=== PATIENT | male | born 1970 | race Caucasian/White ===

== ENCOUNTER 2019-06-12 10:59 | Outpatient (CLI) | payer MEDICARE, SELFPAY ==
[2019-06-12 11:49] LABS: Basophils # 0.1 10^3/uL (0.0-0.1); Basophils % 0.8 %; Eosinophils # 0.1 10^3/uL (0.0-0.8); Eosinophils % 1.5 %; Hematocrit 42.2 % (42.0-52.0); Hemoglobin 13.5 g/dL (11.7-16.6); Lymphocytes # 1.5 10^3/uL (0.8-4.8); Lymphocytes % 25.1 %; Mean Corpuscular Hemoglobin 29.2 pg (28.0-34.0); Mean Corpuscular Volume 91.1 fL (80-94); Mean Platelet Volume 10.8 fL (7.4-10.4); Monocytes # 0.4 10^3/uL (0.2-0.9); Monocytes % 6.9 %; Neutrophils % 65.5 %; Nucleated Red Blood Cells % 0 %; Platelet Count 225 10^3/cmm (130-400); Red Blood Count 4.63 10^6/uL (4.1-5.3); Red Cell Distribution Width 13.5 % (12.1-15.1); White Blood Count 6.1 10^3/uL (4.0-10.0)
[2019-06-12 12:22] LABS: Prostate Specific Antigen 31.81 ng/mL (0-4); Testosterone Total 101.7 ng/dL (249-836)
[2019-06-12 12:33] LABS: Alanine Aminotransferase 33 U/L (0-41); Albumin Level 4.5 g/dL (3.5-5.2); Alkaline Phosphatase 99 IU/L (40-130); Anion Gap 17.3 (5-19); Aspartate Amino Transferase 22 U/L (0-40); Blood Urea Nitrogen 16 mg/dL (6-20); Calcium 9.5 mg/dL (8.5-10.5); Carbon Dioxide 26 mmol/L (22-29); Chloride 103 mmol/L (98-107); Globulin 2.3 g/dL (1.3-4.6); Glomerular Filtration Rate 80.1 mL/min (90-130); Glucose 103 mg/dL (65-115); Potassium 4.3 mmol/L (3.5-5.1); Sodium 142 mmol/L (136-145); Total Bilirubin 0.2 mg/dL (0.15-1.2); Total Protein 6.8 g/dL (6.6-8.7)
--- NOTE | 2019-06-13 15:10 | ONC FU_ITS ---
Dr. Albright Patient Follow-Up Note Patient: Ad Schwartz Unit #: [id number]: 1970 Dicatated By: Mayank Albright M.D.Date of Visit:Jun 12, 2019 Onc Med Follow-up/Prog Note Chief Complaint: Prostate cancer. History of Present Illness: This is a 48 year-old man with stage IV prostate cancer, metastatic to lymph nodes and bone. He had presented with an enlarged left cervical lymph node. His PET/CT on 05/17/2015 showed several enlarged nodes in the left neck with relatively low levels of FDG activity, maximum SUV 1.9-2.4. Also noted was extensive conglomerate retroperitoneal adenopathy beginning below the level of the renal arteries and extending through the level of the bifurcation and along the iliac chains with a maximum SUV up to 6.5. There was additional adenopathy along the pelvic sidewalls somewhat more extensive on the left. The prostate gland measured approximate 5.3 cm in transverse dimension and demonstrated physiologic levels of activity. There was increased activity in the right superior pubic ramus at the level of the pubic symphysis with maximum SUV 5.5. A left cervical lymph node biopsy was apparently consistent with metastatic prostate cancer, but the actual report was not available to me. He indicated that his baseline PSA level was 1163. He was treated initially with androgen deprivation through [facility] in [place]. At some point he opted to undergo treatment with a private oncology group in [place], where he was started on chemotherapy, I assume with docetaxel/prednisone. It was administered weekly. He last received chemotherapy 2 or 3 months ago. He indicates that he stopped treatment because he ran out of money . During this time he continued the androgen deprivation. He has been getting Depo-Lupron injections from [facility] in [place]. His laboratory studies on 02/18/2016 showed his PSA level at 45.9 ng/mL. By his recollection, it was somewhere in the range of 44-46 when last checked in [place]. I had seen him initially on 04/13/2016. A subsequent PSA level on 04/19/2016 was stable at 40.3 ng/mL. In the absence of any evidence of disease progression, he was advised to continue androgen deprivation with Depo-Lupron. During subsequent follow-up, his PSA level had increased slightly, up to 63 ng/mL in June 2016. His testosterone levels at that time were in castrate range. As of 08/07/2016 it was stable at 57 ng/mL. However, a repeat PSA level on 11/09/2016 had increased significantly, to 102.0 ng/mL. A CT scan of the right hip on 11/09/2016 showed stable right superior ramus/pubic body sclerosis compatible with metastatic disease. There was also stable right superior acetabular small sclerotic focus felt to most likely represent a bone island. Small metastasis cannot be excluded. CT abdomen/pelvis on 11/09/2016 showed increased retroperitoneal lymphadenopathy. He had further evaluation with bone scan on 12/04/2016. It showed intense bony uptake involving the right superior pubic ramus, corresponding to the area of blastic metastatic disease on the CT scan. There was an additional suspected focus of metastatic involvement in the left 10th rib anteriorly, though technically it was indeterminate. There were no other foci of metastatic disease noted. On 12/22/2016 he began treatment with abiraterone 1000 mg daily and prednisone 5 mg twice a day in addition to his Depo-Lupron. His PSA level at that point had decreased to 40.80 ng/mL. As of his follow-up visit on 01/22/2017 the PSA had declined to 15.00 ng/mL. He was still having significant pain in his right hip area. We opted to treat him with palliative radiation to the area of involvement in the right pubic ramus. He completed radiation on 02/14/2017 to a total dose of 3900 cGy. During subsequent followup there was further decline in the PSA level to 10.7 ng/mL on 03/22/3017. As of 05/08/2017 it had stabilized at 11.0 ng/mL. However, as of 08/06/2017 it had further declined to 4.4 ng/mL. He continued treatment with abiraterone/prednisone in combination with Depo-Lupron. As of 12/16/2017 the PSA had further declined to 2.51 ng/mL and by 06/11/2018 it was down to 1.6 ng/mL. As of his follow-up visit on 12/26/2018 it had increased slightly, to 2.51 ng/mL. At that point he had opted to stop his treatment, as he had become profoundly discouraged about his loss of sexual function. Repeat bone scan on 01/06/2019 was negative for metastatic disease. There was clearing of metastatic lesion involving the right pubic symphysis and possible traumatic injury to the left 10th rib. Rest[address] abdomen/pelvis on 01/20/2019 showed significant decrease in previously noted retroperitoneal and internal iliac lymphadenopathy and resolved blastic metastatic lesion in the right superior pubic ramus compared to the prior study from November 2016. There were no other lytic or blastic bony destructive lesions identified. The liver showed fatty infiltration, but no evidence of metastatic involvement. He was seen for a follow-up visit on 03/18/2019. His PSA level had increased to 6.90 ng/mL, but at that point he was feeling significantly better. He continued observation/expectant management for the prostate cancer. His medical history is otherwise unremarkable. He has had some chronic anxiety, but no other ongoing medical illnesses. He has had no other surgeries. He is a nonsmoker. INTERIM HISTORY: Subsequent to his last visit I had requested genetic profiling to screen for possible BRCA mutation. 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 He is seen for a follow-up visit. He has been feeling good generally. He still has some fatigue, but his energy is a little better and he is thinking about going back to work, at least part-time. His ECOG score is 1. He has good appetite. He has not had fever or night sweats. He still has some hot flashes. Recently he has had a scratchy throat and slight cough. He has no shortness of breath or chest pain. He has very occasional acid reflux. He has no other GI or complaints. He has pain in his knees and ankles and also some pain in his hips. It is managed adequately with hydrocodone/APAP. His neuropathy symptoms have improved. Medications: Hydrocodone-Acetaminophen 1 Tablet (of 10-325 mg) Oral q 4 hours PRN, Xanax 1 Tablet (of 0.5 mg) Oral t.i.d. PRN Allergies: Band Aid Review of Systems: Constitutional - His energy has been better. He is exercising more and doing more light work. His appetite is good and his weight is down a few pounds. No fever or chills. He has some hot flashes and sweating. ECOG score is 1, ENMT - He has sinus congestion/drainage. No mouth sores. No sore throat or difficulty swallowing, Hematologic/Lymphatic - No abnormal bruising or bleeding, Respiratory - No shortness of breath. He has a slight cough. No pleuritic pain or hemoptysis, Cardiovascular - No angina pain. No palpitations, Gastrointestinal - No nausea or vomiting. He has occasional heartburn. No diarrhea or constipation. No blood in the stool or black stools, Genitourinary (M) - No dysuria or hematuria. No urinary frequency. No urgency or incontinence, Musculoskeletal - He has pain in his knees, hips and ankles, Integumentary - No skin complications, Neurologic - No headache or dizziness. No numbness/paresthesias or other focal neurologic symptoms, Psychiatric - No anxiety or depression. No insomnia. Vital Signs: Performed on Jun 12, 2019 12:41 Height - 71.00 in Weight - 209.4 lbs (LOW) BSA - 2.15 sq.m BMI - 29.21 Temperature - 98.3 F (LOW) Pulse - 63 /min Respiration - 17 /min BP - 152/82 mm(hg) (HIGH) O2 Sat - 99 % Pain - 5 Physical Examination: Constitutional - He looks good generally, Eyes - Sclerae nonicteric. Conjunctivae clear, ENMT - No lesions noted in the oral cavity, Hematologic/Lymphatic - No cervical, clavicular, or axillary adenopathy, Respiratory - Lungs are clear with good air movement bilaterally, Cardiovascular - Heart rhythm is regular. There is no murmur, gallop, or rub noted, Abdomen - Soft. Liver and spleen are not enlarged. There is no abdominal mass or ascites noted and there is no inguinal adenopathy, Extremities - No edema, Neurologic - No focal neurologic deficits noted. Lab/Imaging: Test performed on Jun 12, 2019 11:13 Sodium 142 mmol/L Testosterone, Total 101.7 ng/dL Potassium 4.3 mmol/L Chloride 103 mmol/L CO2 26 mmol/L Anion Gap 17.3 BUN 16 mg/dL Creatinine 1.0 mg/dL Cr Clearance (Est) 122.69 mL/min eGFR 80.1 mL/min Glucose 103 mg/dL Calcium 9.5 mg/dL Protein, Total 6.8 g/dL Albumin 4.5 g/dL Globulin 2.3 g/dL Bilirubin, Total 0.2 mg/dL ALT (SGPT) 33 U/L AST (SGOT) 22 U/L Alkaline Phosphatase 99 IU/L WBC 6.1 10 3/uL RBC 4.63 10 6/uL HGB 13.5 g/dL HCT 42.2 % MCV 91.1 fL MCH 29.2 pg MCHC 32.0 g/dL RDW 13.5 % Platelet Count 225 10 3/cmm MPV 10.8 fL Neutrophils 4.0 10 3/uL Lymphocytes 1.5 10 3/uL Monocytes 0.4 10 3/uL Eosinophils 0.1 10 3/uL Basophils 0.1 10 3/uL Neutrophil % 65.5 % Lymphocyte % 25.1 % Monocyte % 6.9 % Eosinophil % 1.5 % Basophils % 0.8 % PSA 31.81 ng/mL Impression: 1. Patient with stage IV prostate cancer, metastatic to lymph nodes and bone, initially diagnosed in April 2015. 2. He initially began treatment with androgen deprivation with subsequent addition of chemotherapy, which I assume was docetaxel/prednisone. He did show significant response, both clinically and by PSA level. 3. He had stopped chemotherapy some were around January or February 2016. He was subsequently continued androgen deprivation with Depo-Lupron. During subsequent follow-up, there had been just a slight increase in his PSA level, but his clinical status appeared stable, and I had just continued his same treatment. However, as of November 2016 his PSA level had increased significantly. CT abdomen/pelvis on 11/09/2016 showed increased retroperitoneal lymphadenopathy, and clinically it did appear that he was having disease progression. A subsequent bone scan showed intense uptake in the right superior pubic ramus corresponding to an area of blastic metastatic disease which had been noted on CT scan of the right hip. There was additional suspected metastatic involvement in the left 10th rib anteriorly, though technically that site was indeterminate. There were no other areas of metastatic involvement noted. On 12/22/2016 he began treatment with abiraterone 1000 mg daily and prednisone 5 mg twice a day in addition to the Depo-Lupron. At that point, his PSA had declined to 40.80 ng/mL, though without any apparent explanation for that drop. As of 01/22/2017 there was a further decline in the PSA level 15.00 ng/mL. At that point he was still having significant pain in his right hip area, and he was then given palliative radiation to the area of involvement in the right pubic ramus. He completed treatment on 02/14/2017 to 3900 cGy. He did have a good clinical response. During that time, he also developed significant pain in his feet, which he attributed to the abiraterone. He had decreased the dosage to 250 mg twice a day, and he had also stopped the prednisone. During subsequent followup there has been further decline in the PSA level. As of 06/11/2018 it was down to 1.6 ng/mL. As of his follow-up visit on 12/26/2018 the PSA level had increased slightly, 2.51 ng/mL. At that point he had opted to stop his treatment, as he had become profoundly discouraged about his loss of sexual function. His restaging evaluation with bone scan and CT abdomen/pelvis showed no evidence of disease progression. As of March 2019 there was a significant increase in his PSA level, to 6.90 ng/mL. At that point he was feeling better and in the absence of any evidence of symptomatic disease progression, he continued observation/expectant management. 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 He has continued to show gradual symptomatic improvement since stopping androgen deprivation therapy. His PSA level continues to show significant increase, but without obvious symptomatic disease progression. Plan: For now he will continue observation/expectant management. I will plan to see him again in 3 months. He will have restaging evaluation with CT chest/abdomen/pelvis and bone scan prior to that visit. May have noticed Signed By: Mayank Albright M.D. <<Signature on File>>
== END 2019-06-12 11:00 | disposition home or self-care (01) ==
PROVIDERS: Family Provider Nurse Practitioner Family; PCP Nurse Practitioner Family; Visit Provider Internal Medicine Medical Oncology
DX: C61 Malignant neoplasm of prostate (principal); C79.51 Secondary malignant neoplasm of bone; C77.5 Secondary and unspecified malignant neoplasm of intrapelvic lymph nodes; R97.21 Rising PSA following treatment for malignant neoplasm of prostate; K76.0 Fatty (change of) liver, not elsewhere classified; F41.9 Anxiety disorder, unspecified; Z79.891 Long term (current) use of opiate analgesic; Z92.21 Personal history of antineoplastic chemotherapy; Z92.23 Personal history of estrogen therapy; Z92.3 Personal history of irradiation
CPT/HCPCS: 80053; 84153; 84403; 85025; 99214

== ENCOUNTER 2019-06-23 06:18 | Outpatient (CLI) | payer MEDICARE, SELFPAY ==
--- NOTE | 2019-06-23 07:25 | NM_ITS ---
WS: [id number] DC bone scan whole body* [id number] REASON FOR EXAM: PROSTATE CANCER W/BONE METS TECHNICAL: The dose was 27.5 mCi technetium 9 9 exam DLP after the injection of the isotope there is localization noted along the pedicle on the right side of the L2 vertebra. This activity was not seen on previous exam of January 06, 2019. The remaining skeletal system was normal. The left and right hips were normal with no abnormal uptake seen. The extremities and pelvis were normal. FINDINGS: Abnormal activity on the right pedicle area L2. The remaining skeletal system was normal with no pathological activity. NM/NM bone scan whole body* [id number] IMPRESSION: Abnormal activity pedicle L2 on the right.
--- NOTE | 2019-06-23 07:25 | CT_ITS ---
WS: [id number] CT scan of the chest With IV contrast, CT scan of the abdomen and pelvis with IV contrast and oral contrast. Additional two-dimensional coronal and sagittal reconstruction was performed. 06/23/2019 Clinical Data: PROSTATE CANCER Comparison: CT abdomen and pelvis, 01/20/2019 DLP: 1750.[address] scans at [facility] use at least one of these dose optimization techniques: automat ed exposure control; mA and/or kV adjustment per patient size (includes targeted exams where dose is matched to clinical indication); or iterative reconstruction. Findings: Chest: No nodules, masses or effusions are seen. The heart size is normal with no pericardial effusion. Trachea bifurcates normally into the bronchi. The thyroid gland shows normal enhancement. The pulmonary arterial system and thoracic aorta demonstrate no abnormalities or dilatations. There is no axillary or significant mediastinal adenopathy. The bony thorax shows no metastatic disea se. Abdomen/pelvis: The liver, gallbladder, spleen, adrenal glands and pancreas are normal. The kidneys show equal bilateral contrast excretion with no cyst or masses. The abdominal aorta is normal in size. No appendicitis or diverticulitis is seen. The stomach, small bowel and colon are unremarkable. There is barium within the stomach, small bowel and proximal colon. No abscess, adenopathy, ascites, mass, obstruction or free air is seen. The bladder is unremarkable. No inguinal hernia is seen. The bones of the lower thorax, lumbar spine, pelvis, and hips are normal. No metastatic lesions are s een. CT/CT chest abd pel w con* Impression: 1. Negative CT scan of the chest. 2. Negative for acute intra-abdominal or pelvic abnormalities. 3. No evidence of any bony metastatic lesions.
[2019-06-23] MEDS: iohexol 300 mg/mL 50 mL Btl PO (07:39)
[2019-06-23] MEDS: iohexol 300 mg/mL 100 mL Btl IV (08:42)
== END 2019-06-23 06:19 | disposition home or self-care (01) ==
LOC: GILAB 06:24 → RAD 06:30
PROVIDERS: Family Provider Nurse Practitioner Family; PCP Nurse Practitioner Family; Visit Provider Internal Medicine Medical Oncology
DX: C61 Malignant neoplasm of prostate (principal)
CPT/HCPCS: 71260; 74177; 78306; A9561

== ENCOUNTER 2019-09-11 09:57 | Outpatient (CLI) | payer MEDICARE, SELFPAY ==
[2019-09-11 10:25] LABS: Basophils # 0.1 10^3/uL (0.0-0.1); Basophils % 1.3 %; Eosinophils # 0.1 10^3/uL (0.0-0.8); Eosinophils % 1.8 %; Hematocrit 42.2 % (42.0-52.0); Hemoglobin 13.5 g/dL (11.7-16.6); Lymphocytes # 1.5 10^3/uL (0.8-4.8); Lymphocytes % 34.1 %; Mean Corpuscular Hemoglobin 30.5 pg (28.0-34.0); Mean Corpuscular Volume 95.5 fL (80-94); Mean Platelet Volume 11.1 fL (7.4-10.4); Monocytes # 0.5 10^3/uL (0.2-0.9); Monocytes % 10.8 %; Neutrophils # 2.3 10^3/uL (1.8-7.7); Neutrophils % 51.8 %; Nucleated Red Blood Cells % 0 %; Platelet Count 185 10^3/cmm (130-400); Red Blood Count 4.42 10^6/uL (4.1-5.3); Red Cell Distribution Width 13.7 % (12.1-15.1); White Blood Count 4.5 10^3/uL (4.0-10.0)
[2019-09-11 11:02] LABS: Prostate Specific Antigen 67.53 ng/mL (0-4)
[2019-09-11 11:13] LABS: Alanine Aminotransferase 27 U/L (0-41); Albumin Level 4.5 g/dL (3.5-5.2); Alkaline Phosphatase 69 IU/L (40-130); Anion Gap 15.1 (5-19); Aspartate Amino Transferase 22 U/L (0-40); Blood Urea Nitrogen 16 mg/dL (6-20); Calcium 9.1 mg/dL (8.5-10.5); Carbon Dioxide 25 mmol/L (22-29); Chloride 106 mmol/L (98-107); Globulin 1.9 g/dL (1.3-4.6); Glomerular Filtration Rate 90.1 mL/min (90-130); Glucose 106 mg/dL (65-115); Osmolality Calculated 291 mOsm/kg (285-295); Potassium 4.1 mmol/L (3.5-5.1); Sodium 142 mmol/L (136-145); Total Bilirubin 0.2 mg/dL (0.15-1.2); Total Protein 6.4 g/dL (6.6-8.7)
--- NOTE | 2019-09-14 12:19 | ONC FU_ITS ---
Dr. Albright Patient Follow-Up Note Patient: Ad Schwartz Unit #: [id number]: 1970 Dicatated By: Mayank Albright M.D.Date of Visit:Sep 11, 2019 Onc Med Follow-up/Prog Note Chief Complaint: Prostate cancer. History of Present Illness: This is a 49 year-old man with stage IV prostate cancer, metastatic to lymph nodes and bone. He had presented with an enlarged left cervical lymph node. His PET/CT on 05/17/2015 showed several enlarged nodes in the left neck with relatively low levels of FDG activity, maximum SUV 1.9-2.4. Also noted was extensive conglomerate retroperitoneal adenopathy beginning below the level of the renal arteries and extending through the level of the bifurcation and along the iliac chains with a maximum SUV up to 6.5. There was additional adenopathy along the pelvic sidewalls somewhat more extensive on the left. The prostate gland measured approximate 5.3 cm in transverse dimension and demonstrated physiologic levels of activity. There was increased activity in the right superior pubic ramus at the level of the pubic symphysis with maximum SUV 5.5. A left cervical lymph node biopsy was apparently consistent with metastatic prostate cancer, but the actual report was not available to me. He indicated that his baseline PSA level was 1163. He was treated initially with androgen deprivation through [facility] in [place]. At some point he opted to undergo treatment with a private oncology group in [place], where he was started on chemotherapy, I assume with docetaxel/prednisone. It was administered weekly. He last received chemotherapy 2 or 3 months ago. He indicates that he stopped treatment because he ran out of money . During this time he continued the androgen deprivation. He has been getting Depo-Lupron injections from [facility] in [place]. His laboratory studies on 02/18/2016 showed his PSA level at 45.9 ng/mL. By his recollection, it was somewhere in the range of 44-46 when last checked in [place]. I had seen him initially on 04/13/2016. A subsequent PSA level on 04/19/2016 was stable at 40.3 ng/mL. In the absence of any evidence of disease progression, he was advised to continue androgen deprivation with Depo-Lupron. During subsequent follow-up, his PSA level had increased slightly, up to 63 ng/mL in June 2016. His testosterone levels at that time were in castrate range. As of 08/07/2016 it was stable at 57 ng/mL. However, a repeat PSA level on 11/09/2016 had increased significantly, to 102.0 ng/mL. A CT scan of the right hip on 11/09/2016 showed stable right superior ramus/pubic body sclerosis compatible with metastatic disease. There was also stable right superior acetabular small sclerotic focus felt to most likely represent a bone island. Small metastasis cannot be excluded. CT abdomen/pelvis on 11/09/2016 showed increased retroperitoneal lymphadenopathy. He had further evaluation with bone scan on 12/04/2016. It showed intense bony uptake involving the right superior pubic ramus, corresponding to the area of blastic metastatic disease on the CT scan. There was an additional suspected focus of metastatic involvement in the left 10th rib anteriorly, though technically it was indeterminate. There were no other foci of metastatic disease noted. On 12/22/2016 he began treatment with abiraterone 1000 mg daily and prednisone 5 mg twice a day in addition to his Depo-Lupron. His PSA level at that point had decreased to 40.80 ng/mL. As of his follow-up visit on 01/22/2017 the PSA had declined to 15.00 ng/mL. He was still having significant pain in his right hip area. We opted to treat him with palliative radiation to the area of involvement in the right pubic ramus. He completed radiation on 02/14/2017 to a total dose of 3900 cGy. During subsequent followup there was further decline in the PSA level to 10.7 ng/mL on 03/22/3017. As of 05/08/2017 it had stabilized at 11.0 ng/mL. However, as of 08/06/2017 it had further declined to 4.4 ng/mL. He continued treatment with abiraterone/prednisone in combination with Depo-Lupron. As of 12/16/2017 the PSA had further declined to 2.51 ng/mL and by 06/11/2018 it was down to 1.6 ng/mL. As of his follow-up visit on 12/26/2018 it had increased slightly, to 2.51 ng/mL. At that point he had opted to stop his treatment, as he had become profoundly discouraged about his loss of sexual function. Repeat bone scan on 01/06/2019 was negative for metastatic disease. There was clearing of metastatic lesion involving the right pubic symphysis and possible traumatic injury to the left 10th rib. Rest[address] abdomen/pelvis on 01/20/2019 showed significant decrease in previously noted retroperitoneal and internal iliac lymphadenopathy and resolved blastic metastatic lesion in the right superior pubic ramus compared to the prior study from November 2016. There were no other lytic or blastic bony destructive lesions identified. The liver showed fatty infiltration, but no evidence of metastatic involvement. He was seen for a follow-up visit on 03/18/2019. His PSA level had increased to 6.90 ng/mL, but at that point he was feeling significantly better. He continued observation/expectant management for the prostate cancer. His medical history is otherwise unremarkable. He has had some chronic anxiety, but no other ongoing medical illnesses. He has had no other surgeries. He is a nonsmoker. INTERIM HISTORY: Subsequent to his last visit I had requested genetic profiling to screen for possible BRCA mutation. 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 Restaging CT scans of the the chest, abdomen, and pelvis on 06/23/2019 showed no evidence of metastatic disease. Bone scan showed abnormal activity involving the L2 pedicle on the right. It was not present on the prior study from December 2018. There were no other areas of abnormal uptake noted. He is seen for a follow-up visit. He has been feeling okay, though he does not have that much activity. He is doing some light work. His appetite is good. He has not had fever. He still has some hot flashes and sweating. He says he has been having lots of nosebleeds. This past week they have mainly been from the right side, but previously they have involved both. He has no shortness of breath, cough, or chest pain. He has no GI or complaints. He has been a little sore and he has right hip and his left knee. He says he has been getting headaches at least twice a week. He occasionally has lightheadedness. He has no focal neurologic symptoms. Medications: Hydrocodone-Acetaminophen 1 Tablet (of 10-325 mg) Oral q 4 hours PRN, Xanax 1 Tablet (of 0.5 mg) Oral t.i.d. PRN Allergies: Band Aid Review of Systems: Constitutional - His energy has been pretty good. He is doing some light outside work. His appetite is good and weight is up five pounds from last visit. No fever. He has persistant night sweats, this is chronic. No hot flashes. ECOG score is 1, ENMT - No sinus congestion/drainage. No mouth sores. No sore throat or difficulty swallowing. He has been having frequent nosebleeds, this past week from the right nostril. Previously it has involved both, Hematologic/Lymphatic - He bruises easily, Respiratory - No shortness of breath. No cough. No pleuritic pain or hemoptysis, Cardiovascular - No angina pain. No palpitations, Gastrointestinal - No nausea or vomiting. No heartburn or acid reflux. No diarrhea or constipation. No blood in the stool or black stools, Genitourinary (M) - No dysuria or hematuria. No urinary frequency. No urgency or incontinence, Musculoskeletal - He is having bone pain in his left knee and right hip, Integumentary - No skin complications, Neurologic - He is having more frequent headaches. This is occuring 1-2 times weekly. He has occasional dizziness with positional changes. No numbness or tingling. No other focal neurologic symptoms, Psychiatric - He has some anxiety and depression. He does not sleep well. Vital Signs: Performed on Sep 11, 2019 11:38 Height - 71.00 in Weight - 214.2 lbs (HIGH) BSA - 2.17 sq.m BMI - 29.88 Temperature - 97.0 F (LOW) Pulse - 69 /min Respiration - 18 /min BP - 145/89 mm(hg) (HIGH) O2 Sat - 97 % Pain - 3 Physical Examination: Constitutional - He looks good generally, Eyes - Sclerae nonicteric. Conjunctivae clear, ENMT - No lesions noted in the oral cavity, Hematologic/Lymphatic - No cervical, clavicular, or axillary adenopathy, Respiratory - Lungs are clear with good air movement bilaterally, Cardiovascular - Heart rhythm is regular. There is no murmur, gallop, or rub noted, Abdomen - Soft. Liver and spleen are not enlarged. There is no abdominal mass or ascites noted and there is no inguinal adenopathy, Extremities - No edema, Neurologic - No focal neurologic deficits noted. Lab/Imaging: Test performed on Sep 11, 2019 10:05 Sodium 142 mmol/L Potassium 4.1 mmol/L Chloride 106 mmol/L CO2 25 mmol/L Anion Gap 15.1 BUN 16 mg/dL Creatinine 0.9 mg/dL Cr Clearance (Est) 137.94 mL/min eGFR 90.1 mL/min Glucose 106 mg/dL Calcium 9.1 mg/dL Protein, Total 6.4 g/dL Albumin 4.5 g/dL Globulin 1.9 g/dL Bilirubin, Total 0.2 mg/dL ALT (SGPT) 27 U/L AST (SGOT) 22 U/L Alkaline Phosphatase 69 IU/L WBC 4.5 10 3/uL RBC 4.42 10 6/uL HGB 13.5 g/dL HCT 42.2 % MCV 95.5 fL MCH 30.5 pg MCHC 32.0 g/dL RDW 13.7 % Platelet Count 185 10 3/cmm MPV 11.1 fL Neutrophils 2.3 10 3/uL Lymphocytes 1.5 10 3/uL Monocytes 0.5 10 3/uL Eosinophils 0.1 10 3/uL Basophils 0.1 10 3/uL Neutrophil % 51.8 % Lymphocyte % 34.1 % Monocyte % 10.8 % Eosinophil % 1.8 % Basophils % 1.3 % PSA 67.53 ng/mL Impression: 1. Patient with stage IV prostate cancer, metastatic to lymph nodes and bone, initially diagnosed in April 2015. 2. He initially began treatment with androgen deprivation with subsequent addition of chemotherapy, which I assume was docetaxel/prednisone. He did show significant response, both clinically and by PSA level. 3. He had stopped chemotherapy some were around January or February 2016. He was subsequently continued androgen deprivation with Depo-Lupron. During subsequent follow-up, there had been just a slight increase in his PSA level, but his clinical status appeared stable, and I had just continued his same treatment. However, as of November 2016 his PSA level had increased significantly. CT abdomen/pelvis on 11/09/2016 showed increased retroperitoneal lymphadenopathy, and clinically it did appear that he was having disease progression. A subsequent bone scan showed intense uptake in the right superior pubic ramus corresponding to an area of blastic metastatic disease which had been noted on CT scan of the right hip. There was additional suspected metastatic involvement in the left 10th rib anteriorly, though technically that site was indeterminate. There were no other areas of metastatic involvement noted. On 12/22/2016 he began treatment with abiraterone 1000 mg daily and prednisone 5 mg twice a day in addition to the Depo-Lupron. At that point, his PSA had declined to 40.80 ng/mL, though without any apparent explanation for that drop. As of 01/22/2017 there was a further decline in the PSA level 15.00 ng/mL. At that point he was still having significant pain in his right hip area, and he was then given palliative radiation to the area of involvement in the right pubic ramus. He completed treatment on 02/14/2017 to 3900 cGy. He did have a good clinical response. During that time, he also developed significant pain in his feet, which he attributed to the abiraterone. He had decreased the dosage to 250 mg twice a day, and he had also stopped the prednisone. During subsequent followup there has been further decline in the PSA level. As of 06/11/2018 it was down to 1.6 ng/mL. As of his follow-up visit on 12/26/2018 the PSA level had increased slightly, 2.51 ng/mL. At that point he had opted to stop his treatment, as he had become profoundly discouraged about his loss of sexual function. His restaging evaluation with bone scan and CT abdomen/pelvis showed no evidence of disease progression. As of March 2019 there was a significant increase in his PSA level, to 6.90 ng/mL. At that point he was feeling better and in the absence of any evidence of symptomatic disease progression, he continued observation/expectant management. 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 During followup he had gradual symptomatic improvement after stopping androgen deprivation therapy. His PSA level had increased, as expected, though without obvious symptomatic disease progression. His restaging CT scans in June 2019 showed no evidence of metastatic disease and a repeat bone scan at that time showed focal abnormal activity along the pedicle on the right side of the L2 vertebral body. There were no other areas of abnormal uptake noted. At that point he had continued observation/expectant management. Since then there has been further increase in the PSA level, though still without clinically evident/symptomatic metastatic disease. Plan: Given the increase in the PSA, he is going to restart androgen deprivation therapy with Depo-Lupron. He will be given 14 days of bicalutamide. At least for now he prefers not to have any additional antiandrogen therapy. Depending on his response, though, we may want to add enzalutamide at a later time. His PSA will be monitored monthly. I will see him again in 3 months. Signed By: Mayank Albright M.D. <<Signature on File>>
== END 2019-09-11 09:58 | disposition home or self-care (01) ==
LOC: ONCMED 09:59
PROVIDERS: PCP Nurse Practitioner Family; Visit Provider Internal Medicine Medical Oncology
DX: C61 Malignant neoplasm of prostate (principal); C79.51 Secondary malignant neoplasm of bone; C77.8 Secondary and unspecified malignant neoplasm of lymph nodes of multiple regions; F41.9 Anxiety disorder, unspecified; R97.20 Elevated prostate specific antigen [PSA]; Z79.818 Long term (current) use of other agents affecting estrogen receptors and estrogen levels; Z92.21 Personal history of antineoplastic chemotherapy
CPT/HCPCS: 36415; 80053; 84153; 85025; 99214

== ENCOUNTER 2019-11-21 09:12 | Outpatient (CLI) | payer MEDICARE, SELFPAY ==
--- NOTE | 2019-11-21 13:00 | ONC FU_ITS ---
Dr. Albright Patient Follow-Up Note Patient: Ad Schwartz Unit #: [id number]: 1970 Dicatated By: Mayank Albright M.D.Date of Visit:Nov 21, 2019 Onc Med Follow-up/Prog Note Chief Complaint: Prostate cancer. History of Present Illness: This is a 49 year-old man with stage IV prostate cancer, metastatic to lymph nodes and bone. He had presented with an enlarged left cervical lymph node. His PET/CT on 05/17/2015 showed several enlarged nodes in the left neck with relatively low levels of FDG activity, maximum SUV 1.9-2.4. Also noted was extensive conglomerate retroperitoneal adenopathy beginning below the level of the renal arteries and extending through the level of the bifurcation and along the iliac chains with a maximum SUV up to 6.5. There was additional adenopathy along the pelvic sidewalls somewhat more extensive on the left. The prostate gland measured approximate 5.3 cm in transverse dimension and demonstrated physiologic levels of activity. There was increased activity in the right superior pubic ramus at the level of the pubic symphysis with maximum SUV 5.5. A left cervical lymph node biopsy was apparently consistent with metastatic prostate cancer, but the actual report was not available to me. He indicated that his baseline PSA level was 1163. He was treated initially with androgen deprivation through [facility] in [place]. At some point he opted to undergo treatment with a private oncology group in [place], where he was started on chemotherapy, I assume with docetaxel/prednisone. It was administered weekly. He last received chemotherapy 2 or 3 months ago. He indicates that he stopped treatment because he ran out of money . During this time he continued the androgen deprivation. He has been getting Depo-Lupron injections from [facility] in [place]. His laboratory studies on 02/18/2016 showed his PSA level at 45.9 ng/mL. By his recollection, it was somewhere in the range of 44-46 when last checked in [place]. I had seen him initially on 04/13/2016. A subsequent PSA level on 04/19/2016 was stable at 40.3 ng/mL. In the absence of any evidence of disease progression, he was advised to continue androgen deprivation with Depo-Lupron. During subsequent follow-up, his PSA level had increased slightly, up to 63 ng/mL in June 2016. His testosterone levels at that time were in castrate range. As of 08/07/2016 it was stable at 57 ng/mL. However, a repeat PSA level on 11/09/2016 had increased significantly, to 102.0 ng/mL. A CT scan of the right hip on 11/09/2016 showed stable right superior ramus/pubic body sclerosis compatible with metastatic disease. There was also stable right superior acetabular small sclerotic focus felt to most likely represent a bone island. Small metastasis cannot be excluded. CT abdomen/pelvis on 11/09/2016 showed increased retroperitoneal lymphadenopathy. He had further evaluation with bone scan on 12/04/2016. It showed intense bony uptake involving the right superior pubic ramus, corresponding to the area of blastic metastatic disease on the CT scan. There was an additional suspected focus of metastatic involvement in the left 10th rib anteriorly, though technically it was indeterminate. There were no other foci of metastatic disease noted. On 12/22/2016 he began treatment with abiraterone 1000 mg daily and prednisone 5 mg twice a day in addition to his Depo-Lupron. His PSA level at that point had decreased to 40.80 ng/mL. As of his follow-up visit on 01/22/2017 the PSA had declined to 15.00 ng/mL. He was still having significant pain in his right hip area. We opted to treat him with palliative radiation to the area of involvement in the right pubic ramus. He completed radiation on 02/14/2017 to a total dose of 3900 cGy. During subsequent followup there was further decline in the PSA level to 10.7 ng/mL on 03/22/3017. As of 05/08/2017 it had stabilized at 11.0 ng/mL. However, as of 08/06/2017 it had further declined to 4.4 ng/mL. He continued treatment with abiraterone/prednisone in combination with Depo-Lupron. As of 12/16/2017 the PSA had further declined to 2.51 ng/mL and by 06/11/2018 it was down to 1.6 ng/mL. As of his follow-up visit on 12/26/2018 it had increased slightly, to 2.51 ng/mL. At that point he had opted to stop his treatment, as he had become profoundly discouraged about his loss of sexual function. Repeat bone scan on 01/06/2019 was negative for metastatic disease. There was clearing of metastatic lesion involving the right pubic symphysis and possible traumatic injury to the left 10th rib[address] abdomen/pelvis on 01/20/2019 showed significant decrease in previously noted retroperitoneal and internal iliac lymphadenopathy and resolved blastic metastatic lesion in the right superior pubic ramus compared to the prior study from November 2016. There were no other lytic or blastic bony destructive lesions identified. The liver showed fatty infiltration, but no evidence of metastatic involvement. He was seen for a follow-up visit on 03/18/2019. His PSA level had increased to 6.90 ng/mL, but at that point he was feeling significantly better. He continued observation/expectant management for the prostate cancer. His medical history is otherwise unremarkable. He has had some chronic anxiety, but no other ongoing medical illnesses. He has had no other surgeries. He is a nonsmoker. INTERIM HISTORY: Subsequent to his visit in March 2019 I had requested genetic profiling to screen for possible BRCA mutation. 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 Restaging CT scans of the the chest, abdomen, and pelvis on 06/23/2019 showed no evidence of metastatic disease. Bone scan showed abnormal activity involving the L2 pedicle on the right. It was not present on the prior study from December 2018. There were no other areas of abnormal uptake noted. As of his follow-up visit on 09/11/2019 his PSA level had increased to 67.53 ng/mL, and at that point he restarted androgen deprivation therapy with bicalutamide 50 mg daily for 14 days together with Depo-Lupron 22.5 mg. At that time I had also discussed the possibility of continuing antiandrogen therapy with enzalutamide, which he declined. He is seen now for an unplanned visit. He has been having some side effects since restarting androgen deprivation therapy, including hot flashes/sweating and some tingling in his feet, especially when he lies down at night. His breasts have been getting really sore. He also has had mild chest pain off and on. On Sunday of this week he had a more severe episode of chest pain. It had started after breakfast and lasted for several hours. It was an intense pain associated with a lot of pressure and intermittent sharp pain. He had no associated diaphoresis or shortness of breath. His energy generally is not too bad. He is able to do light work. ECOG score is 1. He has good appetite. He has not had fever. He does have some shortness of breath with activity. He does not complain of cough. At times he has had nausea in the morning, and he occasionally has vomiting. Bowel function has been okay. His urination is sometimes slow, bladder function remains adequate. He has had pain in his lower back and hip area. Overall is about the same and it is adequately managed with medication, but sometimes it does get pretty rough. He has been having headache quite a bit, mainly in the back of his head and especially after he drinks of beer. He has tingling in his feet, as previously noted. He has no other focal neurologic symptoms. He has had some skin problems with his feet, mainly cracking and feeling hot. Medications: Hydrocodone-Acetaminophen 1 Tablet (of 10-325 mg) Oral q 4 hours PRN, Xanax 1 Tablet (of 0.5 mg) Oral t.i.d. PRN Allergies: Band Aid Review of Systems: Constitutional - Energy is not too bad. He is able to do light work. Appetite is OK and weight is stable. No fever. He is having hot flashes and sweating, but not bad. ECOG score is 1, ENMT - No sinus congestion/drainage. He gets nosebleeds. No mouth sores. No sore throat or difficulty swallowing, Hematologic/Lymphatic - No abnormal bruising. No other bleeding, Breasts - His breasts have been sore and tender, Respiratory - He has some shortness of breath with activity. No cough. No pleuritic pain or hemoptysis, Cardiovascular - He had a more severe episode of chest pain on Sunday. No palpitations, Gastrointestinal - He sometimes has nausea in the morning, and he occasionally has vomiting. No heartburn or acid reflux. No diarrhea or constipation. No blood in the stool or black stools, Genitourinary (M) - No dysuria or hematuria. No urinary frequency. No urgency or incontinence, Musculoskeletal - He has some pain in his lower back and hip area, Integumentary - No skin rash, Neurologic - He has been getting headaches, particularly after drinking a beer. No dizziness. He has had some numbness in his feet following his DepoLupron injection. No other focal neurologic symptoms, Psychiatric - He has some anxiety, but not depression. He does not sleep well at night. Vital Signs: Performed on Nov 21, 2019 09:21 Height - 71.00 in Weight - 217.6 lbs (HIGH) BSA - 2.19 sq.m BMI - 30.35 (HIGH) Temperature - 97.3 F (LOW) Pulse - 80 /min Respiration - 20 /min BP - 151/79 mm(hg) (HIGH) O2 Sat - 99 % Pain - 4 Physical Examination: Constitutional - He looks pretty good generally, Eyes - Sclerae nonicteric. Conjunctivae clear, ENMT - No lesions noted in the oral cavity, Hematologic/Lymphatic - No cervical, clavicular, or axillary adenopathy, Respiratory - Lungs are clear with good air movement bilaterally, Cardiovascular - Heart rhythm is regular. There is no murmur, gallop, or rub noted, Breasts - There is mild gynecomastia bilaterally, Abdomen - Mildly distended but soft. Liver and spleen are not enlarged. There is no abdominal mass or ascites noted and there is no inguinal adenopathy, Extremities - No edema. Pedal pulses are palpable bilaterally, Integumentary - No rashes. No suspicious skin lesions noted, Neurologic - No focal neurologic deficits noted. Lab/Imaging: An EKG done in the office today shows normal sinus rhythm. There is a Q wave in lead III, but there are no ST/T wave changes. Impression: 1. Patient with stage IV prostate cancer, metastatic to lymph nodes and bone, initially diagnosed in April 2015. 2. He initially began treatment with androgen deprivation with subsequent addition of chemotherapy, which I assume was docetaxel/prednisone. He did show significant response, both clinically and by PSA level. 3. He had stopped chemotherapy some were around January or February 2016. He was subsequently continued androgen deprivation with Depo-Lupron. During subsequent follow-up, there had been just a slight increase in his PSA level, but his clinical status appeared stable, and I had just continued his same treatment. However, as of November 2016 his PSA level had increased significantly. CT abdomen/pelvis on 11/09/2016 showed increased retroperitoneal lymphadenopathy, and clinically it did appear that he was having disease progression. A subsequent bone scan showed intense uptake in the right superior pubic ramus corresponding to an area of blastic metastatic disease which had been noted on CT scan of the right hip. There was additional suspected metastatic involvement in the left 10th rib anteriorly, though technically that site was indeterminate. There were no other areas of metastatic involvement noted. On 12/22/2016 he began treatment with abiraterone 1000 mg daily and prednisone 5 mg twice a day in addition to the Depo-Lupron. At that point, his PSA had declined to 40.80 ng/mL, though without any apparent explanation for that drop. As of 01/22/2017 there was a further decline in the PSA level 15.00 ng/mL. At that point he was still having significant pain in his right hip area, and he was then given palliative radiation to the area of involvement in the right pubic ramus. He completed treatment on 02/14/2017 to 3900 cGy. He did have a good clinical response. During that time, he also developed significant pain in his feet, which he attributed to the abiraterone. He had decreased the dosage to 250 mg twice a day, and he had also stopped the prednisone. During subsequent followup there has been further decline in the PSA level. As of 06/11/2018 it was down to 1.6 ng/mL. As of his follow-up visit on 12/26/2018 the PSA level had increased slightly, 2.51 ng/mL. At that point he had opted to stop his treatment, as he had become profoundly discouraged about his loss of sexual function. His restaging evaluation with bone scan and CT abdomen/pelvis showed no evidence of disease progression. As of March 2019 there was a significant increase in his PSA level, to 6.90 ng/mL. At that point he was feeling better and in the absence of any evidence of symptomatic disease progression, he continued observation/expectant management. 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 During followup he had gradual symptomatic improvement after stopping androgen deprivation therapy. His PSA level had increased, as expected, though without obvious symptomatic disease progression. His restaging CT scans in June 2019 showed no evidence of metastatic disease and a repeat bone scan at that time showed focal abnormal activity along the pedicle on the right side of the L2 vertebral body. There were no other areas of abnormal uptake noted. At that point he had continued observation/expectant management. However, as of 09/11/2019 there was a significant further increase in the PSA level, to 67.53 ng/mL, and at that point he restarted androgen deprivation therapy with bicalutamide 50 mg daily for 14 days together with Depo-Lupron 22.5 mg by intramuscular injection. He is seen today with several complaints. He has been having some of the expected side effects associated with the androgen deprivation therapy, including hot flashes and gynecomastia. However, he also has been having chest pain intermittently, and on Sunday of this week he had a more severe episode of chest pain which is concerning for underlying coronary disease. Plan: He is advised to start aspirin prophylaxis, either 162 mg or 325 mg daily, and he is given a prescription for sublingual nitroglycerin to take as needed. He will be scheduled for a Lexiscan stress test. He will have further evaluation as indicated. In the absence of any evidence of symptomatic coronary disease, he will return for follow-up as previously scheduled. Signed By: Mayank Albright M.D. <<Signature on File>>
== END 2019-11-21 09:13 | disposition home or self-care (01) ==
LOC: ONCMED 09:13
PROVIDERS: PCP Nurse Practitioner Family; Visit Provider Internal Medicine Medical Oncology
DX: C61 Malignant neoplasm of prostate (principal); I25.10 Atherosclerotic heart disease of native coronary artery without angina pectoris; Z92.21 Personal history of antineoplastic chemotherapy; Z79.01 Long term (current) use of anticoagulants; Z79.818 Long term (current) use of other agents affecting estrogen receptors and estrogen levels
CPT/HCPCS: 93005; 99214

== ENCOUNTER 2019-11-28 09:04 | Outpatient (CLI) | payer MEDICARE, SELFPAY ==
--- NOTE | 2019-11-28 09:22 | ECG_ITS ---
[facility] Test Date: 2019-11-28 Pat Name: Ad Schwartz Department: Room: Gender: Male [employer]ic: : 1970 Requested By: Mayank Baxter Order Number: [id number] Kaiser MD: Dedrick Cortés M.D. Interpretive Statements NAME OF STUDY: LEXISCAN SESTAMIBI STRESS TEST INDICATION: [Chest Pain, ] Procedure: At the baseline the blood pressure was 135/93 mmHg, oxygen with a heart rate of 54 BPM. The electrocardiogram showed normal sinus rhythm, normal axis with normal ST and T waves. Lexiscan was infused over the. Of 20 seconds. A total of 0.4 mg of Lexiscan was infused. The stress phase was confirmed for total of 5 minutes. Heart rate at the end of stress phase was 72 Bpm, with a blood pressure of 141/80 mmHg. Sestamibi was injected 20 seconds after the Lexiscan injection. Blood pressure at the end of the recovery phase was 138/80 mmHg, and a heart rate of 72bpm. Conclusions: 1) Normal EKG response to Lexiscan infusion. 2) No Lexiscan induced chest pain or cardiac arrhythmias. 3) Normal blood pressure and heart rate response. 4) sestamibi/sestamibi perfusion scan pending see separate report. Electronically Signed On 12-01-2019 12:31:36 CDT by Dedrick Cortés M.D. [email or web address]
--- NOTE | 2019-11-28 09:23 | NMCV_ITS ---
NM yuri perf SPECT r/s* [id number] Ad Schwartz Age: 49 Gender: M : 1970 Exam Date: 11/28/2019 09:23 Ordering Phys: Mayank Albright MD Technologist: ALISSON Botello Exam Location: [facility] Indications: PROSTATE CANCER, CHEST PAIN STRESS TEST Please see separate stress test report in [facility] for full findings IMAGE PROTOCOL Rest/Stress 1 Lexiscan Day Radiopharmaceutical Dose (mCi) Administration Site Administered by Rest: Tc-99m 10.7 IV ALISSON Sims Sestamibi Stress:Tc-99m 32.4 IV ALISSON Sims Sestamibi Rest: 28-Nov-2019 60 Discovery 630 Stress: 28-Nov-2019 30 Discovery 630 0.4mg Lexiscan. Images obtained in supine and prone position. SPECT RESULTS Technical Quality: Excellent Raw Data Analysis: Normal Image Corrections: No attenuation or motion correction applied Summed Stress Score: 1 Summed Rest Score: 0 Summed Difference Score: 1 PERFUSION FINDINGS A small area of decreased tracer uptake was noted in the apical lateral region and LV apex. No significant reversibility was noted in this region. FUNCTIONAL RESULTS (calculated via Gated SPECT) Stress Image LV EF (%): 61 Stress EDV (mL):102 TID: 1.11 Stress ESV (mL):40 FUNCTIONAL FINDINGS: Segmental wall motion analysis revealing no gross wall motion normalities IMPRESSIONS #1. Myocardial perfusion imaging revealing a small area of persistent decreased tracer uptake in the apical lateral and LV apex with no significant reversibility, suggestive of myocardial scarring versus attenuation artifact. #2. Normal LV ejection fraction of 61%. #3. LV wall motion analysis revealing no gross wall motion normalities. #4. Normal LV volume. No significant coronary ischemia, based on the above findings Dr Chuckie Muñiz MD FACC (Electronically Signed) Final Date: 28 November 2019 14:51 S
[2019-11-28 10:15] VITALS: BMI 30.2
[2019-11-28] MEDS: regadenoson 0.4 Mg/5 ml Syringe IVP (10:59)
[2019-11-28 11:19] VITALS: BP 139/82; PULSE 74
== END 2019-11-28 09:05 | disposition home or self-care (01) ==
LOC: RAD 09:08 → CDL 09:09
PROVIDERS: PCP Nurse Practitioner Family; Visit Provider Internal Medicine Medical Oncology
DX: C61 Malignant neoplasm of prostate (principal); R07.9 Chest pain, unspecified
CPT/HCPCS: 78452; 93017; A9500; J2785

== ENCOUNTER 2019-12-29 07:55 | Outpatient (CLI) | payer MEDICARE, SELFPAY ==
[2019-12-29 08:20] LABS: Eosinophils # 0.1 10^3/uL (0.0-0.8); Hematocrit 39.4 % (42.0-52.0); Hemoglobin 12.7 g/dL (11.7-16.6); Lymphocytes # 1.5 10^3/uL (0.8-4.8); Lymphocytes % 37.2 %; Mean Corpuscular HGB Conc 32.2 g/dL (30.0-36.0); Mean Corpuscular Hemoglobin 29.9 pg (28.0-34.0); Mean Corpuscular Volume 92.7 fL (80-94); Mean Platelet Volume 10.5 fL (7.4-10.4); Monocytes # 0.4 10^3/uL (0.2-0.9); Monocytes % 10.1 %; Neutrophils # 1.98 10^3/uL (1.8-7.7); Neutrophils % 49.7 %; Nucleated Red Blood Cells % 0 %; Platelet Count 196 10^3/cmm (130-400); Red Blood Count 4.25 10^6/uL (4.1-5.3); Red Cell Distribution Width 12.6 % (12.1-15.1)
[2019-12-29 08:54] LABS: Testosterone Total 9.3 ng/dL (249-836)
[2019-12-29 09:09] LABS: Alanine Aminotransferase 27 U/L (0-41); Albumin Level 4.2 g/dL (3.5-5.2); Alkaline Phosphatase 66 IU/L (40-130); Aspartate Amino Transferase 19 U/L (0-40); Blood Urea Nitrogen 17 mg/dL (6-20); Calcium 8.7 mg/dL (8.5-10.5); Carbon Dioxide 26 mmol/L (22-29); Chloride 104 mmol/L (98-107); Globulin 2.3 g/dL (1.3-4.6); Glomerular Filtration Rate 79.8 mL/min (90-130); Glucose 105 mg/dL (65-115); Osmolality Calculated 290 mOsm/kg (285-295); Sodium 139 mmol/L (136-145); Total Bilirubin 0.4 mg/dL (0.15-1.2); Total Protein 6.5 g/dL (6.6-8.7)
--- NOTE | 2019-12-30 07:33 | ONC FU_ITS ---
Dr. Albright Patient Follow-Up Note Patient: Ad Schwartz Unit #: [id number]: 1970 Dicatated By: Mayank Albright M.D.Date of Visit:Dec 29, 2019 Onc Med Follow-up/Prog Note Chief Complaint: Prostate cancer. History of Present Illness: This is a 49 year-old man with stage IV prostate cancer, metastatic to lymph nodes and bone. He had presented with an enlarged left cervical lymph node. His PET/CT on 05/17/2015 showed several enlarged nodes in the left neck with relatively low levels of FDG activity, maximum SUV 1.9-2.4. Also noted was extensive conglomerate retroperitoneal adenopathy beginning below the level of the renal arteries and extending through the level of the bifurcation and along the iliac chains with a maximum SUV up to 6.5. There was additional adenopathy along the pelvic sidewalls somewhat more extensive on the left. The prostate gland measured approximate 5.3 cm in transverse dimension and demonstrated physiologic levels of activity. There was increased activity in the right superior pubic ramus at the level of the pubic symphysis with maximum SUV 5.5. A left cervical lymph node biopsy was apparently consistent with metastatic prostate cancer, but the actual report was not available to me. He indicated that his baseline PSA level was 1163. He was treated initially with androgen deprivation through [facility] in [place]. At some point he opted to undergo treatment with a private oncology group in [place], where he was started on chemotherapy, I assume with docetaxel/prednisone. It was administered weekly. He last received chemotherapy 2 or 3 months ago. He indicates that he stopped treatment because he ran out of money . During this time he continued the androgen deprivation. He has been getting Depo-Lupron injections from [facility] in [place]. His laboratory studies on 02/18/2016 showed his PSA level at 45.9 ng/mL. By his recollection, it was somewhere in the range of 44-46 when last checked in [place]. I had seen him initially on 04/13/2016. A subsequent PSA level on 04/19/2016 was stable at 40.3 ng/mL. In the absence of any evidence of disease progression, he was advised to continue androgen deprivation with Depo-Lupron. During subsequent follow-up, his PSA level had increased slightly, up to 63 ng/mL in June 2016. His testosterone levels at that time were in castrate range. As of 08/07/2016 it was stable at 57 ng/mL. However, a repeat PSA level on 11/09/2016 had increased significantly, to 102.0 ng/mL. A CT scan of the right hip on 11/09/2016 showed stable right superior ramus/pubic body sclerosis compatible with metastatic disease. There was also stable right superior acetabular small sclerotic focus felt to most likely represent a bone island. Small metastasis cannot be excluded. CT abdomen/pelvis on 11/09/2016 showed increased retroperitoneal lymphadenopathy. He had further evaluation with bone scan on 12/04/2016. It showed intense bony uptake involving the right superior pubic ramus, corresponding to the area of blastic metastatic disease on the CT scan. There was an additional suspected focus of metastatic involvement in the left 10th rib anteriorly, though technically it was indeterminate. There were no other foci of metastatic disease noted. On 12/22/2016 he began treatment with abiraterone 1000 mg daily and prednisone 5 mg twice a day in addition to his Depo-Lupron. His PSA level at that point had decreased to 40.80 ng/mL. As of his follow-up visit on 01/22/2017 the PSA had declined to 15.00 ng/mL. He was still having significant pain in his right hip area. We opted to treat him with palliative radiation to the area of involvement in the right pubic ramus. He completed radiation on 02/14/2017 to a total dose of 3900 cGy. During subsequent followup there was further decline in the PSA level to 10.7 ng/mL on 03/22/3017. As of 05/08/2017 it had stabilized at 11.0 ng/mL. However, as of 08/06/2017 it had further declined to 4.4 ng/mL. He continued treatment with abiraterone/prednisone in combination with Depo-Lupron. As of 12/16/2017 the PSA had further declined to 2.51 ng/mL and by 06/11/2018 it was down to 1.6 ng/mL. As of his follow-up visit on 12/26/2018 it had increased slightly, to 2.51 ng/mL. At that point he had opted to stop his treatment, as he had become profoundly discouraged about his loss of sexual function. Repeat bone scan on 01/06/2019 was negative for metastatic disease. There was clearing of metastatic lesion involving the right pubic symphysis and possible traumatic injury to the left 10th rib. Rest[address] abdomen/pelvis on 01/20/2019 showed significant decrease in previously noted retroperitoneal and internal iliac lymphadenopathy and resolved blastic metastatic lesion in the right superior pubic ramus compared to the prior study from November 2016. There were no other lytic or blastic bony destructive lesions identified. The liver showed fatty infiltration, but no evidence of metastatic involvement. He was seen for a follow-up visit on 03/18/2019. His PSA level had increased to 6.90 ng/mL, but at that point he was feeling significantly better. He continued observation/expectant management for the prostate cancer. His medical history is otherwise unremarkable. He has had some chronic anxiety, but no other ongoing medical illnesses. He has had no other surgeries. He is a nonsmoker. INTERIM HISTORY: Subsequent to his visit in March 2019 I had requested genetic profiling to screen for possible BRCA mutation. 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 Restaging CT scans of the the chest, abdomen, and pelvis on 06/23/2019 showed no evidence of metastatic disease. Bone scan showed abnormal activity involving the L2 pedicle on the right. It was not present on the prior study from December 2018. There were no other areas of abnormal uptake noted. As of his follow-up visit on 09/11/2019 his PSA level had increased to 67.53 ng/mL, and at that point he restarted androgen deprivation therapy with bicalutamide 50 mg daily for 14 days together with Depo-Lupron 22.5 mg. At that time I had also discussed the possibility of continuing antiandrogen therapy with enzalutamide, which he declined. He was then seen for an unplanned visit on 11/21/2019. He was complaining of chest pain, description which was somewhat suspicious for angina. He had normal EKG at that time. A Lexiscan sestamibi stress test on 11/28/2019 was normal and the associated myocardial perfusion scan showed a small area of persistent decreased uptake in the apical lateral and LV apex with no significant reversibility, suggestive of myocardial scarring versus attenuation artifact. There was normal LV ejection fraction at 61% and there were no gross wall motion abnormalities noted. Overall there was no evidence for significant coronary ischemia. He is seen now for his scheduled follow-up visit. He says he has been feeling pretty good for the last few weeks. However, in general, he experience a lot more side effects following his Depo-Lupron injection in September. He described as having wreaked havoc on his body. In addition to hot flashes and fatigue, he had a lot of pain in his chest, he had breast swelling and tenderness, and he also had pretty severe tingling in his feet. Most all of that has resolved now. His energy is getting better. His ECOG score is 1. He has good appetite. He has not had fever. He still has some hot flashes and sweating, but not as often. He has no shortness of breath or cough, and he is not recently had chest pain. He has no GI or complaints. He does have pain in his lower back and right hip. He has headache at least once a week. The tingling in his feet is also getting better. He has no other focal neurologic symptoms. He has had depression, but that also is getting better now. Medications: Hydrocodone-Acetaminophen 1 Tablet (of 10-325 mg) Oral q 4 hours PRN, Xanax 1 Tablet (of 0.5 mg) Oral t.i.d. PRN Allergies: Band Aid Review of Systems: Constitutional - His energy has improved over the last few weeks and he is feeling better. His appetite is good and his weight is stable. No fevers. His hot flashes have improved. He has occasional mild sweating episodes. ECOG score is 1, ENMT - No sinus congestion/drainage. No mouth sores. No sore throat or difficulty swallowing, Hematologic/Lymphatic - No abnormal bruising or bleeding, Respiratory - No shortness of breath. No cough. No pleuritic pain or hemoptysis, Cardiovascular - He was having chest pain, but that also is better now. No palpitations, Gastrointestinal - No nausea or vomiting. No heartburn or acid reflux. No diarrhea or constipation. No blood in the stool or black stools, Genitourinary (M) - No dysuria or hematuria. No urinary frequency. No urgency or incontinence, Musculoskeletal - He has pain in his right hip and lower back, Integumentary - No skin complications, Neurologic - He has been having headaches, at least once a week. No dizziness. The tingling in his feet has almost completely resolved. No other focal neurologic symptoms, Psychiatric - His anxiety and depression symptoms have improved. Over the past 2 weeks he has started having difficulty sleeping. Vital Signs: Performed on Dec 29, 2019 09:48 Height - 71.00 in Weight - 217.8 lbs (HIGH) BSA - 2.19 sq.m BMI - 30.38 (HIGH) Temperature - 97.6 F (LOW) Pulse - 56 /min (LOW) Respiration - 20 /min BP - 132/83 mm(hg) O2 Sat - 98 % Pain - 3 Physical Examination: Constitutional - He looks pretty good generally, Eyes - Sclerae nonicteric. Conjunctivae clear, ENMT - No lesions noted in the oral cavity, Hematologic/Lymphatic - No cervical, clavicular, or axillary adenopathy, Respiratory - Lungs are clear with good air movement bilaterally, Cardiovascular - Heart rhythm is regular. There is no murmur, gallop, or rub noted, Abdomen - Soft. Liver and spleen are not enlarged. There is no abdominal mass or ascites noted and there is no inguinal adenopathy, Extremities - No edema, Neurologic - No focal neurologic deficits noted. Lab/Imaging: Test performed on Dec 29, 2019 08:10 Sodium 139 mmol/L Testosterone, Total 9.3 ng/dL Potassium 4.0 mmol/L Chloride 104 mmol/L CO2 26 mmol/L Anion Gap 13.0 BUN 17 mg/dL Creatinine 1.0 mg/dL Cr Clearance (Est) 126.24 mL/min eGFR 79.8 mL/min Glucose 105 mg/dL Osmolality - Calculated 290 mOsm/kg Calcium 8.7 mg/dL Protein, Total 6.5 g/dL Albumin 4.2 g/dL Globulin 2.3 g/dL Bilirubin, Total 0.4 mg/dL ALT (SGPT) 27 U/L AST (SGOT) 19 U/L Alkaline Phosphatase 66 IU/L WBC 4.0 10 3/uL RBC 4.25 10 6/uL HGB 12.7 g/dL HCT 39.4 % MCV 92.7 fL MCH 29.9 pg MCHC 32.2 g/dL RDW 12.6 % Platelet Count 196 10 3/cmm MPV 10.5 fL Neutrophils 1.98 10 3/uL Lymphocytes 1.5 10 3/uL Monocytes 0.4 10 3/uL Eosinophils 0.1 10 3/uL Basophils 0.0 10 3/uL Neutrophil % 49.7 % Lymphocyte % 37.2 % Monocyte % 10.1 % Eosinophil % 2.0 % Basophils % 1.0 % NRBC % 0 % PSA 116.400 ng/mL Impression: 1. Patient with stage IV prostate cancer, metastatic to lymph nodes and bone, initially diagnosed in April 2015. 2. He initially began treatment with androgen deprivation with subsequent addition of chemotherapy, which I assume was docetaxel/prednisone. He did show significant response, both clinically and by PSA level. 3. He had stopped chemotherapy some were around January or February 2016. He was subsequently continued androgen deprivation with Depo-Lupron. During subsequent follow-up, there had been just a slight increase in his PSA level, but his clinical status appeared stable, and I had just continued his same treatment. However, as of November 2016 his PSA level had increased significantly. CT abdomen/pelvis on 11/09/2016 showed increased retroperitoneal lymphadenopathy, and clinically it did appear that he was having disease progression. A subsequent bone scan showed intense uptake in the right superior pubic ramus corresponding to an area of blastic metastatic disease which had been noted on CT scan of the right hip. There was additional suspected metastatic involvement in the left 10th rib anteriorly, though technically that site was indeterminate. There were no other areas of metastatic involvement noted. On 12/22/2016 he began treatment with abiraterone 1000 mg daily and prednisone 5 mg twice a day in addition to the Depo-Lupron. At that point, his PSA had declined to 40.80 ng/mL, though without any apparent explanation for that drop. As of 01/22/2017 there was a further decline in the PSA level 15.00 ng/mL. At that point he was still having significant pain in his right hip area, and he was then given palliative radiation to the area of involvement in the right pubic ramus. He completed treatment on 02/14/2017 to 3900 cGy. He did have a good clinical response. During that time, he also developed significant pain in his feet, which he attributed to the abiraterone. He had decreased the dosage to 250 mg twice a day, and he had also stopped the prednisone. During subsequent followup there has been further decline in the PSA level. As of 06/11/2018 it was down to 1.6 ng/mL. As of his follow-up visit on 12/26/2018 the PSA level had increased slightly, 2.51 ng/mL. At that point he had opted to stop his treatment, as he had become profoundly discouraged about his loss of sexual function. His restaging evaluation with bone scan and CT abdomen/pelvis showed no evidence of disease progression. As of March 2019 there was a significant increase in his PSA level, to 6.90 ng/mL. At that point he was feeling better and in the absence of any evidence of symptomatic disease progression, he continued observation/expectant management. 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 During followup he had gradual symptomatic improvement after stopping androgen deprivation therapy. His PSA level had increased, as expected, though without obvious symptomatic disease progression. His restaging CT scans in June 2019 showed no evidence of metastatic disease and a repeat bone scan at that time showed focal abnormal activity along the pedicle on the right side of the L2 vertebral body. There were no other areas of abnormal uptake noted. At that point he had continued observation/expectant management. However, as of 09/11/2019 there was a significant further increase in the PSA level, to 67.53 ng/mL, and at that point he restarted androgen deprivation therapy with bicalutamide 50 mg daily for 14 days together with Depo-Lupron 22.5 mg by intramuscular injection. He had significant side effects following the Depo-Lupron injection in September, including chest pain, for which he had an unplanned visit last month. He was evaluated with a Lexiscan sestamibi stress test, which showed no evidence of cardiac ischemia. He has been feeling better over the past few weeks. Unfortunately, there has been significant further increase in the PSA level. Plan: We discussed options for further management, one of which would be to transition back to chemotherapy, specifically a trial of therapy with cabazitaxel. With the MELODIE mutation, he would also potentially be eligible for trial of therapy with olaparib, but that he would have to have failed on enzalutamide or ablate. It also would be given in conjunction with androgen deprivation therapy, which would be problematic. One other option is to try antiandrogen therapy alone with bicalutamide at 50 mg 3 times daily. I think the likelihood of significant benefit would be relatively low, but would potentially have less side effect compared to the other options, and he does prefer to try that first. He will be scheduled for a follow-up visit in 1 month. Signed By: Mayank Albright M.D. <<Signature on File>>
== END 2019-12-29 07:56 | disposition home or self-care (01) ==
LOC: ONCMED 07:57
PROVIDERS: PCP Nurse Practitioner Family; Visit Provider Internal Medicine Medical Oncology
DX: C61 Malignant neoplasm of prostate (principal); C79.51 Secondary malignant neoplasm of bone; Z92.21 Personal history of antineoplastic chemotherapy; Z79.818 Long term (current) use of other agents affecting estrogen receptors and estrogen levels
CPT/HCPCS: 36415; 80053; 84153; 84403; 85025; 99214

== ENCOUNTER 2020-02-04 05:57 | Outpatient (CLI) | payer MEDICARE, SELFPAY ==
[2020-02-04 08:35] LABS: Basophils % 0.2 %; Eosinophils # 0.1 10^3/uL (0.0-0.8); Eosinophils % 0.6 %; Hematocrit 40.5 % (42.0-52.0); Lymphocytes # 2.1 10^3/uL (0.8-4.8); Lymphocytes % 22.1 %; Mean Corpuscular HGB Conc 32.1 g/dL (30.0-36.0); Mean Corpuscular Hemoglobin 29.1 pg (28.0-34.0); Mean Corpuscular Volume 90.6 fL (80-94); Mean Platelet Volume 10.3 fL (7.4-10.4); Monocytes # 0.6 10^3/uL (0.2-0.9); Monocytes % 5.7 %; Neutrophils # 6.47 10^3/uL (1.8-7.7); Neutrophils % 67.1 %; Nucleated Red Blood Cells % 0 %; Platelet Count 304 10^3/cmm (130-400); Red Blood Count 4.47 10^6/uL (4.1-5.3); Red Cell Distribution Width 12.3 % (12.1-15.1); White Blood Count 9.6 10^3/uL (4.0-10.0)
[2020-02-04 09:06] LABS: Testosterone Total 2.5 ng/dL (249-836)
[2020-02-04 09:20] LABS: Alanine Aminotransferase 42 U/L (0-41); Albumin Level 3.9 g/dL (3.5-5.2); Alkaline Phosphatase 78 IU/L (40-130); Anion Gap 12.9 (5-19); Aspartate Amino Transferase 16 U/L (0-40); Blood Urea Nitrogen 20 mg/dL (6-20); Calcium 8.3 mg/dL (8.5-10.5); Carbon Dioxide 27 mmol/L (22-29); Chloride 103 mmol/L (98-107); Globulin 2.3 g/dL (1.3-4.6); Glomerular Filtration Rate 71.4 mL/min (90-130); Glucose 114 mg/dL (65-115); Osmolality Calculated 291 mOsm/kg (285-295); Potassium 3.9 mmol/L (3.5-5.1); Sodium 139 mmol/L (136-145); Total Bilirubin 0.3 mg/dL (0.15-1.2); Total Protein 6.2 g/dL (6.6-8.7)
--- NOTE | 2020-02-07 14:43 | ONC FU_ITS ---
Dr. Albright Patient Follow-Up Note Patient: Ad Schwartz Unit #: [id number]: 1970 Dicatated By: Mayank Albright M.D.Date of Visit:Feb 04, 2020 Onc Med Follow-up/Prog Note Chief Complaint: Prostate cancer. History of Present Illness: This is a 49 year-old man with stage IV prostate cancer, metastatic to lymph nodes and bone. He had presented with an enlarged left cervical lymph node. His PET/CT on 05/17/2015 showed several enlarged nodes in the left neck with relatively low levels of FDG activity, maximum SUV 1.9-2.4. Also noted was extensive conglomerate retroperitoneal adenopathy beginning below the level of the renal arteries and extending through the level of the bifurcation and along the iliac chains with a maximum SUV up to 6.5. There was additional adenopathy along the pelvic sidewalls somewhat more extensive on the left. The prostate gland measured approximate 5.3 cm in transverse dimension and demonstrated physiologic levels of activity. There was increased activity in the right superior pubic ramus at the level of the pubic symphysis with maximum SUV 5.5. A left cervical lymph node biopsy was apparently consistent with metastatic prostate cancer, but the actual report was not available to me. He indicated that his baseline PSA level was 1163. He was treated initially with androgen deprivation through [facility] in [place]. At some point he opted to undergo treatment with a private oncology group in [place], where he was started on chemotherapy, I assume with docetaxel/prednisone. It was administered weekly. He last received chemotherapy 2 or 3 months ago. He indicates that he stopped treatment because he ran out of money . During this time he continued the androgen deprivation. He has been getting Depo-Lupron injections from [facility] in [place]. His laboratory studies on 02/18/2016 showed his PSA level at 45.9 ng/mL. By his recollection, it was somewhere in the range of 44-46 when last checked in [place]. I had seen him initially on 04/13/2016. A subsequent PSA level on 04/19/2016 was stable at 40.3 ng/mL. In the absence of any evidence of disease progression, he was advised to continue androgen deprivation with Depo-Lupron. During subsequent follow-up, his PSA level had increased slightly, up to 63 ng/mL in June 2016. His testosterone levels at that time were in castrate range. As of 08/07/2016 it was stable at 57 ng/mL. However, a repeat PSA level on 11/09/2016 had increased significantly, to 102.0 ng/mL. A CT scan of the right hip on 11/09/2016 showed stable right superior ramus/pubic body sclerosis compatible with metastatic disease. There was also stable right superior acetabular small sclerotic focus felt to most likely represent a bone island. Small metastasis cannot be excluded. CT abdomen/pelvis on 11/09/2016 showed increased retroperitoneal lymphadenopathy. He had further evaluation with bone scan on 12/04/2016. It showed intense bony uptake involving the right superior pubic ramus, corresponding to the area of blastic metastatic disease on the CT scan. There was an additional suspected focus of metastatic involvement in the left 10th rib anteriorly, though technically it was indeterminate. There were no other foci of metastatic disease noted. On 12/22/2016 he began treatment with abiraterone 1000 mg daily and prednisone 5 mg twice a day in addition to his Depo-Lupron. His PSA level at that point had decreased to 40.80 ng/mL. As of his follow-up visit on 01/22/2017 the PSA had declined to 15.00 ng/mL. He was still having significant pain in his right hip area. We opted to treat him with palliative radiation to the area of involvement in the right pubic ramus. He completed radiation on 02/14/2017 to a total dose of 3900 cGy. During subsequent followup there was further decline in the PSA level to 10.7 ng/mL on 03/22/3017. As of 05/08/2017 it had stabilized at 11.0 ng/mL. However, as of 08/06/2017 it had further declined to 4.4 ng/mL. He continued treatment with abiraterone/prednisone in combination with Depo-Lupron. As of 12/16/2017 the PSA had further declined to 2.51 ng/mL and by 06/11/2018 it was down to 1.6 ng/mL. As of his follow-up visit on 12/26/2018 it had increased slightly, to 2.51 ng/mL. At that point he had opted to stop his treatment, as he had become profoundly discouraged about his loss of sexual function. Repeat bone scan on 01/06/2019 was negative for metastatic disease. There was clearing of metastatic lesion involving the right pubic symphysis and possible traumatic injury to the left 10th rib. Rest[address] abdomen/pelvis on 01/20/2019 showed significant decrease in previously noted retroperitoneal and internal iliac lymphadenopathy and resolved blastic metastatic lesion in the right superior pubic ramus compared to the prior study from November 2016. There were no other lytic or blastic bony destructive lesions identified. The liver showed fatty infiltration, but no evidence of metastatic involvement. He was seen for a follow-up visit on 03/18/2019. His PSA level had increased to 6.90 ng/mL, but at that point he was feeling significantly better. He continued observation/expectant management for the prostate cancer. His medical history is otherwise unremarkable. He has had some chronic anxiety, but no other ongoing medical illnesses. He has had no other surgeries. He is a nonsmoker. INTERIM HISTORY: Subsequent to his visit in March 2019 I had requested genetic profiling to screen for possible BRCA mutation. 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 Restaging CT scans of the the chest, abdomen, and pelvis on 06/23/2019 showed no evidence of metastatic disease. Bone scan showed abnormal activity involving the L2 pedicle on the right. It was not present on the prior study from December 2018. There were no other areas of abnormal uptake noted. As of his follow-up visit on 09/11/2019 his PSA level had increased to 67.53 ng/mL, and at that point he restarted androgen deprivation therapy with bicalutamide 50 mg daily for 14 days together with Depo-Lupron 22.5 mg. At that time I had also discussed the possibility of continuing antiandrogen therapy with enzalutamide, which he declined. He was then seen for an unplanned visit on 11/21/2019. He was complaining of chest pain, description which was somewhat suspicious for angina. He had normal EKG at that time. A Lexiscan sestamibi stress test on 11/28/2019 was normal and the associated myocardial perfusion scan showed a small area of persistent decreased uptake in the apical lateral and LV apex with no significant reversibility, suggestive of myocardial scarring versus attenuation artifact. There was normal LV ejection fraction at 61% and there were no gross wall motion abnormalities noted. Overall there was no evidence for significant coronary ischemia. At his follow-up visit on 12/29/2019 there was a further increase in the PSA level to 116.400 ng/mL. He appeared stable clinically. I reviewed options for further treatment, and he elected for a trial of anti-androgen therapy with bicalutamide 50 mg 3 times daily. He is seen for a follow-up visit. He has been diagnosed with COVID-19 virus infection approximately 2 weeks ago. He had been symptomatic for a week before he was tested. He did opt to stop the bicalutamide at that time. He is feeling better now, and he has been off quarantine since the . His activity is still limited, though his energy is getting better. His ECOG score is 2. His appetite is coming back. He did have a slight fever, but that has resolved. He does not complain of hot flashes or night sweating. He had shortness of breath and cough, but that has improved. He has a little bit of chest pain at times. He has no GI or complaints. He was having pain all over, but that has been getting better over the last couple of days. He has had headaches and has a little bit of dizziness. He has no focal neurologic symptoms. Medications: Hydrocodone-Acetaminophen 1 Tablet (of 10-325 mg) Oral q 4 hours PRN, Xanax 1 Tablet (of 0.5 mg) Oral t.i.d. PRN Allergies: Band Aid Review of Systems: Constitutional - He was recently diagnosed with COVID-19 virus infection. He has been off quarantine since the . His energy now is getting better, but he still has limited activity. Appetite is starting to come back. He had a slight fever with the infection. He does not have night sweats or hot flashes. ECOG score is 2, ENMT - He always has sinus congestion/drainage. No mouth sores. No sore throat or difficulty swallowing, Hematologic/Lymphatic - No abnormal bruising or bleeding, Respiratory - His breathing is getting better and his cough is getting better. No pleuritic pain or hemoptysis, Cardiovascular - He has had a little bit of chest pain. No palpitations, Gastrointestinal - No nausea or vomiting. No heartburn or acid reflux. No diarrhea or constipation. No blood in the stool or black stools, Genitourinary (M) - No dysuria or hematuria. No urinary frequency. No urgency or incontinence, Musculoskeletal - He had pain all over with the COVID-19 infection, but it has been getting better over the last couple of days, Integumentary - No skin rash, Neurologic - He has been having headaches and has a little bit of dizziness.. No numbness or tingling. No other focal neurologic symptoms, Psychiatric - He has anxiety/depression. He does not sleep well at night. Vital Signs: Performed on Feb 04, 2020 09:06 Height - 71.00 in Weight - 219.0 lbs (HIGH) BSA - 2.19 sq.m BMI - 30.54 (HIGH) Temperature - 97.0 F (LOW) Pulse - 64 /min Respiration - 18 /min BP - 122/79 mm(hg) O2 Sat - 99 % Pain - 3 Physical Examination: Constitutional - He looks pretty good generally, Eyes - Sclerae nonicteric. Conjunctivae clear, ENMT - No lesions noted in the oral cavity, Hematologic/Lymphatic - No cervical, clavicular, or axillary adenopathy, Respiratory - Lungs are clear with good air movement bilaterally, Cardiovascular - Heart rhythm is regular. There is no murmur, gallop, or rub noted, Abdomen - Soft. Liver and spleen are not enlarged. There is no abdominal mass or ascites noted and there is no inguinal adenopathy, Extremities - No edema, Neurologic - No focal neurologic deficits noted. Lab/Imaging: Test performed on Feb 04, 2020 08:09 Sodium 139 mmol/L Testosterone, Total 2.5 ng/dL Potassium 3.9 mmol/L Chloride 103 mmol/L CO2 27 mmol/L Anion Gap 12.9 BUN 20 mg/dL Creatinine 1.1 mg/dL Cr Clearance (Est) 115.3900 mL/min eGFR 71.4 mL/min Glucose 114 mg/dL Osmolality - Calculated 291 mOsm/kg Calcium 8.3 mg/dL Protein, Total 6.2 g/dL Albumin 3.9 g/dL Globulin 2.3 g/dL Bilirubin, Total 0.3 mg/dL ALT (SGPT) 42 U/L AST (SGOT) 16 U/L Alkaline Phosphatase 78 IU/L WBC 9.6 10 3/uL RBC 4.47 10 6/uL HGB 13.0 g/dL HCT 40.5 % MCV 90.6 fL MCH 29.1 pg MCHC 32.1 g/dL RDW 12.3 % Platelet Count 304 10 3/cmm MPV 10.3 fL Neutrophils 6.47 10 3/uL Lymphocytes 2.1 10 3/uL Monocytes 0.6 10 3/uL Eosinophils 0.1 10 3/uL Basophils 0.0 10 3/uL Neutrophil % 67.1 % Lymphocyte % 22.1 % Monocyte % 5.7 % Eosinophil % 0.6 % Basophils % 0.2 % NRBC % 0 % PSA 172.600 ng/mL Impression: 1. Patient with stage IV prostate cancer, metastatic to lymph nodes and bone, initially diagnosed in April 2015. 2. He initially began treatment with androgen deprivation with subsequent addition of chemotherapy, which I assume was docetaxel/prednisone. He did show significant response, both clinically and by PSA level. 3. He had stopped chemotherapy some were around January or February 2016. He was subsequently continued androgen deprivation with Depo-Lupron. During subsequent follow-up, there had been just a slight increase in his PSA level, but his clinical status appeared stable, and I had just continued his same treatment. However, as of November 2016 his PSA level had increased significantly. CT abdomen/pelvis on 11/09/2016 showed increased retroperitoneal lymphadenopathy, and clinically it did appear that he was having disease progression. A subsequent bone scan showed intense uptake in the right superior pubic ramus corresponding to an area of blastic metastatic disease which had been noted on CT scan of the right hip. There was additional suspected metastatic involvement in the left 10th rib anteriorly, though technically that site was indeterminate. There were no other areas of metastatic involvement noted. On 12/22/2016 he began treatment with abiraterone 1000 mg daily and prednisone 5 mg twice a day in addition to the Depo-Lupron. At that point, his PSA had declined to 40.80 ng/mL, though without any apparent explanation for that drop. As of 01/22/2017 there was a further decline in the PSA level 15.00 ng/mL. At that point he was still having significant pain in his right hip area, and he was then given palliative radiation to the area of involvement in the right pubic ramus. He completed treatment on 02/14/2017 to 3900 cGy. He did have a good clinical response. During that time, he also developed significant pain in his feet, which he attributed to the abiraterone. He had decreased the dosage to 250 mg twice a day, and he had also stopped the prednisone. During subsequent followup there has been further decline in the PSA level. As of 06/11/2018 it was down to 1.6 ng/mL. As of his follow-up visit on 12/26/2018 the PSA level had increased slightly, 2.51 ng/mL. At that point he had opted to stop his treatment, as he had become profoundly discouraged about his loss of sexual function. His restaging evaluation with bone scan and CT abdomen/pelvis showed no evidence of disease progression. As of March 2019 there was a significant increase in his PSA level, to 6.90 ng/mL. At that point he was feeling better and in the absence of any evidence of symptomatic disease progression, he continued observation/expectant management. 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 During followup he had gradual symptomatic improvement after stopping androgen deprivation therapy. His PSA level had increased, as expected, though without obvious symptomatic disease progression. His restaging CT scans in June 2019 showed no evidence of metastatic disease and a repeat bone scan at that time showed focal abnormal activity along the pedicle on the right side of the L2 vertebral body. There were no other areas of abnormal uptake noted. At that point he had continued observation/expectant management. However, as of 09/11/2019 there was a significant further increase in the PSA level, to 67.53 ng/mL, and at that point he restarted androgen deprivation therapy with bicalutamide 50 mg daily for 14 days together with Depo-Lupron 22.5 mg by intramuscular injection. He had significant side effects following the Depo-Lupron injection in September, including chest pain, for which he had an unplanned visit last month. He was evaluated with a Lexiscan sestamibi stress test, which showed no evidence of cardiac ischemia. As of his follow-up visit in December 2019 there was further increase in the PSA level to 116 ng/mL. At that point he agreed to a trial of anti-androgen therapy with bicalutamide 50 mg 3 times daily. He stopped it as of 2 weeks ago when he was diagnosed with COVID-19 virus infection. He has now pretty well recovered from that illness. He appears to have had no response to the bicalutamide, as there has been a significant further increase in the PSA level. Plan: I reviewed options for further management, one of which would be a trial of further anti-androgen therapy with enzalutamide. The likelihood of benefit with that would be low, in my opinion. With his MELODIE mutation, he also would be eligible for treatment with a PARP inhibitor. As previously noted, that treatment would ordinarily be administered in combination with androgen deprivation therapy. The other option is to proceed with second line chemotherapy with cabazitaxel. As he is not overtly symptomatic, there appears to be no urgency with this. He wants to talk it over with his children before he makes a decision. I will just plan to see him again early in March. Signed By: Mayank Albright M.D. <<Signature on File>>
== END 2020-02-04 05:58 | disposition home or self-care (01) ==
LOC: ONCMED 05:58
PROVIDERS: PCP Nurse Practitioner Family; Visit Provider Internal Medicine Medical Oncology
DX: C61 Malignant neoplasm of prostate (principal); C79.51 Secondary malignant neoplasm of bone; C77.0 Secondary and unspecified malignant neoplasm of lymph nodes of head, face and neck; R97.21 Rising PSA following treatment for malignant neoplasm of prostate; F41.9 Anxiety disorder, unspecified; Z86.19 Personal history of other infectious and parasitic diseases; Z79.818 Long term (current) use of other agents affecting estrogen receptors and estrogen levels
CPT/HCPCS: 36415; 80053; 84153; 84403; 85025; 99214

== ENCOUNTER 2020-03-10 10:55 | Outpatient (CLI) | payer MEDICARE, SELFPAY ==
[2020-03-10 11:57] LABS: Testosterone Total 11.3 ng/dL (249-836)
[2020-03-10 12:08] LABS: Basophils # 0.1 10^3/uL (0.0-0.1); Basophils % 1.4 %; Eosinophils # 0.1 10^3/uL (0.0-0.8); Eosinophils % 1.4 %; Hematocrit 40.2 % (42.0-52.0); Hemoglobin 13.2 g/dL (11.7-16.6); Lymphocytes # 1.5 10^3/uL (0.8-4.8); Lymphocytes % 30.1 %; Mean Corpuscular HGB Conc 32.8 g/dL (30.0-36.0); Mean Corpuscular Hemoglobin 29.4 pg (28.0-34.0); Mean Corpuscular Volume 89.5 fL (80-94); Mean Platelet Volume 10.9 fL (7.4-10.4); Monocytes # 0.4 10^3/uL (0.2-0.9); Monocytes % 8.4 %; Neutrophils # 2.92 10^3/uL (1.8-7.7); Neutrophils % 58.5 %; Nucleated Red Blood Cells % 0 %; Platelet Count 255 10^3/cmm (130-400); Red Blood Count 4.49 10^6/uL (4.1-5.3); Red Cell Distribution Width 12.7 % (12.1-15.1)
[2020-03-10 12:11] LABS: Alanine Aminotransferase 29 U/L (0-41); Albumin Level 4.3 g/dL (3.5-5.2); Alkaline Phosphatase 96 IU/L (40-130); Anion Gap 12.4 (5-19); Aspartate Amino Transferase 18 U/L (0-40); Blood Urea Nitrogen 18 mg/dL (6-20); Carbon Dioxide 28 mmol/L (22-29); Chloride 107 mmol/L (98-107); Glomerular Filtration Rate 71.4 mL/min (90-130); Glucose 105 mg/dL (65-115); Osmolality Calculated 298 mOsm/kg (285-295); Potassium 4.4 mmol/L (3.5-5.1); Sodium 143 mmol/L (136-145); Total Bilirubin 0.2 mg/dL (0.15-1.2); Total Protein 6.3 g/dL (6.6-8.7)
--- NOTE | 2020-03-14 14:12 | ONC FU_ITS ---
Dr. Albright Patient Follow-Up Note Patient: Ad Schwartz Unit #: [id number]: 1970 Dicatated By: Mayank Albright M.D.Date of Visit:Mar 10, 2020 Onc Med Follow-up/Prog Note Chief Complaint: Prostate cancer. History of Present Illness: This is a 49 year-old man with stage IV prostate cancer, metastatic to lymph nodes and bone. He had presented with an enlarged left cervical lymph node. His PET/CT on 05/17/2015 showed several enlarged nodes in the left neck with relatively low levels of FDG activity, maximum SUV 1.9-2.4. Also noted was extensive conglomerate retroperitoneal adenopathy beginning below the level of the renal arteries and extending through the level of the bifurcation and along the iliac chains with a maximum SUV up to 6.5. There was additional adenopathy along the pelvic sidewalls somewhat more extensive on the left. The prostate gland measured approximate 5.3 cm in transverse dimension and demonstrated physiologic levels of activity. There was increased activity in the right superior pubic ramus at the level of the pubic symphysis with maximum SUV 5.5. A left cervical lymph node biopsy was apparently consistent with metastatic prostate cancer, but the actual report was not available to me. He indicated that his baseline PSA level was 1163. He was treated initially with androgen deprivation through [facility] in [place]. At some point he opted to undergo treatment with a private oncology group in [place], where he was started on chemotherapy, I assume with docetaxel/prednisone. It was administered weekly. He last received chemotherapy 2 or 3 months ago. He indicates that he stopped treatment because he ran out of money . During this time he continued the androgen deprivation. He has been getting Depo-Lupron injections from [facility] in [place]. His laboratory studies on 02/18/2016 showed his PSA level at 45.9 ng/mL. By his recollection, it was somewhere in the range of 44-46 when last checked in [place]. I had seen him initially on 04/13/2016. A subsequent PSA level on 04/19/2016 was stable at 40.3 ng/mL. In the absence of any evidence of disease progression, he was advised to continue androgen deprivation with Depo-Lupron. During subsequent follow-up, his PSA level had increased slightly, up to 63 ng/mL in June 2016. His testosterone levels at that time were in castrate range. As of 08/07/2016 it was stable at 57 ng/mL. However, a repeat PSA level on 11/09/2016 had increased significantly, to 102.0 ng/mL. A CT scan of the right hip on 11/09/2016 showed stable right superior ramus/pubic body sclerosis compatible with metastatic disease. There was also stable right superior acetabular small sclerotic focus felt to most likely represent a bone island. Small metastasis cannot be excluded. CT abdomen/pelvis on 11/09/2016 showed increased retroperitoneal lymphadenopathy. He had further evaluation with bone scan on 12/04/2016. It showed intense bony uptake involving the right superior pubic ramus, corresponding to the area of blastic metastatic disease on the CT scan. There was an additional suspected focus of metastatic involvement in the left 10th rib anteriorly, though technically it was indeterminate. There were no other foci of metastatic disease noted. On 12/22/2016 he began treatment with abiraterone 1000 mg daily and prednisone 5 mg twice a day in addition to his Depo-Lupron. His PSA level at that point had decreased to 40.80 ng/mL. As of his follow-up visit on 01/22/2017 the PSA had declined to 15.00 ng/mL. He was still having significant pain in his right hip area. We opted to treat him with palliative radiation to the area of involvement in the right pubic ramus. He completed radiation on 02/14/2017 to a total dose of 3900 cGy. During subsequent followup there was further decline in the PSA level to 10.7 ng/mL on 03/22/3017. As of 05/08/2017 it had stabilized at 11.0 ng/mL. However, as of 08/06/2017 it had further declined to 4.4 ng/mL. He continued treatment with abiraterone/prednisone in combination with Depo-Lupron. As of 12/16/2017 the PSA had further declined to 2.51 ng/mL and by 06/11/2018 it was down to 1.6 ng/mL. As of his follow-up visit on 12/26/2018 it had increased slightly, to 2.51 ng/mL. At that point he had opted to stop his treatment, as he had become profoundly discouraged about his loss of sexual function. Repeat bone scan on 01/06/2019 was negative for metastatic disease. There was clearing of metastatic lesion involving the right pubic symphysis and possible traumatic injury to the left 10th rib. Rest[address] abdomen/pelvis on 01/20/2019 showed significant decrease in previously noted retroperitoneal and internal iliac lymphadenopathy and resolved blastic metastatic lesion in the right superior pubic ramus compared to the prior study from November 2016. There were no other lytic or blastic bony destructive lesions identified. The liver showed fatty infiltration, but no evidence of metastatic involvement. He was seen for a follow-up visit on 03/18/2019. His PSA level had increased to 6.90 ng/mL, but at that point he was feeling significantly better. He continued observation/expectant management for the prostate cancer. His medical history is otherwise unremarkable. He has had some chronic anxiety, but no other ongoing medical illnesses. He has had no other surgeries. He is a nonsmoker. INTERIM HISTORY: Subsequent to his visit in March 2019 I had requested genetic profiling to screen for possible BRCA mutation. 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 Restaging CT scans of the the chest, abdomen, and pelvis on 06/23/2019 showed no evidence of metastatic disease. Bone scan showed abnormal activity involving the L2 pedicle on the right. It was not present on the prior study from December 2018. There were no other areas of abnormal uptake noted. As of his follow-up visit on 09/11/2019 his PSA level had increased to 67.53 ng/mL, and at that point he restarted androgen deprivation therapy with bicalutamide 50 mg daily for 14 days together with Depo-Lupron 22.5 mg. At that time I had also discussed the possibility of continuing antiandrogen therapy with enzalutamide, which he declined. He was then seen for an unplanned visit on 11/21/2019. He was complaining of chest pain, description which was somewhat suspicious for angina. He had normal EKG at that time. A Lexiscan sestamibi stress test on 11/28/2019 was normal and the associated myocardial perfusion scan showed a small area of persistent decreased uptake in the apical lateral and LV apex with no significant reversibility, suggestive of myocardial scarring versus attenuation artifact. There was normal LV ejection fraction at 61% and there were no gross wall motion abnormalities noted. Overall there was no evidence for significant coronary ischemia. At his follow-up visit on 12/29/2019 there was a further increase in the PSA level to 116.400 ng/mL. He appeared stable clinically. I reviewed options for further treatment, and he elected for a trial of anti-androgen therapy with bicalutamide 50 mg 3 times daily. At his follow-up visit on 02/04/2020 there was further increase in the PSA to 172.600 ng/mL. I reviewed options for further treatment and at that time he wanted to discuss it further with his family. He is seen for a follow-up visit. He has been feeling pretty good generally. His last Depo-Lupron injection was 4 months ago, so he is not having hot flashes and his energy is pretty good. He is able to do light work. Appetite also is good. He has not had fever. He does complain that both breasts are calcine furnace tender. Recently he has been having pain in the groin area on both sides. It tends to be worse after activity and at times the pain is pretty severe. He also has had swelling in the right leg, and he says it feels like there is fever in it. He has headache about every other day. He has no numbness/paresthesia or other focal neurologic symptoms. Medications: Hydrocodone-Acetaminophen 1 Tablet (of 10-325 mg) Oral q 2 hours PRN, Xanax 1 Tablet (of 0.5 mg) Oral t.i.d. PRN Allergies: Band Aid Review of Systems: Constitutional - His energy lately has been pretty good. He is doing some light work. Appetite is good and weight is stable. No fever, night sweats, or hot flashes. ECOG score is 1, ENMT - He has some sinus congestion/drainage. No mouth sores. No sore throat or difficulty swallowing, Hematologic/Lymphatic - No abnormal bruising or bleeding, Respiratory - No shortness of breath. No cough. No pleuritic pain or hemoptysis, Cardiovascular - No angina pain. No palpitations, Gastrointestinal - No nausea or vomiting. No heartburn or acid reflux. No diarrhea or constipation. No blood in the stool or black stools, Genitourinary (M) - No dysuria or hematuria. No urinary frequency. No urgency or incontinence, Musculoskeletal - Recently has been having pain in the groin area on both sides. It is worse after activity at times it has been pretty severe pain. He also complains that his right leg tends to swell and it feels like there is fever in it, Integumentary - No skin rash, Neurologic - He has headache about every other day. No dizziness. No numbness or tingling. No other focal neurologic symptoms, Psychiatric - He has some anxiety. He has difficulty staying asleep. Vital Signs: Performed on Mar 10, 2020 12:36 Height - 71.00 in Weight - 223.0 lbs (HIGH) BSA - 2.21 sq.m BMI - 31.10 (HIGH) Temperature - 98.5 F Pulse - 90 /min Respiration - 20 /min BP - 140/80 mm(hg) O2 Sat - 97 % Pain - 7 Physical Examination: Constitutional - He looks pretty good generally, Eyes - Sclerae nonicteric. Conjunctivae clear, ENMT - No lesions noted in the oral cavity, Hematologic/Lymphatic - No cervical, clavicular, or axillary adenopathy, Respiratory - Lungs are clear with good air movement bilaterally, Cardiovascular - Heart rhythm is regular. There is no murmur, gallop, or rub noted, Breasts - There is mild gynecomastia bilaterally, Abdomen - Soft. Liver and spleen are not enlarged. There is no abdominal mass or ascites noted. I do not feel any inguinal adenopathy, Extremities - There is currently no edema, Neurologic - No focal neurologic deficits noted. Lab/Imaging: Test performed on Mar 10, 2020 11:12 Sodium 143 mmol/L Testosterone, Total 11.3 ng/dL Potassium 4.4 mmol/L Chloride 107 mmol/L CO2 28 mmol/L Anion Gap 12.4 BUN 18 mg/dL Creatinine 1.1 mg/dL Cr Clearance (Est) 117.50 mL/min eGFR 71.4 mL/min Glucose 105 mg/dL Osmolality - Calculated 298 mOsm/kg Calcium 9.0 mg/dL Protein, Total 6.3 g/dL Albumin 4.3 g/dL Globulin 2.0 g/dL Bilirubin, Total 0.2 mg/dL ALT (SGPT) 29 U/L AST (SGOT) 18 U/L Alkaline Phosphatase 96 IU/L WBC 5.0 10 3/uL RBC 4.49 10 6/uL HGB 13.2 g/dL HCT 40.2 % MCV 89.5 fL MCH 29.4 pg MCHC 32.8 g/dL RDW 12.7 % Platelet Count 255 10 3/cmm MPV 10.9 fL Neutrophils 2.92 10 3/uL Lymphocytes 1.5 10 3/uL Monocytes 0.4 10 3/uL Eosinophils 0.1 10 3/uL Basophils 0.1 10 3/uL Neutrophil % 58.5 % Lymphocyte % 30.1 % Monocyte % 8.4 % Eosinophil % 1.4 % Basophils % 1.4 % NRBC % 0 % PSA 180.500 ng/mL Impression: 1. Patient with stage IV prostate cancer, metastatic to lymph nodes and bone, initially diagnosed in April 2015. 2. He initially began treatment with androgen deprivation with subsequent addition of chemotherapy, which I assume was docetaxel/prednisone. He did show significant response, both clinically and by PSA level. 3. He had stopped chemotherapy some were around January or February 2016. He was subsequently continued androgen deprivation with Depo-Lupron. During subsequent follow-up, there had been just a slight increase in his PSA level, but his clinical status appeared stable, and I had just continued his same treatment. However, as of November 2016 his PSA level had increased significantly. CT abdomen/pelvis on 11/09/2016 showed increased retroperitoneal lymphadenopathy, and clinically it did appear that he was having disease progression. A subsequent bone scan showed intense uptake in the right superior pubic ramus corresponding to an area of blastic metastatic disease which had been noted on CT scan of the right hip. There was additional suspected metastatic involvement in the left 10th rib anteriorly, though technically that site was indeterminate. There were no other areas of metastatic involvement noted. On 12/22/2016 he began treatment with abiraterone 1000 mg daily and prednisone 5 mg twice a day in addition to the Depo-Lupron. At that point, his PSA had declined to 40.80 ng/mL, though without any apparent explanation for that drop. As of 01/22/2017 there was a further decline in the PSA level 15.00 ng/mL. At that point he was still having significant pain in his right hip area, and he was then given palliative radiation to the area of involvement in the right pubic ramus. He completed treatment on 02/14/2017 to 3900 cGy. He did have a good clinical response. During that time, he also developed significant pain in his feet, which he attributed to the abiraterone. He had decreased the dosage to 250 mg twice a day, and he had also stopped the prednisone. During subsequent followup there has been further decline in the PSA level. As of 06/11/2018 it was down to 1.6 ng/mL. As of his follow-up visit on 12/26/2018 the PSA level had increased slightly, 2.51 ng/mL. At that point he had opted to stop his treatment, as he had become profoundly discouraged about his loss of sexual function. His restaging evaluation with bone scan and CT abdomen/pelvis showed no evidence of disease progression. As of March 2019 there was a significant increase in his PSA level, to 6.90 ng/mL. At that point he was feeling better and in the absence of any evidence of symptomatic disease progression, he continued observation/expectant management. 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 During followup he had gradual symptomatic improvement after stopping androgen deprivation therapy. His PSA level had increased, as expected, though without obvious symptomatic disease progression. His restaging CT scans in June 2019 showed no evidence of metastatic disease and a repeat bone scan at that time showed focal abnormal activity along the pedicle on the right side of the L2 vertebral body. There were no other areas of abnormal uptake noted. At that point he had continued observation/expectant management. However, as of 09/11/2019 there was a significant further increase in the PSA level, to 67.53 ng/mL, and at that point he restarted androgen deprivation therapy with bicalutamide 50 mg daily for 14 days together with Depo-Lupron 22.5 mg by intramuscular injection. He had significant side effects following the Depo-Lupron injection in September, including chest pain, for which he had an unplanned visit last month. He was evaluated with a Lexiscan sestamibi stress test, which showed no evidence of cardiac ischemia. As of his follow-up visit in December 2019 there was further increase in the PSA level to 116 ng/mL. At that point he agreed to a trial of anti-androgen therapy with bicalutamide 50 mg 3 times daily. He stopped it in mid January when he was diagnosed with COVID-19 virus infection. He had uneventful recovery from that illness. At his follow-up visit on 02/04/2020 there was a significant further increase in the PSA level, but the level today is just slightly higher at 180.500 compared to 172.600. Plan: He indicates now that he would prefer to go on to second line chemotherapy for his next treatment. As such, I will have continue to monitor his PSA monthly and we will assess on a [id number] basis where there are 2 continue with observation/symptomatic management or begin second line chemotherapy with cabazitaxel. In the meantime, I will change his pain medication to immediate release oxycodone, as he is not getting adequate relief now with hydrocodone/APAP. Signed By: Mayank Albright M.D. <<Signature on File>>
== END 2020-03-10 10:56 | disposition home or self-care (01) ==
LOC: ONCMED 10:57
PROVIDERS: PCP Nurse Practitioner Family; Visit Provider Internal Medicine Medical Oncology
DX: C61 Malignant neoplasm of prostate (principal); C77.0 Secondary and unspecified malignant neoplasm of lymph nodes of head, face and neck; C79.51 Secondary malignant neoplasm of bone; R51.9 Headache, unspecified; R10.2 Pelvic and perineal pain; M79.89 Other specified soft tissue disorders; Z86.19 Personal history of other infectious and parasitic diseases; Z79.891 Long term (current) use of opiate analgesic
CPT/HCPCS: 36415; 80053; 84153; 84403; 85025; 99214

== ENCOUNTER 2020-04-27 08:02 | Outpatient (CLI) | payer MEDICARE, SELFPAY ==
--- NOTE | 2020-04-27 08:08 | CT_ITS ---
WS: [id number] CT CHEST, ABDOMEN AND PELVIS WITH CONTRAST HISTORY: PROSTATE CANCER TECHNIQUE: Contiguous 5 mm axial imaging performed through the chest, abdomen and pelvis with IV cont rast, oral contrast has been provided. Coronal and sagittal reformats chest. Coronal and sagittal ref ormats through the abdomen and pelvis. All CT scans at [facility] use at least one of the se dose optimization techniques: automated exposure control; mA and/or kV adjustment per patient size (includes targeted exams where dose is matched to clinical indication); or iterative reconstruction. CONTRAST: Omnipaque 300; 95 mL IV. DLP: 2021.11 mGy.cm COMPARISON: 06/23/[address]: There is new mild interstitial thickening and very mild tree-in-bud airspace disease noted bilaterally. Mild groundglass attenuation in the posterior upper lobes bilaterally. These findings ar e new since the prior study. There is no pulmonary mass or nodule. No discrete pneumonia. Small benig n mediastinal and hilar lymph nodes. Lymph nodes measure up to 7 mm. Heart size is normal. No pericar dial or pleural effusion. No thyroid nodules. Moderate gynecomastia. Gynecomastia is increased since 06/23/2019. Small hiatal hernia. Abdomen CT: Liver is normal size but there is diffuse marked low attenuation from hepatic steatosis. No bile duct dilatation. No mass identified. Portal vein is normal. Normal gallbladder and spleen. Pa ncreas and adrenal glands are negative. No renal obstruction. There is been a significant increase in the lymphadenopathy within the abdomen and pelvis since the p rior study. New lymph nodes measuring up to 1.2 cm at the celiac axis and superior mesenteric artery. Additional increased in size and number of the periaortic lymph nodes beginning at the level of the renal arteries. Anterior to the aorta is a 1.7 cm shaggy lymph node. Lymph nodes extend to involve th e RIGHT psoas muscle. There are additional smaller lymph nodes. Some these lymph nodes are hyper vasc ular. Cluster of hyperemic lymph nodes adjacent to the distal aorta on the RIGHT measures 2.5 x 2.1 c m. Lymph nodes extend posterior to the aorta and along the iliac chains. Additional cluster of hyper vascular lymph nodes along the LEFT iliac chain measures 2.1 x 2.6 cm. There are numerous retroperito alexis lymph nodes that are small and shaggy. There is also a mesenteric deposit in the LEFT abdomen me asuring 1.0 cm. No enlarging inguinal nodes. There is also infiltration of the mesentery which may be tumor infiltration or edema. Sigmoid diverticulosis. Pelvic CT: Presacral soft tissue thickening. No pelvic lymph nodes. Presacral thickening is new. May be posttreatment related. Suspicious for metastatic lesion within the RIGHT lateral L2 vertebral body with destruction of the c ortex. Additional lytic lesion RIGHT S1 segment. CT/CT chest abd pel w con* IMPRESSION: 1. Mild diffuse interstitial thickening throughout the lungs. May be related t o pneumonitis or an acute infectious process. No pulmonary mass or nodule. 2. Significant progression since the prior examination of mesenteric and retro peritoneal lymphadenopathy. Shaggy hypervascular retroperitoneal lymph nodes ar e now identified extending also into the pelvis. 3. New presacral soft tissue thickening. 4. Highly suspicious for metastatic lesions within the RIGHT lateral L2 verteb ral body with destruction of the cortex. RIGHT S1 segment lesion suspicious for metastasis also. Please note metastatic lesions were noted also on the bone sc an obtained on the same day at these locations. 5. Gynecomastia. 6. Hepatic steatosis.
--- NOTE | 2020-04-27 08:09 | NM_ITS ---
WS: [id number] NUCLEAR MEDICINE WHOLE BODY BONE SCAN HISTORY: RESTAGING PROSTATE CANCER COMPARISON: 06/23/2019 TECHNIQUE: The patient was injected with 24.9 mCi of Technetium 99m HDP and serial whole-body scintig wilfrido have been performed with anterior and posterior images. Intense focal uptake in the RIGHT L2 vertebral body and also the RIGHT S1 segment. Very minimal incre ased uptake noted in the LEFT L4 vertebral body. Bilateral AC joint arthritis. Bilateral arthritic ch anges at the knees and ankles. No rib lesions. NM/NM bone scan whole body* [id number] IMPRESSION: 1. Findings suspicious for progressing metastatic disease involving the RIGHT lateral L2 vertebral body and RIGHT lateral S1 vertebral body. 2. No additional metastatic sites.
[2020-04-27] MEDS: iohexol 300 mg/mL 50 mL Btl PO (09:00)
[2020-04-27] MEDS: iohexol 300 mg/mL 100 mL Btl IV (09:32)
== END 2020-04-27 08:03 | disposition home or self-care (01) ==
PROVIDERS: PCP Nurse Practitioner Family; Visit Provider Internal Medicine Medical Oncology
DX: C61 Malignant neoplasm of prostate (principal); K76.0 Fatty (change of) liver, not elsewhere classified; N62 Hypertrophy of breast
CPT/HCPCS: 71260; 74177; 78306; A9561

== ENCOUNTER 2020-05-04 09:54 | Outpatient (CLI) | payer MEDICARE, SELFPAY ==
[2020-05-04 10:31] LABS: Basophils # 0.1 10^3/uL (0.0-0.1); Basophils % 1.1 %; Eosinophils # 0.1 10^3/uL (0.0-0.8); Eosinophils % 1.8 %; Hematocrit 44.2 % (42.0-52.0); Hemoglobin 14.1 g/dL (11.7-16.6); Lymphocytes # 1.4 10^3/uL (0.8-4.8); Mean Corpuscular HGB Conc 31.9 g/dL (30.0-36.0); Mean Corpuscular Hemoglobin 28.3 pg (28.0-34.0); Mean Corpuscular Volume 88.6 fL (80-94); Mean Platelet Volume 10.2 fL (7.4-10.4); Monocytes # 0.4 10^3/uL (0.2-0.9); Monocytes % 8.6 %; Neutrophils # 2.61 10^3/uL (1.8-7.7); Neutrophils % 57.3 %; Nucleated Red Blood Cells % 0 %; Platelet Count 240 10^3/cmm (130-400); Red Blood Count 4.99 10^6/uL (4.1-5.3); Red Cell Distribution Width 12.7 % (12.1-15.1); White Blood Count 4.6 10^3/uL (4.0-10.0)
[2020-05-04 11:03] LABS: Alanine Aminotransferase 20 U/L (0-41); Albumin Level 4.2 g/dL (3.5-5.2); Alkaline Phosphatase 90 IU/L (40-130); Anion Gap 11.2 (5-19); Aspartate Amino Transferase 16 U/L (0-40); Blood Urea Nitrogen 15 mg/dL (6-20); Calcium 9.3 mg/dL (8.5-10.5); Carbon Dioxide 26 mmol/L (22-29); Chloride 107 mmol/L (98-107); Globulin 2.7 g/dL (1.3-4.6); Glomerular Filtration Rate 90.1 mL/min (90-130); Glucose 88 mg/dL (65-115); Osmolality Calculated 290 mOsm/kg (285-295); Potassium 4.2 mmol/L (3.5-5.1); Sodium 140 mmol/L (136-145); Total Bilirubin 0.2 mg/dL (0.15-1.2); Total Protein 6.9 g/dL (6.6-8.7)
[2020-05-04] MEDS: sodium chloride 0.9% 250 ML 999 ML IV (12:15)
[2020-05-04] MEDS: famotidine 20 mg/2 mL INJ IVP (12:17)
[2020-05-04] MEDS: diphenhydrAMINE 50 mg/mL SDV 1mL 25 MG IVP (12:18)
[2020-05-04] MEDS: palonosetron 0.25 mg/5 mL SDV IVP (12:19)
[2020-05-04] MEDS: denosumab 120 mg SDV SUBCUT (13:45)
--- NOTE | 2020-05-04 22:21 | ONC FU_ITS ---
[facility] Patient Note Patient: Ad Schwartz Unit #: [id number]: 1970 Dictated By: Ruthie ChristopherDate of Visit: May 04, 2020 Onc MED Follow-Up/Prog Note Chief Complaint: Prostate cancer. History of Present Illness: Mr Schwartz is a 49 year-old man with stage IV prostate cancer, metastatic to lymph nodes and bone. He had presented with an enlarged left cervical lymph node. His PET/CT on 05/17/2015 showed several enlarged nodes in the left neck with relatively low levels of FDG activity, maximum SUV 1.9-2.4. Also noted was extensive conglomerate retroperitoneal adenopathy beginning below the level of the renal arteries and extending through the level of the bifurcation and along the iliac chains with a maximum SUV up to 6.5. There was additional adenopathy along the pelvic sidewalls somewhat more extensive on the left. The prostate gland measured approximate 5.3 cm in transverse dimension and demonstrated physiologic levels of activity. There was increased activity in the right superior pubic ramus at the level of the pubic symphysis with maximum SUV 5.5. A left cervical lymph node biopsy was apparently consistent with metastatic prostate cancer, but the actual report was not available to me. He indicated that his baseline PSA level was 1163. He was treated initially with androgen deprivation through [facility] in [place]. At some point he opted to undergo treatment with a private oncology group in [place], where he was started on chemotherapy, assumed with docetaxel/prednisone. It was administered weekly. He last received chemotherapy 2 or 3 months prior to his initial visit with Dr Albright. He indicates that he stopped treatment because he ran out of money . During this time he continued the androgen deprivation. He has been getting Depo-Lupron injections from [facility] in [place]. His laboratory studies on 02/18/2016 showed his PSA level at 45.9 ng/mL. By his recollection, it was somewhere in the range of 44-46 when last checked in [place]. Dr Albright had seen him initially on 04/13/2016. A subsequent PSA level on 04/19/2016 was stable at 40.3 ng/mL. In the absence of any evidence of disease progression, he was advised to continue androgen deprivation with Depo-Lupron. During subsequent follow-up, his PSA level had increased slightly, up to 63 ng/mL in June 2016. His testosterone levels at that time were in castrate range. As of 08/07/2016 it was stable at 57 ng/mL. However, a repeat PSA level on 11/09/2016 had increased significantly, to 102.0 ng/mL. A CT scan of the right hip on 11/09/2016 showed stable right superior ramus/pubic body sclerosis compatible with metastatic disease. There was also stable right superior acetabular small sclerotic focus felt to most likely represent a bone island. Small metastasis cannot be excluded. CT abdomen/pelvis on 11/09/2016 showed increased retroperitoneal lymphadenopathy. He had further evaluation with bone scan on 12/04/2016. It showed intense bony uptake involving the right superior pubic ramus, corresponding to the area of blastic metastatic disease on the CT scan. There was an additional suspected focus of metastatic involvement in the left 10th rib anteriorly, though technically it was indeterminate. There were no other foci of metastatic disease noted. On 12/22/2016 he began treatment with abiraterone 1000 mg daily and prednisone 5 mg twice a day in addition to his Depo-Lupron. His PSA level at that point had decreased to 40.80 ng/mL. As of his follow-up visit on 01/22/2017 the PSA had declined to 15.00 ng/mL. He was still having significant pain in his right hip area. We opted to treat him with palliative radiation to the area of involvement in the right pubic ramus. He completed radiation on 02/14/2017 to a total dose of 3900 cGy. During subsequent followup there was further decline in the PSA level to 10.7 ng/mL on 03/22/3017. As of 05/08/2017 it had stabilized at 11.0 ng/mL. However, as of 08/06/2017 it had further declined to 4.4 ng/mL. He continued treatment with abiraterone/prednisone in combination with Depo-Lupron. As of 12/16/2017 the PSA had further declined to 2.51 ng/mL and by 06/11/2018 it was down to 1.6 ng/mL. As of his follow-up visit on 12/26/2018 it had increased slightly, to 2.51 ng/mL. At that point he had opted to stop his treatment, as he had become profoundly discouraged about his loss of sexual function. Repeat bone scan on 01/06/2019 was negative for metastatic disease. There was clearing of metastatic lesion involving the right pubic symphysis and possible traumatic injury to the left 10th rib. Restaging CT abdomen/pelvis on 01/20/2019 showed significant decrease in previously noted retroperitoneal and internal iliac lymphadenopathy and resolved blastic metastatic lesion in the right superior pubic ramus compared to the prior study from November 2016. There were no other lytic or blastic bony destructive lesions identified. The liver showed fatty infiltration, but no evidence of metastatic involvement. He was seen for a follow-up visit on 03/18/2019. His PSA level had increased to 6.90 ng/mL, but at that point he was feeling significantly better. He continued observation/expectant management for the prostate cancer. His medical history is otherwise unremarkable. He has had some chronic anxiety, but no other ongoing medical illnesses. He has had no other surgeries. He is a nonsmoker. INTERIM HISTORY: Subsequent to his visit in March 2019, Dr Albright had requested genetic profiling to screen for possible BRCA mutation. 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 Restaging CT scans of the the chest, abdomen, and pelvis on 06/23/2019 showed no evidence of metastatic disease. Bone scan showed abnormal activity involving the L2 pedicle on the right. It was not present on the prior study from December 2018. There were no other areas of abnormal uptake noted. As of his follow-up visit on 09/11/2019 his PSA level had increased to 67.53 ng/mL, and at that point he restarted androgen deprivation therapy with bicalutamide 50 mg daily for 14 days together with Depo-Lupron 22.[address] that time [address] Albright had also discussed the possibility of continuing antiandrogen therapy with enzalutamide, which he declined. He was then seen for an unplanned visit on 11/21/2019. He was complaining of chest pain, description which was somewhat suspicious for angina. He had normal EKG at that time. A Lexiscan sestamibi stress test on 11/28/2019 was normal and the associated myocardial perfusion scan showed a small area of persistent decreased uptake in the apical lateral and LV apex with no significant reversibility, suggestive of myocardial scarring versus attenuation artifact. There was normal LV ejection fraction at 61% and there were no gross wall motion abnormalities noted. Overall there was no evidence for significant coronary ischemia. At his follow-up visit on 12/29/2019 there was a further increase in the PSA level to 116.400 ng/mL. He appeared stable clinically. Dr Albright reviewed options for further treatment, and he elected for a trial of anti-androgen therapy with bicalutamide 50 mg 3 times daily. At his follow-up visit on 02/04/2020 there was further increase in the PSA to 172.600 ng/mL. Dr Albright reviewed options for further treatment and at that time he wanted to discuss it further with his family. He was seen for a follow-up visit in March 2020. He had been feeling pretty good generally. His last Depo-Lupron injection was 4 months prior to the March 2020 visit. After his 03/10/2020 visit, he developed severed abdominal pain and was encouraged to undergo restaging imaging. He had restaging CT of the chest abdomen pelvis with contrast on April 27, 2020. It did report a significant increase in lymphadenopathy within the abdomen and pelvis since the prior study on 06/23/2019. There were new lymph nodes measuring up to 1.2 cm at the celiac axis and superior mesenteric artery. Additional increased size and number of periaortic lymph nodes beginning at the level of the renal arteries. Anterior to the aorta is a 1.7 shaggy lymph node. Lymph nodes extend involve the right psoas muscle. There are additional smaller lymph nodes. Some of these nodes were hypervascular. Cluster of hyperemic lymph nodes adjacent to the distal aorta on the right measures 2.5 x 2.1 cm. Lymph nodes extend posterior to the aorta and along the iliac chains. Additional cluster of hypovascular lymph nodes along the left iliac chain measuring 2.1 x 2.6 cm. There are numerous retroperitoneal lymph nodes that are small and shaggy. There is also mesenteric deposit in the left abdominal wall measuring 1.0 cm. There are no enlarging inguinal nodes. There is infiltration of the mesentery which may be tumor infiltrate or edema. Also noted that he had sigmoid diverticulosis. There was a right lateral L2 vertebral body abnormality suspicious for metastatic lesion. There was noted to be destruction of the cortex. The right S1 segment also had a lesion suspicious for metastasis. These lesions were also noted on bone scan which obtained on April 27, 2020 as well. Mr. Schwartz has been advised to pursue treatment with Jevtana (cabazitaxel)/ prednisone and Xgeva will be added for the bone metastasis. He is here today to begin his first cycle. He states about a week ago he had severe lower abdominal/groin/bilateral testicular pain. He states it lasted for several hours until he finally took an oxycodone. He states he did not take the oxycodone initially because he was worried it may have been causing problems as he has just started it a few days prior to the pain episode. He states he did not feel like he was constipated at that time. He did get pain relief with the oxycodone and has not had the pain recur. He denies any fever or chills. She denies any known Covid exposure or pending test. She denies any shortness of breath orthopnea. He states he is having right hip pain but thinks is more from his back. He states he has a chronic back injury but it seems to be flaring recently. We did discuss the L2 finding on his scans. He states the pain is different than when he had the bone mets in his hip. He states that his mood has been off. He states he is not motivated to do anything and really wants to get out of bed. He states if someone ask him to go and do something he is got ago but does not take initiative to do much on my own . He states has been having anxiety attacks. He states he had to leave [facility] early because he felt like he was having anxiety attack. He is able to step out into the hallway at [facility] and was able to listen to the cerumen from there and tolerated this well. He states that the Sunday prior to going to [facility] he did take Xanax and that seemed to help. He states he had one episode where he felt like he was going to have a anxiety/panic attack but was able to talk himself into relaxing and was able to stay in [facility] at that time. Other than the back pain. He states he is really not having any other pain. But he states when it does bother him its pretty intense at times. He states that he feels his right leg is tingling at times and that kind of comes and goes.. He denies any nausea or vomiting. He continues to have intermittent headaches but states this is not new for him. He denies any vision changes. His ECOG is 1. Past Medical History: Anxiety Prostate cancer Past Surgical History: Left cervical lymph node biopsy in 2016 Allergies: Band Aid Medications: oxyCODONE HCl 1 Tablet (of 15 mg) Oral four times a day PRN Xanax 1 Tablet (of 0.5 mg) Oral t.i.d. PRN Family History: Mr. Schwartz's mother at age 86: leukemia. Mr. Schwartz's father at age 85: blood disorder. Mr. Schwartz has 1 sister who is : lung cancer. Father at age 85 of a blood disorder . His mother 5 months ago at age 86. She was recently diagnosed with leukemia. He doesn't know what type. One sister of lung cancer. Nine other siblings are in good health. 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 Mr. Schwartz has never smoked. He drinks occasionally. He consumes 2 drinks/day. He has indicated exposure to the following products: chewing tobacco. Mr. Schwartz reports the following support systems: lives with spouse, significant other, family, or friends, lives in own house, supportive family/friends willing to assist with needs, and adequate transportation available for expected visits. His diet consists of regular meals. He indicates his activity level as: daily activities. Use to chew tobacco for about 10 to 12 years. Review Of Symptoms: Constitutional Denies fevers, chills, night sweats, excessive fatigue or weight loss. Sleeping alot. Eyes Denies significant visual changes. No diplopia. No amaurosis. ENMT Denies changes in hearing, sore throat, mouth sores, difficulty or changes in swallowing ability, and/or sinus drainage. Hematologic/Lymphatic Denies easy bruising or bleeding. The patient denies any tender or palpable lymph nodes. Respiratory Denies dyspnea on exertion, chest pain, cough or hemoptysis. Denies orthopnea. Cardiovascular Denies anginal chest pain, palpitations or orthopnea. Gastrointestinal Denies nausea, vomiting, diarrhea, GI bleeding, or constipation. Denies change in bowel habits and/or stool color, no heartburn or early satiety. Genitourinary (M) Denies hematuria, dysuria, increased frequency, urgency, hesitancy or incontinence. Musculoskeletal Denies joint pain, swelling or redness. No decreased range of motion. Integumentary Denies chronic rashes, inflammation, ulcerations or skin changes. Neurologic Denies blurred vision, and no areas of focal weakness or numbness. Normal gait. No sensory problems. Has had intermittent headaches-not new and chronic. Unchanged. Psychiatric No motivation, don't want to get out of bed and do anything . Denies intent to harm self or others. Vital Signs: Performed on May 04, 2020 10:59 Height - 71.00 in Weight - 220.6 lbs (LOW) BSA - 2.20 sq.m BMI - 30.77 (HIGH) Temperature - 98.3 F (LOW) Pulse - 63 /min Respiration - 18 /min BP - 116/71 mm(hg) O2 Sat - 93 % (LOW) Pain - 0,1 - No physically strenuous activity, but ambulatory and able to carry out light or sedentary work (e.g. office work, light house work). (ECOG) Physical Examination: Constitutional Alert, oriented, no acute distress. Skin pink, warm and dry. Head Normocephalic; atraumatic. Eyes Conjunctivae and sclerae are clear and without icterus. Pupils are reactive and equal. Neck Supple without masses or thyromegaly. No jugular venous distension. Hematologic/Lymphatic No petechiae or purpura. No tender or palpable lymph nodes in the cervical, supraclavicular, or axillary area. Respiratory Lungs are clear to auscultation without rhonchi or wheezing. Cardiovascular Regular rate and rhythm of heart without murmurs,clicks, gallops or rubs. Musculoskeletal No tenderness or swelling, normal range of motion without obvious weakness. Integumentary No rashes or lesions. Neurologic No sensory or motor deficits, normal cerebellar function, normal gait. Psychiatric Alert and oriented times three. Coherent speech. Verbalizes understanding of our discussions today. Laboratory:Test performed on May 04, 2020 10:15 Sodium 140 mmol/L Potassium 4.2 mmol/L Chloride 107 mmol/L CO2 26 mmol/L Anion Gap 11.2 BUN 15 mg/dL Creatinine 0.9 mg/dL Cr Clearance (Est) 143.6100 mL/min eGFR 90.1 mL/min Glucose 88 mg/dL Osmolality - Calculated 290 mOsm/kg Calcium 9.3 mg/dL Protein, Total 6.9 g/dL Albumin 4.2 g/dL Globulin 2.7 g/dL Bilirubin, Total 0.2 mg/dL ALT (SGPT) 20 U/L AST (SGOT) 16 U/L Alkaline Phosphatase 90 IU/L WBC 4.6 10 3/uL RBC 4.99 10 6/uL HGB 14.1 g/dL HCT 44.2 % MCV 88.6 fL MCH 28.3 pg MCHC 31.9 g/dL RDW 12.7 % Platelet Count 240 10 3/cmm MPV 10.2 fL Neutrophils 2.61 10 3/uL Lymphocytes 1.4 10 3/uL Monocytes 0.4 10 3/uL Eosinophils 0.1 10 3/uL Basophils 0.1 10 3/uL Neutrophil % 57.3 % Lymphocyte % 31.0 % Monocyte % 8.6 % Eosinophil % 1.8 % Basophils % 1.1 % NRBC % 0 % PSA 268.100 ng/mL Test performed on Mar 10, 2020 11:12 Testosterone, Total 11.3 ng/dL Impression: 1. Patient with stage IV prostate cancer, metastatic to lymph nodes and bone, initially diagnosed in April 2015. 2. He initially began treatment with androgen deprivation with subsequent addition of chemotherapy, which I assume was docetaxel/prednisone. He did show significant response, both clinically and by PSA level. 3. He had stopped chemotherapy some were around January or February 2016. He was subsequently continued androgen deprivation with Depo-Lupron. During subsequent follow-up, there had been just a slight increase in his PSA level, but his clinical status appeared stable, and Dr Albright continued his same treatment. However, as of November 2016 his PSA level had increased significantly. CT abdomen/pelvis on 11/09/2016 showed increased retroperitoneal lymphadenopathy, and clinically it did appear that he was having disease progression. A subsequent bone scan showed intense uptake in the right superior pubic ramus corresponding to an area of blastic metastatic disease which had been noted on CT scan of the right hip. There was additional suspected metastatic involvement in the left 10th rib anteriorly, though technically that site was indeterminate. There were no other areas of metastatic involvement noted. On 12/22/2016 he began treatment with abiraterone 1000 mg daily and prednisone 5 mg twice a day in addition to the Depo-Lupron. At that point, his PSA had declined to 40.80 ng/mL, though without any apparent explanation for that drop. As of 01/22/2017 there was a further decline in the PSA level 15.00 ng/mL. At that point he was still having significant pain in his right hip area, and he was then given palliative radiation to the area of involvement in the right pubic ramus. He completed treatment on 02/14/2017 to 3900 cGy. He did have a good clinical response. During that time, he also developed significant pain in his feet, which he attributed to the abiraterone. He had decreased the dosage to 250 mg twice a day, and he had also stopped the prednisone. During subsequent followup there has been further decline in the PSA level. As of 06/11/2018 it was down to 1.6 ng/mL. As of his follow-up visit on 12/26/2018 the PSA level had increased slightly, 2.51 ng/mL. At that point he had opted to stop his treatment, as he had become profoundly discouraged about his loss of sexual function. His restaging evaluation with bone scan and CT abdomen/pelvis showed no evidence of disease progression. As of March 2019 there was a significant increase in his PSA level, to 6.90 ng/mL. At that point he was feeling better and in the absence of any evidence of symptomatic disease progression, he continued observation/expectant management. 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 During followup he had gradual symptomatic improvement after stopping androgen deprivation therapy. His PSA level had increased, as expected, though without obvious symptomatic disease progression. His restaging CT scans in June 2019 showed no evidence of metastatic disease and a repeat bone scan at that time showed focal abnormal activity along the pedicle on the right side of the L2 vertebral body. There were no other areas of abnormal uptake noted. At that point he had continued observation/expectant management. However, as of 09/11/2019 there was a significant further increase in the PSA level, to 67.53 ng/mL, and at that point he restarted androgen deprivation therapy with bicalutamide 50 mg daily for 14 days together with Depo-Lupron 22.5 mg by intramuscular injection. He had significant side effects following the Depo-Lupron injection in September, including chest pain, for which he had an unplanned visit last month. He was evaluated with a Lexiscan sestamibi stress test, which showed no evidence of cardiac ischemia. As of his follow-up visit in December 2019 there was further increase in the PSA level to 116 ng/mL. At that point he agreed to a trial of anti-androgen therapy with bicalutamide 50 mg 3 times daily. He stopped it in mid January when he was diagnosed with COVID-19 virus infection. He had uneventful recovery from that illness. At his follow-up visit on 02/04/2020 there was a significant further increase in the PSA level, but the level today is just slightly higher at 180.500 compared to 172.600. At his March [address] Albright discussed with Mr Schwartz the plan for second line chemotherapy. Initially, Dr Albright recommended monitoring his PSA monthly and assessing on a [id number] basis and continue with observation/symptomatic management or begin second line chemotherapy with cabazitaxel if the PSA continued to elevate or symptoms presented. Mr Schwartz presented post the March 10, 2020 visit with concerns of increased pelvic pain. He did have restaging CT of the chest/abdomen/pelvis and bone scan on 04/27/2020. the CT confirmed disease progression-see above for details. Mr Schwartz was advised to pursue second line chemotherapy with cabazitaxel/Prednisone and Xgeva. Plan: PROBLEMS ADDRESSED TODAY 1. Metastatic prostate cancer???metastatic to lymph nodes and bone-L2 on 04/27/2020 bone scan and hx of right hip metastatic disease treated with RT in 2017. A. Proceed with cycle 1 cabazitaxel (Jetvana 25 mg/m2) and Prednisone 10 mg daily. This is a 21 day cycle. B. Premedicate with Benadryl, Pepcid, Aloxi and dexamethasone. C. He will start prednisone 10 mg orally tomorrow. D. Labs from today were reviewed in detail discussed with Mr. Schwartz and a copy was given to him. WBC 4.6, hemoglobin 14.1, platelets 240,000 ANC is 2610. Potassium 4.2 creatinine 0.9 calcium 9.3 LFTs are normal. PSA 268.10 up from April 14, 2020 at which time was reported @ 219.3. E. Proceed with Xgeva 120 mg monthly for known bone metastasis. We will plan to start that today. Since his chemo is every 3 weeks, it is anticipated that he will received Xgeva every 6 weeks instead of every 3 weeks. F. We will monitor weekly interim counts to monitor for chemotherapy-induced neutropenia. His starting ANC is 2610. He does have extensive disease as well. He may need growth factor support. G. He may have his interim counts drawn closer to home to avoid a long drive to our clinic. He does not have a port a cath at present but would be a candidate for one if he has problems with the peripheral access. 2. Anxiety/depression???situational A. He denies any intent to harm himself or others. He does not have any kind of plan. He states that he is just not motivated to get out of bed or do anything which is new for him. B. We will have him try Zyprexa 5 mg 1 or 2 tableets at bedtime. This may help with any chemo induced nausea should that develop. Also will help him sleep at night. We did discuss that this could possibly take 1 to 2 weeks before he did see effect/improvement of his mood. C. He does have Xanax 0.5 mg to use in the interim as needed. He will let us know if this is not effective. D. He is encouraged to let us know if he does not feel this is helping. We can offer refer him to [facility] [place] as well if needed. At this time he was not interested. We did discuss that his uncontrolled pain may be contributing to these feelings of depression if he is not adequately controlled. He states he just did not take the pain medicine before because he was concerned it may be constipating him or making the pain worse however he states I learned my lesson and when I took it the pain went away . 3. Pain in right hip and lower back A. Mr. Schwartz states that his pain is controlled with the oxycodone when he does take it. He does have 15 mg. We did discuss that if he gets in a pain crisis as reported above that he could take 2-15 mg oxycodone tablets. He would need to let us know if he required frequent use of the increased dose so that we could write his prescriptions or make other pain medication adjustments. We discussed side effects of the pain medication to include but not limited to: constipation, nausea, mood swings, rash, sedation/fatigue, taste changes B. I will ask Dr Fenton in radiation oncology to look at his CT scan and bone scan as well as his radiation history to see if possible to radiate the L2 lesion. 4. Followup plan A. Weekly CBC, CMP-he may do these closer to home-see physician orders. B. We will plan to see him back here in 3 weeks for follow-up and consideration of cycle 2 Jevtana and prednisone. C. Mr. Schwartz was instructed to contact us in interim should questions or problems arise. D.Total time spent in review of patient records prior to follow-up visit, review of CT scan/bone scan both from April 27, 2020 as well as labs from today as well as treatment plan, side effect identification management and post visit documentation was greater than 60 minutes. 5. Patient Education A. The patient was informed of chemotherapy plan and specific drugs were discussed. We also discussed how chemotherapy works and identified common side effects including alopecia; myelosuppression-including neutropenia, anemia, thrombocytopenia; peripheral neuropathy; fatigue; nausea; diarrhea; constipation; bleeding or bruising; skin changes; mouth sores; drug hypersensitivity/allergic reactions or anaphylaxis and extravasation. They have also been informed how to contact the clinic with side effects or symptoms, including but not limited to fever greater than 100.4???, chills, sore throat, bleeding or bruising that is not explained or mouth sores, cough, nasal discharge, diarrhea, constipation, nausea and/or vomiting not relieved with medications on hand at home, as well as any other concern or question they may have. Our hours are 8:00 a.m. to 4:30 p.m. on Sunday through and 8-12:00 on Sunday. However, someone is weight control engineer 24 hours per day and they have been advised to contact the [facility] at if it is after hours. We have also discussed potential long-term side effects of chemotherapy including secondary cancers, infertility, pulmonary complications, cardiac complications, and again peripheral neuropathy. We have discussed that they certainly need to let us know before taking any antioxidants or herbal or further dietary supplements, as we are unsure of how these agents react with chemotherapy and we request that they avoid these products for now. They were informed that it is okay to take multivitamins at normal doses. They verbally state that they understand to take all medications as directed by their healthcare provider unless otherwise indicated. They also verbalized understanding to leave the pressure dressing on the intravenous administration site for at least two hours after treatment. Instructions for oral care with baking soda and salt water rinses as well as a guide for use of [id number] medication were provided with the treatment plan. They have been given a written patient treatment plan, of which a copy is in the chart, as well as specific drug information. They have no questions and verbalized understanding and are willing to proceed with chemotherapy at this time. The majority of this visit was spent in face to face communication with this patient in regards to the plan of care, side effect identification and management. B. The patient was informed of potential side effects of Xgeva ( a RANK ligand inhibitor) include but not limited to nausea/vomiting, rash, fatigue, dizziness, hypophosphatemia, hypokalemia, hypomagnesemia, constipation, diarrhea, anemia, bone pain, myalgia, dyspnea, fever, cough, osteonecrosis of the jaw, hypocalcemia, cystitis and site reactions, such as infection, redness, swelling. He was instructed to call if questions or concerns arise. Signed By: Ruthie Christopher-, [facility] Mayank Albright MD <<Signature on File>>
== END 2020-05-04 09:55 | disposition home or self-care (01) ==
LOC: ONCMED 09:55
PROVIDERS: PCP Nurse Practitioner Family; Visit Provider Nurse Practitioner
DX: Z51.12 Encounter for antineoplastic immunotherapy (principal); C61 Malignant neoplasm of prostate; C79.51 Secondary malignant neoplasm of bone; C77.8 Secondary and unspecified malignant neoplasm of lymph nodes of multiple regions; F41.8 Other specified anxiety disorders; M25.551 Pain in right hip; M54.5 Low back pain; Z79.899 Other long term (current) drug therapy
CPT/HCPCS: 80053; 84153; 85025; 96367; 96372; 96375; 96413; 99215; J0897; J1100; J1200; J2469; J3490; J7050; J9043

== ENCOUNTER 2020-05-31 08:12 | Outpatient (CLI) | payer MEDICARE, SELFPAY ==
[2020-05-31 09:02] LABS: Basophils # 0.1 10^3/uL (0.0-0.1); Basophils % 1.6 %; Eosinophils # 0.1 10^3/uL (0.0-0.8); Eosinophils % 0.8 %; Hematocrit 41.7 % (42.0-52.0); Hemoglobin 13.4 g/dL (11.7-16.6); Lymphocytes # 1.9 10^3/uL (0.8-4.8); Lymphocytes % 30.5 %; Mean Corpuscular HGB Conc 32.1 g/dL (30.0-36.0); Mean Corpuscular Hemoglobin 28.5 pg (28.0-34.0); Mean Corpuscular Volume 88.5 fL (80-94); Mean Platelet Volume 10.1 fL (7.4-10.4); Monocytes # 0.6 10^3/uL (0.2-0.9); Monocytes % 10.2 %; Neutrophils # 3.56 10^3/uL (1.8-7.7); Neutrophils % 56.7 %; Nucleated Red Blood Cells % 0 %; Platelet Count 292 10^3/cmm (130-400); Red Blood Count 4.71 10^6/uL (4.1-5.3); Red Cell Distribution Width 13.7 % (12.1-15.1); White Blood Count 6.3 10^3/uL (4.0-10.0)
[2020-05-31 09:40] LABS: Alanine Aminotransferase 20 U/L (0-41); Albumin Level 4.2 g/dL (3.5-5.2); Alkaline Phosphatase 75 IU/L (40-130); Anion Gap 11.1 (5-19); Aspartate Amino Transferase 12 U/L (0-40); Blood Urea Nitrogen 15 mg/dL (6-20); Calcium 9.1 mg/dL (8.5-10.5); Carbon Dioxide 29 mmol/L (22-29); Chloride 105 mmol/L (98-107); Globulin 2.2 g/dL (1.3-4.6); Glomerular Filtration Rate 90.1 mL/min (90-130); Glucose 78 mg/dL (65-115); Osmolality Calculated 292 mOsm/kg (285-295); Potassium 4.1 mmol/L (3.5-5.1); Sodium 141 mmol/L (136-145); Total Bilirubin 0.2 mg/dL (0.15-1.2); Total Protein 6.4 g/dL (6.6-8.7)
[2020-05-31] MEDS: famotidine 20 mg/2 mL INJ IVP (11:00)
[2020-05-31] MEDS: palonosetron 0.25 mg/5 mL SDV IVP (11:00)
[2020-05-31] MEDS: sodium chloride 0.9% 250 ML 999 ML IV (11:00)
[2020-05-31] MEDS: diphenhydrAMINE 50 mg/mL SDV 1mL 25 MG IVP (11:18)
[2020-05-31] MEDS: denosumab 120 mg SDV SUBCUT (12:30)
--- NOTE | 2020-06-04 18:13 | ONC FU_ITS ---
Dr. Albright Patient Follow-Up Note Patient: Ad Schwartz Unit #: [id number]: [id number] Dicatated By: Mayank Albright M.D.Date of Visit:May 31, 2020 Onc Med Follow-up/Prog Note Chief Complaint: Prostate cancer. History of Present Illness: This is a 49 year-old man with stage IV prostate cancer, metastatic to lymph nodes and bone. He had presented with an enlarged left cervical lymph node. His PET/CT on 05/17/2015 showed several enlarged nodes in the left neck with relatively low levels of FDG activity, maximum SUV 1.9-2.4. Also noted was extensive conglomerate retroperitoneal adenopathy beginning below the level of the renal arteries and extending through the level of the bifurcation and along the iliac chains with a maximum SUV up to 6.5. There was additional adenopathy along the pelvic sidewalls somewhat more extensive on the left. The prostate gland measured approximate 5.3 cm in transverse dimension and demonstrated physiologic levels of activity. There was increased activity in the right superior pubic ramus at the level of the pubic symphysis with maximum SUV 5.5. A left cervical lymph node biopsy was apparently consistent with metastatic prostate cancer, but the actual report was not available to me. He indicated that his baseline PSA level was 1163. He was treated initially with androgen deprivation through [facility] in [place]. At some point he opted to undergo treatment with a private oncology group in [place], where he was started on chemotherapy, I assume with docetaxel/prednisone. It was administered weekly. He last received chemotherapy 2 or 3 months ago. He indicates that he stopped treatment because he ran out of money . During this time he continued the androgen deprivation. He has been getting Depo-Lupron injections from [facility] in [place]. His laboratory studies on 02/18/2016 showed his PSA level at 45.9 ng/mL. By his recollection, it was somewhere in the range of 44-46 when last checked in [place]. I had seen him initially on 04/13/2016. A subsequent PSA level on 04/19/2016 was stable at 40.3 ng/mL. In the absence of any evidence of disease progression, he was advised to continue androgen deprivation with Depo-Lupron. During subsequent follow-up, his PSA level had increased slightly, up to 63 ng/mL in June 2016. His testosterone levels at that time were in castrate range. As of 08/07/2016 it was stable at 57 ng/mL. However, a repeat PSA level on 11/09/2016 had increased significantly, to 102.0 ng/mL. A CT scan of the right hip on 11/09/2016 showed stable right superior ramus/pubic body sclerosis compatible with metastatic disease. There was also stable right superior acetabular small sclerotic focus felt to most likely represent a bone island. Small metastasis cannot be excluded. CT abdomen/pelvis on 11/09/2016 showed increased retroperitoneal lymphadenopathy. He had further evaluation with bone scan on 12/04/2016. It showed intense bony uptake involving the right superior pubic ramus, corresponding to the area of blastic metastatic disease on the CT scan. There was an additional suspected focus of metastatic involvement in the left 10th rib anteriorly, though technically it was indeterminate. There were no other foci of metastatic disease noted. On 12/22/2016 he began treatment with abiraterone 1000 mg daily and prednisone 5 mg twice a day in addition to his Depo-Lupron. His PSA level at that point had decreased to 40.80 ng/mL. As of his follow-up visit on 01/22/2017 the PSA had declined to 15.00 ng/mL. He was still having significant pain in his right hip area. We opted to treat him with palliative radiation to the area of involvement in the right pubic ramus. He completed radiation on 02/14/2017 to a total dose of 3900 cGy. During subsequent followup there was further decline in the PSA level to 10.7 ng/mL on 03/22/3017. As of 05/08/2017 it had stabilized at 11.0 ng/mL. However, as of 08/06/2017 it had further declined to 4.4 ng/mL. He continued treatment with abiraterone/prednisone in combination with Depo-Lupron. As of 12/16/2017 the PSA had further declined to 2.51 ng/mL and by 06/11/2018 it was down to 1.6 ng/mL. As of his follow-up visit on 12/26/2018 it had increased slightly, to 2.51 ng/mL. At that point he had opted to stop his treatment, as he had become profoundly discouraged about his loss of sexual function. Repeat bone scan on 01/06/2019 was negative for metastatic disease. There was clearing of metastatic lesion involving the right pubic symphysis and possible traumatic injury to the left 10th rib. Restaging [address] abdomen/pelvis on 01/20/2019 showed significant decrease in previously noted retroperitoneal and internal iliac lymphadenopathy and resolved blastic metastatic lesion in the right superior pubic ramus compared to the prior study from November 2016. There were no other lytic or blastic bony destructive lesions identified. The liver showed fatty infiltration, but no evidence of metastatic involvement. He was seen for a follow-up visit on 03/18/2019. His PSA level had increased to 6.90 ng/mL, but at that point he was feeling significantly better. He continued observation/expectant management for the prostate cancer. Subsequent to his visit in March 2019 I had requested genetic profiling to screen for possible BRCA mutation. 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 Restaging CT scans of the the chest, abdomen, and pelvis on 06/23/2019 showed no evidence of metastatic disease. Bone scan showed abnormal activity involving the L2 pedicle on the right. It was not present on the prior study from December 2018. There were no other areas of abnormal uptake noted. As of his follow-up visit on 09/11/2019 his PSA level had increased to 67.53 ng/mL, and at that point he restarted androgen deprivation therapy with bicalutamide 50 mg daily for 14 days together with Depo-Lupron 22.5 mg. At that time I had also discussed the possibility of continuing antiandrogen therapy with enzalutamide, which he declined. He was then seen for an unplanned visit on 11/21/2019. He was complaining of chest pain, description which was somewhat suspicious for angina. He had normal EKG at that time. A Lexiscan sestamibi stress test on 11/28/2019 was normal and the associated myocardial perfusion scan showed a small area of persistent decreased uptake in the apical lateral and LV apex with no significant reversibility, suggestive of myocardial scarring versus attenuation artifact. There was normal LV ejection fraction at 61% and there were no gross wall motion abnormalities noted. Overall there was no evidence for significant coronary ischemia. At his follow-up visit on 12/29/2019 there was a further increase in the PSA level to 116.400 ng/mL. He appeared stable clinically. I reviewed options for further treatment, and he elected for a trial of anti-androgen therapy with bicalutamide 50 mg 3 times daily. At his follow-up visit on 02/04/2020 there was further increase in the PSA to 172.600 ng/mL. I reviewed options for further treatment and at that time he wanted to discuss it further with his family. Ultimately he opted to restart chemotherapy with cabazitaxel. His medical history is otherwise unremarkable. He has had some chronic anxiety, but no other ongoing medical illnesses. He has had no other surgeries. He is a nonsmoker. INTERIM HISTORY: He began cycle 1 of cabazitaxel on 05/04/2020. He felt pretty weak for the first couple of days after the treatment, and he continued to have fatigue over the first couple of weeks. He also had some rectal bleeding for a few days. He did not have nausea/vomiting or other acute toxicity. He is seen for a follow-up visit. He says his energy has been getting better slowly. Has been pretty good this past week. His ECOG score is 1. He has good appetite. He does not have fever, night sweats, or hot flashes. He has had no mouth sores. He does have some sinus/nasal congestion. His breathing is otherwise okay. He has just a little bit of cough. He has continued to have some episodes of substernal pain. He did have a negative stress test. He had mild constipation with some rectal bleeding for a few days after treatment, but his bowels have otherwise been okay. He has no other GI or complaints. His hip still bothers him some, but it just comes and goes, and overall it is not as bad. He has no other joint or bone pain. He has had a cough and on. He has no focal neurologic symptoms. He does complain that his anxiety is a little worse. Medications: oxyCODONE HCl 1 Tablet (of 15 mg) Oral four times a day PRN, Xanax 1 Tablet (of 0.5 mg) Oral t.i.d. PRN Allergies: Band Aid Vital Signs: Performed on May 31, 2020 10:06 Height - 71.00 in Weight - 219.6 lbs (LOW) BSA - 2.19 sq.m BMI - 30.63 (HIGH) Temperature - 97.5 F (LOW) Pulse - 75 /min Respiration - 18 /min BP - 130/80 mm(hg) O2 Sat - 99 % Pain - 3 Fatigue - 2 Physical Examination: Constitutional - He looks pretty good generally, Eyes - Sclerae nonicteric. Conjunctivae clear, ENMT - No lesions noted in the oral cavity, Hematologic/Lymphatic - No cervical, clavicular, or axillary adenopathy, Respiratory - Lungs are clear with good air movement bilaterally, Cardiovascular - Heart rhythm is regular. There is no murmur, gallop, or rub noted, Abdomen - Soft. Liver and spleen are not enlarged. There is no abdominal mass or ascites noted. I do not feel any inguinal adenopathy, Extremities - There is currently no edema, Neurologic - No focal neurologic deficits noted. Lab/Imaging: Test performed on May 31, 2020 08:40 Sodium 141 mmol/L Potassium 4.1 mmol/L Chloride 105 mmol/L CO2 29 mmol/L Anion Gap 11.1 BUN 15 mg/dL Creatinine 0.9 mg/dL Cr Clearance (Est) 143.6100 mL/min eGFR 90.1 mL/min Glucose 78 mg/dL Osmolality - Calculated 292 mOsm/kg Calcium 9.1 mg/dL Protein, Total 6.4 g/dL Albumin 4.2 g/dL Globulin 2.2 g/dL Bilirubin, Total 0.2 mg/dL ALT (SGPT) 20 U/L AST (SGOT) 12 U/L Alkaline Phosphatase 75 IU/L WBC 6.3 10 3/uL RBC 4.71 10 6/uL HGB 13.4 g/dL HCT 41.7 % MCV 88.5 fL MCH 28.5 pg MCHC 32.1 g/dL RDW 13.7 % Platelet Count 292 10 3/cmm MPV 10.1 fL Neutrophils 3.56 10 3/uL Lymphocytes 1.9 10 3/uL Monocytes 0.6 10 3/uL Eosinophils 0.1 10 3/uL Basophils 0.1 10 3/uL Neutrophil % 56.7 % Lymphocyte % 30.5 % Monocyte % 10.2 % Eosinophil % 0.8 % Basophils % 1.6 % NRBC % 0 % PSA 213.70 ng/mL Problem List: 1. Patient with stage IV prostate cancer, metastatic to lymph nodes and bone, initially diagnosed in April 2015. 2. 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 3. He has chronic anxiety. Problems Addressed with this Encounter and Plan: 1. Patient with stage IV prostate cancer, metastatic to lymph nodes and bone, initially diagnosed in April 2015. He initially began treatment with androgen deprivation with subsequent addition of chemotherapy, which I assume was docetaxel/prednisone. He did show significant response, both clinically and by PSA level. He had stopped chemotherapy sometime around January or February 2016. He had subsequently continued androgen deprivation with Depo-Lupron. As of November 2016 his PSA level had increased significantly. CT abdomen/pelvis on 11/09/2016 showed increased retroperitoneal lymphadenopathy, and clinically it did appear that he was having disease progression. A subsequent bone scan showed intense uptake in the right superior pubic ramus corresponding to an area of blastic metastatic disease which had been noted on CT scan of the right hip. There was additional suspected metastatic involvement in the left 10th rib anteriorly, though technically that site was indeterminate. On 12/22/2016 he began treatment with abiraterone 1000 mg daily and prednisone 5 mg twice a day in addition to the Depo-Lupron. He did show a good response by PSA level, but he was still having significant pain in his right hip area, and he was then given palliative radiation to the area of involvement in the right pubic ramus. He completed treatment on 02/14/2017 to 3900 cGy. He had a good clinical response. However, he tolerated the the androgen deprivation therapy poorly, and in December 2018 he opted to stop treatment. During subsequent follow-up, there was a gradual increase in his PSA level, but his clinical status remained stable, and he continued on observation/expectant management. As of 09/11/2019 there was a significant further increase in his PSA level, to 67.53 ng/mL, and at that point he restarted androgen deprivation therapy with bicalutamide 50 mg daily for 14 days together with Depo-Lupron 22.5 mg by intramuscular injection. He had significant side effects following the Depo-Lupron injection, including chest pain. A Lexiscan sestamibi stress test showed no evidence of cardiac ischemia. As of his follow-up visit in December 2019 there was further increase in the PSA level to 116 ng/mL. At that point he agreed to a trial of anti-androgen therapy with bicalutamide 50 mg 3 times daily. He stopped it in mid January when he was diagnosed with COVID-19 virus infection. He had uneventful recovery from that illness. At his follow-up visit on 03/10/2020 there was further increase in the PSA level to 180.500 ng/mL. I had discussed options for further treatment, and he ultimately chose to proceed with a trial of 2nd line chemotherapy with cabazitaxel. He began cycle 1 of cabazitaxel on 05/04/2020. He had pretty severe fatigue following initial infusion. He also developed some mild constipation with rectal bleeding, but that lasted just a few days. He has had no other significant toxicity. As such, he will proceed now with cycle 2 of cabazitaxel. The dosage remains the same. He will be scheduled for a follow-up visit in 3 weeks. 2. He has started denosumab injections for the metastatic bone involvement. He will be given denosumab 120 mg by subcutaneous injection today. Signed By: Mayank Albright M.D. <<Signature on File>>
== END 2020-05-31 08:13 | disposition home or self-care (01) ==
PROVIDERS: PCP Nurse Practitioner Family; Visit Provider Internal Medicine Medical Oncology
DX: Z51.11 Encounter for antineoplastic chemotherapy (principal); C61 Malignant neoplasm of prostate; C79.51 Secondary malignant neoplasm of bone; C77.0 Secondary and unspecified malignant neoplasm of lymph nodes of head, face and neck; Z79.899 Other long term (current) drug therapy; Z92.3 Personal history of irradiation
CPT/HCPCS: 80053; 85025; 96367; 96372; 96375; 96413; 99214; G0103; J0897; J1100; J1200; J2469; J3490; J7050; J9043

== ENCOUNTER 2020-06-24 10:14 | Outpatient (CLI) | payer MEDICARE, SELFPAY ==
[2020-06-24] MEDS: palonosetron 0.25 mg/5 mL SDV IVP (11:28)
[2020-06-24] MEDS: sodium chloride 0.9% 250 ML 999 ML IV (11:28)
[2020-06-24] MEDS: famotidine 20 mg/2 mL INJ IVP (11:30)
[2020-06-24] MEDS: diphenhydrAMINE 50 mg/mL SDV 1mL 25 MG IVP (11:32)
--- NOTE | 2020-06-24 16:21 | ONC FU_ITS ---
Dr. Albright Patient Follow-Up Note Patient: Ad Schwartz Unit #: [id number]: 1970 Dicatated By: Mayank Albright M.D.Date of Visit:Jun 24, 2020 Onc Med Follow-up/Prog Note Chief Complaint: Prostate cancer. History of Present Illness: This is a 49 year-old man with stage IV prostate cancer, metastatic to lymph nodes and bone. He had presented with an enlarged left cervical lymph node. His PET/CT on 05/17/2015 showed several enlarged nodes in the left neck with relatively low levels of FDG activity, maximum SUV 1.9-2.4. Also noted was extensive conglomerate retroperitoneal adenopathy beginning below the level of the renal arteries and extending through the level of the bifurcation and along the iliac chains with a maximum SUV up to 6.5. There was additional adenopathy along the pelvic sidewalls somewhat more extensive on the left. The prostate gland measured approximate 5.3 cm in transverse dimension and demonstrated physiologic levels of activity. There was increased activity in the right superior pubic ramus at the level of the pubic symphysis with maximum SUV 5.5. A left cervical lymph node biopsy was apparently consistent with metastatic prostate cancer, but the actual report was not available to me. He indicated that his baseline PSA level was 1163. He was treated initially with androgen deprivation through [facility] in [place]. At some point he opted to undergo treatment with a private oncology group in [place], where he was started on chemotherapy, I assume with docetaxel/prednisone. It was administered weekly. He last received chemotherapy 2 or 3 months ago. He indicates that he stopped treatment because he ran out of money . During this time he continued the androgen deprivation. He has been getting Depo-Lupron injections from [facility] in [place]. His laboratory studies on 02/18/2016 showed his PSA level at 45.9 ng/mL. By his recollection, it was somewhere in the range of 44-46 when last checked in [place]. I had seen him initially on 04/13/2016. A subsequent PSA level on 04/19/2016 was stable at 40.3 ng/mL. In the absence of any evidence of disease progression, he was advised to continue androgen deprivation with Depo-Lupron. During subsequent follow-up, his PSA level had increased slightly, up to 63 ng/mL in June 2016. His testosterone levels at that time were in castrate range. As of 08/07/2016 it was stable at 57 ng/mL. However, a repeat PSA level on 11/09/2016 had increased significantly, to 102.0 ng/mL. A CT scan of the right hip on 11/09/2016 showed stable right superior ramus/pubic body sclerosis compatible with metastatic disease. There was also stable right superior acetabular small sclerotic focus felt to most likely represent a bone island. Small metastasis cannot be excluded. CT abdomen/pelvis on 11/09/2016 showed increased retroperitoneal lymphadenopathy. He had further evaluation with bone scan on 12/04/2016. It showed intense bony uptake involving the right superior pubic ramus, corresponding to the area of blastic metastatic disease on the CT scan. There was an additional suspected focus of metastatic involvement in the left 10th rib anteriorly, though technically it was indeterminate. There were no other foci of metastatic disease noted. On 12/22/2016 he began treatment with abiraterone 1000 mg daily and prednisone 5 mg twice a day in addition to his Depo-Lupron. His PSA level at that point had decreased to 40.80 ng/mL. As of his follow-up visit on 01/22/2017 the PSA had declined to 15.00 ng/mL. He was still having significant pain in his right hip area. We opted to treat him with palliative radiation to the area of involvement in the right pubic ramus. He completed radiation on 02/14/2017 to a total dose of 3900 cGy. During subsequent followup there was further decline in the PSA level to 10.7 ng/mL on 03/22/3017. As of 05/08/2017 it had stabilized at 11.0 ng/mL. However, as of 08/06/2017 it had further declined to 4.4 ng/mL. He continued treatment with abiraterone/prednisone in combination with Depo-Lupron. As of 12/16/2017 the PSA had further declined to 2.51 ng/mL and by 06/11/2018 it was down to 1.6 ng/mL. As of his follow-up visit on 12/26/2018 it had increased slightly, to 2.51 ng/mL. At that point he had opted to stop his treatment, as he had become profoundly discouraged about his loss of sexual function. Repeat bone scan on 01/06/2019 was negative for metastatic disease. There was clearing of metastatic lesion involving the right pubic symphysis and possible traumatic injury to the left 10th rib. Restaging [address] abdomen/pelvis on 01/20/2019 showed significant decrease in previously noted retroperitoneal and internal iliac lymphadenopathy and resolved blastic metastatic lesion in the right superior pubic ramus compared to the prior study from November 2016. There were no other lytic or blastic bony destructive lesions identified. The liver showed fatty infiltration, but no evidence of metastatic involvement. He was seen for a follow-up visit on 03/18/2019. His PSA level had increased to 6.90 ng/mL, but at that point he was feeling significantly better. He continued observation/expectant management for the prostate cancer. Subsequent to his visit in March 2019 I had requested genetic profiling to screen for possible BRCA mutation. 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 Restaging CT scans of the the chest, abdomen, and pelvis on 06/23/2019 showed no evidence of metastatic disease. Bone scan showed abnormal activity involving the L2 pedicle on the right. It was not present on the prior study from December 2018. There were no other areas of abnormal uptake noted. As of his follow-up visit on 09/11/2019 his PSA level had increased to 67.53 ng/mL, and at that point he restarted androgen deprivation therapy with bicalutamide 50 mg daily for 14 days together with Depo-Lupron 22.5 mg. At that time I had also discussed the possibility of continuing antiandrogen therapy with enzalutamide, which he declined. He was then seen for an unplanned visit on 11/21/2019. He was complaining of chest pain, description which was somewhat suspicious for angina. He had normal EKG at that time. A Lexiscan sestamibi stress test on 11/28/2019 was normal and the associated myocardial perfusion scan showed a small area of persistent decreased uptake in the apical lateral and LV apex with no significant reversibility, suggestive of myocardial scarring versus attenuation artifact. There was normal LV ejection fraction at 61% and there were no gross wall motion abnormalities noted. Overall there was no evidence for significant coronary ischemia. At his follow-up visit on 12/29/2019 there was a further increase in the PSA level to 116.400 ng/mL. He appeared stable clinically. I reviewed options for further treatment, and he elected for a trial of anti-androgen therapy with bicalutamide 50 mg 3 times daily. At his follow-up visit on 02/04/2020 there was further increase in the PSA to 172.600 ng/mL. I reviewed options for further treatment and at that time he wanted to discuss it further with his family. Ultimately he opted to restart chemotherapy with cabazitaxel. His medical history is otherwise unremarkable. He has had some chronic anxiety, but no other ongoing medical illnesses. He has had no other surgeries. He is a nonsmoker. INTERIM HISTORY: He began cycle 1 of cabazitaxel on 05/04/2020. He felt pretty weak for the first couple of days after the treatment, and he continued to have fatigue over the first couple of weeks. He also had some rectal bleeding for a few days. He did not have nausea/vomiting or other acute toxicity. He continued with his second cycle of treatment on 05/31/2020. He is seen for a follow-up visit. He has been feeling pretty good generally, though he is tired all the time. However, he is not as fatigued now as he was after the first cycle. He is doing some walking and he is doing light work. ECOG score is 1. His appetite is been okay. He does not have fever, night sweats, or hot flashes. His sinus symptoms are always bad he does have some cough off and on. He does not complain of shortness of breath. He has a little spot of pain in the left parasternal area, worse when he takes a deep breath. He has been having some acid reflux. He has no other GI or complaints. He has lower back pain off and on. His hip has not been bothering him, but he does complain that his right leg feels warm and it is a little swollen. He has headache all the time, sometimes due to sinus pressure but mostly in the back of his head. He does not complain of dizziness. He has no numbness/paresthesia or other focal neurologic symptoms. Medications: oxyCODONE HCl 1 Tablet (of 15 mg) Oral four times a day PRN, Xanax 1 Tablet (of 0.5 mg) Oral t.i.d. PRN Allergies: Band Aid Vital Signs: Performed on Jun 24, 2020 11:25 Height - 71.00 in Weight - 221 lbs (HIGH) BSA - 2.20 sq.m BMI - 30.82 (HIGH) Temperature - 97.9 F (LOW) Pulse - 80 /min Respiration - 18 /min BP - 135/91 mm(hg) O2 Sat - 96 % Pain - 3 Fatigue - 6 Physical Examination: Constitutional - He looks pretty good generally, Eyes - Sclerae nonicteric. Conjunctivae clear, ENMT - No lesions noted in the oral cavity, Hematologic/Lymphatic - No cervical, clavicular, or axillary adenopathy, Respiratory - Lungs are clear with good air movement bilaterally, Cardiovascular - Heart rhythm is regular. There is no murmur, gallop, or rub noted, Abdomen - Soft. Liver and spleen are not enlarged. There is no abdominal mass or ascites noted. I do not feel any inguinal adenopathy, Extremities - There is no pedal edema. The right foot definitely feels warm compared to the left. The right calf circumference measures 41.5 cm compared to 39 cm on the left. He has good dorsalis pedis pulses bilaterally, Neurologic - No focal neurologic deficits noted. Lab/Imaging: Test performed on Jun 22, 2020 08:22 Test performed on Jun 22, 2020 08:14 Glucose 95 mg/dL BUN 12 mg/dL Creatinine 1.00 mg/dL Cr Clearance (Est) 129.25 mL/min Sodium 142.4 mmol/L Potassium 4.13 mmol/L Chloride 110 mmol/L CO2 25 mmol/L Calcium 8.0 mg/dL Protein, Total 6.4 g/dL Albumin 4.1 g/dL Bilirubin, Total 0.45 mg/dL Alkaline Phosphatase 60 IU/L AST (SGOT) 20 IU/L ALT (SGPT) 28 IU/L WBC 4.7 10^9/L RBC 4.48 10^12/L HGB 13.1 g/dL HCT 39.1 % MCV 87.3 fl MCH 29.2 pg MCHC 33.5 g/dL RDW 14.4 % Platelet Count 270 10^9/L MPV 9.3 fL Neutrophils (Gran) 2.3 10^9/L Lymphocytes 1.7 10^9/L Monocytes 0.7 10^9/L Manual Lymphocytes 36.9 % Manual Monocytes 14.6 % PSA level is now down to 152.2 ng/mL. Problem List: 1. Patient with stage IV prostate cancer, metastatic to lymph nodes and bone, initially diagnosed in April 2015. 2. 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 3. He has chronic anxiety. Problems Addressed with this Encounter and Plan: 1. Patient with stage IV prostate cancer, metastatic to lymph nodes and bone, initially diagnosed in April 2015. He initially began treatment with androgen deprivation with subsequent addition of chemotherapy, which I assume was docetaxel/prednisone. He did show significant response, both clinically and by PSA level. He had stopped chemotherapy sometime around January or February 2016. He had subsequently continued androgen deprivation with Depo-Lupron. As of November 2016 his PSA level had increased significantly. CT abdomen/pelvis on 11/09/2016 showed increased retroperitoneal lymphadenopathy, and clinically it did appear that he was having disease progression. A subsequent bone scan showed intense uptake in the right superior pubic ramus corresponding to an area of blastic metastatic disease which had been noted on CT scan of the right hip. There was additional suspected metastatic involvement in the left 10th rib anteriorly, though technically that site was indeterminate. On 12/22/2016 he began treatment with abiraterone 1000 mg daily and prednisone 5 mg twice a day in addition to the Depo-Lupron. He did show a good response by PSA level, but he was still having significant pain in his right hip area, and he was then given palliative radiation to the area of involvement in the right pubic ramus. He completed treatment on 02/14/2017 to 3900 cGy. He had a good clinical response. However, he tolerated the the androgen deprivation therapy poorly, and in December 2018 he opted to stop treatment. During subsequent follow-up, there was a gradual increase in his PSA level, but his clinical status remained stable, and he continued on observation/expectant management. As of 09/11/2019 there was a significant further increase in his PSA level, to 67.53 ng/mL, and at that point he restarted androgen deprivation therapy with bicalutamide 50 mg daily for 14 days together with Depo-Lupron 22.5 mg by intramuscular injection. He had significant side effects following the Depo-Lupron injection, including chest pain. A Lexiscan sestamibi stress test showed no evidence of cardiac ischemia. As of his follow-up visit in December 2019 there was further increase in the PSA level to 116 ng/mL. At that point he agreed to a trial of anti-androgen therapy with bicalutamide 50 mg 3 times daily. He stopped it in mid January when he was diagnosed with COVID-19 virus infection. He had uneventful recovery from that illness. At his follow-up visit on 03/10/2020 there was further increase in the PSA level to 180.500 ng/mL. I had discussed options for further treatment, and he ultimately chose to proceed with a trial of 2nd line chemotherapy with cabazitaxel. He began cycle 1 of cabazitaxel on 05/04/2020. He had pretty severe fatigue following initial infusion. He also developed some mild constipation with rectal bleeding, but that lasted just a few days. He has had no other significant toxicity. He continued with cycle 2 on 05/31/2020. He has continued to have fatigue, but he otherwise appears to be tolerating it well. He has had a significant decline in his PSA level. He will continue now with his 3rd cycle. The dosage remains the same. He will be scheduled for a follow-up visit in 3 weeks. 2. He has started denosumab injections for the metastatic bone involvement. It will be due again with his next visit. 3. He has developed acid reflux symptoms. He will be given a prescription for pantoprazole 40 mg daily. 4. He presents today with significant swelling in the right leg, and it is warm to touch. He will be scheduled for a venous Doppler study. UF further evaluation as indicated. Signed By: Mayank Albright M.D. <<Signature on File>>
== END 2020-06-24 10:15 | disposition home or self-care (01) ==
LOC: ONCMED 10:16
PROVIDERS: PCP Nurse Practitioner Family; Visit Provider Internal Medicine Medical Oncology
DX: Z51.11 Encounter for antineoplastic chemotherapy (principal); C61 Malignant neoplasm of prostate; C79.51 Secondary malignant neoplasm of bone; C77.8 Secondary and unspecified malignant neoplasm of lymph nodes of multiple regions; F41.9 Anxiety disorder, unspecified; Z79.899 Other long term (current) drug therapy
CPT/HCPCS: 84153; 96367; 96375; 96413; 99214; J1100; J1200; J2469; J3490; J7050; J9043

== ENCOUNTER 2020-06-24 13:17 | Outpatient (CLI) | payer MEDICARE, SELFPAY ==
--- NOTE | 2020-06-24 13:37 | USCV_ITS ---
Ad Schwartz Age: 49 Gender: M : 1970 Exam Date: 06/24/2020 13:57 Ordering Phys: Mayank Albright MD Technologist: Adan Henley [place]am [place] [facility] [place]ication: LEG PAIN AND SWELLING PROCEDURES: Venous duplex imaging was performed in only the right lower extremity. The following venous structures were evaluated: common femoral vein, profunda vein, proximal portion of the greater saphenous vein, superficial femoral vein, and the popliteal vein. In addition, the posterior tibial and peroneal trunk were evaluated. Serial compression, augmentation maneuvers, and spectral Doppler flow evaluation were performed. FINDINGS: Normal 2-D Doppler and augmentation and compressibility throughout the lower extremity venous structures. Additional imaging through the proximal calf veins also reveals no thrombus. Limited evaluation of the greater saphenous vein is patent with no thrombus.. CONCLUSIONS No evidence of right lower extremity DVT. Jose D Ulrich MD (Electronically Signed) Final Date: 25 June 2020 08:44 S
== END 2020-06-24 13:18 | disposition home or self-care (01) ==
LOC: RAD 13:20
PROVIDERS: PCP Nurse Practitioner Family; Visit Provider Internal Medicine Medical Oncology
DX: M79.89 Other specified soft tissue disorders (principal); M79.604 Pain in right leg
CPT/HCPCS: 93971

== ENCOUNTER 2020-07-15 05:58 | Outpatient (CLI) | payer MEDICARE, SELFPAY ==
[2020-07-15] MEDS: sodium chloride 0.9% 250 ML 75 ML IV (11:30)
[2020-07-15] MEDS: palonosetron 0.25 mg/5 mL SDV IV (11:33)
[2020-07-15] MEDS: famotidine 20 mg/2 mL INJ IVP (11:34)
[2020-07-15] MEDS: diphenhydrAMINE 50 mg/mL SDV 1mL 25 MG IV (11:35)
[2020-07-15] MEDS: denosumab 120 mg SDV SUBCUT (13:20)
--- NOTE | 2020-07-25 23:35 | ONC FU_ITS ---
[facility] Patient Note Patient: Ad Schwartz Unit #: [id number]: 1970 Dictated By: Ruthie ChristopherDate of Visit: Jul 15, 2020 Onc MED Follow-Up/Prog Note Chief Complaint: Prostate cancer. History of Present Illness: Mr Schwartz is a 49 year-old man with stage IV prostate cancer, metastatic to lymph nodes and bone. He had presented with an enlarged left cervical lymph node. His PET/CT on 05/17/2015 showed several enlarged nodes in the left neck with relatively low levels of FDG activity, maximum SUV 1.9-2.4. Also noted was extensive conglomerate retroperitoneal adenopathy beginning below the level of the renal arteries and extending through the level of the bifurcation and along the iliac chains with a maximum SUV up to 6.5. There was additional adenopathy along the pelvic sidewalls somewhat more extensive on the left. The prostate gland measured approximate 5.3 cm in transverse dimension and demonstrated physiologic levels of activity. There was increased activity in the right superior pubic ramus at the level of the pubic symphysis with maximum SUV 5.5. A left cervical lymph node biopsy was apparently consistent with metastatic prostate cancer, but the actual report was not available to me. He indicated that his baseline PSA level was 1163. He was treated initially with androgen deprivation through [facility] in [place]. At some point he opted to undergo treatment with a private oncology group in [place], where he was started on chemotherapy, I assume with docetaxel/prednisone. It was administered weekly. He last received chemotherapy 2 or 3 months ago. He indicates that he stopped treatment because he ran out of money . During this time he continued the androgen deprivation. He has been getting Depo-Lupron injections from [facility] in [place]. His laboratory studies on 02/18/2016 showed his PSA level at 45.9 ng/mL. By his recollection, it was somewhere in the range of 44-46 when last checked in [place]. Dr Albright had seen him initially on 04/13/2016. A subsequent PSA level on 04/19/2016 was stable at 40.3 ng/mL. In the absence of any evidence of disease progression, he was advised to continue androgen deprivation with Depo-Lupron. During subsequent follow-up, his PSA level had increased slightly, up to 63 ng/mL in June 2016. His testosterone levels at that time were in castrate range. As of 08/07/2016 it was stable at 57 ng/mL. However, a repeat PSA level on 11/09/2016 had increased significantly, to 102.0 ng/mL. A CT scan of the right hip on 11/09/2016 showed stable right superior ramus/pubic body sclerosis compatible with metastatic disease. There was also stable right superior acetabular small sclerotic focus felt to most likely represent a bone island. Small metastasis cannot be excluded. CT abdomen/pelvis on 11/09/2016 showed increased retroperitoneal lymphadenopathy. He had further evaluation with bone scan on 12/04/2016. It showed intense bony uptake involving the right superior pubic ramus, corresponding to the area of blastic metastatic disease on the CT scan. There was an additional suspected focus of metastatic involvement in the left 10th rib anteriorly, though technically it was indeterminate. There were no other foci of metastatic disease noted. On 12/22/2016 he began treatment with abiraterone 1000 mg daily and prednisone 5 mg twice a day in addition to his Depo-Lupron. His PSA level at that point had decreased to 40.80 ng/mL. As of his follow-up visit on 01/22/2017 the PSA had declined to 15.00 ng/mL. He was still having significant pain in his right hip area. We opted to treat him with palliative radiation to the area of involvement in the right pubic ramus. He completed radiation on 02/14/2017 to a total dose of 3900 cGy. During subsequent followup there was further decline in the PSA level to 10.7 ng/mL on 03/22/3017. As of 05/08/2017 it had stabilized at 11.0 ng/mL. However, as of 08/06/2017 it had further declined to 4.4 ng/mL. He continued treatment with abiraterone/prednisone in combination with Depo-Lupron. As of 12/16/2017 the PSA had further declined to 2.51 ng/mL and by 06/11/2018 it was down to 1.6 ng/mL. As of his follow-up visit on 12/26/2018 it had increased slightly, to 2.51 ng/mL. At that point he had opted to stop his treatment, as he had become profoundly discouraged about his loss of sexual function. Repeat bone scan on 01/06/2019 was negative for metastatic disease. There was clearing of metastatic lesion involving the right pubic symphysis and possible traumatic injury to the left 10th rib. Restaging [address] abdomen/pelvis on 01/20/2019 showed significant decrease in previously noted retroperitoneal and internal iliac lymphadenopathy and resolved blastic metastatic lesion in the right superior pubic ramus compared to the prior study from November 2016. There were no other lytic or blastic bony destructive lesions identified. The liver showed fatty infiltration, but no evidence of metastatic involvement. He was seen for a follow-up visit on 03/18/2019. His PSA level had increased to 6.90 ng/mL, but at that point he was feeling significantly better. He continued observation/expectant management for the prostate cancer. Subsequent to his visit in March 2019 I had requested genetic profiling to screen for possible BRCA mutation. 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 Restaging CT scans of the the chest, abdomen, and pelvis on 06/23/2019 showed no evidence of metastatic disease. Bone scan showed abnormal activity involving the L2 pedicle on the right. It was not present on the prior study from December 2018. There were no other areas of abnormal uptake noted. As of his follow-up visit on 09/11/2019 his PSA level had increased to 67.53 ng/mL, and at that point he restarted androgen deprivation therapy with bicalutamide 50 mg daily for 14 days together with Depo-Lupron 22.5 mg. At that time I had also discussed the possibility of continuing antiandrogen therapy with enzalutamide, which he declined. He was then seen for an unplanned visit on 11/21/2019. He was complaining of chest pain, description which was somewhat suspicious for angina. He had normal EKG at that time. A Lexiscan sestamibi stress test on 11/28/2019 was normal and the associated myocardial perfusion scan showed a small area of persistent decreased uptake in the apical lateral and LV apex with no significant reversibility, suggestive of myocardial scarring versus attenuation artifact. There was normal LV ejection fraction at 61% and there were no gross wall motion abnormalities noted. Overall there was no evidence for significant coronary ischemia. At his follow-up visit on 12/29/2019 there was a further increase in the PSA level to 116.400 ng/mL. He appeared stable clinically. Dr Albright reviewed options for further treatment, and he elected for a trial of anti-androgen therapy with bicalutamide 50 mg 3 times daily. At his follow-up visit on 02/04/2020 there was further increase in the PSA to 172.600 ng/mL. Dr Albright reviewed options for further treatment and at that time he wanted to discuss it further with his family. Ultimately he opted to restart chemotherapy with cabazitaxel. His medical history is otherwise unremarkable. He has had some chronic anxiety, but no other ongoing medical illnesses. He has had no other surgeries. He is a nonsmoker. INTERIM HISTORY: He began cycle 1 of cabazitaxel on 05/04/2020. He felt pretty weak for the first couple of days after the treatment, and he continued to have fatigue over the first couple of weeks. He also had some rectal bleeding for a few days. He did not have nausea/vomiting or other acute toxicity. He continued with his second cycle of treatment on 05/31/2020. Mr. Matthews is here today for follow-up. He is due for cycle 4 cabazitaxel. He continues to tolerate it relatively well. He states that he has had some nasal bleeding off and on he thinks this could be related to his sinus. He states it has improved with taking Sudafed to tablets daily. He states overall he is tired but recovers well with rest. He states his heartburn is doing much better on the Protonix. He states that he is uncertain but thinks he may have had some bleeding in his stools. He has not had recent colonoscopy. He denies any fever or chills. He denies mouth sores, sore throat or difficulty swallowing. He has had some discolored sinus drainage with some blood streaks and nasal bleeding off and on. He denies any pressure or sinus pain. He has had no cough or hemoptysis. He denies any diarrhea or constipation. He has had no obvious hematochezia. He denies any lower extremity edema or neuropathy. He denies any vision or hearing changes. He continues to have chronic lower back pain but states it is stable on his current pain regimen. He denies any hot flashes or night sweats at this time. He remains active with a walking routine and is doing light work around his house. His ECOG is 1. Past Medical History: Anxiety Prostate cancer Past Surgical History: Left cervical lymph node biopsy in 2016 Allergies: Band Aid Medications: oxyCODONE HCl 1 Tablet (of 15 mg) Oral four times a day PRN Xanax 1 Tablet (of 0.5 mg) Oral t.i.d. PRN Family History: Mr. Schwartz's mother at age 86: leukemia. Mr. Schwartz's father at age 85: blood disorder. Mr. Schwartz has 1 sister who is : lung cancer. Father at age 85 of a blood disorder . His mother 5 months ago at age 86. She was recently diagnosed with leukemia. He doesn't know what type. One sister of lung cancer. Nine other siblings are in good health. 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 Mr. Schwartz has never smoked. He drinks occasionally. He consumes 2 drinks/day. He has indicated exposure to the following products: chewing tobacco. Mr. Schwartz reports the following support systems: lives with spouse, significant other, family, or friends, lives in own house, supportive family/friends willing to assist with needs, and adequate transportation available for expected visits. His diet consists of regular meals. He indicates his activity level as: daily activities. Use to chew tobacco for about 10 to 12 years. Review Of Symptoms: Vital Signs: Performed on Jul 15, 2020 10:40 Height - 71.00 in Weight - 220.8 lbs (LOW) BSA - 2.20 sq.m BMI - 30.80 (HIGH) Temperature - 98.8 F Pulse - 60 /min Respiration - 17 /min BP - 135/80 mm(hg) O2 Sat - 97 % Pain - 3,1 - No physically strenuous activity, but ambulatory and able to carry out light or sedentary work (e.g. office work, light house work). (ECOG) Physical Examination: Constitutional Alert, oriented, no acute distress. Skin pink, warm and dry. Head Normocephalic; atraumatic. Eyes Conjunctivae and sclerae are clear and without icterus. Pupils are reactive and equal. Neck Supple without masses or thyromegaly. No jugular venous distension. Hematologic/Lymphatic No petechiae or purpura. No tender or palpable lymph nodes in the cervical, supraclavicular areas. Respiratory Lungs are clear to auscultation without rhonchi or wheezing. Cardiovascular Regular rate and rhythm of heart without murmurs,clicks, gallops or rubs. Abdomen Non-tender, non-distended, no masses, ascites. No guarding or rebound tenderness. No pulsatile masses. Back/Spine Non-tender to palpation. Musculoskeletal No tenderness or swelling, normal range of motion without obvious weakness. Integumentary No rashes or lesions. Neurologic No sensory or motor deficits, normal cerebellar function, normal gait. Psychiatric Alert and oriented times three. Coherent speech. Verbalizes understanding of our discussions today. Laboratory:Test performed on Jul 12, 2020 09:07 Glucose 97 mg/dL BUN 19 mg/dL Creatinine 1.09 mg/dL Cr Clearance (Est) 118.58 mL/min Sodium 138.7 mmol/L Potassium 4.08 mmol/L Chloride 106 mmol/L CO2 28 mmol/L Calcium 8.9 mg/dL Protein, Total 6.1 g/dL Albumin 3.8 g/dL Globulin 2.3 g/dL A/G Ratio 1.7 Absolute Value Bilirubin, Total 0.45 mg/dL Alkaline Phosphatase 70 IU/L AST (SGOT) 21 IU/L ALT (SGPT) 26 IU/L WBC 7.2 10^9/L RBC 3.99 10^12/L HGB 11.2 g/dL HCT 35.0 % MCV 87.7 fl MCH 28.1 pg MCHC 32.0 g/dL RDW 14.7 % Platelet Count 365 10^9/L MPV 8.8 fL Neutrophils (Gran) 52.8 10^9/L Lymphocytes 32.2 10^9/L Monocytes 15.0 10^9/L Manual Bands 3.8 % Manual Lymphocytes 2.3 % Manual Monocytes 1.1 % PSA 117.4 ng/mL Test performed on May 31, 2020 08:40 Anion Gap 11.1 eGFR 90.1 mL/min Osmolality - Calculated 292 mOsm/kg Eosinophils 0.1 10 3/uL Basophils 0.1 10 3/uL Neutrophil % 56.7 % Lymphocyte % 30.5 % Monocyte % 10.2 % Eosinophil % 0.8 % Basophils % 1.6 % NRBC % 0 % Test performed on Mar 10, 2020 11:12 Testosterone, Total 11.3 ng/dL Impression: 1. Patient with stage IV prostate cancer, metastatic to lymph nodes and bone, initially diagnosed in April 2015. 2. 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 3. He has chronic anxiety. Plan: 1. Patient with stage IV prostate cancer, metastatic to lymph nodes and bone, initially diagnosed in April 2015. He initially began treatment with androgen deprivation with subsequent addition of chemotherapy, which I assume was docetaxel/prednisone. He did show significant response, both clinically and by PSA level. He had stopped chemotherapy sometime around January or February 2016. He had subsequently continued androgen deprivation with Depo-Lupron. As of November 2016 his PSA level had increased significantly. CT abdomen/pelvis on 11/09/2016 showed increased retroperitoneal lymphadenopathy, and clinically it did appear that he was having disease progression. A subsequent bone scan showed intense uptake in the right superior pubic ramus corresponding to an area of blastic metastatic disease which had been noted on CT scan of the right hip. There was additional suspected metastatic involvement in the left 10th rib anteriorly, though technically that site was indeterminate. On 12/22/2016 he began treatment with abiraterone 1000 mg daily and prednisone 5 mg twice a day in addition to the Depo-Lupron. He did show a good response by PSA level, but he was still having significant pain in his right hip area, and he was then given palliative radiation to the area of involvement in the right pubic ramus. He completed treatment on 02/14/2017 to 3900 cGy. He had a good clinical response. However, he tolerated the the androgen deprivation therapy poorly, and in December 2018 he opted to stop treatment. During subsequent follow-up, there was a gradual increase in his PSA level, but his clinical status remained stable, and he continued on observation/expectant management. As of 09/11/2019 there was a significant further increase in his PSA level, to 67.53 ng/mL, and at that point he restarted androgen deprivation therapy with bicalutamide 50 mg daily for 14 days together with Depo-Lupron 22.5 mg by intramuscular injection. He had significant side effects following the Depo-Lupron injection, including chest pain. A Lexiscan sestamibi stress test showed no evidence of cardiac ischemia. As of his follow-up visit in December 2019 there was further increase in the PSA level to 116 ng/mL. At that point he agreed to a trial of anti-androgen therapy with bicalutamide 50 mg 3 times daily. He stopped it in mid January when he was diagnosed with COVID-19 virus infection. He had uneventful recovery from that illness. At his follow-up visit on 03/10/2020 there was further increase in the PSA level to 180.500 ng/mL. Dr Albright had discussed options for further treatment, and he ultimately chose to proceed with a trial of 2nd line chemotherapy with cabazitaxel. He began cycle 1 of cabazitaxel on 05/04/2020. He had pretty severe fatigue following initial infusion. He also developed some mild constipation with rectal bleeding, but that lasted just a few days. He has had no other significant toxicity. He continued with cycle 2 on 05/31/2020. He has continued to have fatigue, but he otherwise appears to be tolerating it well. He has had a significant decline in his PSA level. A. Proceed with cycle 4 Jevtana at same dosing. B. He will continue the same premeds as he is doing well with the current plan. C. Today's labs reviewed in detail discussed with Mr. Schwartz and a copy was given to him. WBC 7.2, hemoglobin 11.2, platelets 265,000 ANC is 3800. Potassium 4.1 creatinine 1.1 LFTs are normal. CEA is 117.4. It was 268.1 on May 04, 2020. 2. He has started denosumab injections for the metastatic bone involvement on May 04, 2020. A. He is due for Xgeva today and will continue with the 120 mg. C. His schedule puts his Xgeva at every 6 weeks instead of every 4 given that he is on a 3-week cycle. 3. He has developed acid reflux symptoms. A. He was given a prescription for Protonix 40 mg daily. B. His current reflux symptoms have resolved on the Protonix. He will plan to continue it daily. 4. He presented on 06/24/2020 with significant swelling in the right leg, and it was warm to touch. He did have a venous Doppler study on 06/24/2020. It was negative for DVT. The swelling has resolved at present. 5. Decreased hemoglobin. It is noted that his hemoglobin is down to 11.2 his hemoglobin on 22 June 2020 was 13.1. We discussed at length that this could be due to the Jevtana however he reports that he has had chronic nasal bleeding off and on. He states is no worse no frequent but he does have it off and on. He states he is also had some bleeding in the rectum. He states this is also been ongoing for years . He states it is no more frequent or increased volume. He states that he has not had a colonoscopy recently but does not sound that he is is interested in pursuing that right now. We discussed that if his hemoglobin continues to drop that we may need to consider the colonoscopy. 6. Chronic pain from bone mets. A. Currently controlled with oxycodone 15 mg. He will receive written prescription from Dr. Albright today. 7. Follow-up plan A. We will plan to see him back in 3 weeks at which time he will be due for cycle 5 Jevtana. B. Labs prior to visit requested included CBC CMP PSA and TSH for evaluation of fatigue. C. Mr. Schwartz was instructed to contact us in interim should questions or problems arise. Signed By: Ruthie Christopher-, AOP Mayank Albright MD <<Signature on File>>
== END 2020-07-15 05:59 | disposition home or self-care (01) ==
LOC: ONCMED 06:03
PROVIDERS: PCP Nurse Practitioner Family; Visit Provider Nurse Practitioner
DX: Z51.12 Encounter for antineoplastic immunotherapy (principal); Z51.11 Encounter for antineoplastic chemotherapy; C61 Malignant neoplasm of prostate; C79.51 Secondary malignant neoplasm of bone; F41.9 Anxiety disorder, unspecified; Z79.899 Other long term (current) drug therapy
CPT/HCPCS: 96367; 96372; 96375; 96413; 99214; J0897; J1100; J1200; J2469; J3490; J7050; J9043

== ENCOUNTER 2020-08-05 11:02 | Outpatient (CLI) | payer MEDICARE, SELFPAY ==
--- NOTE | 2020-08-05 12:35 | CT_ITS ---
WS: [id number] CT ABDOMEN AND PELVIS NONCONTRAST HISTORY: KIDNEY PAIN/BLOOD IN URINE/PROSTATE CA TECHNIQUE: Imaging performed through the abdomen and pelvis. Coronal and sagittal reformats are submi tted. All CT scans at [facility] use at least one of these dose optimization techniques: automated exposure control; mA and/or kV adjustment per patient size (includes targeted exams where d ose is matched to clinical indication); or iterative reconstruction. DLP: 1573.49 mGy.cm COMPARISON: 04/27/2020 Lower thorax: Lung bases are clear. Mild cardiomegaly. Small hiatal hernia. Liver: Mild hepatomegaly and hepatic steatosis. No bile duct dilatation. Gallbladder: Contracted gallbladder with no stones identified. Pancreas: Normal size and attenuation. Normal pancreatic duct. No pancreatitis or mass. Spleen: Normal. Adrenal glands: Normal. No mass. Right kidney: Kidney is normal size. No significant hydronephrosis. There is mild periureteral strand ing from the mid to distal ureter. The ureter extends to an area of soft tissue stranding and enlarge d lymph nodes beginning at the level of the distal aorta. There are no calcifications identified with in the ureter. Left kidney: No hydronephrosis. There is mild periureteral stranding as it extends through an area of soft tissue thickening in the retroperitoneum at the level of the distal aorta. Aorta: Normal size aorta. There are numerous shaggy and irregular shaped retroperitoneal lymph nodes in the periaortic and aort ocaval distribution. These lymph nodes were identified on a study of 04/27/2020. There is circumferent ial soft tissue thickening around the distal aorta and IVC and ureters extending along the psoas musc les. GI tract: Diverticular disease. No obstruction. Abdominal wall: Small umbilical hernia contains fat only. Pelvis: Well-distended urinary bladder. No free fluid. Osseous structures: L2 and S1 sclerotic bone disease from known metastatic disease secondary to prost ate cancer. CT/CT kidney stone [id number] IMPRESSION: 1. No hydronephrosis. 2. Mild bilateral periureteral stranding beginning at the level of the distal aorta. Periureteral stranding extends through an area of soft tissue thickening and adenopathy in the retroperitoneum as seen on the prior study consistent wi th metastatic disease to the lymph nodes from prostate cancer. Developing retro peritoneal fibrosis is also a possibility. Findings are very similar to 04/27/19 21. 3. Unremarkable urinary bladder. 4. Known metastatic disease at L2 and S1.
[2020-08-05 13:08] LABS: Urine Appearance Hazy (CLEAR); Urine Color Yellow (Yellow); pH Urine 6 (5-7)
[2020-08-05 13:09] LABS: Add Urine Microscopic? YES; Bilirubin Urine Neg (Negative); Blood Urine 3+ (Negative); Glucose Urine UA Norm (Normal); Ketones Urine Negative (Negative); Leukocyte Esterase Urine Negative (Negative); Nitrate Urine Negative (Negative); Protein Urine Neg (Negative); Specific Gravity, Urine 1.015 (1.005-1.030); Urobilinogen Urine Norm (Negative)
[2020-08-05] MEDS: sodium chloride 0.9% 250 ML 999 ML IV (13:15)
[2020-08-05] MEDS: diphenhydrAMINE 50 mg/mL SDV 1mL 25 MG IVP (13:18)
[2020-08-05] MEDS: palonosetron 0.25 mg/5 mL SDV IVP (13:20)
[2020-08-05 13:28] LABS: Add Urine Culture? Yes; Bacteria Urine TRACE /hpf; RBC Urine 15-25 /hpf (0-2); Squamous Epithelial Cell Urine 0-4 /hpf (0-5)
--- NOTE | 2020-08-17 13:45 | ONC FU_ITS ---
[facility] Patient Note Patient: Ad Schwartz Unit #: [id number]: 1970 Dictated By: Ruthie ChristopherDate of Visit: Aug 05, 2020 Onc MED Follow-Up/Prog Note Chief Complaint: Prostate cancer. History of Present Illness: Mr Schwartz is a 49 year-old man with stage IV prostate cancer, metastatic to lymph nodes and bone. He had presented with an enlarged left cervical lymph node. His PET/CT on 05/17/2015 showed several enlarged nodes in the left neck with relatively low levels of FDG activity, maximum SUV 1.9-2.4. Also noted was extensive conglomerate retroperitoneal adenopathy beginning below the level of the renal arteries and extending through the level of the bifurcation and along the iliac chains with a maximum SUV up to 6.5. There was additional adenopathy along the pelvic sidewalls somewhat more extensive on the left. The prostate gland measured approximate 5.3 cm in transverse dimension and demonstrated physiologic levels of activity. There was increased activity in the right superior pubic ramus at the level of the pubic symphysis with maximum SUV 5.5. A left cervical lymph node biopsy was apparently consistent with metastatic prostate cancer, but the actual report was not available to me. He indicated that his baseline PSA level was 1163. He was treated initially with androgen deprivation through [facility] in [place]. At some point he opted to undergo treatment with a private oncology group in [place], where he was started on chemotherapy, I assume with docetaxel/prednisone. It was administered weekly. He last received chemotherapy 2 or 3 months ago. He indicates that he stopped treatment because he ran out of money . During this time he continued the androgen deprivation. He has been getting Depo-Lupron injections from [facility] in [place]. His laboratory studies on 02/18/2016 showed his PSA level at 45.9 ng/mL. By his recollection, it was somewhere in the range of 44-46 when last checked in [place]. Dr Albright had seen him initially on 04/13/2016. A subsequent PSA level on 04/19/2016 was stable at 40.3 ng/mL. In the absence of any evidence of disease progression, he was advised to continue androgen deprivation with Depo-Lupron. During subsequent follow-up, his PSA level had increased slightly, up to 63 ng/mL in June 2016. His testosterone levels at that time were in castrate range. As of 08/07/2016 it was stable at 57 ng/mL. However, a repeat PSA level on 11/09/2016 had increased significantly, to 102.0 ng/mL. A CT scan of the right hip on 11/09/2016 showed stable right superior ramus/pubic body sclerosis compatible with metastatic disease. There was also stable right superior acetabular small sclerotic focus felt to most likely represent a bone island. Small metastasis cannot be excluded. CT abdomen/pelvis on 11/09/2016 showed increased retroperitoneal lymphadenopathy. He had further evaluation with bone scan on 12/04/2016. It showed intense bony uptake involving the right superior pubic ramus, corresponding to the area of blastic metastatic disease on the CT scan. There was an additional suspected focus of metastatic involvement in the left 10th rib anteriorly, though technically it was indeterminate. There were no other foci of metastatic disease noted. On 12/22/2016 he began treatment with abiraterone 1000 mg daily and prednisone 5 mg twice a day in addition to his Depo-Lupron. His PSA level at that point had decreased to 40.80 ng/mL. As of his follow-up visit on 01/22/2017 the PSA had declined to 15.00 ng/mL. He was still having significant pain in his right hip area. We opted to treat him with palliative radiation to the area of involvement in the right pubic ramus. He completed radiation on 02/14/2017 to a total dose of 3900 cGy. During subsequent followup there was further decline in the PSA level to 10.7 ng/mL on 03/22/3017. As of 05/08/2017 it had stabilized at 11.0 ng/mL. However, as of 08/06/2017 it had further declined to 4.4 ng/mL. He continued treatment with abiraterone/prednisone in combination with Depo-Lupron. As of 12/16/2017 the PSA had further declined to 2.51 ng/mL and by 06/11/2018 it was down to 1.6 ng/mL. As of his follow-up visit on 12/26/2018 it had increased slightly, to 2.51 ng/mL. At that point he had opted to stop his treatment, as he had become profoundly discouraged about his loss of sexual function. Repeat bone scan on 01/06/2019 was negative for metastatic disease. There was clearing of metastatic lesion involving the right pubic symphysis and possible traumatic injury to the left 10th rib. Restaging CT abdomen/pelvis on 01/20/2019 showed significant decrease in previously noted retroperitoneal and internal iliac lymphadenopathy and resolved blastic metastatic lesion in the right superior pubic ramus compared to the prior study from November 2016. There were no other lytic or blastic bony destructive lesions identified. The liver showed fatty infiltration, but no evidence of metastatic involvement. He was seen for a follow-up visit on 03/18/2019. His PSA level had increased to 6.90 ng/mL, but at that point he was feeling significantly better. He continued observation/expectant management for the prostate cancer. Subsequent to his visit in March 2019 I had requested genetic profiling to screen for possible BRCA mutation. 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 Restaging CT scans of the the chest, abdomen, and pelvis on 06/23/2019 showed no evidence of metastatic disease. Bone scan showed abnormal activity involving the L2 pedicle on the right. It was not present on the prior study from December 2018. There were no other areas of abnormal uptake noted. As of his follow-up visit on 09/11/2019 his PSA level had increased to 67.53 ng/mL, and at that point he restarted androgen deprivation therapy with bicalutamide 50 mg daily for 14 days together with Depo-Lupron 22.[address] Albright had also discussed the possibility of continuing antiandrogen therapy with enzalutamide, which he declined. He was then seen for an unplanned visit on 11/21/2019. He was complaining of chest pain, description which was somewhat suspicious for angina. He had normal EKG at that time. A Lexiscan sestamibi stress test on 11/28/2019 was normal and the associated myocardial perfusion scan showed a small area of persistent decreased uptake in the apical lateral and LV apex with no significant reversibility, suggestive of myocardial scarring versus attenuation artifact. There was normal LV ejection fraction at 61% and there were no gross wall motion abnormalities noted. Overall there was no evidence for significant coronary ischemia. At his follow-up visit on 12/29/2019 there was a further increase in the PSA level to 116.400 ng/mL. He appeared stable clinically. Dr Albright reviewed options for further treatment, and he elected for a trial of anti-androgen therapy with bicalutamide 50 mg 3 times daily. At his follow-up visit on 02/04/2020 there was further increase in the PSA to 172.600 ng/mL. Dr Albright reviewed options for further treatment and at that time he wanted to discuss it further with his family. Ultimately he opted to restart chemotherapy with cabazitaxel. His medical history is otherwise unremarkable. He has had some chronic anxiety, but no other ongoing medical illnesses. He has had no other surgeries. He is a nonsmoker. INTERIM HISTORY: He began cycle 1 of cabazitaxel on 05/04/2020. He felt pretty weak for the first couple of days after the treatment, and he continued to have fatigue over the first couple of weeks. He also had some rectal bleeding for a few days. He did not have nausea/vomiting or other acute toxicity. He continued with his second cycle of treatment on 05/31/2020. Mr. Matthews is here today for follow-up. He is due for cycle 5 cabazitaxel. He presents today with concerns of right-sided kidney pain . He is also had red urine. He denies any fever or chills. He states that Sunday he had a a couple of drinks and Sunday he felt pretty tired and washed out. He denied any fever or chills. He states that he had no swelling but did have some right-sided kidney pain. He states he has had kidney stones before and is is hot feels. He states the pain is not constant and it does go away but comes right back. He has had no nausea or vomiting. He denies any diarrhea or constipation. He denies any peripheral neuropathy symptoms. His ECOG is 2 today. Given his symptoms Mr. Schwartz was sent for a CT of the abdomen pelvis without contrast. Dr. Albright did review up and reported there are still some enlarged lymph nodes in the abdomen but they are no worse. There was no obvious kidney stone. He did have a UA today which was negative for protein but 3+ positive for blood trace bacteria 0-4 squamous epithelials but negative for leuk Estrace. Past Medical History: Anxiety Prostate cancer Past Surgical History: Left cervical lymph node biopsy in 2016 Allergies: Band Aid Medications: oxyCODONE HCl 1 Tablet (of 15 mg) Oral four times a day PRN Xanax 1 Tablet (of 0.5 mg) Oral t.i.d. PRN Family History: Mr. Schwartz's mother at age 86: leukemia. Mr. Schwartz's father at age 85: blood disorder. Mr. Schwartz has 1 sister who is : lung cancer. Father at age 85 of a blood disorder . His mother 5 months ago at age 86. She was recently diagnosed with leukemia. He doesn't know what type. One sister of lung cancer. Nine other siblings are in good health. 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 Mr. Schwartz has never smoked. He drinks occasionally. He consumes 2 drinks/day. He has indicated exposure to the following products: chewing tobacco. Mr. Schwartz reports the following support systems: lives with spouse, significant other, family, or friends, lives in own house, supportive family/friends willing to assist with needs, and adequate transportation available for expected visits. His diet consists of regular meals. He indicates his activity level as: daily activities. Use to chew tobacco for about 10 to 12 years. Review Of Symptoms: <See Above> Vital Signs: Performed on Aug 05, 2020 14:45 Height - 71.00 in Temperature - 97.5 F (LOW) Pulse - 69 /min Respiration - 18 /min BP - 135/80 mm(hg) O2 Sat - 99 % Performed on Aug 05, 2020 11:34 Height - 71.00 in Weight - 217.8 lbs (LOW) BSA - 2.19 sq.m BMI - 30.38 (HIGH) Temperature - 98.3 F (LOW) Pulse - 81 /min Respiration - 19 /min BP - 128/77 mm(hg) O2 Sat - 97 % Pain - 3,1 - No physically strenuous activity, but ambulatory and able to carry out light or sedentary work (e.g. office work, light house work). (ECOG) Physical Examination: Constitutional Alert, oriented, no acute distress. Skin pink, warm and dry. Head Normocephalic; atraumatic. Eyes Conjunctivae and sclerae are clear and without icterus. Pupils are reactive and equal. Neck Supple without masses or thyromegaly. No jugular venous distension. Hematologic/Lymphatic No petechiae or purpura. No tender or palpable lymph nodes in the cervical, supraclavicular areas. Respiratory Lungs are clear to auscultation without rhonchi or wheezing. Cardiovascular Regular rate and rhythm of heart without murmurs,clicks, gallops or rubs. Abdomen Non-tender, non-distended, no masses, ascites. No guarding or rebound tenderness. No pulsatile masses. Back/Spine Non-tender to palpation. Extremities No visible deformities, no cyanosis, clubbing or edema. Musculoskeletal No tenderness or swelling, normal range of motion without obvious weakness. Integumentary No rashes or lesions. Neurologic No sensory or motor deficits, normal cerebellar function, normal gait. Psychiatric Alert and oriented times three. Coherent speech. Verbalizes understanding of our discussions today. Laboratory:Test performed on Aug 05, 2020 12:03 Ua Color Yellow Ua Appearance Hazy Ua Glucose Norm Ua Bilirubin Neg Ua Ketones Negative Ua Specific [place] 1.015 Ua Blood 3+ Ua pH 6 Ua Protein Neg Ua Nitrites Negative Ua Leukocyte Esterase Negative Ua Micro: WBC NONE /hpf Ua Micro: RBC 15-25 /hpf Ua Micro: Squam Epith Cells 0-4 /hpf Ua Micro: Bacteria TRACE /hpf Test performed on Aug 02, 2020 11:29 PSA 93.700 ng/mL Test performed on Aug 02, 2020 10:35 TSH 1.080 uU/mL Glucose 101 mg/dL BUN 15 mg/dL Creatinine 1.16 mg/dL Cr Clearance (Est) 110.21 mL/min Sodium 141.3 mmol/L Potassium 4.05 mmol/L Chloride 107 mmol/L CO2 25 mmol/L Calcium 8.4 mg/dL Protein, Total 5.8 g/dL Albumin 4.0 g/dL Globulin 1.9 g/dL Bilirubin, Total 0.45 mg/dL Alkaline Phosphatase 44 IU/L AST (SGOT) 26 IU/L ALT (SGPT) 25 IU/L WBC 3.6 10^9/L RBC 4.06 10^12/L HGB 11.2 g/dL HCT 36.1 % MCV 88.9 fl MCH 27.6 pg MCHC 31.0 g/dL RDW 16.6 % Platelet Count 230 10^9/L MPV 9.7 fL Neutrophils (Gran) 2.0 10^9/L Lymphocytes 0.9 10^9/L Monocytes 0.7 10^9/L Manual Lymphocytes 24.9 % Manual Monocytes 19.4 % Impression: 1. Patient with stage IV prostate cancer, metastatic to lymph nodes and bone, initially diagnosed in April 2015. 2. 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 3. He has chronic anxiety. Plan/Problems Addressed at this Visit: 1. Patient with stage IV prostate cancer, metastatic to lymph nodes and bone, initially diagnosed in April 2015. He initially began treatment with androgen deprivation with subsequent addition of chemotherapy, which I assume was docetaxel/prednisone. He did show significant response, both clinically and by PSA level. He had stopped chemotherapy sometime around January or February 2016. He had subsequently continued androgen deprivation with Depo-Lupron. As of November 2016 his PSA level had increased significantly. CT abdomen/pelvis on 11/09/2016 showed increased retroperitoneal lymphadenopathy, and clinically it did appear that he was having disease progression. A subsequent bone scan showed intense uptake in the right superior pubic ramus corresponding to an area of blastic metastatic disease which had been noted on CT scan of the right hip. There was additional suspected metastatic involvement in the left 10th rib anteriorly, though technically that site was indeterminate. On 12/22/2016 he began treatment with abiraterone 1000 mg daily and prednisone 5 mg twice a day in addition to the Depo-Lupron. He did show a good response by PSA level, but he was still having significant pain in his right hip area, and he was then given palliative radiation to the area of involvement in the right pubic ramus. He completed treatment on 02/14/2017 to 3900 cGy. He had a good clinical response. However, he tolerated the the androgen deprivation therapy poorly, and in December 2018 he opted to stop treatment. During subsequent follow-up, there was a gradual increase in his PSA level, but his clinical status remained stable, and he continued on observation/expectant management. As of 09/11/2019 there was a significant further increase in his PSA level, to 67.53 ng/mL, and at that point he restarted androgen deprivation therapy with bicalutamide 50 mg daily for 14 days together with Depo-Lupron 22.5 mg by intramuscular injection. He had significant side effects following the Depo-Lupron injection, including chest pain. A Lexiscan sestamibi stress test showed no evidence of cardiac ischemia. As of his follow-up visit in December 2019 there was further increase in the PSA level to 116 ng/mL. At that point he agreed to a trial of anti-androgen therapy with bicalutamide 50 mg 3 times daily. He stopped it in mid January when he was diagnosed with COVID-19 virus infection. He had uneventful recovery from that illness. At his follow-up visit on 03/10/2020 there was further increase in the PSA level to 180.500 ng/mL. Dr Albright had discussed options for further treatment, and he ultimately chose to proceed with a trial of 2nd line chemotherapy with cabazitaxel. He began cycle 1 of cabazitaxel on 05/04/2020. He had pretty severe fatigue following initial infusion. He also developed some mild constipation with rectal bleeding, but that lasted just a few days. He has had no other significant toxicity. He continued with cycle 2 on 05/31/2020. He has continued to have fatigue, but he otherwise appears to be tolerating it well. He has had a significant decline in his PSA level. A. Proceed with cycle 5 Jevtana at same dosing. B. He will continue the same premeds as he is doing well with the current plan. C. Today's labs reviewed in detail discussed with Efren and a copy was given to him. WBC 3.6, hemoglobin 11.2, platelets 230,000 ANC is 2004.0 creatinine 1.2 calcium 8.4 LFTs are normal. TSH 1.08. PSA is 93.7 compared to July 12, 2020 at which time it was 117.4. 2. He has started denosumab injections for the metastatic bone involvement on May 04, 2020. His last dose was on 05/31/2020. A. He is due for Xgeva today and will continue with the 120 mg. C. His schedule puts his Xgeva at every 6 weeks instead of every 4 given that he is on a 3-week cycle. 3. He has developed acid reflux symptoms. A. He was given a prescription for Protonix 40 mg daily. B. His current reflux symptoms have resolved on the Protonix. He will plan to continue it daily. 4. He presented on 06/24/2020 with significant swelling in the right leg, and it was warm to touch. He did have a venous Doppler study on 06/24/2020. It was negative for DVT. The swelling has resolved at present. 5. Decreased hemoglobin. It is noted that his hemoglobin is down to 11.2 his hemoglobin on 22 June 2020 was 13.1. We discussed at length that this could be due to the Jevtana however he reports that he has had chronic nasal bleeding off and on. He states is no worse no frequent but he does have it off and on. He states he is also had some bleeding in the rectum. He states this is also been ongoing for years . He states it is no more frequent or increased volume. He states that he has not had a colonoscopy recently but does not sound that he is is interested in pursuing that right now. We discussed that if his hemoglobin continues to drop that we may need to consider the colonoscopy. 6. Chronic pain from bone mets. A. Currently controlled with oxycodone 15 mg. 7. Hematuria-Acute problem today A. CT of the abdomen pelvis did not show evidence of any kidney stones. It was done with noncontrast. B. We will have him try antibiotic coverage with Bactrim DS twice daily for 5 days. C. If the hematuria does not resolve or if he has any further problems he will need to be referred to urology for cystoscopy. 8. Follow-up plan A. We will plan to see him back in 3 weeks at which time he will be due for cycle 6 Jevtana. B. Labs prior to visit requested included CBC CMP PSA and TSH for evaluation of fatigue. C. Mr. Schwartz was instructed to contact us in interim should questions or problems arise. Signed By: Wan Christopher.N.P.-SANDRA, AOJACKP Mayank Albright MD <<Signature on File>>
== END 2020-08-05 11:03 | disposition home or self-care (01) ==
PROVIDERS: PCP Nurse Practitioner Family; Visit Provider Nurse Practitioner
DX: Z51.12 Encounter for antineoplastic immunotherapy (principal); C61 Malignant neoplasm of prostate; C79.51 Secondary malignant neoplasm of bone; F41.9 Anxiety disorder, unspecified; Z79.899 Other long term (current) drug therapy
CPT/HCPCS: 74176; 81001; 96367; 96375; 96413; 99215; J1100; J1200; J2469; J7050; J9043

== ENCOUNTER 2020-08-26 11:15 | Outpatient (CLI) | payer MEDICARE, SELFPAY ==
[2020-08-26 12:06] LABS: Basophils # 0.1 10^3/uL (0.0-0.1); Basophils % 1.2 %; Eosinophils % 0.3 %; Hematocrit 38.3 % (42.0-52.0); Hemoglobin 11.7 g/dL (11.7-16.6); Lymphocytes # 1.2 10^3/uL (0.8-4.8); Lymphocytes % 17.9 %; Mean Corpuscular HGB Conc 30.5 g/dL (30.0-36.0); Mean Corpuscular Hemoglobin 27.3 pg (28.0-34.0); Mean Corpuscular Volume 89.5 fL (80-94); Mean Platelet Volume 10.4 fL (7.4-10.4); Monocytes # 0.5 10^3/uL (0.2-0.9); Monocytes % 7.4 %; Neutrophils # 5.01 10^3/uL (1.8-7.7); Neutrophils % 72.8 %; Nucleated Red Blood Cells % 0 %; Platelet Count 267 10^3/cmm (130-400); Red Blood Count 4.28 10^6/uL (4.1-5.3); Red Cell Distribution Width 16.1 % (12.1-15.1); White Blood Count 6.9 10^3/uL (4.0-10.0)
[2020-08-26 12:41] LABS: Thyroid Stimulating Hormone 0.55 uIU/mL (0.27-4.20)
[2020-08-26 12:51] LABS: Alanine Aminotransferase 19 U/L (0-41); Albumin Level 4.3 g/dL (3.5-5.2); Alkaline Phosphatase 50 IU/L (40-130); Anion Gap 13.1 (5-19); Aspartate Amino Transferase 16 U/L (0-40); Blood Urea Nitrogen 13 mg/dL (6-20); Calcium 8.2 mg/dL (8.5-10.5); Carbon Dioxide 26 mmol/L (22-29); Chloride 107 mmol/L (98-107); Glomerular Filtration Rate 89.7 mL/min (90-130); Glucose 88 mg/dL (65-115); Osmolality Calculated 294 mOsm/kg (285-295); Potassium 4.1 mmol/L (3.5-5.1); Sodium 142 mmol/L (136-145); Total Bilirubin 0.3 mg/dL (0.15-1.2); Total Protein 6.3 g/dL (6.6-8.7)
[2020-08-26] MEDS: palonosetron 0.25 mg/5 mL SDV IVP (14:52)
[2020-08-26] MEDS: sodium chloride 0.9% 250 ML 999 ML IV (14:52)
[2020-08-26] MEDS: famotidine 20 mg/2 mL INJ IVP (14:53)
[2020-08-26] MEDS: diphenhydrAMINE 50 mg/mL SDV 1mL 25 MG IVP (14:54)
--- NOTE | 2020-09-02 13:57 | ONC FU_ITS ---
[facility] Patient Note Patient: Ad Schwartz Unit #: [id number]: 1970 Dictated By: Ruthie ChristopherDate of Visit: August 26, 2020 Onc MED Follow-Up/Prog Note Chief Complaint: Prostate cancer. History of Present Illness: Mr Schwartz is a 49 year-old man with stage IV prostate cancer, metastatic to lymph nodes and bone. He had presented with an enlarged left cervical lymph node. His PET/CT on 05/17/2015 showed several enlarged nodes in the left neck with relatively low levels of FDG activity, maximum SUV 1.9-2.4. Also noted was extensive conglomerate retroperitoneal adenopathy beginning below the level of the renal arteries and extending through the level of the bifurcation and along the iliac chains with a maximum SUV up to 6.5. There was additional adenopathy along the pelvic sidewalls somewhat more extensive on the left. The prostate gland measured approximate 5.3 cm in transverse dimension and demonstrated physiologic levels of activity. There was increased activity in the right superior pubic ramus at the level of the pubic symphysis with maximum SUV 5.5. A left cervical lymph node biopsy was apparently consistent with metastatic prostate cancer, but the actual report was not available to me. He indicated that his baseline PSA level was 1163. He was treated initially with androgen deprivation through [facility] in [place]. At some point he opted to undergo treatment with a private oncology group in [place], where he was started on chemotherapy, I assume with docetaxel/prednisone. It was administered weekly. He last received chemotherapy 2 or 3 months ago. He indicates that he stopped treatment because he ran out of money . During this time he continued the androgen deprivation. He has been getting Depo-Lupron injections from [facility] in [place]. His laboratory studies on 02/18/2016 showed his PSA level at 45.9 ng/mL. By his recollection, it was somewhere in the range of 44-46 when last checked in [place]. Dr Albright had seen him initially on 04/13/2016. A subsequent PSA level on 04/19/2016 was stable at 40.3 ng/mL. In the absence of any evidence of disease progression, he was advised to continue androgen deprivation with Depo-Lupron. During subsequent follow-up, his PSA level had increased slightly, up to 63 ng/mL in June 2016. His testosterone levels at that time were in castrate range. As of 08/07/2016 it was stable at 57 ng/mL. However, a repeat PSA level on 11/09/2016 had increased significantly, to 102.0 ng/mL. A CT scan of the right hip on 11/09/2016 showed stable right superior ramus/pubic body sclerosis compatible with metastatic disease. There was also stable right superior acetabular small sclerotic focus felt to most likely represent a bone island. Small metastasis cannot be excluded. CT abdomen/pelvis on 11/09/2016 showed increased retroperitoneal lymphadenopathy. He had further evaluation with bone scan on 12/04/2016. It showed intense bony uptake involving the right superior pubic ramus, corresponding to the area of blastic metastatic disease on the CT scan. There was an additional suspected focus of metastatic involvement in the left 10th rib anteriorly, though technically it was indeterminate. There were no other foci of metastatic disease noted. On 12/22/2016 he began treatment with abiraterone 1000 mg daily and prednisone 5 mg twice a day in addition to his Depo-Lupron. His PSA level at that point had decreased to 40.80 ng/mL. As of his follow-up visit on 01/22/2017 the PSA had declined to 15.00 ng/mL. He was still having significant pain in his right hip area. We opted to treat him with palliative radiation to the area of involvement in the right pubic ramus. He completed radiation on 02/14/2017 to a total dose of 3900 cGy. During subsequent followup there was further decline in the PSA level to 10.7 ng/mL on 03/22/3017. As of 05/08/2017 it had stabilized at 11.0 ng/mL. However, as of 08/06/2017 it had further declined to 4.4 ng/mL. He continued treatment with abiraterone/prednisone in combination with Depo-Lupron. As of 12/16/2017 the PSA had further declined to 2.51 ng/mL and by 06/11/2018 it was down to 1.6 ng/mL. As of his follow-up visit on 12/26/2018 it had increased slightly, to 2.51 ng/mL. At that point he had opted to stop his treatment, as he had become profoundly discouraged about his loss of sexual function. Repeat bone scan on 01/06/2019 was negative for metastatic disease. There was clearing of metastatic lesion involving the right pubic symphysis and possible traumatic injury to the left 10th rib. Restaging [address] abdomen/pelvis on 01/20/2019 showed significant decrease in previously noted retroperitoneal and internal iliac lymphadenopathy and resolved blastic metastatic lesion in the right superior pubic ramus compared to the prior study from November 2016. There were no other lytic or blastic bony destructive lesions identified. The liver showed fatty infiltration, but no evidence of metastatic involvement. He was seen for a follow-up visit on 03/18/2019. His PSA level had increased to 6.90 ng/mL, but at that point he was feeling significantly better. He continued observation/expectant management for the prostate cancer. Subsequent to his visit in March 2019 I had requested genetic profiling to screen for possible BRCA mutation. 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 Restaging CT scans of the the chest, abdomen, and pelvis on 06/23/2019 showed no evidence of metastatic disease. Bone scan showed abnormal activity involving the L2 pedicle on the right. It was not present on the prior study from December 2018. There were no other areas of abnormal uptake noted. As of his follow-up visit on 09/11/2019 his PSA level had increased to 67.53 ng/mL, and at that point he restarted androgen deprivation therapy with bicalutamide 50 mg daily for 14 days together with Depo-Lupron 22.[address] Albright had also discussed the possibility of continuing antiandrogen therapy with enzalutamide, which he declined. He was then seen for an unplanned visit on 11/21/2019. He was complaining of chest pain, description which was somewhat suspicious for angina. He had normal EKG at that time. A Lexiscan sestamibi stress test on 11/28/2019 was normal and the associated myocardial perfusion scan showed a small area of persistent decreased uptake in the apical lateral and LV apex with no significant reversibility, suggestive of myocardial scarring versus attenuation artifact. There was normal LV ejection fraction at 61% and there were no gross wall motion abnormalities noted. Overall there was no evidence for significant coronary ischemia. At his follow-up visit on 12/29/2019 there was a further increase in the PSA level to 116.400 ng/mL. He appeared stable clinically. Dr Albright reviewed options for further treatment, and he elected for a trial of anti-androgen therapy with bicalutamide 50 mg 3 times daily. At his follow-up visit on 02/04/2020 there was further increase in the PSA to 172.600 ng/mL. Dr Albright reviewed options for further treatment and at that time he wanted to discuss it further with his family. Ultimately he opted to restart chemotherapy with cabazitaxel. His medical history is otherwise unremarkable. He has had some chronic anxiety, but no other ongoing medical illnesses. He has had no other surgeries. He is a nonsmoker. INTERIM HISTORY: He began cycle 1 of cabazitaxel on 05/04/2020. He felt pretty weak for the first couple of days after the treatment, and he continued to have fatigue over the first couple of weeks. He also had some rectal bleeding for a few days. He did not have nausea/vomiting or other acute toxicity. He continued with his second cycle of treatment on 05/31/2020. Mr. Schwartz presented for cycle 5 concerns of right-sided kidney pain . He also had red urine. He denied any fever or chills. He stated that Sunday before his visit he had a a couple of drinks and Sunday he felt pretty tired and washed out. He stated that he had no swelling but did have some right-sided kidney pain. He statd he had had kidney stones before and this pain felt the same. He states the pain is not constant and it does go away but comes right back. Given his symptoms Mr. Schwartz was sent for a CT of the abdomen pelvis without contrast. Dr. Albright did review up and reported there are still some enlarged lymph nodes in the abdomen but they are no worse. There was no obvious kidney stone. He did a UA today which was negative for protein but 3+ positive for blood trace bacteria 0-4 squamous epithelials but negative for leuk Estrace.This was treated with antibiotics with no improvement in symptoms per his report today. Mr. Schwartz is here today for consideration of cycle 6 Jevtana. He states that he continues to have blood in his urine. He states the right side pain is still there. It makes his breath go away at times. He states that he feels like his right kidney hurts worse if he is riding on a rough road or trying to ride a bike. He does not want to see Dr. Doran on September 15. He states that the pain is always right-sided and points to the right kidney when asked to show where the pain is at. He denies any pustular exudate with his urine he states is just bright red. It does burn some with the urination but it is not terribly bad . He denies any testicular pain he denies any groin pain. He denies any fever or chills. He states he got no relief with the antibiotics before. He denies bruising or bleeding anywhere else. He has no other symptoms. States that with the blood in his urine freaked me out I would feel pretty good. His ECOG is 1. Past Medical History: Anxiety Prostate cancer Past Surgical History: Left cervical lymph node biopsy in 2016 Allergies: Band Aid Medications: Omeprazole 1 Tablet (of 20 mg) Capsule Delayed Release Oral daily oxyCODONE HCl 1 Tablet (of 15 mg) Oral four times a day PRN PredniSONE 1 (10 mg) Tablet, enteric coated Oral daily Xanax 1 Tablet (of 0.5 mg) Oral t.i.d. PRN Family History: Mr. Schwartz's mother at age 86: leukemia. Mr. Schwartz's father at age 85: blood disorder. Mr. Schwartz has 1 sister who is : lung cancer. Father at age 85 of a blood disorder . His mother 5 months ago at age 86. She was recently diagnosed with leukemia. He doesn't know what type. One sister of lung cancer. Nine other siblings are in good health. Social History: Mr. 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 Mr. Schwartz has never smoked. He drinks occasionally. He consumes 2 drinks/day. He has indicated exposure to the following products: chewing tobacco. Mr. Schwartz reports the following support systems: lives with spouse, significant other, family, or friends, lives in own house, supportive family/friends willing to assist with needs, and adequate transportation available for expected visits. His diet consists of regular meals. He indicates his activity level as: daily activities. Use to chew tobacco for about 10 to 12 years. drank a few beers occasionally. Review Of Symptoms: <See Above> Vital Signs: Performed on August 26, 2020 13:42 BSA - 0.00 sq.m BMI - 0.00 Temperature - 219.4 F (HIGH) Pulse - 78 /min Respiration - 18 /min BP - 147/83 mm(hg) (HIGH) O2 Sat - 97 % Pain - 6 Fatigue - 0,1 - No physically strenuous activity, but ambulatory and able to carry out light or sedentary work (e.g. office work, light house work). (ECOG) Physical Examination: Constitutional Alert, oriented, no acute distress. Skin pink, warm and dry. Head Normocephalic; atraumatic. Eyes Conjunctivae and sclerae are clear and without icterus. Pupils are reactive and equal. Neck Supple without masses or thyromegaly. No jugular venous distension. Hematologic/Lymphatic No petechiae or purpura. No tender or palpable lymph nodes in the cervical, supraclavicular areas. Respiratory Lungs are clear to auscultation without rhonchi or wheezing. Cardiovascular Regular rate and rhythm of heart without murmurs,clicks, gallops or rubs. Abdomen Non-tender, non-distended, no masses, ascites. No guarding or rebound tenderness. No pulsatile masses. Back/Spine Non-tender to palpation. Extremities No visible deformities, no cyanosis, clubbing or edema. Musculoskeletal No tenderness or swelling, normal range of motion without obvious weakness. Integumentary No rashes or lesions. Neurologic No sensory or motor deficits, normal cerebellar function, normal gait. Psychiatric Alert and oriented times three. Coherent speech. Verbalizes understanding of our discussions today. Laboratory:Test performed on August 26, 2020 11:49 Sodium 142 mmol/L TSH 0.55 uIU/mL Potassium 4.1 mmol/L Chloride 107 mmol/L CO2 26 mmol/L Anion Gap 13.1 BUN 13 mg/dL Creatinine 0.9 mg/dL Cr Clearance (Est) 142.0500 mL/min eGFR 89.7 mL/min Glucose 88 mg/dL Osmolality - Calculated 294 mOsm/kg Calcium 8.2 mg/dL Protein, Total 6.3 g/dL Albumin 4.3 g/dL Globulin 2.0 g/dL Bilirubin, Total 0.3 mg/dL ALT (SGPT) 19 U/L AST (SGOT) 16 U/L Alkaline Phosphatase 50 IU/L WBC 6.9 10 3/uL RBC 4.28 10 6/uL HGB 11.7 g/dL HCT 38.3 % MCV 89.5 fL MCH 27.3 pg MCHC 30.5 g/dL RDW 16.1 % Platelet Count 267 10 3/cmm MPV 10.4 fL Neutrophils 5.01 10 3/uL Lymphocytes 1.2 10 3/uL Monocytes 0.5 10 3/uL Eosinophils 0.0 10 3/uL Basophils 0.1 10 3/uL Neutrophil % 72.8 % Lymphocyte % 17.9 % Monocyte % 7.4 % Eosinophil % 0.3 % Basophils % 1.2 % NRBC % 0 % PSA 73.400 ng/mL Impression: 1. Patient with stage IV prostate cancer, metastatic to lymph nodes and bone, initially diagnosed in April 2015. 2. 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 3. He has chronic anxiety. Plan/Problems Addressed at this Visit: 1. Stage IV prostate cancer, metastatic to lymph nodes and bone, initially diagnosed in April 2015. He initially began treatment with androgen deprivation with subsequent addition of chemotherapy, which I assume was docetaxel/prednisone. He did show significant response, both clinically and by PSA level. He had stopped chemotherapy sometime around January or February 2016. He had subsequently continued androgen deprivation with Depo-Lupron. As of November 2016 his PSA level had increased significantly. CT abdomen/pelvis on 11/09/2016 showed increased retroperitoneal lymphadenopathy, and clinically it did appear that he was having disease progression. A subsequent bone scan showed intense uptake in the right superior pubic ramus corresponding to an area of blastic metastatic disease which had been noted on CT scan of the right hip. There was additional suspected metastatic involvement in the left 10th rib anteriorly, though technically that site was indeterminate. On 12/22/2016 he began treatment with abiraterone 1000 mg daily and prednisone 5 mg twice a day in addition to the Depo-Lupron. He did show a good response by PSA level, but he was still having significant pain in his right hip area, and he was then given palliative radiation to the area of involvement in the right pubic ramus. He completed treatment on 02/14/2017 to 3900 cGy. He had a good clinical response. However, he tolerated the the androgen deprivation therapy poorly, and in December 2018 he opted to stop treatment. During subsequent follow-up, there was a gradual increase in his PSA level, but his clinical status remained stable, and he continued on observation/expectant management. As of 09/11/2019 there was a significant further increase in his PSA level, to 67.53 ng/mL, and at that point he restarted androgen deprivation therapy with bicalutamide 50 mg daily for 14 days together with Depo-Lupron 22.5 mg by intramuscular injection. He had significant side effects following the Depo-Lupron injection, including chest pain. A Lexiscan sestamibi stress test showed no evidence of cardiac ischemia. As of his follow-up visit in December 2019 there was further increase in the PSA level to 116 ng/mL. At that point he agreed to a trial of anti-androgen therapy with bicalutamide 50 mg 3 times daily. He stopped it in mid January when he was diagnosed with COVID-19 virus infection. He had uneventful recovery from that illness. At his follow-up visit on 03/10/2020 there was further increase in the PSA level to 180.500 ng/mL. Dr Albright had discussed options for further treatment, and he ultimately chose to proceed with a trial of 2nd line chemotherapy with cabazitaxel. He began cycle 1 of cabazitaxel on 05/04/2020. He had pretty severe fatigue following initial infusion. He also developed some mild constipation with rectal bleeding, but that lasted just a few days. He has had no other significant toxicity. He continued with cycle 2 on 05/31/2020. He has continued to have fatigue, but he otherwise appears to be tolerating it well. He has had a significant decline in his PSA level. A. Proceed with cycle 6 Jevtana at same dosing. B. He will continue the same premeds as he is doing well with the current plan. C. Today's labs reviewed in detail discussed with Mr. Schwartz and a copy was given to him. WBC 6.9, hemoglobin 11.7 which is actually improved from last visit at which time was 11.2. Platelets 267,000. Potassium was 4.1, random glucose 88, creatinine 0.9 LFTs are normal. His TSH is 0.55 and his PSA today is 73.4. He was 93.7 on 08/02/2020 and noted to be 268.1 on May 04, 2020. 2. He has started denosumab injections for the metastatic bone involvement on May 04, 2020. His last dose was on 05/31/2020. A. He is due for Xgeva today and will continue with the 120 mg. C. His schedule puts his Xgeva at every 6 weeks instead of every 4 given that he is on a 3-week cycle. 3. He has developed acid reflux symptoms. A. He was given a prescription for Protonix 40 mg daily. B. His current reflux symptoms have resolved on the Protonix. He will plan to continue it daily. 4. He presented on 06/24/2020 with significant swelling in the right leg, and it was warm to touch. He did have a venous Doppler study on 06/24/2020. It was negative for DVT. The swelling has resolved at present. 5. Decreased hemoglobin. It is noted that his hemoglobin is down to 11.8 and his hemoglobin on 22 June 2020 was 13.1. We discussed at length that this could be due to the Jevtana however he reports that he has had chronic nasal bleeding off and on. He now has hematuria also. He states he is also had some bleeding in the rectum. He states this is also been ongoing for years . He states it is no more frequent or increased volume. He states that he has not had a colonoscopy recently but does not sound that he is is interested in pursuing that right now. We discussed that if his hemoglobin continues to drop that we may need to consider the colonoscopy. 6. Chronic pain from bone mets. A. Currently controlled with oxycodone 15 mg every 4 hours. 7. Hematuria-Acute problem-worsening today A. CT of the abdomen pelvis did not show evidence of any kidney stones. It was done with noncontrast. B. Antibiotic coverage with Bactrim DS twice daily for 5 days did not improve any of his symptoms. C. He does have referral to see Dr. Doran on September 15, 2020. Dr. Albright asked me to call to see if there is any way possible they could do a cystoscopy on Mr. Schwartz early next week upon Dr. Doran's return as he is having persistent and worsening hematuria. 8. Follow-up plan A. We will plan to see him back in 3 weeks at which time he will be due for cycle 7 Jevtana. B. Labs prior to visit requested included CBC CMP PSA. C. Mr. Schwartz was instructed to contact us in interim should questions or problems arise. Signed By: Ruthie Christopher-, AOCP Mayank Albright MD <<Signature on File>>
== END 2020-08-26 11:16 | disposition home or self-care (01) ==
PROVIDERS: PCP Nurse Practitioner Family; Visit Provider Nurse Practitioner
DX: Z51.11 Encounter for antineoplastic chemotherapy (principal); C61 Malignant neoplasm of prostate; C77.8 Secondary and unspecified malignant neoplasm of lymph nodes of multiple regions; C79.51 Secondary malignant neoplasm of bone; F41.9 Anxiety disorder, unspecified; Z79.899 Other long term (current) drug therapy
CPT/HCPCS: 80053; 84153; 84443; 85025; 96367; 96375; 96413; 99214; J1100; J1200; J2469; J3490; J7050; J9043

== ENCOUNTER 2020-09-13 06:13 | Outpatient (CLI) | payer MEDICARE, SELFPAY ==
[2020-09-13] MEDS: sodium chloride 0.9% 250 ML 75 ML IV (09:32)
[2020-09-13] MEDS: famotidine 20 mg/2 mL INJ IVP (09:32)
[2020-09-13] MEDS: diphenhydrAMINE 50 mg/mL SDV 1mL 25 MG IV (09:34)
[2020-09-13] MEDS: palonosetron 0.25 mg/5 mL SDV IV (09:36)
[2020-09-13] MEDS: denosumab 120 mg SDV SUBCUT (10:28)
--- NOTE | 2020-09-13 18:27 | ONC FU_ITS ---
Dr. Albright Patient Follow-Up Note Patient: Ad Schwartz Unit #: [id number]: 1970 Dicatated By: Mayank Albright M.D.Date of Visit:Sep 13, 2020 Onc Med Follow-up/Prog Note Chief Complaint: Prostate cancer. History of Present Illness: This is a 49 year-old man with stage IV prostate cancer, metastatic to lymph nodes and bone. He had presented with an enlarged left cervical lymph node. His PET/CT on 05/17/2015 showed several enlarged nodes in the left neck with relatively low levels of FDG activity, maximum SUV 1.9-2.4. Also noted was extensive conglomerate retroperitoneal adenopathy beginning below the level of the renal arteries and extending through the level of the bifurcation and along the iliac chains with a maximum SUV up to 6.5. There was additional adenopathy along the pelvic sidewalls somewhat more extensive on the left. The prostate gland measured approximate 5.3 cm in transverse dimension and demonstrated physiologic levels of activity. There was increased activity in the right superior pubic ramus at the level of the pubic symphysis with maximum SUV 5.5. A left cervical lymph node biopsy was apparently consistent with metastatic prostate cancer, but the actual report was not available to me. He indicated that his baseline PSA level was 1163. He was treated initially with androgen deprivation through [facility] in [place]. At some point he opted to undergo treatment with a private oncology group in [place], where he was started on chemotherapy, I assume with docetaxel/prednisone. It was administered weekly. He last received chemotherapy 2 or 3 months ago. He indicates that he stopped treatment because he ran out of money . During this time he continued the androgen deprivation. He has been getting Depo-Lupron injections from [facility] in [place]. His laboratory studies on 02/18/2016 showed his PSA level at 45.9 ng/mL. By his recollection, it was somewhere in the range of 44-46 when last checked in [place]. I had seen him initially on 04/13/2016. A subsequent PSA level on 04/19/2016 was stable at 40.3 ng/mL. In the absence of any evidence of disease progression, he was advised to continue androgen deprivation with Depo-Lupron. During subsequent follow-up, his PSA level had increased slightly, up to 63 ng/mL in June 2016. His testosterone levels at that time were in castrate range. As of 08/07/2016 it was stable at 57 ng/mL. However, a repeat PSA level on 11/09/2016 had increased significantly, to 102.0 ng/mL. A CT scan of the right hip on 11/09/2016 showed stable right superior ramus/pubic body sclerosis compatible with metastatic disease. There was also stable right superior acetabular small sclerotic focus felt to most likely represent a bone island. Small metastasis cannot be excluded. CT abdomen/pelvis on 11/09/2016 showed increased retroperitoneal lymphadenopathy. He had further evaluation with bone scan on 12/04/2016. It showed intense bony uptake involving the right superior pubic ramus, corresponding to the area of blastic metastatic disease on the CT scan. There was an additional suspected focus of metastatic involvement in the left 10th rib anteriorly, though technically it was indeterminate. There were no other foci of metastatic disease noted. On 12/22/2016 he began treatment with abiraterone 1000 mg daily and prednisone 5 mg twice a day in addition to his Depo-Lupron. His PSA level at that point had decreased to 40.80 ng/mL. As of his follow-up visit on 01/22/2017 the PSA had declined to 15.00 ng/mL. He was still having significant pain in his right hip area. We opted to treat him with palliative radiation to the area of involvement in the right pubic ramus. He completed radiation on 02/14/2017 to a total dose of 3900 cGy. During subsequent followup there was further decline in the PSA level to 10.7 ng/mL on 03/22/3017. As of 05/08/2017 it had stabilized at 11.0 ng/mL. However, as of 08/06/2017 it had further declined to 4.4 ng/mL. He continued treatment with abiraterone/prednisone in combination with Depo-Lupron. As of 12/16/2017 the PSA had further declined to 2.51 ng/mL and by 06/11/2018 it was down to 1.6 ng/mL. As of his follow-up visit on 12/26/2018 it had increased slightly, to 2.51 ng/mL. At that point he had opted to stop his treatment, as he had become profoundly discouraged about his loss of sexual function. Repeat bone scan on 01/06/2019 was negative for metastatic disease. There was clearing of metastatic lesion involving the right pubic symphysis and possible traumatic injury to the left 10th rib. Rest[address] abdomen/pelvis on 01/20/2019 showed significant decrease in previously noted retroperitoneal and internal iliac lymphadenopathy and resolved blastic metastatic lesion in the right superior pubic ramus compared to the prior study from November 2016. There were no other lytic or blastic bony destructive lesions identified. The liver showed fatty infiltration, but no evidence of metastatic involvement. He was seen for a follow-up visit on 03/18/2019. His PSA level had increased to 6.90 ng/mL, but at that point he was feeling significantly better. He continued observation/expectant management for the prostate cancer. Subsequent to his visit in March 2019 I had requested genetic profiling to screen for possible BRCA mutation. 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 Restaging CT scans of the the chest, abdomen, and pelvis on 06/23/2019 showed no evidence of metastatic disease. Bone scan showed abnormal activity involving the L2 pedicle on the right. It was not present on the prior study from December 2018. There were no other areas of abnormal uptake noted. As of his follow-up visit on 09/11/2019 his PSA level had increased to 67.53 ng/mL, and at that point he restarted androgen deprivation therapy with bicalutamide 50 mg daily for 14 days together with Depo-Lupron 22.5 mg. At that time I had also discussed the possibility of continuing antiandrogen therapy with enzalutamide, which he declined. He was then seen for an unplanned visit on 11/21/2019. He was complaining of chest pain, description which was somewhat suspicious for angina. He had normal EKG at that time. A Lexiscan sestamibi stress test on 11/28/2019 was normal and the associated myocardial perfusion scan showed a small area of persistent decreased uptake in the apical lateral and LV apex with no significant reversibility, suggestive of myocardial scarring versus attenuation artifact. There was normal LV ejection fraction at 61% and there were no gross wall motion abnormalities noted. Overall there was no evidence for significant coronary ischemia. At his follow-up visit on 12/29/2019 there was a further increase in the PSA level to 116.400 ng/mL. He appeared stable clinically. I reviewed options for further treatment, and he elected for a trial of anti-androgen therapy with bicalutamide 50 mg 3 times daily. At his follow-up visit on 02/04/2020 there was further increase in the PSA to 172.600 ng/mL. I reviewed options for further treatment and at that time he wanted to discuss it further with his family. Ultimately he opted to restart chemotherapy with cabazitaxel. His medical history is otherwise unremarkable. He has had some chronic anxiety, but no other ongoing medical illnesses. He has had no other surgeries. He is a nonsmoker. INTERIM HISTORY: He began cycle 1 of cabazitaxel on 05/04/2020. He felt pretty weak for the first couple of days after the treatment, and he continued to have fatigue over the first couple of weeks. He also had some rectal bleeding for a few days. He did not have nausea/vomiting or other acute toxicity. He continued with his 2nd cycle of treatment on 05/31/2020. He again reported fatigue following the chemotherapy, but he had no other significant toxicity. He then continued treatment at 3-week intervals, and during follow-up there was a gradual decline in his PSA level. As of 08/26/2020 he began his 6th cycle with the PSA at that point down to 73.4 ng/mL compared to pretreatment level of 268.1 ng/mL. He is seen for a follow-up visit. He continues to complain that he is tired. He is still doing light work, but he says that he says that he has to make himself do something. ECOG score is 1. His appetite is down a little. His weight is stable. He is not having fever, night sweats, or hot flashes. He has had no mouth sores. He has no shortness of breath, cough, or chest pain. He has not been having nausea. His acid reflux is adequately managed with medication. Bowel function remains adequate, though he has having some intermittent rectal bleeding. His main complaint is that he has been having knifelike pain in the costovertebral angle on the right side. He is having to take his pain medication on a pretty regular basis. He is also having hematuria with virtually every void. He also complains that his urination is slow and that he does not have much pressure when he voids. He is not having any other pain right now. He does not complain of headache. He has occasional dizziness with his pain medication. He has no numbness/paresthesia or other focal neurologic symptoms. Medications: Omeprazole 1 Tablet (of 20 mg) Capsule Delayed Release Oral daily, oxyCODONE HCl 1 Tablet (of 15 mg) Oral four times a day PRN, PredniSONE 1 (10 mg) Tablet, enteric coated Oral daily, Xanax 1 Tablet (of 0.5 mg) Oral t.i.d. PRN Allergies: Band Aid Vital Signs: Performed on Sep 13, 2020 09:48 Height - 71.00 in Weight - 218 lbs (HIGH) BSA - 2.19 sq.m BMI - 30.41 (HIGH) Temperature - 98.4 F Pulse - 68 /min Respiration - 18 /min BP - 128/84 mm(hg) O2 Sat - 98 % Pain - 4 Fatigue - 6 Physical Examination: Constitutional - He looks pretty good generally, Eyes - Sclerae nonicteric. Conjunctivae clear, ENMT - No lesions noted in the oral cavity, Hematologic/Lymphatic - No cervical, clavicular, or axillary adenopathy, Respiratory - Lungs are clear with good air movement bilaterally, Cardiovascular - Heart rhythm is regular. There is no murmur, gallop, or rub noted, Abdomen - Soft. Liver and spleen are not enlarged. There is no abdominal mass or ascites noted. I do not feel any inguinal adenopathy, Back/Spine - No spine or CVA tenderness noted, Extremities - No edema. Pedal pulses are palpable bilaterally, Neurologic - No focal neurologic deficits noted. Lab/Imaging: CBC shows hemoglobin 11.9 g, white blood cell count 4300, and platelet count 299,000. Comprehensive metabolic profile shows stable renal function with BUN 18 and creatinine 1.23 mg/dL. The bilirubin and liver enzymes are normal. There has been just a slight further decrease in the PSA level, now to 71.500 ng/mL. Problem List: 1. Stage IV prostate cancer, metastatic to lymph nodes and bone, initially diagnosed in April 2015. 2. 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 3. He has chronic anxiety. Problems Addressed with this Encounter and Plan: 1. Patient with stage IV prostate cancer, metastatic to lymph nodes and bone, diagnosed by cervical lymph node biopsy in April 2015. He initially began treatment with androgen deprivation with subsequent addition of chemotherapy, which I assume was docetaxel/prednisone. He did show significant response, both clinically and by PSA level. He had stopped chemotherapy sometime around January or February 2016. He had subsequently continued androgen deprivation with Depo-Lupron. As of November 2016 his PSA level had increased significantly. CT abdomen/pelvis on 11/09/2016 showed increased retroperitoneal lymphadenopathy, and clinically it did appear that he was having disease progression. A subsequent bone scan showed intense uptake in the right superior pubic ramus corresponding to an area of blastic metastatic disease which had been noted on CT scan of the right hip. There was additional suspected metastatic involvement in the left 10th rib anteriorly, though technically that site was indeterminate. On 12/22/2016 he began treatment with abiraterone 1000 mg daily and prednisone 5 mg twice a day in addition to the Depo-Lupron. He did show a good response by PSA level, but he was still having significant pain in his right hip area, and he was then given palliative radiation to the area of involvement in the right pubic ramus. He completed treatment on 02/14/2017 to 3900 cGy. He had a good clinical response. However, he tolerated the the androgen deprivation therapy poorly, and in December 2018 he opted to stop treatment. During subsequent follow-up, there was a gradual increase in his PSA level, but his clinical status remained stable, and he continued on observation/expectant management. As of 09/11/2019 there was a significant further increase in his PSA level, to 67.53 ng/mL, and at that point he restarted androgen deprivation therapy with bicalutamide 50 mg daily for 14 days together with Depo-Lupron 22.5 mg by intramuscular injection. He had significant side effects following the Depo-Lupron injection, including chest pain. A Lexiscan sestamibi stress test showed no evidence of cardiac ischemia. As of his follow-up visit in December 2019 there was further increase in the PSA level to 116 ng/mL. At that point he agreed to a trial of anti-androgen therapy with bicalutamide 50 mg 3 times daily. He stopped it in mid January when he was diagnosed with COVID-19 virus infection. He had uneventful recovery from that illness. At his follow-up visit on 03/10/2020 there was further increase in the PSA level to 180.500 ng/mL. I had discussed options for further treatment, and he ultimately chose to proceed with a trial of 2nd line chemotherapy with cabazitaxel. He began cycle 1 of cabazitaxel on 05/04/2020. He had pretty severe fatigue following initial infusion. He also developed some mild constipation with rectal bleeding, but that lasted just a few days. He has had no other significant toxicity. He continued with cycle 2 on 05/31/2020. He continued to have fatigue, but he otherwise appears to be tolerating it well. He had a significant decline in his PSA level. He then continued treatment at 3-week [facility]. As of 08/27/2019 when he began his 6th cycle of treatment. At that point his PSA level had declined to 73.4 ng/mL compared to a pretreatment level of 268.1 ng/mL. At this point he continues to have significant fatigue. He otherwise appears to be tolerating the treatment well. He has had evidence of response by PSA level, though it now appears to be stabilizing. He is having significant pain in the area of the costovertebral angle on the right side. He also has been having hematuria and rectal bleeding. A specific cause has not been determined. In the absence of any evidence of disease progression, he will continue with cycle 7 of cabazitaxel. The dosage remain the same. He will be scheduled for a follow-up visit in 3 weeks. In the meantime, I am going to look into the possibility of transitioning him to a PARP inhibitor, as he may potentially be eligible due to the variant in the MELODIE gene. 2. He has been receiving denosumab injections for the metastatic bone involvement, and he will be given denosumab 120 mg by subcutaneous injection today. 3. He has been having hematuria and rectal bleeding. He is scheduled to see Dr. Doran on Sunday of this week. I also will arrange for him to see one of the surgeons for evaluation of the rectal bleeding. Signed By: Mayank Albright M.D. <<Signature on File>>
== END 2020-09-13 06:14 | disposition home or self-care (01) ==
LOC: ONCMED 06:15
PROVIDERS: PCP Nurse Practitioner Family; Visit Provider Internal Medicine Medical Oncology
DX: Z51.12 Encounter for antineoplastic immunotherapy (principal); Z51.11 Encounter for antineoplastic chemotherapy; C61 Malignant neoplasm of prostate; C77.8 Secondary and unspecified malignant neoplasm of lymph nodes of multiple regions; C79.51 Secondary malignant neoplasm of bone; F41.9 Anxiety disorder, unspecified; Z79.899 Other long term (current) drug therapy
CPT/HCPCS: 96367; 96372; 96375; 96413; 99215; J0897; J1100; J1200; J2469; J3490; J7050; J9043

== ENCOUNTER → 2020-09-15 17:26 | Outpatient (BNVA) | payer MEDICARE, SELFPAY | PROVIDERS: PCP Nurse Practitioner Family; Referring Provider Nurse Practitioner; Visit Provider Urology | DX: R31.0 Gross hematuria (principal); C61 Malignant neoplasm of prostate; R10.9 Unspecified abdominal pain; Z20.822 Contact with and (suspected) exposure to COVID-19 | CPT/HCPCS: 87635 ==

== ENCOUNTER 2020-09-17 11:11 | Day surgery (SDC) | payer MEDICARE, SELFPAY ==
[2020-09-16 17:13] VITALS: BMI 31.2
--- NOTE | 2020-09-17 | SCC_ITS ---
Procedure Done: Cystoscopy, right retrograde ureteropyelogram, right ureteroscopy with stricture dilation, right ureteral stent 48.6 seconds of fluoroscopic guidance, for a cumulative dose of 12.75 mGy, was provided to Dr. Doran by the radiology department. C-arm images of the abdomen pelvis were saved for the patient's permanent record. [facility]
[2020-09-17 11:25] VITALS: BP 129/86; PULSE 59; RESP 17; TEMP 36.2; O2SAT 98
--- NOTE | 2020-09-17 11:31 | SC_ITS ---
WS: [id number] C-arm fluoroscopy for ureteral stent, 09/17/2020 Clinical Data: Right ureteroscopy Comparison: CT abdomen and pelvis, 08/05/2020. Findings: The right ureteral stent is inserted into the right renal pelvis. SC/C-arm [place] for Urology Impression: Satisfactory insertion of right ureteral stent.
[2020-09-17] MEDS: sodium chloride 0.9% 1,000 ML 30 ML IV (11:51)
--- NOTE | 2020-09-17 12:00 | ANES.PREANE2 ---
Pre-Anesthetic Assessment Pre-Anesthetic Assessment: Height/Weight: Height 1.78 m Weight 98.883 kg Temp Pulse Resp BP Pulse Ox 97.2 F L 59 L 17 129/86 98 09/17/20 11:25 09/17/20 11:25 09/17/20 11:25 09/17/20 11:25 09/17/20 11:25 Preop Diagnosis: Right flank pain, lateralizing hematuria Proposed Procedure: Operation Date: 09/17/20 13:00 Proposed Procedures p Cystoscopy 09946 [id number] r31.0(Not Applicable) - Steve Doran MD s Retrograde Pyelogram(Right) - Steve Doran MD s Ureteroscopy(Not Applicable) - Steve Doran MD s Ureteral Stent Placement(Not Applicable) - Steve Doran MD Familial anesthetic complications: none Was Beta Osorio taken within 24 hours: N/A Was Clonidine taken within 24 hours: N/A Last intake: Intake Last Liquid Date 09/17/20 Last Liquid Time 07:15 Last Solid Date 09/16/20 Last Solid Time 20:00 Social: Social History: No alcohol and No tobacco Exam: Pre-Anes Outpt Exam: alert, oriented x 3, clear to auscultation bilaterally and regular rate & rhythm Airway: Cervical ROM: WNL MP: 3 Dentition: Other (4 missing) GI: GI: GERD Metabolic: Metabolic: Morbid obesity Anesthetic Plan: ASA status: 3 Anesthesia: General Meds/Allergies Current Medications: Current Medications Generic Name Dose Route Start Last Admin Trade Name Freq PRN Reason Stop Dose Admin Sodium Chloride 1,000 mls @ 30 ml s/hr 09/17/20 11:30 09/17/20 11:51 Sodium Chloride 0.9% IV 09/18/20 11:29 30 mls/hr .Q24H MARQUITA Administration PFSH Anesthesia PFSH: Medical History Gross hematuria Prostate cancer Family History Father , at age 78 Blood disorder Mother , at age 89 Leukemia Social History Smoking and tobacco status: never smoked Alcohol intake: current Alcohol intake frequency: 0-2 Drinks per Day Marital status: Current occupational status: employed 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
[2020-09-17] MEDS: levofloxacin-dextrose 5 % 500 MG/100 ML PREMIX 100 MG IV (13:09)
--- NOTE | 2020-09-17 13:12 | W.PM.OPSUD ---
Surgery/Procedure H&P Update DATE OF PROCEDURE: September 17, 2020 DATE H&P PERFORMED: 09/15/20 H&P UPDATE INFORMATION: I have reviewed H&P completed within last 30 days, I have examined patient prior to procedure, No changes to prior documentation and H&P is in [facility] [place] EMR on date indicated PREOP DIAGNOSIS: Right flank pain, lateralizing hematuria PLANNED PROCEDURE: Operation Date: 09/17/20 13:00 Proposed Procedures p Cystoscopy [id number] r31.0(Not Applicable) - Steve Doran MD s Retrograde Pyelogram(Right) - Steve Doran MD s Ureteroscopy(Not Applicable) - Steve Doran MD s Ureteral Stent Placement(Not Applicable) - Steve Doran MD
[2020-09-17 14:00] VITALS: BP 150/95; PULSE 78; RESP 16; TEMP 36.6; O2SAT 100
[2020-09-17 14:05] VITALS: BP 130/87; PULSE 71; RESP 19; O2SAT 100
[2020-09-17 14:10] VITALS: BP 125/85; PULSE 79; RESP 19; TEMP 36.2; O2SAT 96
--- NOTE | 2020-09-17 14:12 | P.OP_ITS ---
Operative Report Date of procedure: September 17, 2020 Pre-op Diagnosis: Right flank pain, lateralizing hematuria Post-op Diagnosis: Right ureteral stricture likely extrinsic from malignant process Procedure Done: Cystoscopy, right retrograde ureteropyelogram, right ureteroscopy with stricture dilation, right ureteral stent Pathology: none sent Surgeon: Andreea Anesthesia: General Estimated blood loss: Less than 10 cc Urine output: Not measured Complications: None Findings: Distinct area of narrowing/stricturing in the distal ureter for a distance of about 3.5 cm roughly 3.5 cm above the ureteral orifice. The ureter proximal to that was mildly dilated. No other filling defects or abnormalities were seen. The pyelocalyceal system was slightly dilated Area was balloon dilated requiring about 6 kehinde of pressure for opening. Ureteroscopy showed mucosal friability but no clear mass. No intraluminal obstruction. Indwelling ureteral stent at completion of procedure Condition: stable Disposition: PACU Brief History: Ad is a very pleasant 50-year-old white male with a history of metastatic prostate cancer who is presented with gross hematuria and right flank pain of unclear etiology. CT scan showed no clear evidence of stone or obvious ureteral obstructing lesion. Cystoscopy revealed right ureteral bloody efflux. Admitted now for cystoscopy retrograde ureteroscopy. Procedure: After routine preoperative evaluation examination and obtaining of informed consent he was taken to the operating suite on 09/17/2020 where general anesthesia was administered without difficulty after appropriate timeout was performed, SCDs confirmed to be functioning, preoperative antibiotics administered, beta-erwin protocol confirmed. Prepped and draped in usual sterile fashion in dorsolithotomy position paying careful attention to avoiding pressure points. 21 [place] Helenian cystoscope with 30 degree lens was introduced into the urethral meatus and advanced into the bladder without difficulty. The bladder was systematically examined and found to be within normal limits. There was some bloody efflux from the right ureteral orifice. 8 [place] Helenian cone-tip catheter was utilized for an right retrograde ureteropyelogram. Contrast was injected showing a normal distal ureter in about 3-3.5 centimeters proximal to the ureteral orifice a strictured area was enc ountered with the contrast and it measured approximately 3.5 cm. The ureter proximal to that point was mildly dilated. No other filling defects were identified. The Pyelo cath system was somewhat dilated. A flexible tip guidewire was then passed without difficulty up the right ureter into the collecting system. A 15 [address] Helenian 10 cm balloon was then passed over the guidewire into the distal ureter traversing the area of stricturing. It was inflated with persistence of narrowing of the stricture slightly and it took about 6 kehinde to 8 kehinde of pressure to completely dilate that area. The distal ureter dilated without difficulty and there was no restriction above the stricture. The balloon was deflated and removed. The wire was then utilized as the working wire and a 6 [place] Helenian ureteroscope was advanced over the wire. The area of dilation of the stricture was inflamed and there appeared to be some mucosal abnormality possibly abnormal tissue but it is hard to say for sure there was some mild oozing around that area. The scope was passed all the way to the UPJ into the renal pelvis. No other abnormalities were seen in the ureter. On removal of the scope the ureter was carefully inspected. Confirmation of entry findings was made. Area of stricture was reevaluated and it did appear to be abnormal mucosa but no intraluminal stone etc. At this point it was decided to leave a stent indwelling for healing and for relief of obstruction. The cystoscope was then backloaded over the guidewire and a 7 [place] Helenian by 30 cm double-pigtail stent was advanced over the guidewire through the cystoscope into appropriate position as confirmed via fluoroscopy and cystoscopy. Stent was confirmed to be draining. The bladder was drained and the procedure was completed. He tolerated procedure well without complications and was awakened in the operating room and returned to the cart room in stable condition
[2020-09-17 14:24] VITALS: BP 135/85; PULSE 65; RESP 18; TEMP 36.2; O2SAT 94
== END 2020-09-17 14:50 | disposition home or self-care (01) ==
PROVIDERS: PCP Nurse Practitioner Family; Visit Provider Urology
PROC: 0TJB8ZZ Inspection of Bladder, Via Natural or Artificial Opening Endoscopic (ICD-10-PCS; CPT 52000; principal; 2020-09-17 13:00)
PROC: (CPT 74420; 2020-09-17 13:00)
PROC: 0TJ98ZZ Inspection of Ureter, Via Natural or Artificial Opening Endoscopic (ICD-10-PCS; CPT 52351; 2020-09-17 13:00)
PROC: (CPT 50605; 2020-09-17 13:00)
DX: R31.9 Hematuria, unspecified (principal); K21.9 Gastro-esophageal reflux disease without esophagitis; E66.01 Morbid (severe) obesity due to excess calories; Z68.31 Body mass index [BMI] 31.0-31.9, adult; Z85.46 Personal history of malignant neoplasm of prostate
CPT/HCPCS: 52332; 76000; C2625; J1100; J1956; J2405; J2704; J2710; J3010; J3490; J7030

== ENCOUNTER 2020-10-06 13:16 | Outpatient (CLI) | payer MEDICARE, SELFPAY ==
[2020-10-06 14:42] VITALS: RESP 16
[2020-10-06] MEDS: morphine 4 mg/mL SDV 1 mL IV (14:42)
[2020-10-06] MEDS: sodium chloride 0.9% 250 ML IV (14:42)
[2020-10-06] MEDS: famotidine 20 mg/2 mL INJ IVP (14:45)
[2020-10-06] MEDS: diphenhydrAMINE 50 mg/mL SDV 1mL 25 MG IV (14:46)
[2020-10-06] MEDS: palonosetron 0.25 mg/5 mL SDV IV (14:51)
--- NOTE | 2020-10-13 09:27 | ONC FU_ITS ---
[facility] Patient Note Patient: Ad Schwartz Unit #: [id number]: 1970 Dictated By: Ruthie ChristopherDate of Visit: Oct 06, 2020 Onc MED Follow-Up/Prog Note Chief Complaint: Prostate cancer. History of Present Illness: Mr Schwartz is a 49 year-old man with stage IV prostate cancer, metastatic to lymph nodes and bone. He had presented with an enlarged left cervical lymph node. His PET/CT on 05/17/2015 showed several enlarged nodes in the left neck with relatively low levels of FDG activity, maximum SUV 1.9-2.4. Also noted was extensive conglomerate retroperitoneal adenopathy beginning below the level of the renal arteries and extending through the level of the bifurcation and along the iliac chains with a maximum SUV up to 6.5. There was additional adenopathy along the pelvic sidewalls somewhat more extensive on the left. The prostate gland measured approximate 5.3 cm in transverse dimension and demonstrated physiologic levels of activity. There was increased activity in the right superior pubic ramus at the level of the pubic symphysis with maximum SUV 5.5. A left cervical lymph node biopsy was apparently consistent with metastatic prostate cancer, but the actual report was not available to me. He indicated that his baseline PSA level was 1163. He was treated initially with androgen deprivation through [facility] in [place]. At some point he opted to undergo treatment with a private oncology group in [place], where he was started on chemotherapy, it is assumed to be with docetaxel/prednisone. It was administered weekly. He last received chemotherapy 2 or 3 months ago. He indicates that he stopped treatment because he ran out of money . During this time he continued the androgen deprivation. He has been getting Depo-Lupron injections from [facility] in [place]. His laboratory studies on 02/18/2016 showed his PSA level at 45.9 ng/mL. By his recollection, it was somewhere in the range of 44-46 when last checked in [place]. Dr Nunes had seen him initially on 04/13/2016. A subsequent PSA level on 04/19/2016 was stable at 40.3 ng/mL. In the absence of any evidence of disease progression, he was advised to continue androgen deprivation with Depo-Lupron. During subsequent follow-up, his PSA level had increased slightly, up to 63 ng/mL in June 2016. His testosterone levels at that time were in castrate range. As of 08/07/2016 it was stable at 57 ng/mL. However, a repeat PSA level on 11/09/2016 had increased significantly, to 102.0 ng/mL. A CT scan of the right hip on 11/09/2016 showed stable right superior ramus/pubic body sclerosis compatible with metastatic disease. There was also stable right superior acetabular small sclerotic focus felt to most likely represent a bone island. Small metastasis cannot be excluded. CT abdomen/pelvis on 11/09/2016 showed increased retroperitoneal lymphadenopathy. He had further evaluation with bone scan on 12/04/2016. It showed intense bony uptake involving the right superior pubic ramus, corresponding to the area of blastic metastatic disease on the CT scan. There was an additional suspected focus of metastatic involvement in the left 10th rib anteriorly, though technically it was indeterminate. There were no other foci of metastatic disease noted. On 12/22/2016 he began treatment with abiraterone 1000 mg daily and prednisone 5 mg twice a day in addition to his Depo-Lupron. His PSA level at that point had decreased to 40.80 ng/mL. As of his follow-up visit on 01/22/2017 the PSA had declined to 15.00 ng/mL. He was still having significant pain in his right hip area. We opted to treat him with palliative radiation to the area of involvement in the right pubic ramus. He completed radiation on 02/14/2017 to a total dose of 3900 cGy. During subsequent followup there was further decline in the PSA level to 10.7 ng/mL on 03/22/3017. As of 05/08/2017 it had stabilized at 11.0 ng/mL. However, as of 08/06/2017 it had further declined to 4.4 ng/mL. He continued treatment with abiraterone/prednisone in combination with Depo-Lupron. As of 12/16/2017 the PSA had further declined to 2.51 ng/mL and by 06/11/2018 it was down to 1.6 ng/mL. As of his follow-up visit on 12/26/2018 it had increased slightly, to 2.51 ng/mL. At that point he had opted to stop his treatment, as he had become profoundly discouraged about his loss of sexual function. Repeat bone scan on 01/06/2019 was negative for metastatic disease. There was clearing of metastatic lesion involving the right pubic symphysis and possible traumatic injury to the left 10th rib. Restaging [address] abdomen/pelvis on 01/20/2019 showed significant decrease in previously noted retroperitoneal and internal iliac lymphadenopathy and resolved blastic metastatic lesion in the right superior pubic ramus compared to the prior study from November 2016. There were no other lytic or blastic bony destructive lesions identified. The liver showed fatty infiltration, but no evidence of metastatic involvement. He was seen for a follow-up visit on 03/18/2019. His PSA level had increased to 6.90 ng/mL, but at that point he was feeling significantly better. He continued observation/expectant management for the prostate cancer. Subsequent to his visit in March 2019 Dr Nunes had requested genetic profiling to screen for possible BRCA mutation. 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 Restaging CT scans of the the chest, abdomen, and pelvis on 06/23/2019 showed no evidence of metastatic disease. Bone scan showed abnormal activity involving the L2 pedicle on the right. It was not present on the prior study from December 2018. There were no other areas of abnormal uptake noted. As of his follow-up visit on 09/11/2019 his PSA level had increased to 67.53 ng/mL, and at that point he restarted androgen deprivation therapy with bicalutamide 50 mg daily for 14 days together with Depo-Lupron 22.5 mg. At that time I had also discussed the possibility of continuing antiandrogen therapy with enzalutamide, which he declined. He was then seen for an unplanned visit on 11/21/2019. He was complaining of chest pain, description which was somewhat suspicious for angina. He had normal EKG at that time. A Lexiscan sestamibi stress test on 11/28/2019 was normal and the associated myocardial perfusion scan showed a small area of persistent decreased uptake in the apical lateral and LV apex with no significant reversibility, suggestive of myocardial scarring versus attenuation artifact. There was normal LV ejection fraction at 61% and there were no gross wall motion abnormalities noted. Overall there was no evidence for significant coronary ischemia. At his follow-up visit on 12/29/2019 there was a further increase in the PSA level to 116.400 ng/mL. He appeared stable clinically. Dr Nunes reviewed options for further treatment, and he elected for a trial of anti-androgen therapy with bicalutamide 50 mg 3 times daily. At his follow-up visit on 02/04/2020 there was further increase in the PSA to 172.600 ng/mL. Dr Nunes reviewed options for further treatment and at that time he wanted to discuss it further with his family. Ultimately he opted to restart chemotherapy with cabazitaxel. His medical history is otherwise unremarkable. He has had some chronic anxiety, but no other ongoing medical illnesses. He has had no other surgeries. He is a nonsmoker. INTERIM HISTORY: He began cycle 1 of cabazitaxel on 05/04/2020. He felt pretty weak for the first couple of days after the treatment, and he continued to have fatigue over the first couple of weeks. He also had some rectal bleeding for a few days. He did not have nausea/vomiting or other acute toxicity. He continued with his 2nd cycle of treatment on 05/31/2020. He again reported fatigue following the chemotherapy, but he had no other significant toxicity. He then continued treatment at 3-week intervals, and during follow-up there was a gradual decline in his PSA level. As of 08/26/2020 he began his 6th cycle with the PSA at that point down to 73.4 ng/mL compared to pretreatment level of 268.1 ng/mL. Mr. Schwartz has now completed 7 cycles of the cabazitaxel/Jevtana. He received denosumab 120 mg on October 13, 2020. Mr. Liu is here today for follow-up. He is due for cycle 8 cabazitaxel. He is having urinary problems since he had stent placement and seeing Dr. Doran this Sunday. He states he has had continued urinary pain and hematuria since the stent. He states that the pain is intense at times that he just does not want to pee . In regard to the chemotherapy he states he is doing well. He is still able to do light work although he does have fatigue. He states it is somewhat better but not dramatic. He states his appetite, comes and goes. He denies any fever or chills. He has had no night sweats or hot flashes. He denies any mouth sores, sore throat or difficulty swallowing. He has no shortness of breath or orthopnea. He denies any dyspnea. He denies cough or hemoptysis. He denies any chest pain or palpitations. He has some intermittent nausea but states for the most part that is controlled well. He denies any emesis. his ECOG is 1. Past Medical History: Anxiety Prostate cancer Past Surgical History: Left cervical lymph node biopsy in 2016 Allergies: Band Aid Medications: Omeprazole 1 Tablet (of 20 mg) Capsule Delayed Release Oral daily oxyCODONE HCl 1 Tablet (of 15 mg) Oral four times a day PRN PredniSONE 1 (10 mg) Tablet, enteric coated Oral daily Xanax 1 Tablet (of 0.5 mg) Oral t.i.d. PRN Family History: Mr. Schwartz's mother at age 86: leukemia. Mr. Schwartz's father at age 85: blood disorder. Mr. Schwartz has 1 sister who is : lung cancer. Father at age 85 of a blood disorder . His mother 5 months ago at age 86. She was recently diagnosed with leukemia. He doesn't know what type. One sister of lung cancer. Nine other siblings are in good health. 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 Mr. Schwartz has never smoked. He drinks occasionally. He consumes 2 drinks/day. He has indicated exposure to the following products: chewing tobacco. Mr. Schwartz reports the following support systems: lives with spouse, significant other, family, or friends, lives in own house, supportive family/friends willing to assist with needs, and adequate transportation available for expected visits. His diet consists of regular meals. He indicates his activity level as: daily activities. Use to chew tobacco for about 10 to 12 years. drank a few beers occasionally. Review Of Symptoms: <See Above> Vital Signs: Performed on Oct 06, 2020 13:29 Height - 71.00 in Weight - 213.6 lbs (LOW) BSA - 2.17 sq.m BMI - 29.79 Temperature - 97.7 F (LOW) Pulse - 88 /min Respiration - 17 /min BP - 132/90 mm(hg) O2 Sat - 97 % Pain - 3,1 - No physically strenuous activity, but ambulatory and able to carry out light or sedentary work (e.g. office work, light house work). (ECOG) Physical Examination: Constitutional Alert, oriented, no acute distress. Skin pink, warm and dry. Head Normocephalic; atraumatic. Eyes Conjunctivae and sclerae are clear and without icterus. Pupils are reactive and equal. Neck Supple without masses or thyromegaly. No jugular venous distension. Hematologic/Lymphatic No petechiae or purpura. No tender or palpable lymph nodes in the cervical, supraclavicular areas. Respiratory Lungs are clear to auscultation without rhonchi or wheezing. Cardiovascular Regular rate and rhythm of heart without murmurs,clicks, gallops or rubs. Abdomen Non-tender, non-distended, no masses, ascites. No guarding or rebound tenderness. No pulsatile masses. Back/Spine Non-tender to palpation. Extremities No visible deformities, no cyanosis, clubbing or edema. Musculoskeletal No tenderness or swelling, normal range of motion without obvious weakness. Integumentary No rashes or lesions. Neurologic No sensory or motor deficits, normal cerebellar function, normal gait. Psychiatric Alert and oriented times three. Coherent speech. Verbalizes understanding of our discussions today. Laboratory:Test performed on Oct 04, 2020 09:07 WBC 7.4 10^9/L RBC 4.24 10^12/L HGB 11.5 g/dL HCT 36.5 % MCV 86.1 fl MCH 27.1 pg MCHC 31.5 g/dL RDW 16.1 % Platelet Count 328 10^9/L MPV 9.7 fL Neutrophils (Gran) 5.3 10^9/L Lymphocytes 1.5 10^9/L Monocytes 0.6 10^9/L Manual Lymphocytes 20.2 % Manual Monocytes 8.2 % Test performed on Sep 09, 2020 13:15 Glucose 90 mg/dL BUN 18 mg/dL Creatinine 1.23 mg/dL Cr Clearance (Est) 103.94 mL/min Sodium 139.9 mmol/L Potassium 4.18 mmol/L Chloride 106 mmol/L CO2 28 mmol/L Calcium 9.2 mg/dL Protein, Total 6.0 g/dL Albumin 3.9 g/dL Globulin 2.1 g/dL Bilirubin, Total 0.45 mg/dL Alkaline Phosphatase 50 IU/L AST (SGOT) 19 IU/L ALT (SGPT) 20 IU/L PSA 71.500 ng/mL Test performed on August 26, 2020 11:49 TSH 0.55 uIU/mL Anion Gap 13.1 eGFR 89.7 mL/min Osmolality - Calculated 294 mOsm/kg Eosinophils 0.0 10 3/uL Basophils 0.1 10 3/uL Neutrophil % 72.8 % Lymphocyte % 17.9 % Monocyte % 7.4 % Eosinophil % 0.3 % Basophils % 1.2 % NRBC % 0 % Test performed on Aug 05, 2020 12:03 Ua Color Yellow Ua Appearance Hazy Ua Glucose Norm Ua Bilirubin Neg Ua Ketones Negative Ua Specific Stuart 1.015 Ua Blood 3+ Ua pH 6 Ua Protein Neg Ua Nitrites Negative Ua Leukocyte Esterase Negative Ua Micro: WBC NONE /hpf Ua Micro: RBC 15-25 /hpf Ua Micro: Squam Epith Cells 0-4 /hpf Ua Micro: Bacteria TRACE /hpf Test performed on Jul 12, 2020 09:07 A/G Ratio 1.7 Absolute Value Manual Bands 3.8 % Impression: 1. Stage IV prostate cancer, metastatic to lymph nodes and bone, initially diagnosed in April 2015. 2. 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 3. He has chronic anxiety. Plan/Problems Addressed at this Visit: 1. Stage IV prostate cancer, metastatic to lymph nodes and bone, diagnosed by cervical lymph node biopsy in April 2015. He initially began treatment with androgen deprivation with subsequent addition of chemotherapy, which was assumed wa docetaxel/prednisone. He did show significant response, both clinically and by PSA level. He had stopped chemotherapy sometime around January or February 2016. He had subsequently continued androgen deprivation with Depo-Lupron. As of November 2016 his PSA level had increased significantly. CT abdomen/pelvis on 11/09/2016 showed increased retroperitoneal lymphadenopathy, and clinically it did appear that he was having disease progression. A subsequent bone scan showed intense uptake in the right superior pubic ramus corresponding to an area of blastic metastatic disease which had been noted on CT scan of the right hip. There was additional suspected metastatic involvement in the left 10th rib anteriorly, though technically that site was indeterminate. On 12/22/2016 he began treatment with abiraterone 1000 mg daily and prednisone 5 mg twice a day in addition to the Depo-Lupron. He did show a good response by PSA level, but he was still having significant pain in his right hip area, and he was then given palliative radiation to the area of involvement in the right pubic ramus. He completed treatment on 02/14/2017 to 3900 cGy. He had a good clinical response. However, he tolerated the the androgen deprivation therapy poorly, and in December 2018 he opted to stop treatment. During subsequent follow-up, there was a gradual increase in his PSA level, but his clinical status remained stable, and he continued on observation/expectant management. As of 09/11/2019 there was a significant further increase in his PSA level, to 67.53 ng/mL, and at that point he restarted androgen deprivation therapy with bicalutamide 50 mg daily for 14 days together with Depo-Lupron 22.5 mg by intramuscular injection. He had significant side effects following the Depo-Lupron injection, including chest pain. A Lexiscan sestamibi stress test showed no evidence of cardiac ischemia. As of his follow-up visit in December 2019 there was further increase in the PSA level to 116 ng/mL. At that point he agreed to a trial of anti-androgen therapy with bicalutamide 50 mg 3 times daily. He stopped it in mid January when he was diagnosed with COVID-19 virus infection. He had uneventful recovery from that illness. At his follow-up visit on 03/10/2020 there was further increase in the PSA level to 180.500 ng/mL. Dr Nunes had discussed options for further treatment, and he ultimately chose to proceed with a trial of 2nd line chemotherapy with cabazitaxel. He began cycle 1 of cabazitaxel on 05/04/2020. He had pretty severe fatigue following initial infusion. He also developed some mild constipation with rectal bleeding, but that lasted just a few days. He has had no other significant toxicity. He continued with cycle 2 on 05/31/2020. He continued to have fatigue, but he otherwise appears to be tolerating it well. He had a significant decline in his PSA level. He then continued treatment at 3-week iintervals. As of 08/27/2019 when he began his 6th cycle of treatment. At that point his PSA level had declined to 73.4 ng/mL compared to a pretreatment level of 268.1 ng/mL. At this point he continues to have significant fatigue. He otherwise appears to be tolerating the treatment well. He has had evidence of response by PSA level, though it now appears to be stabilizing. He is having significant pain in the area of the costovertebral angle on the right side. He also has been having hematuria and rectal bleeding. A specific cause has not been determined. In the absence of any evidence of disease progression, he will continue with cycle 7 of cabazitaxel. The dosage remain the same. He will be scheduled for a follow-up visit in 3 weeks. In the meantime, Dr Nunes had discussed the possibility of transitioning him to a PARP inhibitor, as he may potentially be eligible due to the variant in the MELODIE gene. A. Proceed with cycle 8 Jevtana. B. Continue current premeds. These are working well for nausea. C. His labs from October 04, 2020 were reviewed in detail and discussed with Mr. Schwartz and a copy was given to him. WBC 7.4, hemoglobin 11.5, platelets are 28,000, ANC is 5300. His PSA on September 09, 2020 was 71.5 compared to 152.2 on June 24, 2020. 2. He has been receiving denosumab injections for the metastatic bone involvement. A. He las dose was given on September 13, 2020. He is receving it every 6 weeks due to his current treatment regimen. 3. He has been having hematuria and rectal bleeding. He is scheduled to see Dr. Doran on of this week. A. Dr. Nunes's note from September 13, 2020 indicated he has referred him to surgery for evaluation of the rectal bleeding. 4. Follow-up plan A. Mr. Schwartz will be due for follow-up in 3 weeks. B. He will need CBC CMP and PSA at that time. He will also be due for his next cycle of Jevtana and Xgeva. C. Mr. Schwartz was instructed to contact us in interim should questions or problems arise. D. He is encouraged to keep his appointment with Dr. Doran on Sunday of this week for his urinary problems. Signed By: Ruthie Christopher-, AOCNP Mayank Nunes MD <<Signature on File>>
== END 2020-10-06 13:17 | disposition home or self-care (01) ==
PROVIDERS: PCP Nurse Practitioner Family; Visit Provider Nurse Practitioner
DX: Z51.12 Encounter for antineoplastic immunotherapy (principal); C61 Malignant neoplasm of prostate; C77.8 Secondary and unspecified malignant neoplasm of lymph nodes of multiple regions; C79.51 Secondary malignant neoplasm of bone; F41.9 Anxiety disorder, unspecified; Z79.899 Other long term (current) drug therapy
CPT/HCPCS: 96367; 96375; 96413; 99214; J1100; J1200; J2270; J2469; J3490; J7050; J9043

== ENCOUNTER 2020-10-08 07:59 | Outpatient (CLI) | payer MEDICARE, SELFPAY ==
--- NOTE | 2020-10-08 08:15 | XR_ITS ---
WS: [id number] KUB, AP view, 10/08/2020 Clinical Data: FLANK PAIN Comparison: CT abdomen and pelvis, 08/05/2020. Findings: No abnormal intraabdominal masses or calcifications are seen. There is no dilatated small bowel or ev idence of obstruction. There is a right ureteral stent in good position. There is sclerosis of the right side of the L2 vert ebral body from probable metastatic disease. There is a large amount of fecal material in the ascendi ng colon. XR/XR KUB [id number] Impression: Right ureteral stent.
== END 2020-10-08 08:00 | disposition home or self-care (01) ==
LOC: RAD 08:01
PROVIDERS: PCP Nurse Practitioner Family; Visit Provider Urology
DX: R10.9 Unspecified abdominal pain (principal); Z20.822 Contact with and (suspected) exposure to COVID-19; Z96.0 Presence of urogenital implants
CPT/HCPCS: 74018; 81003; 87635

== ENCOUNTER 2020-10-14 10:17 | Day surgery (SDC) | payer MEDICARE, SELFPAY ==
[2020-10-13 10:21] VITALS: BMI 30.5
[2020-10-14] VITALS (8 sets, daily range): BP systolic 113–132; BP diastolic 79–88; PULSE 61–99; RESP 12–18; TEMP 36.1–36.6; O2SAT 93–98
--- NOTE | 2020-10-14 | SCC_ITS ---
Procedure Done: 1. Cystoscopy, removal of right ureteral stent, right retrograde ureteropyelogram, right ureteroscopy. No stent replacement 21.1 seconds of fluoroscopic guidance, for a cumulative dose of 5.44 mGy, was provided to Dr. Doran by the radiology department. C-arm images of the abdomen were saved for the patient's permanent record. [facility]
--- NOTE | 2020-10-14 10:29 | SC_ITS ---
WS: [id number] C-arm fluoroscopy for right ureteroscope, 10/14/2020 Clinical Data: Right ureteroscopy Comparison: KUB, 10/08/2020. Findings: Dr. Doran performed the right ureteroscope with insertion of a guidewire into the right ureter. SC/C-arm FL for Urology Impression: Right ureteroscope.
--- NOTE | 2020-10-14 10:44 | P.ANESASSM_ITS ---
Pre-Anesthetic Assessment Pre-Anesthetic Assessment: Height/Weight: Height 1.78 m Weight 96.615 kg Preop Diagnosis: RIGHT ureteral stricture Proposed Procedure: Operation Date: 10/14/20 12:00 Proposed Procedures p Cystoscopy 39873 n13.5 z96.0(Not Applicable) - MD chelsea Del Real Ureteroscopy(Right) - MD chelsea Del Real possible Ureteral Stent Exchange(Not Applicable) - Steve Doran MD Was Beta Osorio taken within 24 hours: N/A Was Clonidine taken within 24 hours: N/A Social: Social History: Alcohol and No tobacco Exam: Pre-Anes Outpt Exam: alert, oriented x 3, clear to auscultation bilaterally and regular rate & rhythm Airway: Submandibular: WNL Cervical ROM: WNL MP: 2 Pulmonary: Pulmonary: None reported CV/HEM: CV/HEM: None reported : Comments: Prostate CA; Recurrent Kidney Stones Hepatic: Hepatic: None reported GI: GI: GERD Metabolic: Metabolic: None reported Musc/skel: Musc/skel: None reported Neuropsych: Neuropsych: None reported Anesthetic Plan: ASA status: 2 Anesthesia: General PFSH Anesthesia PFSH: Medical History Gross hematuria Prostate cancer Ureteral stricture, right Family History Father , at age 78 Blood disorder Mother , at age 89 Leukemia Social History Smoking and tobacco status: former smoker Alcohol intake: current Alcohol intake frequency: 0-2 Drinks per Day Marital status: Current occupational status: employed 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
[2020-10-14] MEDS: sodium chloride 0.9% 1,000 ML 30 ML IV (10:52)
--- NOTE | 2020-10-14 12:09 | W.PM.OPSUD ---
Surgery/Procedure H&P Update DATE OF PROCEDURE: October 14, 2020 DATE H&P PERFORMED: 10/08/20 H&P UPDATE INFORMATION: I have reviewed H&P completed within last 30 days, I have examined patient prior to procedure, No changes to prior documentation and H&P is in [facility] EMR on date indicated PREOP DIAGNOSIS: RIGHT ureteral stricture PLANNED PROCEDURE: Operation Date: 10/14/20 12:00 Proposed Procedures p Cystoscopy 33384 n13.5 z96.0(Not Applicable) - Steve Doran MD s Ureteroscopy(Right) - Steve Doran MD s possible Ureteral Stent Exchange(Not Applicable) - Steve Doran MD
[2020-10-14] MEDS: levofloxacin-dextrose 5 % 500 MG/100 ML PREMIX 100 MG IV (12:42)
[2020-10-14] MEDS: iohexol 300 mg/mL 50 mL Btl (OR ONLY) XX (13:08)
--- NOTE | 2020-10-14 13:09 | PM.OP ---
Operative Report Date of procedure: October 14, 2020 Pre-op Diagnosis: RIGHT ureteral stricture Pre-op Diagnosis: Right ureteral stricture Post-op Diagnosis: Right ureteral stricture Post-op Findings: No clear evidence of distal ureteral stricture on retrograde or ureteroscopy. The area of previously defined on retrograde is being narrowed filled out nicely after the stent was removed. Procedure Done: 1. Cystoscopy, removal of right ureteral stent, right retrograde ureteropyelogram, right ureteroscopy. No stent replacement Pathology: none sent Surgeon: Andreea Anesthesia: General Estimated blood loss: None Urine output: Not measured Complications: None Findings: The ureter looked good. There was no persistence of narrowing seen on retrograde or ureteroscopy. The stent was removed without difficulty. Because of the findings of the status of the ureter no stent was placed at the completion. Condition: stable Disposition: PACU Brief History: Ad is a very pleasant 50-year-old white male with metastatic prostate cancer who was discovered to have a right ureteral narrowing distally measuring about 3.5 cm on retrograde pyelogram at work-up done for gross hematuria and renal colicky symptoms. CT scan that had been performed prior to the procedure showed no clear evidence of an extrinsic compressive process. There was no evidence of renal abnormality seen on the same CT scan. He underwent ureteral dilation at that time and a stent placement. Since then he has done well clinically with reduction in gross hematuria and resolution of right flank pain but has been in misery regarding the typical stent symptoms. Lots of dysuria frequency urgency and pain with voiding. We reviewed the dilemma potentially of removing the stent and having reobstruction versus potentially an improved overall status and configuration of the ureter. The plan was to remove the stent if the ureter was well healed following the previous procedure. Procedure: After routine preoperative evaluation examination and obtaining of informed consent he was taken to the operating suite on 10/14/2020 where general anesthesia was administered without difficulty after appropriate timeout was performed, SCDs confirmed to be functioning, preoperative antibiotics administered, beta-erwin protocol confirmed. Prepped and draped in usual sterile fashion in dorsolithotomy position paying careful attention to avoiding pressure points. 21 Vincentian cystoscope with 30 degree lens was introduced into the urethral meatus and advanced into the bladder to videoscopy. The bladder was systematically examined. There is no encrustation on the stent. There is no significant inflammatory change of the bladder wall. The distal aspect of the stent was grasped and easily removed through the urethral meatus where a guidewire was passed through the stent easily up into the renal pelvis and the stent removed completely. The wire was secured to the drapes as a safety wire. An 8 Vincentian cone-tip catheter was intubated into the right ureteral orifice with partial occlusion and contrast was injected showing a significant amount more filling of the distal ureter than what was noted previously on retrograde. Contrast was injected up to the level of the pelvic vessels which was above the level of the previously defined stricture. A 7 Vincentian offset semirigid ureteroscope was then advanced up the right ureter next to the guidewire. The area of previous narrowing appeared to be completely healed. There was no mucosal abnormality identified. Scope was easily passed. The scope was passed as proximal as the pelvic vessels which was well above the area of stricture. Scope was removed bladder drained procedure completed after removal of the wire. Tolerated procedure well without complications and was awakened in the operating room and returned to the recovery in stable condition. PLANS: 1. Anticipate discharge from outpatient surgery. Pain medicine as needed 2. Follow-up with a renal ultrasound in [address] imaging for refractory pain hematuria etc.
--- NOTE | 2020-10-14 13:22 | PM.PACU ---
PACU note PACU note: VSS, Good respiratory effort, report to BLOOD BANK BOOKING CLERK Post-Anesthesia Exam: awake
--- NOTE | 2020-10-14 13:22 | P.PCN_ITS ---
PACU note PACU note: VSS, Good respiratory effort, report to BACON SKINNER Post-Anesthesia Exam: awake
[2020-10-14] MEDS: morphine 4 mg/mL SDV 1 mL 2 MG IVP (14:15)
--- NOTE | 2020-10-14 15:17 | ANE.PACU2 ---
Inpatient post-anesthesia follow up: Airway intact: Yes Vital signs: Temperature 98 F Pulse Rate 61 Respiratory Rate 16 Blood Pressure 132/79 Pulse Oximetry 97 Oxygen Delivery Me thod Room Air Oxygen Flow Rate Fraction of Inspir ed Oxygen Hydration adequate: Yes Nausea and vomiting: No Pain level: 4 Mental status: Baseline
== END 2020-10-14 15:05 | disposition home or self-care (01) ==
PROVIDERS: PCP Nurse Practitioner Family; Visit Provider Urology
PROC: 0TJB8ZZ Inspection of Bladder, Via Natural or Artificial Opening Endoscopic (ICD-10-PCS; CPT 52000; principal; 2020-10-14 12:00)
PROC: 0TJ98ZZ Inspection of Ureter, Via Natural or Artificial Opening Endoscopic (ICD-10-PCS; CPT 52351; 2020-10-14 12:00)
PROC: (CPT 74420; 2020-10-14 12:00)
PROC: (CPT 52310; 2020-10-14 12:00)
DX: N20.1 Calculus of ureter (principal); Z85.46 Personal history of malignant neoplasm of prostate; Z87.891 Personal history of nicotine dependence
CPT/HCPCS: 52352; 76000; 96374; J1956; J2270; J2405; J2704; J2710; J2930; J3010; J3490; J7030

== ENCOUNTER 2020-10-27 11:24 | Outpatient (CLI) | payer MEDICARE, SELFPAY ==
[2020-10-27] MEDS: sodium chloride 0.9% 250 ML 999 ML IV (12:47)
[2020-10-27] MEDS: famotidine 20 mg/2 mL INJ IVP (12:47)
[2020-10-27] MEDS: diphenhydrAMINE 50 mg/mL SDV 1mL 25 MG IVP (12:48)
[2020-10-27] MEDS: palonosetron 0.25 mg/5 mL SDV IVP (12:50)
--- NOTE | 2020-10-31 14:27 | ONC FU_ITS ---
Dr. Albright Patient Follow-Up Note Patient: Ad Shcwartz Unit #: [id number]: 1970 Dicatated By: Mayank Albright M.D.Date of Visit:Oct 27, 2020 Onc Med Follow-up/Prog Note Chief Complaint: Prostate cancer. History of Present Illness: This is a 49 year-old man with stage IV prostate cancer, metastatic to lymph nodes and bone. He had presented with an enlarged left cervical lymph node. His PET/CT on 05/17/2015 showed several enlarged nodes in the left neck with relatively low levels of FDG activity, maximum SUV 1.9-2.4. Also noted was extensive conglomerate retroperitoneal adenopathy beginning below the level of the renal arteries and extending through the level of the bifurcation and along the iliac chains with a maximum SUV up to 6.5. There was additional adenopathy along the pelvic sidewalls somewhat more extensive on the left. The prostate gland measured approximate 5.3 cm in transverse dimension and demonstrated physiologic levels of activity. There was increased activity in the right superior pubic ramus at the level of the pubic symphysis with maximum SUV 5.5. A left cervical lymph node biopsy was apparently consistent with metastatic prostate cancer, but the actual report was not available to me. He indicated that his baseline PSA level was 1163. He was treated initially with androgen deprivation through [facility] in [place]. At some point he opted to undergo treatment with a private oncology group in [place], where he was started on chemotherapy, I assume with docetaxel/prednisone. It was administered weekly. He last received chemotherapy 2 or 3 months ago. He indicates that he stopped treatment because he ran out of money . During this time he continued the androgen deprivation. He has been getting Depo-Lupron injections from [facility] in [place]. His laboratory studies on 02/18/2016 showed his PSA level at 45.9 ng/mL. By his recollection, it was somewhere in the range of 44-46 when last checked in [place]. I had seen him initially on 04/13/2016. A subsequent PSA level on 04/19/2016 was stable at 40.3 ng/mL. In the absence of any evidence of disease progression, he was advised to continue androgen deprivation with Depo-Lupron. During subsequent follow-up, his PSA level had increased slightly, up to 63 ng/mL in June 2016. His testosterone levels at that time were in castrate range. As of 08/07/2016 it was stable at 57 ng/mL. However, a repeat PSA level on 11/09/2016 had increased significantly, to 102.0 ng/mL. A CT scan of the right hip on 11/09/2016 showed stable right superior ramus/pubic body sclerosis compatible with metastatic disease. There was also stable right superior acetabular small sclerotic focus felt to most likely represent a bone island. Small metastasis cannot be excluded. CT abdomen/pelvis on 11/09/2016 showed increased retroperitoneal lymphadenopathy. He had further evaluation with bone scan on 12/04/2016. It showed intense bony uptake involving the right superior pubic ramus, corresponding to the area of blastic metastatic disease on the CT scan. There was an additional suspected focus of metastatic involvement in the left 10th rib anteriorly, though technically it was indeterminate. There were no other foci of metastatic disease noted. On 12/22/2016 he began treatment with abiraterone 1000 mg daily and prednisone 5 mg twice a day in addition to his Depo-Lupron. His PSA level at that point had decreased to 40.80 ng/mL. As of his follow-up visit on 01/22/2017 the PSA had declined to 15.00 ng/mL. He was still having significant pain in his right hip area. We opted to treat him with palliative radiation to the area of involvement in the right pubic ramus. He completed radiation on 02/14/2017 to a total dose of 3900 cGy. During subsequent followup there was further decline in the PSA level to 10.7 ng/mL on 03/22/3017. As of 05/08/2017 it had stabilized at 11.0 ng/mL. However, as of 08/06/2017 it had further declined to 4.4 ng/mL. He continued treatment with abiraterone/prednisone in combination with Depo-Lupron. As of 12/16/2017 the PSA had further declined to 2.51 ng/mL and by 06/11/2018 it was down to 1.6 ng/mL. As of his follow-up visit on 12/26/2018 it had increased slightly, to 2.51 ng/mL. At that point he had opted to stop his treatment, as he had become profoundly discouraged about his loss of sexual function. Repeat bone scan on 01/06/2019 was negative for metastatic disease. There was clearing of metastatic lesion involving the right pubic symphysis and possible traumatic injury to the left 10th rib. Restaging [address] abdomen/pelvis on 01/20/2019 showed significant decrease in previously noted retroperitoneal and internal iliac lymphadenopathy and resolved blastic metastatic lesion in the right superior pubic ramus compared to the prior study from November 2016. There were no other lytic or blastic bony destructive lesions identified. The liver showed fatty infiltration, but no evidence of metastatic involvement. He was seen for a follow-up visit on 03/18/2019. His PSA level had increased to 6.90 ng/mL, but at that point he was feeling significantly better. He continued observation/expectant management for the prostate cancer. Subsequent to his visit in March 2019 I had requested genetic profiling to screen for possible BRCA mutation. 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 Restaging CT scans of the the chest, abdomen, and pelvis on 06/23/2019 showed no evidence of metastatic disease. Bone scan showed abnormal activity involving the L2 pedicle on the right. It was not present on the prior study from December 2018. There were no other areas of abnormal uptake noted. As of his follow-up visit on 09/11/2019 his PSA level had increased to 67.53 ng/mL, and at that point he restarted androgen deprivation therapy with bicalutamide 50 mg daily for 14 days together with Depo-Lupron 22.5 mg. At that time I had also discussed the possibility of continuing antiandrogen therapy with enzalutamide, which he declined. He was then seen for an unplanned visit on 11/21/2019. He was complaining of chest pain, description which was somewhat suspicious for angina. He had normal EKG at that time. A Lexiscan sestamibi stress test on 11/28/2019 was normal and the associated myocardial perfusion scan showed a small area of persistent decreased uptake in the apical lateral and LV apex with no significant reversibility, suggestive of myocardial scarring versus attenuation artifact. There was normal LV ejection fraction at 61% and there were no gross wall motion abnormalities noted. Overall there was no evidence for significant coronary ischemia. At his follow-up visit on 12/29/2019 there was a further increase in the PSA level to 116.400 ng/mL. He appeared stable clinically. I reviewed options for further treatment, and he elected for a trial of anti-androgen therapy with bicalutamide 50 mg 3 times daily. At his follow-up visit on 02/04/2020 there was further increase in the PSA to 172.600 ng/mL. I reviewed options for further treatment and at that time he wanted to discuss it further with his family. Ultimately he opted to restart chemotherapy with cabazitaxel. His medical history is otherwise unremarkable. He has had some chronic anxiety, but no other ongoing medical illnesses. He has had no other surgeries. He is a nonsmoker. INTERIM HISTORY: He began cycle 1 of cabazitaxel on 05/04/2020. He felt pretty weak for the first couple of days after the treatment, and he continued to have fatigue over the first couple of weeks. He also had some rectal bleeding for a few days. He did not have nausea/vomiting or other acute toxicity. He continued with his 2nd cycle of treatment on 05/31/2020. He again reported fatigue following the chemotherapy, but he had no other significant toxicity. He then continued treatment at 3-week intervals, and during follow-up there was a gradual decline in his PSA level. As of 08/26/2020 he began his 6th cycle with the PSA at that point down to 73.4 ng/mL compared to pretreatment level of 268.1 ng/mL. He continued with cycle 7 on 09/13/2020. At that point he had started having hematuria and he was seen by Dr. Doran. On 09/17/2020 he underwent cystoscopy with right retrograde ureteropyelogram, right ureteroscopy with stricture dilatation, and placement of right ureteral stent. Operative findings included an area of narrowing/stricturing in the distal ureter for distance about 3.5 cm which appeared to be extrinsic from a malignant process. He continued with cycle 8 of cabazitaxel on 10/06/2020. He continued to have flank pain, and any underwent removal of the ureteral stent on 10/14/2020. He is seen for a follow-up visit. He has been feeling somewhat better since he ureteral stent was removed. He says his pain is gone now. He still complains that he is tired. He is able to do some light work. His ECOG score is 1. He has good appetite. He has no fever, night sweats, or hot flashes. He has not had mouth sores. He has no shortness of breath, cough, or chest pain. He currently has no GI complaints. Bladder function has been okay, and has had no further hematuria. He does have some lower back pain. He does not complain of headache or dizziness. He has a little bit of numbness/tringling in his right foot. Medications: Omeprazole 1 Tablet (of 20 mg) Capsule Delayed Release Oral daily, oxyCODONE HCl 1 Tablet (of 15 mg) Oral four times a day PRN, PredniSONE 1 (10 mg) Tablet, enteric coated Oral daily, Xanax 1 Tablet (of 0.5 mg) Oral t.i.d. PRN Allergies: Band Aid Vital Signs: Performed on Oct 27, 2020 12:29 Height - 71.00 in Weight - 217 lbs (HIGH) BSA - 2.18 sq.m BMI - 30.27 (HIGH) Temperature - 97.2 F (LOW) Pulse - 75 /min Respiration - 18 /min BP - 133/85 mm(hg) O2 Sat - 96 % Pain - 2 Fatigue - 5 Physical Examination: Constitutional - He looks pretty good generally, Eyes - Sclerae nonicteric. Conjunctivae clear, ENMT - No lesions noted in the oral cavity, Hematologic/Lymphatic - No cervical, clavicular, or axillary adenopathy, Respiratory - Lungs are clear with good air movement bilaterally, Cardiovascular - Heart rhythm is regular. There is no murmur, gallop, or rub noted, Abdomen - Soft. Liver and spleen are not enlarged. There is no abdominal mass or ascites noted. I do not feel any inguinal adenopathy, Extremities - No edema, Neurologic - No focal neurologic deficits noted. Lab/Imaging: CBC shows hemoglobin 11.4 g, white blood cell count 6800, and platelet count 263,000. Comprehensive metabolic profile shows stable renal function with BUN 15 and creatinine 1.21 mg/dL. Bilirubin and liver enzymes are normal. PSA is 69.00 ng/mL. Problem List: 1. Stage IV prostate cancer, metastatic to lymph nodes and bone, initially diagnosed in April 2015. 2. 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 3. He has chronic anxiety. Problems Addressed with this Encounter and Plan: 1. Patient with stage IV prostate cancer, metastatic to lymph nodes and bone, diagnosed by cervical lymph node biopsy in April 2015. He initially began treatment with androgen deprivation with subsequent addition of chemotherapy, which I assume was docetaxel/prednisone. He did show significant response, both clinically and by PSA level. He had stopped chemotherapy sometime around January or February 2016. He had subsequently continued androgen deprivation with Depo-Lupron. As of November 2016 his PSA level had increased significantly. CT abdomen/pelvis on 11/09/2016 showed increased retroperitoneal lymphadenopathy, and clinically it did appear that he was having disease progression. A subsequent bone scan showed intense uptake in the right superior pubic ramus corresponding to an area of blastic metastatic disease which had been noted on CT scan of the right hip. There was additional suspected metastatic involvement in the left 10th rib anteriorly, though technically that site was indeterminate. On 12/22/2016 he began treatment with abiraterone 1000 mg daily and prednisone 5 mg twice a day in addition to the Depo-Lupron. He did show a good response by PSA level, but he was still having significant pain in his right hip area, and he was then given palliative radiation to the area of involvement in the right pubic ramus. He completed treatment on 02/14/2017 to 3900 cGy. He had a good clinical response. However, he tolerated the the androgen deprivation therapy poorly, and in December 2018 he opted to stop treatment. During subsequent follow-up, there was a gradual increase in his PSA level, but his clinical status remained stable, and he continued on observation/expectant management. As of 09/11/2019 there was a significant further increase in his PSA level, to 67.53 ng/mL, and at that point he restarted androgen deprivation therapy with bicalutamide 50 mg daily for 14 days together with Depo-Lupron 22.5 mg by intramuscular injection. He had significant side effects following the Depo-Lupron injection, including chest pain. A Lexiscan sestamibi stress test showed no evidence of cardiac ischemia. As of his follow-up visit in December 2019 there was further increase in the PSA level to 116 ng/mL. At that point he agreed to a trial of anti-androgen therapy with bicalutamide 50 mg 3 times daily. He stopped it in mid January when he was diagnosed with COVID-19 virus infection. He had uneventful recovery from that illness. At his follow-up visit on 03/10/2020 there was further increase in the PSA level to 180.500 ng/mL. I had discussed options for further treatment, and he ultimately chose to proceed with a trial of 2nd line chemotherapy with cabazitaxel. He began cycle 1 of cabazitaxel on 05/04/2020. He had pretty severe fatigue following initial infusion. He also developed some mild constipation with rectal bleeding, but that lasted just a few days. He has had no other significant toxicity. He continued with cycle 2 on 05/31/2020. He continued to have fatigue, but he otherwise appears to be tolerating it well. He had a significant decline in his PSA level. He then continued treatment at 3-week iintervals. As of 08/27/2019 when he began his 6th cycle of treatment. At that point his PSA level had declined to 73.4 ng/mL compared to a pretreatment level of 268.1 ng/mL. He has now completed 8 cycles of treatment. His current PSA level is stable at 69.000 ng/mL. In the absence of any evidence of disease progression, he will proceed with cycle 9 of cabazitaxel. The dosage remains the same. He returns in 3 weeks. In the meantime, If his PSA remains stable, I may consider transitioning him to maintenance therapy with a PARP inhibitor, as he may potentially be eligible due to the variant in the MELODIE gene. 2. He had developed hematuria and he was found to have right ureteral obstruction from extrinsic process, presumed malignant. He required balloon dilatation and placement of ureteral stent. The stent was removed as of 10/14/2020. Thus far has had no recurrence of symptoms. Signed By: Mayank Albright M.D. <<Signature on File>>
== END 2020-10-27 11:25 | disposition home or self-care (01) ==
LOC: ONCMED 11:27
PROVIDERS: PCP Nurse Practitioner Family; Visit Provider Internal Medicine Medical Oncology
DX: Z51.11 Encounter for antineoplastic chemotherapy (principal); C61 Malignant neoplasm of prostate; C77.8 Secondary and unspecified malignant neoplasm of lymph nodes of multiple regions; C79.51 Secondary malignant neoplasm of bone; F41.9 Anxiety disorder, unspecified
CPT/HCPCS: 96367; 96375; 96413; 99214; J1100; J1200; J2469; J3490; J7050; J9043

== ENCOUNTER 2020-11-23 10:18 | Outpatient (CLI) | payer MEDICARE, SELFPAY ==
[2020-11-23] MEDS: denosumab 120 mg SDV SUBCUT (11:30)
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
== END 2020-11-23 10:19 | disposition home or self-care (01) ==
LOC: ONCMED 10:20
PROVIDERS: PCP Nurse Practitioner Family; Visit Provider Internal Medicine Medical Oncology
DX: Z51.11 Encounter for antineoplastic chemotherapy (principal); C61 Malignant neoplasm of prostate; C77.8 Secondary and unspecified malignant neoplasm of lymph nodes of multiple regions; C79.51 Secondary malignant neoplasm of bone; F41.9 Anxiety disorder, unspecified; Z79.899 Other long term (current) drug therapy
CPT/HCPCS: 96372; 99214; J0897

== ENCOUNTER 2020-12-22 10:48 | Outpatient (CLI) | payer MEDICARE, SELFPAY ==
[2020-12-22] MEDS: denosumab 120 mg SDV SUBCUT (11:55)
--- NOTE | 2020-12-22 19:11 | ONC FU_ITS ---
Dr. Albright Patient Follow-Up Note Patient: Ad Schwartz Unit #: [id number]: 1970 Dicatated By: Mayank Albright M.D.Date of Visit:Dec 22, 2020 Onc Med Follow-up/Prog Note Chief Complaint: Prostate cancer. History of Present Illness: This is a 50 year-old man with stage IV prostate cancer, metastatic to lymph nodes and bone. He had presented with an enlarged left cervical lymph node. His PET/CT on 05/17/2015 showed several enlarged nodes in the left neck with relatively low levels of FDG activity, maximum SUV 1.9-2.4. Also noted was extensive conglomerate retroperitoneal adenopathy beginning below the level of the renal arteries and extending through the level of the bifurcation and along the iliac chains with a maximum SUV up to 6.5. There was additional adenopathy along the pelvic sidewalls somewhat more extensive on the left. The prostate gland measured approximate 5.3 cm in transverse dimension and demonstrated physiologic levels of activity. There was increased activity in the right superior pubic ramus at the level of the pubic symphysis with maximum SUV 5.5. A left cervical lymph node biopsy was apparently consistent with metastatic prostate cancer, but the actual report was not available to me. He indicated that his baseline PSA level was 1163. He was treated initially with androgen deprivation through [facility] in [place]. At some point he opted to undergo treatment with a private oncology group in [place], where he was started on chemotherapy, I assume with docetaxel/prednisone. It was administered weekly. I had seen him initially on 04/13/2016. He last received chemotherapy 2 or 3 months earlier. He had indicated that he stopped treatment because he ran out of money . During this time he had continued the androgen deprivation with Depo-Lupron. His laboratory studies on 02/18/2016 showed his PSA level at 45.9 ng/mL. By his recollection, it was somewhere in the range of 44-46 when last checked in [place]. His repeat PSA level on 04/19/2016 was stable at 40.3 ng/mL. In the absence of any evidence of disease progression, he was advised to continue androgen deprivation with Depo-Lupron. During subsequent follow-up, his PSA level had increased slightly, up to 63 ng/mL in June 2016. His testosterone levels at that time were in castrate range. As of 08/07/2016 it was stable at 57 ng/mL. However, a repeat PSA level on 11/09/2016 had increased significantly, to 102.0 ng/mL. A CT scan of the right hip on 11/09/2016 showed stable right superior ramus/pubic body sclerosis compatible with metastatic disease. There was also stable right superior acetabular small sclerotic focus felt to most likely represent a bone island. Small metastasis cannot be excluded. CT abdomen/pelvis on 11/09/2016 showed increased retroperitoneal lymphadenopathy. He had further evaluation with bone scan on 12/04/2016. It showed intense bony uptake involving the right superior pubic ramus, corresponding to the area of blastic metastatic disease on the CT scan. There was an additional suspected focus of metastatic involvement in the left 10th rib anteriorly, though technically it was indeterminate. There were no other foci of metastatic disease noted. On 12/22/2016 he began treatment with abiraterone 1000 mg daily and prednisone 5 mg twice a day in addition to his Depo-Lupron. His PSA level at that point had decreased to 40.80 ng/mL. As of his follow-up visit on 01/22/2017 the PSA had declined to 15.00 ng/mL. He was still having significant pain in his right hip area. We opted to treat him with palliative radiation to the area of involvement in the right pubic ramus. He completed radiation on 02/14/2017 to a total dose of 3900 cGy. During subsequent followup there was further decline in the PSA level to 10.7 ng/mL on 03/22/3017. As of 05/08/2017 it had stabilized at 11.0 ng/mL. However, as of 08/06/2017 it had further declined to 4.4 ng/mL. He continued treatment with abiraterone/prednisone in combination with Depo-Lupron. As of 12/16/2017 the PSA had further declined to 2.51 ng/mL and by 06/11/2018 it was down to 1.6 ng/mL. As of his follow-up visit on 12/26/2018 it had increased slightly, to 2.51 ng/mL. At that point he had opted to stop his treatment, as he had become profoundly discouraged about his loss of sexual function. Repeat bone scan on 01/06/2019 was negative for metastatic disease. There was clearing of metastatic lesion involving the right pubic symphysis and possible traumatic injury to the left 10th rib. Restaging [address] abdomen/pelvis on 01/20/2019 showed significant decrease in previously noted retroperitoneal and internal iliac lymphadenopathy and resolved blastic metastatic lesion in the right superior pubic ramus compared to the prior study from November 2016. There were no other lytic or blastic bony destructive lesions identified. The liver showed fatty infiltration, but no evidence of metastatic involvement. He was seen for a follow-up visit on 03/18/2019. His PSA level had increased to 6.90 ng/mL, but at that point he was feeling significantly better. He continued observation/expectant management for the prostate cancer. Subsequent to his visit in March 2019 I had requested genetic profiling to screen for possible BRCA mutation. 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 Restaging CT scans of the the chest, abdomen, and pelvis on 06/23/2019 showed no evidence of metastatic disease. Bone scan showed abnormal activity involving the L2 pedicle on the right. It was not present on the prior study from December 2018. There were no other areas of abnormal uptake noted. As of his follow-up visit on 09/11/2019 his PSA level had increased to 67.53 ng/mL, and at that point he restarted androgen deprivation therapy with bicalutamide 50 mg daily for 14 days together with Depo-Lupron 22.5 mg. At that time I had also discussed the possibility of continuing antiandrogen therapy with enzalutamide, which he declined. He was then seen for an unplanned visit on 11/21/2019. He was complaining of chest pain, description which was somewhat suspicious for angina. He had normal EKG at that time. A Lexiscan sestamibi stress test on 11/28/2019 was normal and the associated myocardial perfusion scan showed a small area of persistent decreased uptake in the apical lateral and LV apex with no significant reversibility, suggestive of myocardial scarring versus attenuation artifact. There was normal LV ejection fraction at 61% and there were no gross wall motion abnormalities noted. Overall there was no evidence for significant coronary ischemia. At his follow-up visit on 12/29/2019 there was a further increase in the PSA level to 116.400 ng/mL. He appeared stable clinically. I reviewed options for further treatment, and he elected for a trial of anti-androgen therapy with bicalutamide 50 mg 3 times daily. At his follow-up visit on 02/04/2020 there was further increase in the PSA to 172.600 ng/mL. I reviewed options for further treatment and at that time he wanted to discuss it further with his family. Ultimately he opted to restart chemotherapy with cabazitaxel. His medical history is otherwise unremarkable. He has had some chronic anxiety, but no other ongoing medical illnesses. He has had no other surgeries. He is a nonsmoker. INTERIM HISTORY: He began cycle 1 of cabazitaxel on 05/04/2020. He felt pretty weak for the first couple of days after the treatment, and he continued to have fatigue over the first couple of weeks. He also had some rectal bleeding for a few days. He did not have nausea/vomiting or other acute toxicity. He continued with his 2nd cycle of treatment on 05/31/2020. He again reported fatigue following the chemotherapy, but he had no other significant toxicity. He then continued treatment at 3-week intervals, and during follow-up there was a gradual decline in his PSA level. As of 08/26/2020 he began his 6th cycle with the PSA at that point down to 73.4 ng/mL compared to pretreatment level of 268.1 ng/mL. He continued with cycle 7 on 09/13/2020. At that point he had started having hematuria and he was seen by Dr. Doran. On 09/17/2020 he underwent cystoscopy with right retrograde ureteropyelogram, right ureteroscopy with stricture dilatation, and placement of right ureteral stent. Operative findings included an area of narrowing/stricturing in the distal ureter for distance about 3.5 cm which appeared to be extrinsic from a malignant process. He continued with cycle 8 of cabazitaxel on 10/06/2020. He continued to have flank pain, and any underwent removal of the ureteral stent on 10/14/2020. At his follow-up visit on 10/27/2020 he was feeling much better. His PSA level was stable at 69.00 ng/mL. He continued with cycle 9 of cabazitaxel. As of his follow-up visit on 11/23/2020 there was a further decline in his PSA to 36.000 ng/mL. He appeared stable clinically, and with the known MELODIE mutation, his treatment was then transitioned to olaparib 300 mg twice daily. He also continued denosumab injections for the metastatic bone involvement. He has seen for a follow-up visit. He has been significantly fatigued since starting the olaparib. Initially he had continued to work, but he had to nap every day. For the past 2 weeks he has not been able to work. He says that after 1 to 2 hours of activity he sleeps for 6 hours. He also has had a significant increase in lower back pain. His ECOG score is 2. He still has good appetite. He has no fever, night sweats, or hot flashes. He has not had sore mouth or throat. He has no shortness of breath, cough, or chest pain. He has no GI or complaints. In particular, he has had no nausea or diarrhea. He currently is not having any other joint or bone pain. He was having headache at first, but that seems to have resolved. He has been a little lightheaded at times. He has no numbness/paresthesia or other focal neurologic symptoms. Medications: Omeprazole 1 Tablet (of 20 mg) Capsule Delayed Release Oral daily, oxyCODONE HCl 1 Tablet (of 15 mg) Oral four times a day PRN, PredniSONE 1 (10 mg) Tablet, enteric coated Oral daily, Xanax 1 Tablet (of 0.5 mg) Oral t.i.d. PRN Allergies: Band Aid Vital Signs: Performed on Dec 22, 2020 11:16 Height - 71.00 in Weight - 218.6 lbs (HIGH) BSA - 2.19 sq.m BMI - 30.49 (HIGH) Temperature - 97.8 F (LOW) Pulse - 76 /min Respiration - 18 /min BP - 126/75 mm(hg) O2 Sat - 97 % Pain - 4 Fatigue - 7 Physical Examination: Constitutional - He appears somewhat weak generally, Eyes - Sclerae nonicteric. Conjunctivae clear, ENMT - No lesions noted in the oral cavity, Hematologic/Lymphatic - No cervical, clavicular, or axillary adenopathy, Respiratory - Lungs are clear with good air movement bilaterally, Cardiovascular - Heart rhythm is regular. There is no murmur, gallop, or rub noted, Abdomen - Soft. Liver and spleen are not enlarged. There is no abdominal mass or ascites noted and there is no inguinal adenopathy, Extremities - No edema, Neurologic - No focal neurologic deficits noted. Lab/Imaging: Test performed on Dec 21, 2020 09:01 Sodium 140.7 mmol/L Potassium 4.48 mmol/L Chloride 110 mmol/L CO2 24 mmol/L BUN 12 mg/dL Creatinine 1.04 mg/dL Cr Clearance (Est) 122.93 mL/min eGFR 81 mL/min Glucose 98 mg/dL Calcium 8.8 mg/dL Protein, Total 5.7 g/dL Albumin 3.8 g/dL Globulin 1.9 g/dL Bilirubin, Total 0.45 mg/dL ALT (SGPT) 17 Units/L AST (SGOT) 19 Units/L Alkaline Phosphatase 46 International Units/L WBC 4.3 10^3/uL RBC 4.35 10^6/uL HGB 12.3 g/dL HCT 37.3 % MCV 85.7 fl MCH 28.3 pg MCHC 33.0 g/dL Platelet Count 274 10^3/uL MPV 10.4 fl Manual Neutrophils Abs 2.6 10^3/uL Manual Lymphocytes Abs 1.4 10^3/uL Manual Monocytes Abs 0.3 10^3/uL Manual Neutrophils % 59.9 % Manual Lymphs % 33.6 % Manual Monos % 6.5 % PSA 34.7 ng/mL Problem List: 1. Stage IV prostate cancer, metastatic to lymph nodes and bone, initially diagnosed in April 2015. 2. 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 3. He has chronic anxiety. Problems Addressed with this Encounter and Plan: 1. Patient with stage IV prostate cancer, metastatic to lymph nodes and bone, diagnosed by cervical lymph node biopsy in April 2015. He initially began treatment with androgen deprivation with subsequent addition of chemotherapy, which I assume was docetaxel/prednisone. He did show significant response, both clinically and by PSA level. He had stopped chemotherapy sometime around January or February 2016. He had subsequently continued androgen deprivation with Depo-Lupron. As of November 2016 his PSA level had increased significantly. CT abdomen/pelvis on 11/09/2016 showed increased retroperitoneal lymphadenopathy, and clinically it did appear that he was having disease progression. A subsequent bone scan showed intense uptake in the right superior pubic ramus corresponding to an area of blastic metastatic disease which had been noted on CT scan of the right hip. There was additional suspected metastatic involvement in the left 10th rib anteriorly, though technically that site was indeterminate. On 12/22/2016 he began treatment with abiraterone 1000 mg daily and prednisone 5 mg twice a day in addition to the Depo-Lupron. He did show a good response by PSA level, but he was still having significant pain in his right hip area, and he was then given palliative radiation to the area of involvement in the right pubic ramus. He completed treatment on 02/14/2017 to 3900 cGy. He had a good clinical response. However, he tolerated the the androgen deprivation therapy poorly, and in December 2018 he opted to stop treatment. During subsequent follow-up, there was a gradual increase in his PSA level, but his clinical status remained stable, and he continued on observation/expectant management. As of 09/11/2019 there was a significant further increase in his PSA level, to 67.53 ng/mL, and at that point he restarted androgen deprivation therapy with bicalutamide 50 mg daily for 14 days together with Depo-Lupron 22.5 mg by intramuscular injection. He had significant side effects following the Depo-Lupron injection, including chest pain. A Lexiscan sestamibi stress test showed no evidence of cardiac ischemia. As of his follow-up visit in December 2019 there was further increase in the PSA level to 116 ng/mL. At that point he agreed to a trial of anti-androgen therapy with bicalutamide 50 mg 3 times daily. He stopped it in mid January when he was diagnosed with COVID-19 virus infection. He had uneventful recovery from that illness. At his follow-up visit on 03/10/2020 there was further increase in the PSA level to 180.500 ng/mL. I had discussed options for further treatment, and he ultimately chose to proceed with a trial of 2nd line chemotherapy with cabazitaxel. He began cycle 1 of cabazitaxel on 05/04/2020. He had pretty severe fatigue following initial infusion. He also developed some mild constipation with rectal bleeding, but that lasted just a few days. He has had no other significant toxicity. He continued with cycle 2 on 05/31/2020. He continued to have fatigue, but he otherwise appears to be tolerating it well. He had a significant decline in his PSA level. He then continued treatment at 3-week iintervals. As of 08/27/2019 when he began his 6th cycle of treatment. At that point his PSA level had declined to 73.4 ng/mL compared to a pretreatment level of 268.1 ng/mL. As of his follow-up visit on 11/23/2020 he had completed 9 cycles of treatment with cabazitaxel. His PSA level had further declined to 36.000 ng/mL. In the setting of a stable response to chemotherapy with a known MELODIE gene variant, his treatment was ransitioned to maintenance therapy with olaparib 300 mg bid. He has now completed 1 month of maintenance therapy. He is having very significant fatigue with that, severe enough that he has had a decline in his performance status. He also is reporting increased low back pain. He has otherwise been tolerating it well, and his PSA level appears stable. Given the severity of his fatigue, I am going to have him stop the olaparib for 3 days, and then restart at 150 mg twice daily. I will see him again in 1 month. 2. He has known metastatic bone involvement. He will continue supportive therapy for bone health with denosumab 120 mg by subcutaneous injection. Signed By: Mayank Albright M.D. <<Signature on File>>
== END 2020-12-22 10:49 | disposition home or self-care (01) ==
LOC: ONCMED 10:50
PROVIDERS: PCP Nurse Practitioner Family; Visit Provider Internal Medicine Medical Oncology
DX: C61 Malignant neoplasm of prostate (principal); C79.51 Secondary malignant neoplasm of bone; C77.0 Secondary and unspecified malignant neoplasm of lymph nodes of head, face and neck; K59.03 Drug induced constipation; K62.5 Hemorrhage of anus and rectum; Z79.899 Other long term (current) drug therapy
CPT/HCPCS: 96372; 99215; J0897

== ENCOUNTER 2021-01-24 10:30 | Outpatient (CLI) | payer MEDICARE, SELFPAY ==
[2021-01-24] MEDS: denosumab 120 mg SDV SUBCUT (12:30)
--- NOTE | 2021-02-01 23:51 | ONC FU_ITS ---
[facility] Patient Note Patient: Ad Schwartz Unit #: [id number]: 1970 Dictated By: Ruthie ChristopherDate of Visit: Jan 24, 2021 Onc MED Follow-Up/Prog Note Chief Complaint: Prostate cancer. History of Present Illness: Mr Schwartz is a 50 year-old man with stage IV prostate cancer, metastatic to lymph nodes and bone. He had presented with an enlarged left cervical lymph node. His PET/CT on 05/17/2015 showed several enlarged nodes in the left neck with relatively low levels of FDG activity, maximum SUV 1.9-2.4. Also noted was extensive conglomerate retroperitoneal adenopathy beginning below the level of the renal arteries and extending through the level of the bifurcation and along the iliac chains with a maximum SUV up to 6.5. There was additional adenopathy along the pelvic sidewalls somewhat more extensive on the left. The prostate gland measured approximate 5.3 cm in transverse dimension and demonstrated physiologic levels of activity. There was increased activity in the right superior pubic ramus at the level of the pubic symphysis with maximum SUV 5.5. A left cervical lymph node biopsy was apparently consistent with metastatic prostate cancer, but the actual report was not available to me. He indicated that his baseline PSA level was 1163. He was treated initially with androgen deprivation through [facility] in [place]. At some point he opted to undergo treatment with a private oncology group in [place], where he was started on chemotherapy, I assume with docetaxel/prednisone. It was administered weekly. I had seen him initially on 04/13/2016. He last received chemotherapy 2 or 3 months earlier. He had indicated that he stopped treatment because he ran out of money . During this time he had continued the androgen deprivation with Depo-Lupron. His laboratory studies on 02/18/2016 showed his PSA level at 45.9 ng/mL. By his recollection, it was somewhere in the range of 44-46 when last checked in [place]. His repeat PSA level on 04/19/2016 was stable at 40.3 ng/mL. In the absence of any evidence of disease progression, he was advised to continue androgen deprivation with Depo-Lupron. During subsequent follow-up, his PSA level had increased slightly, up to 63 ng/mL in June 2016. His testosterone levels at that time were in castrate range. As of 08/07/2016 it was stable at 57 ng/mL. However, a repeat PSA level on 11/09/2016 had increased significantly, to 102.0 ng/mL. A CT scan of the right hip on 11/09/2016 showed stable right superior ramus/pubic body sclerosis compatible with metastatic disease. There was also stable right superior acetabular small sclerotic focus felt to most likely represent a bone island. Small metastasis cannot be excluded. CT abdomen/pelvis on 11/09/2016 showed increased retroperitoneal lymphadenopathy. He had further evaluation with bone scan on 12/04/2016. It showed intense bony uptake involving the right superior pubic ramus, corresponding to the area of blastic metastatic disease on the CT scan. There was an additional suspected focus of metastatic involvement in the left 10th rib anteriorly, though technically it was indeterminate. There were no other foci of metastatic disease noted. On 12/22/2016 he began treatment with abiraterone 1000 mg daily and prednisone 5 mg twice a day in addition to his Depo-Lupron. His PSA level at that point had decreased to 40.80 ng/mL. As of his follow-up visit on 01/22/2017 the PSA had declined to 15.00 ng/mL. He was still having significant pain in his right hip area. We opted to treat him with palliative radiation to the area of involvement in the right pubic ramus. He completed radiation on 02/14/2017 to a total dose of 3900 cGy. During subsequent followup there was further decline in the PSA level to 10.7 ng/mL on 03/22/3017. As of 05/08/2017 it had stabilized at 11.0 ng/mL. However, as of 08/06/2017 it had further declined to 4.4 ng/mL. He continued treatment with abiraterone/prednisone in combination with Depo-Lupron. As of 12/16/2017 the PSA had further declined to 2.51 ng/mL and by 06/11/2018 it was down to 1.6 ng/mL. As of his follow-up visit on 12/26/2018 it had increased slightly, to 2.51 ng/mL. At that point he had opted to stop his treatment, as he had become profoundly discouraged about his loss of sexual function. Repeat bone scan on 01/06/2019 was negative for metastatic disease. There was clearing of metastatic lesion involving the right pubic symphysis and possible traumatic injury to the left 10th rib. Restaging [address] abdomen/pelvis on 01/20/2019 showed significant decrease in previously noted retroperitoneal and internal iliac lymphadenopathy and resolved blastic metastatic lesion in the right superior pubic ramus compared to the prior study from November 2016. There were no other lytic or blastic bony destructive lesions identified. The liver showed fatty infiltration, but no evidence of metastatic involvement. He was seen for a follow-up visit on 03/18/2019. His PSA level had increased to 6.90 ng/mL, but at that point he was feeling significantly better. He continued observation/expectant management for the prostate cancer. Subsequent to his visit in March 2019 a genetic profiling to screen for possible BRCA mutation was requested. 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 Restaging CT scans of the the chest, abdomen, and pelvis on 06/23/2019 showed no evidence of metastatic disease. Bone scan showed abnormal activity involving the L2 pedicle on the right. It was not present on the prior study from December 2018. There were no other areas of abnormal uptake noted. As of his follow-up visit on 09/11/2019 his PSA level had increased to 67.53 ng/mL, and at that point he restarted androgen deprivation therapy with bicalutamide 50 mg daily for 14 days together with Depo-Lupron 22.5 mg. At that time I had also discussed the possibility of continuing antiandrogen therapy with enzalutamide, which he declined. He was then seen for an unplanned visit on 11/21/2019. He was complaining of chest pain, description which was somewhat suspicious for angina. He had normal EKG at that time. A Lexiscan sestamibi stress test on 11/28/2019 was normal and the associated myocardial perfusion scan showed a small area of persistent decreased uptake in the apical lateral and LV apex with no significant reversibility, suggestive of myocardial scarring versus attenuation artifact. There was normal LV ejection fraction at 61% and there were no gross wall motion abnormalities noted. Overall there was no evidence for significant coronary ischemia. At his follow-up visit on 12/29/2019 there was a further increase in the PSA level to 116.400 ng/mL. He appeared stable clinically. Dr Albright reviewed options for further treatment, and he elected for a trial of anti-androgen therapy with bicalutamide 50 mg 3 times daily. At his follow-up visit on 02/04/2020 there was further increase in the PSA to 172.600 ng/mL. Dr Albright reviewed options for further treatment and at that time he wanted to discuss it further with his family. Ultimately he opted to restart chemotherapy with cabazitaxel. His medical history is otherwise unremarkable. He has had some chronic anxiety, but no other ongoing medical illnesses. He has had no other surgeries. He is a nonsmoker. INTERIM HISTORY: He began cycle 1 of cabazitaxel on 05/04/2020. He felt pretty weak for the first couple of days after the treatment, and he continued to have fatigue over the first couple of weeks. He also had some rectal bleeding for a few days. He did not have nausea/vomiting or other acute toxicity. He continued with his 2nd cycle of treatment on 05/31/2020. He again reported fatigue following the chemotherapy, but he had no other significant toxicity. He then continued treatment at 3-week intervals, and during follow-up there was a gradual decline in his PSA level. As of 08/26/2020 he began his 6th cycle with the PSA at that point down to 73.4 ng/mL compared to pretreatment level of 268.1 ng/mL. He continued with cycle 7 on 09/13/2020. At that point he had started having hematuria and he was seen by Dr. Doran. On 09/17/2020 he underwent cystoscopy with right retrograde ureteropyelogram, right ureteroscopy with stricture dilatation, and placement of right ureteral stent. Operative findings included an area of narrowing/stricturing in the distal ureter for distance about 3.5 cm which appeared to be extrinsic from a malignant process. He continued with cycle 8 of cabazitaxel on 10/06/2020. He continued to have flank pain, and any underwent removal of the ureteral stent on 10/14/2020. At his follow-up visit on 10/27/2020 he was feeling much better. His PSA level was stable at 69.00 ng/mL. He continued with cycle 9 of cabazitaxel. As of his follow-up visit on 11/23/2020 there was a further decline in his PSA to 36.000 ng/mL. He appeared stable clinically, and with the known MELODIE mutation, his treatment was then transitioned to olaparib 300 mg twice daily. He also continued denosumab injections for the metastatic bone involvement. He was seen for a follow-up visit on 12/22/2020. He had been significantly fatigued since starting the olaparib. Initially he had continued to work, but he had to nap every day. For 2 weeks prior to that followup, he had not been able to work. He stated that after 1 to 2 hours of activity he slept for 6 hours. He also had a significant increase in lower back pain. His ECOG score was 2. The olaparib was held for 3 days and then resume back at 150 mg twice daily. He is here for 1 month follow-up today. Mr. Schwartz reports that overall he feels better. He still does have significant fatigue. He continues to have lower back pain but states that that is better overall as well. He states he is not doing as much heavy lifting and working as he was in the past and thinks that that may have helped the back pain as well. He is here today for denosumab. He states he really has not noticed it that is increased his bone pain but will pay attention after this injection to see if that is aggravating his back pain. He states his appetite is fair. He denies any mouth sores sore throat or difficulty swallowing. He denies any new shortness of breath or any orthopnea. He denies any fever or chills. He has occasional hot flashes but states that is normal for him. He denies any chest pain or palpitations. He states his bowels and bladder are normal for him. He denies any lower extremity edema. He has had no new pain but not complete relief of the back pain. His ECOG is 1. Past Medical History: Anxiety Prostate cancer Past Surgical History: Left cervical lymph node biopsy in 2016 Allergies: Band Aid Medications: Omeprazole 1 Tablet (of 20 mg) Capsule Delayed Release Oral daily oxyCODONE HCl 1 Tablet (of 15 mg) Oral four times a day PRN PredniSONE 1 (10 mg) Tablet, enteric coated Oral daily Xanax 1 Tablet (of 0.5 mg) Oral t.i.d. PRN Family History: Mr. Schwartz's mother at age 86: leukemia. Mr. Schwartz's father at age 85: blood disorder. Mr. Schwartz has 1 sister who is : lung cancer. Father at age 85 of a blood disorder . His mother 5 months ago at age 86. She was recently diagnosed with leukemia. He doesn't know what type. One sister of lung cancer. Nine other siblings are in good health. 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 Mr. Schwartz has never smoked. He drinks occasionally. He consumes 2 drinks/day. He has indicated exposure to the following products: chewing tobacco. Mr. Schwartz reports the following support systems: lives with spouse, significant other, family, or friends, lives in own house, supportive family/friends willing to assist with needs, and adequate transportation available for expected visits. His diet consists of regular meals. He indicates his activity level as: daily activities. Use to chew tobacco for about 10 to 12 years. drank a few beers occasionally. Review Of Symptoms: <See Above> Vital Signs: Performed on Jan 24, 2021 11:48 Height - 71.00 in Weight - 219 lbs (HIGH) BSA - 2.19 sq.m BMI - 30.54 (HIGH) Temperature - 96.6 F (LOW) Pulse - 54 /min (LOW) Respiration - 18 /min BP - 131/86 mm(hg) O2 Sat - 98 % Pain - 3 Fatigue - 4,1 - No physically strenuous activity, but ambulatory and able to carry out light or sedentary work (e.g. office work, light house work). (ECOG) Physical Examination: Constitutional Alert, oriented, no acute distress. Skin pink, warm and dry. Head Normocephalic; atraumatic. Eyes Conjunctivae and sclerae are clear and without icterus. Pupils are reactive and equal. Neck Supple without masses or thyromegaly. No jugular venous distension. Hematologic/Lymphatic No petechiae or purpura. No tender or palpable lymph nodes in the cervical, supraclavicular areas. Respiratory Lungs are clear to auscultation without rhonchi or wheezing. Cardiovascular Regular rate and rhythm of heart without murmurs,clicks, gallops or rubs. Abdomen Non-tender, non-distended, no masses, ascites. No guarding or rebound tenderness. No pulsatile masses. Back/Spine Non-tender to palpation. Extremities No visible deformities, no cyanosis, clubbing or edema. Musculoskeletal No tenderness or swelling, normal range of motion without obvious weakness. Integumentary No rashes or lesions. Neurologic No sensory or motor deficits, normal cerebellar function, normal gait. Psychiatric Alert and oriented times three. Coherent speech. Verbalizes understanding of our discussions today. Laboratory:Test performed on Jan 20, 2021 08:53 Glucose 135 mg/dL BUN 10 mg/dL Creatinine 1.09 mg/dL Cr Clearance (Est) 117.29 mL/min BUN/Creatinine Ratio 10 Absolute Value Sodium 141.0 mmol/L Potassium 4.10 mmol/L Chloride 110 mmol/L CO2 23 mmol/L Calcium 9.1 mg/dL Protein, Total 5.8 g/dL Albumin 3.9 g/dL Globulin 1.9 g/dL A/G Ratio 2.0 Absolute Value Bilirubin, Total 0.45 mg/dL Alkaline Phosphatase 46 International Units/L AST (SGOT) 23 International Units/L ALT (SGPT) 22 International Units/L WBC 3.6 10^9/L RBC 4.62 10^12/L HGB 13.6 g/dL HCT 41.4 % MCV 89.6 fl MCH 29.9 pg MCHC 33.3 g/dL RDW 17.4 % Platelet Count 243 10^9/L MPV 10.8 fL Neutrophils (Gran) 2.1 10^9/L Lymphocytes 1.062 10^9/L Monocytes 0.0144 10^9/L PSA 49.0 ng/mL Impression: 1. Stage IV prostate cancer, metastatic to lymph nodes and bone, initially diagnosed in April 2015. 2. 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 3. He has chronic anxiety. Plan/Problems Addressed at this Visit: 1. Patient with stage IV prostate cancer, metastatic to lymph nodes and bone, diagnosed by cervical lymph node biopsy in April 2015. He initially began treatment with androgen deprivation with subsequent addition of chemotherapy, which was assumed to be docetaxel/prednisone. He did show significant response, both clinically and by PSA level. He had stopped chemotherapy sometime around January or February 2016. He had subsequently continued androgen deprivation with Depo-Lupron. As of November 2016 his PSA level had increased significantly. CT abdomen/pelvis on 11/09/2016 showed increased retroperitoneal lymphadenopathy, and clinically it did appear that he was having disease progression. A subsequent bone scan showed intense uptake in the right superior pubic ramus corresponding to an area of blastic metastatic disease which had been noted on CT scan of the right hip. There was additional suspected metastatic involvement in the left 10th rib anteriorly, though technically that site was indeterminate. On 12/22/2016 he began treatment with abiraterone 1000 mg daily and prednisone 5 mg twice a day in addition to the Depo-Lupron. He did show a good response by PSA level, but he was still having significant pain in his right hip area, and he was then given palliative radiation to the area of involvement in the right pubic ramus. He completed treatment on 02/14/2017 to 3900 cGy. He had a good clinical response. However, he tolerated the the androgen deprivation therapy poorly, and in December 2018 he opted to stop treatment. During subsequent follow-up, there was a gradual increase in his PSA level, but his clinical status remained stable, and he continued on observation/expectant management. As of 09/11/2019 there was a significant further increase in his PSA level, to 67.53 ng/mL, and at that point he restarted androgen deprivation therapy with bicalutamide 50 mg daily for 14 days together with Depo-Lupron 22.5 mg by intramuscular injection. He had significant side effects following the Depo-Lupron injection, including chest pain. A Lexiscan sestamibi stress test showed no evidence of cardiac ischemia. As of his follow-up visit in December 2019 there was further increase in the PSA level to 116 ng/mL. At that point he agreed to a trial of anti-androgen therapy with bicalutamide 50 mg 3 times daily. He stopped it in mid January when he was diagnosed with COVID-19 virus infection. He had uneventful recovery from that illness. At his follow-up visit on 03/10/2020 there was further increase in the PSA level to 180.500 ng/mL. Dr Albright had discussed options for further treatment, and he ultimately chose to proceed with a trial of 2nd line chemotherapy with cabazitaxel. He began cycle 1 of cabazitaxel on 05/04/2020. He had pretty severe fatigue following initial infusion. He also developed some mild constipation with rectal bleeding, but that lasted just a few days. He has had no other significant toxicity. He continued with cycle 2 on 05/31/2020. He continued to have fatigue, but he otherwise appears to be tolerating it well. He had a significant decline in his PSA level. He then continued treatment at 3-week iintervals. As of 08/27/2019 when he began his 6th cycle of treatment. At that point his PSA level had declined to 73.4 ng/mL compared to a pretreatment level of 268.1 ng/mL. As of his follow-up visit on 11/23/2020 he had completed 9 cycles of treatment with cabazitaxel. His PSA level had further declined to 36.000 ng/mL. In the setting of a stable response to chemotherapy with a known MELODIE gene variant, his treatment was ransitioned to maintenance therapy with olaparib 300 mg bid. He completed 1 month of maintenance therapy. He was having very significant fatigue with that, severe enough that he has had a decline in his performance status. He also was reporting increased low back pain. He has otherwise been tolerating it well, and his PSA level appears stable. Given the severity of his fatigue, Dr Albright recommended that he stop the olaparib for 3 days, and then restart at 150 mg twice daily. He has had improvement of the fatigue and back pain. A. Proceed with planned Xgeva today. His recent labs from December were stable. His labs from January 20 were not available at the time of visit. (The labs from 01/20/2021 were entered manually after his visit and prior to dictation). B. He will continue the olaparib 150 mg twice daily for now. C. We will call him with results of his labs once we have those available. We have requested them to be refaxed yesterday but had not received them at the time of his visit. D. We will plan to see him back in 1 month at which time he will be due for the Xgeva/denosumab, follow-up CBC CMP and PSA. E. Mr. Schwartz was instructed to contact us in the interim should questions or problems arise. 2. He has known metastatic bone involvement. He will continue supportive therapy for bone health with denosumab 120 mg by subcutaneous injection. Signed By: Ruthie Christopher-, [facility] Mayank Albright MD <<Signature on File>>
== END 2021-01-24 10:31 | disposition home or self-care (01) ==
LOC: ONCMED 10:32
PROVIDERS: PCP Nurse Practitioner Family; Visit Provider Nurse Practitioner
DX: Z51.11 Encounter for antineoplastic chemotherapy (principal); C61 Malignant neoplasm of prostate; C77.8 Secondary and unspecified malignant neoplasm of lymph nodes of multiple regions; C79.51 Secondary malignant neoplasm of bone; Z79.899 Other long term (current) drug therapy
CPT/HCPCS: 96372; 99215; J0897

== ENCOUNTER 2021-02-23 08:26 | Outpatient (CLI) | payer MEDICARE, SELFPAY ==
[2021-02-23] MEDS: denosumab 120 mg SDV SUBCUT (09:41)
--- NOTE | 2021-03-08 14:29 | ONC FU_ITS ---
[facility] Patient Note Patient: Ad Schwartz Unit #: [id number]: 1970 Dictated By: Ruthie ChristopherDate of Visit: Feb 23, 2021 Onc MED Follow-Up/Prog Note Chief Complaint: Prostate cancer. History of Present Illness: Mr Schwartz is a 50 year-old man with stage IV prostate cancer, metastatic to lymph nodes and bone. He had presented with an enlarged left cervical lymph node. His PET/CT on 05/17/2015 showed several enlarged nodes in the left neck with relatively low levels of FDG activity, maximum SUV 1.9-2.4. Also noted was extensive conglomerate retroperitoneal adenopathy beginning below the level of the renal arteries and extending through the level of the bifurcation and along the iliac chains with a maximum SUV up to 6.5. There was additional adenopathy along the pelvic sidewalls somewhat more extensive on the left. The prostate gland measured approximate 5.3 cm in transverse dimension and demonstrated physiologic levels of activity. There was increased activity in the right superior pubic ramus at the level of the pubic symphysis with maximum SUV 5.5. A left cervical lymph node biopsy was apparently consistent with metastatic prostate cancer, but the actual report was not available to me. He indicated that his baseline PSA level was 1163. He was treated initially with androgen deprivation through [facility] in [place]. At some point he opted to undergo treatment with a private oncology group in [place], where he was started on chemotherapy, assumed to be with docetaxel/prednisone. It was administered weekly. Dr Albright had seen him initially on 04/13/2016. He last received chemotherapy 2 or 3 months earlier. He had indicated that he stopped treatment because he ran out of money . During this time he had continued the androgen deprivation with Depo-Lupron. His laboratory studies on 02/18/2016 showed his PSA level at 45.9 ng/mL. By his recollection, it was somewhere in the range of 44-46 when last checked in [place]. His repeat PSA level on 04/19/2016 was stable at 40.3 ng/mL. In the absence of any evidence of disease progression, he was advised to continue androgen deprivation with Depo-Lupron. During subsequent follow-up, his PSA level had increased slightly, up to 63 ng/mL in June 2016. His testosterone levels at that time were in castrate range. As of 08/07/2016 it was stable at 57 ng/mL. However, a repeat PSA level on 11/09/2016 had increased significantly, to 102.0 ng/mL. A CT scan of the right hip on 11/09/2016 showed stable right superior ramus/pubic body sclerosis compatible with metastatic disease. There was also stable right superior acetabular small sclerotic focus felt to most likely represent a bone island. Small metastasis cannot be excluded. CT abdomen/pelvis on 11/09/2016 showed increased retroperitoneal lymphadenopathy. He had further evaluation with bone scan on 12/04/2016. It showed intense bony uptake involving the right superior pubic ramus, corresponding to the area of blastic metastatic disease on the CT scan. There was an additional suspected focus of metastatic involvement in the left 10th rib anteriorly, though technically it was indeterminate. There were no other foci of metastatic disease noted. On 12/22/2016 he began treatment with abiraterone 1000 mg daily and prednisone 5 mg twice a day in addition to his Depo-Lupron. His PSA level at that point had decreased to 40.80 ng/mL. As of his follow-up visit on 01/22/2017 the PSA had declined to 15.00 ng/mL. He was still having significant pain in his right hip area. We opted to treat him with palliative radiation to the area of involvement in the right pubic ramus. He completed radiation on 02/14/2017 to a total dose of 3900 cGy. During subsequent followup there was further decline in the PSA level to 10.7 ng/mL on 03/22/3017. As of 05/08/2017 it had stabilized at 11.0 ng/mL. However, as of 08/06/2017 it had further declined to 4.4 ng/mL. He continued treatment with abiraterone/prednisone in combination with Depo-Lupron. As of 12/16/2017 the PSA had further declined to 2.51 ng/mL and by 06/11/2018 it was down to 1.6 ng/mL. As of his follow-up visit on 12/26/2018 it had increased slightly, to 2.51 ng/mL. At that point he had opted to stop his treatment, as he had become profoundly discouraged about his loss of sexual function. Repeat bone scan on 01/06/2019 was negative for metastatic disease. There was clearing of metastatic lesion involving the right pubic symphysis and possible traumatic injury to the left 10th rib. Restaging [address] abdomen/pelvis on 01/20/2019 showed significant decrease in previously noted retroperitoneal and internal iliac lymphadenopathy and resolved blastic metastatic lesion in the right superior pubic ramus compared to the prior study from November 2016. There were no other lytic or blastic bony destructive lesions identified. The liver showed fatty infiltration, but no evidence of metastatic involvement. He was seen for a follow-up visit on 03/18/2019. His PSA level had increased to 6.90 ng/mL, but at that point he was feeling significantly better. He continued observation/expectant management for the prostate cancer. Subsequent to his visit in March 2019 a genetic profiling to screen for possible BRCA mutation was requested. 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 Restaging CT scans of the the chest, abdomen, and pelvis on 06/23/2019 showed no evidence of metastatic disease. Bone scan showed abnormal activity involving the L2 pedicle on the right. It was not present on the prior study from December 2018. There were no other areas of abnormal uptake noted. As of his follow-up visit on 09/11/2019 his PSA level had increased to 67.53 ng/mL, and at that point he restarted androgen deprivation therapy with bicalutamide 50 mg daily for 14 days together with Depo-Lupron 22.[address] Albright had also discussed the possibility of continuing antiandrogen therapy with enzalutamide, which he declined. He was then seen for an unplanned visit on 11/21/2019. He was complaining of chest pain, description which was somewhat suspicious for angina. He had normal EKG at that time. A Lexiscan sestamibi stress test on 11/28/2019 was normal and the associated myocardial perfusion scan showed a small area of persistent decreased uptake in the apical lateral and LV apex with no significant reversibility, suggestive of myocardial scarring versus attenuation artifact. There was normal LV ejection fraction at 61% and there were no gross wall motion abnormalities noted. Overall there was no evidence for significant coronary ischemia. At his follow-up visit on 12/29/2019 there was a further increase in the PSA level to 116.400 ng/mL. He appeared stable clinically. Dr Albright reviewed options for further treatment, and he elected for a trial of anti-androgen therapy with bicalutamide 50 mg 3 times daily. At his follow-up visit on 02/04/2020 there was further increase in the PSA to 172.600 ng/mL. Dr Albright reviewed options for further treatment and at that time he wanted to discuss it further with his family. Ultimately he opted to restart chemotherapy with cabazitaxel. His medical history is otherwise unremarkable. He has had some chronic anxiety, but no other ongoing medical illnesses. He has had no other surgeries. He is a nonsmoker. INTERIM HISTORY: He began cycle 1 of cabazitaxel on 05/04/2020. He felt pretty weak for the first couple of days after the treatment, and he continued to have fatigue over the first couple of weeks. He also had some rectal bleeding for a few days. He did not have nausea/vomiting or other acute toxicity. He continued with his 2nd cycle of treatment on 05/31/2020. He again reported fatigue following the chemotherapy, but he had no other significant toxicity. He then continued treatment at 3-week intervals, and during follow-up there was a gradual decline in his PSA level. As of 08/26/2020 he began his 6th cycle with the PSA at that point down to 73.4 ng/mL compared to pretreatment level of 268.1 ng/mL. He continued with cycle 7 on 09/13/2020. At that point he had started having hematuria and he was seen by Dr. Doran. On 09/17/2020 he underwent cystoscopy with right retrograde ureteropyelogram, right ureteroscopy with stricture dilatation, and placement of right ureteral stent. Operative findings included an area of narrowing/stricturing in the distal ureter for distance about 3.5 cm which appeared to be extrinsic from a malignant process. He continued with cycle 8 of cabazitaxel on 10/06/2020. He continued to have flank pain, and any underwent removal of the ureteral stent on 10/14/2020. At his follow-up visit on 10/27/2020 he was feeling much better. His PSA level was stable at 69.00 ng/mL. He continued with cycle 9 of cabazitaxel. As of his follow-up visit on 11/23/2020 there was a further decline in his PSA to 36.000 ng/mL. He appeared stable clinically, and with the known MELODIE mutation, his treatment was then transitioned to olaparib 300 mg twice daily. He also continued denosumab injections for the metastatic bone involvement. He was seen for a follow-up visit on 12/22/2020. He had been significantly fatigued since starting the olaparib. Initially he had continued to work, but he had to nap every day. For 2 weeks prior to that followup, he had not been able to work. He stated that after 1 to 2 hours of activity he slept for 6 hours. He also had a significant increase in lower back pain. His ECOG score was 2. The olaparib was held for 3 days and then resume back at 150 mg twice daily. On February 04, 2021 I spoke with Mr. Rodriguez to inform him that his PSA had risen to 49. At that time we ask him to go ahead and try to increase his Lynparza to 300 mg am and 150 mg in the pm and gradually increase to 300 mg tiwce daily as tolerated. He is here for follow-up today. Mr. Schwartz reports that he feels has been on the olaparib 300 mg twice daily for almost 3 weeks now. He still does have significant fatigue. He continues to have lower back pain but states that the pain is not as bad as before although is still bothersome. He states he is not doing as much heavy lifting and working as he was in the past and thinks that that may have helped the back pain as well. He is here today for denosumab. He states he really has not noticed it that is increased his bone pain but will pay attention after this injection to see if that is aggravating his back pain. He states his appetite is fair. He denies any mouth sores sore throat or difficulty swallowing. He denies any new shortness of breath or any orthopnea. He states he has been having some sick sinus drainage and a raspy cough. He states his had some intermittent wheezing with breathing. He states he has been trying to cough stuff up but it is pretty thick and is not coming up well. What he does get up has been discolored greenish-mayer. He denies any fever but states he has had some intermittent chills. He denies any mouth sores, sore throat or difficulty swallowing. He has occasional hot flashes but states that is normal for him. He denies any chest pain or palpitations. He states his bowels and bladder are normal for him. He denies any lower extremity edema. He has had no new pain but not complete relief of the back pain. His ECOG is 1. Past Medical History: Anxiety Prostate cancer Past Surgical History: Left cervical lymph node biopsy in 2016 Allergies: Band Aid Medications: Omeprazole 1 Tablet (of 20 mg) Capsule Delayed Release Oral daily oxyCODONE HCl 1 Tablet (of 15 mg) Oral four times a day PRN PredniSONE 1 (10 mg) Tablet, enteric coated Oral daily Xanax 1 Tablet (of 0.5 mg) Oral t.i.d. PRN Family History: Mr. Schwartz's mother at age 86: leukemia. Mr. Schwartz's father at age 85: blood disorder. Mr. Schwartz has 1 sister who is : lung cancer. Father at age 85 of a blood disorder . His mother 5 months ago at age 86. She was recently diagnosed with leukemia. He doesn't know what type. One sister of lung cancer. Nine other siblings are in good health. 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 Mr. Schwartz has never smoked. He drinks occasionally. He consumes 2 drinks/day. He has indicated exposure to the following products: chewing tobacco. Mr. Schwartz reports the following support systems: lives with spouse, significant other, family, or friends, lives in own house, supportive family/friends willing to assist with needs, and adequate transportation available for expected visits. His diet consists of regular meals. He indicates his activity level as: daily activities. Use to chew tobacco for about 10 to 12 years. drank a few beers occasionally. Review Of Symptoms: <See Above> Vital Signs: Performed on Feb 23, 2021 08:36 Height - 71.00 in Weight - 216.4 lbs (LOW) BSA - 2.18 sq.m BMI - 30.18 (HIGH) Temperature - 97.0 F (LOW) Pulse - 69 /min Respiration - 18 /min BP - 144/89 mm(hg) (HIGH) O2 Sat - 97 % Pain - 3 Fatigue - 6,1 - No physically strenuous activity, but ambulatory and able to carry out light or sedentary work (e.g. office work, light house work). (ECOG) Physical Examination: Constitutional Alert, oriented, no acute distress. Skin pink, warm and dry. Head Normocephalic; atraumatic. Eyes Conjunctivae and sclerae are clear and without icterus. Pupils are reactive and equal. Neck Supple without masses or thyromegaly. No jugular venous distension. Hematologic/Lymphatic No petechiae or purpura. No tender or palpable lymph nodes in the cervical, supraclavicular areas. Respiratory Lungs are diminished to auscultation bilaterally without rhonchi but scattered wheezing throughout both bases. Cardiovascular Regular rate and rhythm of heart without murmurs,clicks, gallops or rubs. Abdomen Non-tender, non-distended, no masses, ascites. No guarding or rebound tenderness. No pulsatile masses. Back/Spine Non-tender to palpation. Extremities No visible deformities, no cyanosis, clubbing or edema. Musculoskeletal No tenderness or swelling, normal range of motion without obvious weakness. Integumentary No rashes or lesions. Neurologic No sensory or motor deficits, normal cerebellar function, normal gait. Psychiatric Alert and oriented times three. Coherent speech. Verbalizes understanding of our discussions today. Laboratory:Test performed on Feb 18, 2021 09:07 Glucose 124 mg/dL BUN 13 mg/dL Creatinine 1.19 mg/dL Cr Clearance (Est) 107.43 mL/min Sodium 142.0 mmol/L Potassium 4.22 mmol/L Chloride 109 mmol/L CO2 26 mmol/L Calcium 9.0 mg/dL Protein, Total 6.1 g/dL Albumin 4.0 g/dL Globulin 2.1 g/dL A/G Ratio 1.9 Absolute Value Bilirubin, Total 0.45 mg/dL Alkaline Phosphatase 51 International Units/L AST (SGOT) 22 International Units/L ALT (SGPT) 24 International Units/L WBC 4.1 10^9/L RBC 4.65 10^12/L HGB 13.8 g/dL HCT 42.0 % MCV 90.3 fl MCH 29.7 pg MCHC 32.9 g/dL RDW 16.1 % Platelet Count 215 10^9/L MPV 10.7 fL Neutrophils (Gran) 2.7 10^9/L Lymphocytes 1.1357 10^9/L Monocytes 0.2501 10^9/L PSA 73.300 ng/mL Test performed on Jan 20, 2021 08:53 BUN/Creatinine Ratio 10 Absolute Value Test performed on Dec 21, 2020 09:01 eGFR 81 mL/min Manual Neutrophils Abs 2.6 10^3/uL Manual Lymphocytes Abs 1.4 10^3/uL Manual Monocytes Abs 0.3 10^3/uL Manual Neutrophils % 59.9 % Manual Lymphs % 33.6 % Manual Monos % 6.5 % Test performed on Dec 08, 2020 09:00 Eosinophils 0.1611 10^9/L Basophils 0.0393 10^9/L Test performed on Nov 16, 2020 13:26 Manual Segs 38.3 % Impression: 1. Stage IV prostate cancer, metastatic to lymph nodes and bone, initially diagnosed in April 2015. 2. 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 3. He has chronic anxiety. Plan/Problems Addressed at this Visit: 1. Stage IV prostate cancer, metastatic to lymph nodes and bone, diagnosed by cervical lymph node biopsy in April 2015. He initially began treatment with androgen deprivation with subsequent addition of chemotherapy, which I assume was docetaxel/prednisone. He did show significant response, both clinically and by PSA level. He had stopped chemotherapy sometime around January or February 2016. He had subsequently continued androgen deprivation with Depo-Lupron. As of November 2016 his PSA level had increased significantly. CT abdomen/pelvis on 11/09/2016 showed increased retroperitoneal lymphadenopathy, and clinically it did appear that he was having disease progression. A subsequent bone scan showed intense uptake in the right superior pubic ramus corresponding to an area of blastic metastatic disease which had been noted on CT scan of the right hip. There was additional suspected metastatic involvement in the left 10th rib anteriorly, though technically that site was indeterminate. On 12/22/2016 he began treatment with abiraterone 1000 mg daily and prednisone 5 mg twice a day in addition to the Depo-Lupron. He did show a good response by PSA level, but he was still having significant pain in his right hip area, and he was then given palliative radiation to the area of involvement in the right pubic ramus. He completed treatment on 02/14/2017 to 3900 cGy. He had a good clinical response. However, he tolerated the the androgen deprivation therapy poorly, and in December 2018 he opted to stop treatment. During subsequent follow-up, there was a gradual increase in his PSA level, but his clinical status remained stable, and he continued on observation/expectant management. As of 09/11/2019 there was a significant further increase in his PSA level, to 67.53 ng/mL, and at that point he restarted androgen deprivation therapy with bicalutamide 50 mg daily for 14 days together with Depo-Lupron 22.5 mg by intramuscular injection. He had significant side effects following the Depo-Lupron injection, including chest pain. A Lexiscan sestamibi stress test showed no evidence of cardiac ischemia. As of his follow-up visit in December 2019 there was further increase in the PSA level to 116 ng/mL. At that point he agreed to a trial of anti-androgen therapy with bicalutamide 50 mg 3 times daily. He stopped it in mid January when he was diagnosed with COVID-19 virus infection. He had uneventful recovery from that illness. At his follow-up visit on 03/10/2020 there was further increase in the PSA level to 180.500 ng/mL. Dr Albright had discussed options for further treatment, and he ultimately chose to proceed with a trial of 2nd line chemotherapy with cabazitaxel. He began cycle 1 of cabazitaxel on 05/04/2020. He had pretty severe fatigue following initial infusion. He also developed some mild constipation with rectal bleeding, but that lasted just a few days. He has had no other significant toxicity. He continued with cycle 2 on 05/31/2020. He continued to have fatigue, but he otherwise appears to be tolerating it well. He had a significant decline in his PSA level. He then continued treatment at 3-week iintervals. As of 08/27/2019 when he began his 6th cycle of treatment. At that point his PSA level had declined to 73.4 ng/mL compared to a pretreatment level of 268.1 ng/mL. As of his follow-up visit on 11/23/2020 he had completed 9 cycles of treatment with cabazitaxel. His PSA level had further declined to 36.000 ng/mL. In the setting of a stable response to chemotherapy with a known MELODIE gene variant, his treatment was ransitioned to maintenance therapy with olaparib 300 mg bid. He completed 1 month of maintenance therapy. He was having very significant fatigue with that, severe enough that he has had a decline in his performance status. He also was reporting increased low back pain. He has otherwise been tolerating it well, and his PSA level appears stable. Given the severity of his fatigue, Dr Albright recommended that he stop the olaparib for 3 days, and then restart at 150 mg twice daily. He has had improvement of the fatigue and back pain. A. Proceed with planned Xgeva today. B. He will continue the olaparib 300 mg twice daily for now. C. Labs from 02/18/2021 report WBC 4.1, hemoglobin 13.8, platelets are 15,000, ANC is 2700. Potassium 4.2 random glucose 124 creatinine 1.19 LFTs are normal PSA was reported at 73.3. D. We will plan to see him back in 1 month at which time he will be due for the Xgeva/denosumab, follow-up CBC CMP and PSA. E. Mr. Schwartz was instructed to contact us in the interim should questions or problems arise. 2. He has known metastatic bone involvement. He will continue supportive therapy for bone health with denosumab 120 mg by subcutaneous injection. 3. URI-acute A. Augmentin 875 mg twice daily x 7 days. B. Mucinex OTC 600-1200 mg twice daily as needed. C. OTC Sinus medication prn but monitor BP. Signed By: Ruthie Christopher-, AOCNP Mayank Albright MD <<Signature on File>>
== END 2021-02-23 08:27 | disposition home or self-care (01) ==
LOC: ONCMED 08:26
PROVIDERS: PCP Nurse Practitioner Family; Visit Provider Nurse Practitioner
DX: Z51.11 Encounter for antineoplastic chemotherapy (principal); C61 Malignant neoplasm of prostate; C79.51 Secondary malignant neoplasm of bone; Z79.899 Other long term (current) drug therapy
CPT/HCPCS: 96372; 99215; J0897

== ENCOUNTER 2021-03-24 10:58 | Outpatient (CLI) | payer MEDICARE, SELFPAY ==
[2021-03-24] MEDS: denosumab 120 mg SDV SUBCUT (11:56)
--- NOTE | 2021-03-27 13:20 | ONC FU_ITS ---
Dr. Albright Patient Follow-Up Note Patient: Ad Schwartz Unit #: [id number]: 1970 Dicatated By: Mayank Albright M.D.Date of Visit:Mar 24, 2021 Onc Med Follow-up/Prog Note Chief Complaint: Prostate cancer. History of Present Illness: This is a 50 year-old man with stage IV prostate cancer, metastatic to lymph nodes and bone. He had presented with an enlarged left cervical lymph node. His PET/CT on 05/17/2015 showed several enlarged nodes in the left neck with relatively low levels of FDG activity, maximum SUV 1.9-2.4. Also noted was extensive conglomerate retroperitoneal adenopathy beginning below the level of the renal arteries and extending through the level of the bifurcation and along the iliac chains with a maximum SUV up to 6.5. There was additional adenopathy along the pelvic sidewalls somewhat more extensive on the left. The prostate gland measured approximate 5.3 cm in transverse dimension and demonstrated physiologic levels of activity. There was increased activity in the right superior pubic ramus at the level of the pubic symphysis with maximum SUV 5.5. A left cervical lymph node biopsy was apparently consistent with metastatic prostate cancer, but the actual report was not available to me. He indicated that his baseline PSA level was 1163. He was treated initially with androgen deprivation through [facility] in [place]. At some point he opted to undergo treatment with a private oncology group in [place], where he was started on chemotherapy, I assume with docetaxel/prednisone. It was administered weekly. I had seen him initially on 04/13/2016. He last received chemotherapy 2 or 3 months earlier. He had indicated that he stopped treatment because he ran out of money . During this time he had continued the androgen deprivation with Depo-Lupron. His laboratory studies on 02/18/2016 showed his PSA level at 45.9 ng/mL. By his recollection, it was somewhere in the range of 44-46 when last checked in [place]. His repeat PSA level on 04/19/2016 was stable at 40.3 ng/mL. In the absence of any evidence of disease progression, he was advised to continue androgen deprivation with Depo-Lupron. During subsequent follow-up, his PSA level had increased slightly, up to 63 ng/mL in June 2016. His testosterone levels at that time were in castrate range. As of 08/07/2016 it was stable at 57 ng/mL. However, a repeat PSA level on 11/09/2016 had increased significantly, to 102.0 ng/mL. A CT scan of the right hip on 11/09/2016 showed stable right superior ramus/pubic body sclerosis compatible with metastatic disease. There was also stable right superior acetabular small sclerotic focus felt to most likely represent a bone island. Small metastasis cannot be excluded. CT abdomen/pelvis on 11/09/2016 showed increased retroperitoneal lymphadenopathy. He had further evaluation with bone scan on 12/04/2016. It showed intense bony uptake involving the right superior pubic ramus, corresponding to the area of blastic metastatic disease on the CT scan. There was an additional suspected focus of metastatic involvement in the left 10th rib anteriorly, though technically it was indeterminate. There were no other foci of metastatic disease noted. On 12/22/2016 he began treatment with abiraterone 1000 mg daily and prednisone 5 mg twice a day in addition to his Depo-Lupron. His PSA level at that point had decreased to 40.80 ng/mL. As of his follow-up visit on 01/22/2017 the PSA had declined to 15.00 ng/mL. He was still having significant pain in his right hip area. We opted to treat him with palliative radiation to the area of involvement in the right pubic ramus. He completed radiation on 02/14/2017 to a total dose of 3900 cGy. During subsequent followup there was further decline in the PSA level to 10.7 ng/mL on 03/22/3017. As of 05/08/2017 it had stabilized at 11.0 ng/mL. However, as of 08/06/2017 it had further declined to 4.4 ng/mL. He continued treatment with abiraterone/prednisone in combination with Depo-Lupron. As of 12/16/2017 the PSA had further declined to 2.51 ng/mL and by 06/11/2018 it was down to 1.6 ng/mL. As of his follow-up visit on 12/26/2018 it had increased slightly, to 2.51 ng/mL. At that point he had opted to stop his treatment, as he had become profoundly discouraged about his loss of sexual function. Repeat bone scan on 01/06/2019 was negative for metastatic disease. There was clearing of metastatic lesion involving the right pubic symphysis and possible traumatic injury to the left 10th rib. Restaging [address] abdomen/pelvis on 01/20/2019 showed significant decrease in previously noted retroperitoneal and internal iliac lymphadenopathy and resolved blastic metastatic lesion in the right superior pubic ramus compared to the prior study from November 2016. There were no other lytic or blastic bony destructive lesions identified. The liver showed fatty infiltration, but no evidence of metastatic involvement. He was seen for a follow-up visit on 03/18/2019. His PSA level had increased to 6.90 ng/mL, but at that point he was feeling significantly better. He continued observation/expectant management for the prostate cancer. Subsequent to his visit in March 2019 I had requested genetic profiling to screen for possible BRCA mutation. 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 Restaging CT scans of the the chest, abdomen, and pelvis on 06/23/2019 showed no evidence of metastatic disease. Bone scan showed abnormal activity involving the L2 pedicle on the right. It was not present on the prior study from December 2018. There were no other areas of abnormal uptake noted. As of his follow-up visit on 09/11/2019 his PSA level had increased to 67.53 ng/mL, and at that point he restarted androgen deprivation therapy with bicalutamide 50 mg daily for 14 days together with Depo-Lupron 22.5 mg. At that time I had also discussed the possibility of continuing antiandrogen therapy with enzalutamide, which he declined. He was then seen for an unplanned visit on 11/21/2019. He was complaining of chest pain, description which was somewhat suspicious for angina. He had normal EKG at that time. A Lexiscan sestamibi stress test on 11/28/2019 was normal and the associated myocardial perfusion scan showed a small area of persistent decreased uptake in the apical lateral and LV apex with no significant reversibility, suggestive of myocardial scarring versus attenuation artifact. There was normal LV ejection fraction at 61% and there were no gross wall motion abnormalities noted. Overall there was no evidence for significant coronary ischemia. At his follow-up visit on 12/29/2019 there was a further increase in the PSA level to 116.400 ng/mL. He appeared stable clinically. I reviewed options for further treatment, and he elected for a trial of anti-androgen therapy with bicalutamide 50 mg 3 times daily. At his follow-up visit on 02/04/2020 there was further increase in the PSA to 172.600 ng/mL. I reviewed options for further treatment and at that time he wanted to discuss it further with his family. Ultimately he opted to restart chemotherapy with cabazitaxel. His medical history is otherwise unremarkable. He has had some chronic anxiety, but no other ongoing medical illnesses. He has had no other surgeries. He is a nonsmoker. INTERIM HISTORY: He began cycle 1 of cabazitaxel on 05/04/2020. He felt pretty weak for the first couple of days after the treatment, and he continued to have fatigue over the first couple of weeks. He also had some rectal bleeding for a few days. He did not have nausea/vomiting or other acute toxicity. He continued with his 2nd cycle of treatment on 05/31/2020. He again reported fatigue following the chemotherapy, but he had no other significant toxicity. He then continued treatment at 3-week intervals, and during follow-up there was a gradual decline in his PSA level. As of 08/26/2020 he began his 6th cycle with the PSA at that point down to 73.4 ng/mL compared to pretreatment level of 268.1 ng/mL. He continued with cycle 7 on 09/13/2020. At that point he had started having hematuria and he was seen by Dr. Doran. On 09/17/2020 he underwent cystoscopy with right retrograde ureteropyelogram, right ureteroscopy with stricture dilatation, and placement of right ureteral stent. Operative findings included an area of narrowing/stricturing in the distal ureter for distance about 3.5 cm which appeared to be extrinsic from a malignant process. He continued with cycle 8 of cabazitaxel on 10/06/2020. He continued to have flank pain, and any underwent removal of the ureteral stent on 10/14/2020. At his follow-up visit on 10/27/2020 he was feeling much better. His PSA level was stable at 69.00 ng/mL. He continued with cycle 9 of cabazitaxel. As of his follow-up visit on 11/23/2020 there was a further decline in his PSA to 36.000 ng/mL. He appeared stable clinically, and with the known MELODIE mutation, his treatment was then transitioned to olaparib 300 mg twice daily. He also continued denosumab injections for the metastatic bone involvement. He is seen for a follow-up visit. He has not been feeling good generally. He complains that he is tired and sore. He has very limited activity. ECOG score is 2. He has good appetite. He does not have fever, night sweats, or hot flashes. He has not had sore mouth or throat. He does not complain of cough, and he has not been having shortness of breath or chest pain. He has no GI or complaints. He has pain in his lower back and left hip. He occasionally has headache. He does not complain of dizziness. He has no numbness/paresthesia or other neuropathy symptoms. Overall, though, he just does not feel good, and much of that he attributes to the olaparib. Medications: Omeprazole 1 Tablet (of 20 mg) Capsule Delayed Release Oral daily, oxyCODONE HCl 1 Tablet (of 15 mg) Oral four times a day PRN, PredniSONE 1 (10 mg) Tablet, enteric coated Oral daily, Xanax 1 Tablet (of 0.5 mg) Oral t.i.d. PRN Allergies: Band Aid Vital Signs: Performed on Mar 24, 2021 11:19 Height - 71.00 in Weight - 215.6 lbs (LOW) BSA - 2.18 sq.m BMI - 30.07 (HIGH) Temperature - 97.8 F (LOW) Pulse - 71 /min Respiration - 16 /min BP - 138/84 mm(hg) O2 Sat - 98 % Pain - 4 Fatigue - 6 Physical Examination: Constitutional - He appears somewhat weak generally, Eyes - Sclerae nonicteric. Conjunctivae clear, ENMT - No lesions noted in the oral cavity, Hematologic/Lymphatic - No cervical, clavicular, or axillary adenopathy, Respiratory - Lungs sound clear with good air movement bilaterally, Cardiovascular - Heart rhythm is regular. There is no murmur, gallop, or rub noted, Abdomen - Soft. Liver and spleen are not enlarged. There is no abdominal mass or ascites noted and there is no inguinal adenopathy, Extremities - No edema, Neurologic - No focal neurologic deficits noted. Lab/Imaging: His laboratory studies from 03/21/2021 included CBC showing hemoglobin 14.2 g, white blood cell count 4500, and platelet count 205,000. Comprehensive metabolic profile showed stable renal function with BUN 13 and creatinine 1.14 mg/dL. Bilirubin and liver enzymes were normal. The PSA level had increased to 97.38 ng/mL. Problem List: 1. Stage IV prostate cancer, metastatic to lymph nodes and bone, initially diagnosed in April 2015. 2. 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 3. He has chronic anxiety. Problems Addressed with this Encounter and Plan: 1. Patient with stage IV prostate cancer, metastatic to lymph nodes and bone, diagnosed by cervical lymph node biopsy in April 2015. He initially began treatment with androgen deprivation with subsequent addition of chemotherapy, which I assume was docetaxel/prednisone. He did show significant response, both clinically and by PSA level. He had stopped chemotherapy sometime around January or February 2016. He had subsequently continued androgen deprivation with Depo-Lupron. As of November 2016 his PSA level had increased significantly. CT abdomen/pelvis on 11/09/2016 showed increased retroperitoneal lymphadenopathy, and clinically it did appear that he was having disease progression. A subsequent bone scan showed intense uptake in the right superior pubic ramus corresponding to an area of blastic metastatic disease which had been noted on CT scan of the right hip. There was additional suspected metastatic involvement in the left 10th rib anteriorly, though technically that site was indeterminate. On 12/22/2016 he began treatment with abiraterone 1000 mg daily and prednisone 5 mg twice a day in addition to the Depo-Lupron. He did show a good response by PSA level, but he was still having significant pain in his right hip area, and he was then given palliative radiation to the area of involvement in the right pubic ramus. He completed treatment on 02/14/2017 to 3900 cGy. He had a good clinical response. However, he tolerated the the androgen deprivation therapy poorly, and in December 2018 he opted to stop treatment. During subsequent follow-up, there was a gradual increase in his PSA level, but his clinical status remained stable, and he continued on observation/expectant management. As of 09/11/2019 there was a significant further increase in his PSA level, to 67.53 ng/mL, and at that point he restarted androgen deprivation therapy with bicalutamide 50 mg daily for 14 days together with Depo-Lupron 22.5 mg by intramuscular injection. He had significant side effects following the Depo-Lupron injection, including chest pain. A Lexiscan sestamibi stress test showed no evidence of cardiac ischemia. As of his follow-up visit in December 2019 there was further increase in the PSA level to 116 ng/mL. At that point he agreed to a trial of anti-androgen therapy with bicalutamide 50 mg 3 times daily. He stopped it in mid January when he was diagnosed with COVID-19 virus infection. He had uneventful recovery from that illness. At his follow-up visit on 03/10/2020 there was further increase in the PSA level to 180.500 ng/mL. I had discussed options for further treatment, and he ultimately chose to proceed with a trial of 2nd line chemotherapy with cabazitaxel. He began cycle 1 of cabazitaxel on 05/04/2020. He had pretty severe fatigue following initial infusion. He also developed some mild constipation with rectal bleeding, but that lasted just a few days. He has had no other significant toxicity. He continued with cycle 2 on 05/31/2020. He continued to have fatigue, but he otherwise appears to be tolerating it well. He had a significant decline in his PSA level. He then continued treatment at 3-week iintervals. As of 08/27/2019 when he began his 6th cycle of treatment. At that point his PSA level had declined to 73.4 ng/mL compared to a pretreatment level of 268.1 ng/mL. As of his follow-up visit on 11/23/2020 he had completed 9 cycles of treatment with cabazitaxel. His PSA level had further declined to 36.000 ng/mL. In the setting of a stable response to chemotherapy with a known MELODIE gene variant, his treatment was ransitioned to maintenance therapy with olaparib 300 mg bid. During follow-up he has continued to have significant fatigue. He complains that he just does not feel good generally, and much of that he attributes to the olaparib. Over the past 3 months or has been a gradual increase in the PSA level, now up to 97.38 ng/mL. This is consistent with disease progression. As such, he will now stop the olaparib. I reviewed some options for further treatment, which are limited. However, he indicates that he absolutely will not go back on androgen deprivation therapy. We discussed the possibility of going back to a trial of docetaxel or restarting cabazitaxel in combination with carboplatin. In either case, I would first want to give him some time to recover from the olaparib. At least for now I will just follow him on observation/symptomatic management. I will tentatively plan a follow-up visit in 3 months, but I will continue to monitor his PSA monthly. 2. He has known metastatic bone involvement. He will continue supportive therapy for bone health with denosumab 120 mg by subcutaneous injection. Signed By: Mayank Albright M.D. <<Signature on File>>
== END 2021-03-24 10:59 | disposition home or self-care (01) ==
PROVIDERS: PCP Nurse Practitioner Family; Visit Provider Nurse Practitioner Family
DX: Z51.11 Encounter for antineoplastic chemotherapy (principal); C61 Malignant neoplasm of prostate; C77.9 Secondary and unspecified malignant neoplasm of lymph node, unspecified; C79.51 Secondary malignant neoplasm of bone; Z15.89 Genetic susceptibility to other disease; F41.9 Anxiety disorder, unspecified
CPT/HCPCS: 96372; 99214; J0897

== ENCOUNTER 2021-06-06 07:45 | Outpatient (CLI) | payer MEDICARE, SELFPAY ==
[2021-06-06 08:28] LABS: Basophils % 0.9 %; Eosinophils # 0.1 10^3/uL (0.0-0.8); Eosinophils % 1.4 %; Hematocrit 45.4 % (42.0-52.0); Hemoglobin 14.8 g/dL (11.7-16.6); Lymphocytes % 23.4 %; Mean Corpuscular HGB Conc 32.6 g/dL (30.0-36.0); Mean Corpuscular Volume 91.9 fl (80-94); Mean Platelet Volume 10.6 fL (7.4-10.4); Monocytes # 0.3 10^3/uL (0.2-0.9); Monocytes % 7.8 %; Neutrophils % 66.3 %; Nucleated Red Blood Cells % 0 %; Platelet Count 223 10^3/cmm (130-400); Red Blood Count 4.94 10^6/uL (4.1-5.3); Red Cell Distribution Width 13.5 % (12.1-15.1); White Blood Count 4.2 10^3/uL (4.0-10.0)
--- NOTE | 2021-06-06 08:45 | CT_ITS ---
WS: [id number] CT CHEST, ABDOMEN AND PELVIS WITH CONTRAST HISTORY: PROSTATE CANCER TECHNIQUE: Contiguous 5 mm axial imaging performed through the chest, abdomen and pelvis with IV cont rast, oral contrast has been provided. Coronal and sagittal reformats chest. Coronal and sagittal ref ormats through the abdomen and pelvis. All CT scans at [facility] use at least one of these d ose optimization techniques: automated exposure control; mA and/or kV adjustment per patient size (in cludes targeted exams where dose is matched to clinical indication); or iterative reconstruction. CONTRAST: Omnipaque 300; 95 mL IV. DLP: 1927.82 mGy.cm COMPARISON: 08/05/2020 and 04/27/[address]: No pulmonary nodule. No pneumonia. Scattered opacifications seen on the prior chest CT of have resolved. No mediastinal or hilar adenopathy. Normal aorta and pulmonary artery. Heart size is normal. LEFT vertebral artery arises directly from the aorta. Bilateral gynecomastia. No defi nite metastatic sites are identified within the ribs or thoracic spine. Abdomen CT: Hepatic steatosis. No bile duct dilatation. Negative gallbladder and spleen. Normal pancr eas and adrenal glands. Normal portal vein. Kidneys are enhancing normally. No renal obstruction. Lymphadenopathy throughout the retroperitoneum begins at the level of the SMA. Just to the RIGHT of t he SMA is an 11 mm lymph node which appears slightly more prominent as compared to 08/05/2020. There are numerous additional shotty abnormal lymph nodes in the retroperitoneum causing partial encasement of the aorta and IVC. Some of these lymph nodes are enhancing and some of these lymph nodes are more necrotic in appearance with areas of decreased enhancement centrally. RIGHT distal para-aortic lymph node measures 28 x 22 mm. There is a proximal LEFT common iliac artery lymph node which measures 22 mm. Lymphadenopathy extends along the iliac chains bilaterally. Slightly greater lymph node distribut ion on the LEFT. LEFT external iliac lymph node measures 35 x 19 mm. No inguinal lymph nodes. LEFT pe lvic lymph node is unchanged. There is mild thickening and enhancement in the perirenal fascia and al francois the paracolic gutters. No GI tract obstruction. Numerous diverticula in the distal colon. Pelvic CT: No free fluid. Nondistended urinary bladder. Moderate diffuse thickening of the bladder wa ll may be due to treatment or under distention. Prostate gland is very small caliber. Inguinal canals are patent bilaterally containing fat only. Patient has known metastatic disease within L2 and S1 which does appear to have progressed. There is a new osteoblastic region in the anterior L1 vertebral body and RIGHT lateral L3 vertebral body. Maryse ral sclerotic foci within the proximal for more probably bone islands and stable. CT/CT chest abd pel w con* IMPRESSION: 1. Retroperitoneal lymphadenopathy as described above. As compared to 1 there has been progression of the lymphadenopathy. Lymph nodes are now more s imilar to the study from 04/27/2020. 2. New sclerotic foci within L1 and L3 and mild progression of the known metas tatic osteoblastic disease at L2 and S1. 3. No pulmonary metastatic nodules or adenopathy. 4. Improved aeration throughout both lungs as compared to the most recent [facility] t CT.
[2021-06-06 08:47] LABS: Alanine Aminotransferase 23 U/L (0-41); Albumin Level 4.5 g/dL (3.5-5.2); Alkaline Phosphatase 47 IU/L (40-130); Anion Gap 14.4 (5-19); Aspartate Amino Transferase 18 U/L (0-40); Blood Urea Nitrogen 14 mg/dL (6-20); Calcium 9.2 mg/dL (8.5-10.5); Carbon Dioxide 26 mmol/L (22-29); Chloride 106 mmol/L (98-107); Globulin 2.3 g/dL (1.3-4.6); Glomerular Filtration Rate 79.4 mL/min (90-130); Glucose 145 mg/dL (65-115); Osmolality Calculated 297 mOsm/kg (285-295); Potassium 4.4 mmol/L (3.5-5.1); Sodium 142 mmol/L (136-145); Total Bilirubin 0.5 mg/dL (0.15-1.2); Total Protein 6.8 g/dL (6.6-8.7)
[2021-06-06] MEDS: iohexol 300 mg/mL 100 mL Btl IV (10:17)
[2021-06-06] MEDS: iohexol 300 mg/mL 50 mL Btl PO (10:18)
--- NOTE | 2021-06-10 09:30 | ONC FU_ITS ---
Dr. Albright Patient Follow-Up Note Patient: Ad Schwartz Unit #: [id number]: 1970 Dicatated By: Mayank Albright M.D.Date of Visit:Jun 06, 2021 Onc Med Follow-up/Prog Note Chief Complaint: Prostate cancer. History of Present Illness: This is a 50 year-old man with stage IV prostate cancer, metastatic to lymph nodes and bone. He had presented with an enlarged left cervical lymph node. His PET/CT on 05/17/2015 showed several enlarged nodes in the left neck with relatively low levels of FDG activity, maximum SUV 1.9-2.4. Also noted was extensive conglomerate retroperitoneal adenopathy beginning below the level of the renal arteries and extending through the level of the bifurcation and along the iliac chains with a maximum SUV up to 6.5. There was additional adenopathy along the pelvic sidewalls somewhat more extensive on the left. The prostate gland measured approximate 5.3 cm in transverse dimension and demonstrated physiologic levels of activity. There was increased activity in the right superior pubic ramus at the level of the pubic symphysis with maximum SUV 5.5. A left cervical lymph node biopsy was apparently consistent with metastatic prostate cancer, but the actual report was not available to me. He indicated that his baseline PSA level was 1163. He was treated initially with androgen deprivation through [facility] in [place]. At some point he opted to undergo treatment with a private oncology group in [place], where he was started on chemotherapy, I assume with docetaxel/prednisone. It was administered weekly. I had seen him initially on 04/13/2016. He last received chemotherapy 2 or 3 months earlier. He had indicated that he stopped treatment because he ran out of money . During this time he had continued the androgen deprivation with Depo-Lupron. His laboratory studies on 02/18/2016 showed his PSA level at 45.9 ng/mL. By his recollection, it was somewhere in the range of 44-46 when last checked in [place]. His repeat PSA level on 04/19/2016 was stable at 40.3 ng/mL. In the absence of any evidence of disease progression, he was advised to continue androgen deprivation with Depo-Lupron. During subsequent follow-up, his PSA level had increased slightly, up to 63 ng/mL in June 2016. His testosterone levels at that time were in castrate range. As of 08/07/2016 it was stable at 57 ng/mL. However, a repeat PSA level on 11/09/2016 had increased significantly, to 102.0 ng/mL. A CT scan of the right hip on 11/09/2016 showed stable right superior ramus/pubic body sclerosis compatible with metastatic disease. There was also stable right superior acetabular small sclerotic focus felt to most likely represent a bone island. Small metastasis cannot be excluded. CT abdomen/pelvis on 11/09/2016 showed increased retroperitoneal lymphadenopathy. He had further evaluation with bone scan on 12/04/2016. It showed intense bony uptake involving the right superior pubic ramus, corresponding to the area of blastic metastatic disease on the CT scan. There was an additional suspected focus of metastatic involvement in the left 10th rib anteriorly, though technically it was indeterminate. There were no other foci of metastatic disease noted. On 12/22/2016 he began treatment with abiraterone 1000 mg daily and prednisone 5 mg twice a day in addition to his Depo-Lupron. His PSA level at that point had decreased to 40.80 ng/mL. As of his follow-up visit on 01/22/2017 the PSA had declined to 15.00 ng/mL. He was still having significant pain in his right hip area. We opted to treat him with palliative radiation to the area of involvement in the right pubic ramus. He completed radiation on 02/14/2017 to a total dose of 3900 cGy. During subsequent followup there was further decline in the PSA level to 10.7 ng/mL on 03/22/3017. As of 05/08/2017 it had stabilized at 11.0 ng/mL. However, as of 08/06/2017 it had further declined to 4.4 ng/mL. He continued treatment with abiraterone/prednisone in combination with Depo-Lupron. As of 12/16/2017 the PSA had further declined to 2.51 ng/mL and by 06/11/2018 it was down to 1.6 ng/mL. As of his follow-up visit on 12/26/2018 it had increased slightly, to 2.51 ng/mL. At that point he had opted to stop his treatment, as he had become profoundly discouraged about his loss of sexual function. Repeat bone scan on 01/06/2019 was negative for metastatic disease. There was clearing of metastatic lesion involving the right pubic symphysis and possible traumatic injury to the left 10th rib. Restaging [address] abdomen/pelvis on 01/20/2019 showed significant decrease in previously noted retroperitoneal and internal iliac lymphadenopathy and resolved blastic metastatic lesion in the right superior pubic ramus compared to the prior study from November 2016. There were no other lytic or blastic bony destructive lesions identified. The liver showed fatty infiltration, but no evidence of metastatic involvement. He was seen for a follow-up visit on 03/18/2019. His PSA level had increased to 6.90 ng/mL, but at that point he was feeling significantly better. He continued observation/expectant management for the prostate cancer. Subsequent to his visit in March 2019 I had requested genetic profiling to screen for possible BRCA mutation. 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 Restaging CT scans of the the chest, abdomen, and pelvis on 06/23/2019 showed no evidence of metastatic disease. Bone scan showed abnormal activity involving the L2 pedicle on the right. It was not present on the prior study from December 2018. There were no other areas of abnormal uptake noted. As of his follow-up visit on 09/11/2019 his PSA level had increased to 67.53 ng/mL, and at that point he restarted androgen deprivation therapy with bicalutamide 50 mg daily for 14 days together with Depo-Lupron 22.5 mg. At that time I had also discussed the possibility of continuing antiandrogen therapy with enzalutamide, which he declined. He was then seen for an unplanned visit on 11/21/2019. He was complaining of chest pain, description which was somewhat suspicious for angina. He had normal EKG at that time. A Lexiscan sestamibi stress test on 11/28/2019 was normal and the associated myocardial perfusion scan showed a small area of persistent decreased uptake in the apical lateral and LV apex with no significant reversibility, suggestive of myocardial scarring versus attenuation artifact. There was normal LV ejection fraction at 61% and there were no gross wall motion abnormalities noted. Overall there was no evidence for significant coronary ischemia. At his follow-up visit on 12/29/2019 there was a further increase in the PSA level to 116.400 ng/mL. He appeared stable clinically. At that point he elected for a trial of anti-androgen therapy with bicalutamide 50 mg 3 times daily. At his follow-up visit on 02/04/2020 there was further increase in the PSA to 172.600 ng/mL. I reviewed options for further treatment. Ultimately he opted to restart chemotherapy with cabazitaxel. He began cycle 1 of cabazitaxel on 05/04/2020. He felt pretty weak for the first couple of days after the treatment, and he continued to have fatigue over the first couple of weeks. He also had some rectal bleeding for a few days. He did not have nausea/vomiting or other acute toxicity. He continued with his 2nd cycle of treatment on 05/31/2020. He again reported fatigue following the chemotherapy, but he had no other significant toxicity. He then continued treatment at 3-week intervals, and during follow-up there was a gradual decline in his PSA level. As of 08/26/2020 he began his 6th cycle with the PSA at that point down to 73.4 ng/mL compared to pretreatment level of 268.1 ng/mL. He continued with cycle 7 on 09/13/2020. At that point he had started having hematuria and he was seen by Dr. Doran. On 09/17/2020 he underwent cystoscopy with right retrograde ureteropyelogram, right ureteroscopy with stricture dilatation, and placement of right ureteral stent. Operative findings included an area of narrowing/stricturing in the distal ureter for distance about 3.5 cm which appeared to be extrinsic from a malignant process. He continued with cycle 8 of cabazitaxel on 10/06/2020. He continued to have flank pain, and he underwent removal of the ureteral stent on 10/14/2020. At his follow-up visit on 10/27/2020 he was feeling much better. His PSA level was stable at 69.00 ng/mL. He continued with cycle 9 of cabazitaxel. As of his follow-up visit on 11/23/2020 there was a further decline in his PSA to 36.000 ng/mL. He appeared stable clinically, and with the known MELODIE mutation, his treatment was then transitioned to olaparib 300 mg twice daily. He also continued denosumab injections for the metastatic bone involvement. During subsequent follow-up there was a gradual but progressive increase in the PSA level. As of his follow-up visit in March 2021 it had increased to 97.38 ng/mL, and with the PSA progressively increasing, he was advised to stop the olaparib. His medical history is otherwise unremarkable. He has had some chronic anxiety, but no other ongoing medical illnesses. He has had no other surgeries. He is a nonsmoker. INTERIM HISTORY: Restaging CT scans of the chest, abdomen, and pelvis on 06/06/2021 showed progression of retroperitoneal lymphadenopathy and new sclerotic foci within the L1 and L3 vertebral bodies, consistent with disease progression. There was improved aeration throughout both lungs compared to the prior chest CT from April 2020. He is seen for a follow-up visit. He has been feeling pretty good since he has been off the olaparib, though his energy comes and goes. Some days all he wants to do his sleep. His ECOG score is 1. He has pretty good appetite, still he has not been eating as much lately. He has not had fever, night sweats, or hot flashes. He has become aware of a lump in his abdominal area. He has not had sore mouth or throat. He does not complain of cough, and he has not been having shortness of breath or chest pain. He has no other GI complaints at this time, and he has no complaints with bladder function. He has some lower back pain. It is adequately managed with his pain medication. He does not complain of headache or dizziness, and he has no focal neurologic symptoms. Medications: Omeprazole 1 Tablet (of 20 mg) Capsule Delayed Release Oral daily, oxyCODONE HCl 1 Tablet (of 15 mg) Oral four times a day PRN, PredniSONE 1 (10 mg) Tablet, enteric coated Oral daily, Xanax 1 Tablet (of 0.5 mg) Oral t.i.d. PRN Allergies: Band Aid Vital Signs: Performed on Jun 06, 2021 11:52 Height - 71.00 in Weight - 212.2 lbs (LOW) BSA - 2.16 sq.m BMI - 29.60 Temperature - 97.2 F (LOW) Pulse - 59 /min (LOW) Respiration - 16 /min BP - 133/90 mm(hg) O2 Sat - 98 % Pain - 4 Fatigue - 6 Physical Examination: Constitutional - He looks pretty good generally, Eyes - Sclerae nonicteric. Conjunctivae clear, ENMT - No lesions noted in the oral cavity, Hematologic/Lymphatic - No cervical, clavicular, or axillary adenopathy, Respiratory - Lungs sound clear with good air movement bilaterally, Cardiovascular - Heart rhythm is regular. There is no murmur, gallop, or rub noted, Abdomen - Generally soft. There is an ill-defined area of firmness in the lower abdomen just below the umbilicus and just to the left of the midline. Liver and spleen are not enlarged. There is no other mass noted and there is no obvious ascites. There is no inguinal adenopathy noted, Extremities - No edema, Neurologic - No focal neurologic deficits noted. Lab/Imaging: Test performed on Jun 06, 2021 08:17 Sodium 142 mmol/L Potassium 4.4 mmol/L Chloride 106 mmol/L CO2 26 mmol/L Anion Gap 14.4 BUN 14 mg/dL Creatinine 1.0 mg/dL Cr Clearance (Est) 127.8500 mL/min eGFR 79.4 mL/min Glucose 145 mg/dL Osmolality - Calculated 297 mOsm/kg Calcium 9.2 mg/dL Protein, Total 6.8 g/dL Albumin 4.5 g/dL Globulin 2.3 g/dL Bilirubin, Total 0.5 mg/dL ALT (SGPT) 23 U/L AST (SGOT) 18 U/L Alkaline Phosphatase 47 IU/L WBC 4.2 10 3/uL RBC 4.94 10 6/uL HGB 14.8 g/dL HCT 45.4 % MCV 91.9 fl MCH 30.0 pg MCHC 32.6 g/dL RDW 13.5 % Platelet Count 223 10 3/cmm MPV 10.6 fL Neutrophils 2.80 10 3/uL Lymphocytes 1.0 10 3/uL Monocytes 0.3 10 3/uL Eosinophils 0.1 10 3/uL Basophils 0.0 10 3/uL Neutrophil % 66.3 % Lymphocyte % 23.4 % Monocyte % 7.8 % Eosinophil % 1.4 % Basophils % 0.9 % NRBC % 0 % Problem List: 1. Stage IV prostate cancer, metastatic to lymph nodes and bone, initially diagnosed in April 2015. 2. 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 3. He has chronic anxiety. Problems Addressed with this Encounter and Plan: 1. Patient with stage IV prostate cancer, metastatic to lymph nodes and bone, diagnosed by cervical lymph node biopsy in April 2015. He initially began treatment with androgen deprivation with subsequent addition of chemotherapy, which I assume was docetaxel/prednisone. He did show significant response, both clinically and by PSA level. He had stopped chemotherapy sometime around January or February 2016. He had subsequently continued androgen deprivation with Depo-Lupron. As of November 2016 his PSA level had increased significantly. CT abdomen/pelvis on 11/09/2016 showed increased retroperitoneal lymphadenopathy, and clinically it did appear that he was having disease progression. A subsequent bone scan showed intense uptake in the right superior pubic ramus corresponding to an area of blastic metastatic disease which had been noted on CT scan of the right hip. There was additional suspected metastatic involvement in the left 10th rib anteriorly, though technically that site was indeterminate. On 12/22/2016 he began treatment with abiraterone 1000 mg daily and prednisone 5 mg twice a day in addition to the Depo-Lupron. He did show a good response by PSA level, but he was still having significant pain in his right hip area, and he was then given palliative radiation to the area of involvement in the right pubic ramus. He completed treatment on 02/14/2017 to 3900 cGy. He had a good clinical response. However, he tolerated the the androgen deprivation therapy poorly, and in December 2018 he opted to stop treatment. During subsequent follow-up, there was a gradual increase in his PSA level, but his clinical status remained stable, and he continued on observation/expectant management. As of 09/11/2019 there was a significant further increase in his PSA level, to 67.53 ng/mL, and at that point he restarted androgen deprivation therapy with bicalutamide 50 mg daily for 14 days together with Depo-Lupron 22.5 mg by intramuscular injection. He had significant side effects following the Depo-Lupron injection, including chest pain. A Lexiscan sestamibi stress test showed no evidence of cardiac ischemia. As of his follow-up visit in December 2019 there was further increase in the PSA level to 116 ng/mL. At that point he agreed to a trial of anti-androgen therapy with bicalutamide 50 mg 3 times daily. He stopped it in mid January when he was diagnosed with COVID-19 virus infection. He had uneventful recovery from that illness. At his follow-up visit on 03/10/2020 there was further increase in the PSA level to 180.500 ng/mL. I had discussed options for further treatment, and he ultimately chose to proceed with a trial of 2nd line chemotherapy with cabazitaxel. He began cycle 1 of cabazitaxel on 05/04/2020. He had pretty severe fatigue following initial infusion. He also developed some mild constipation with rectal bleeding, but that lasted just a few days. He has had no other significant toxicity. He continued with cycle 2 on 05/31/2020. He continued to have fatigue, but he otherwise appears to be tolerating it well. He had a significant decline in his PSA level. [facility]. As of 08/27/2019 when he began his 6th cycle of treatment. At that point his PSA level had declined to 73.4 ng/mL compared to a pretreatment level of 268.1 ng/mL. As of his follow-up visit on 11/23/2020 he had completed 9 cycles of treatment with cabazitaxel. His PSA level had further declined to 36.000 ng/mL. In the setting of a stable response to chemotherapy with a known MELODIE gene variant, his treatment was ransitioned to maintenance therapy with olaparib 300 mg bid. During follow-up he continued to have significant fatigue. There was gradual increase in the PSA level. As of March 2021 it had increased to 97.38 ng/mL, and at that point I did opt to stop the olaparib. Since then the PSA has basically remained stable at 100.000 ng/mL. There has been some progression of retroperitoneal lymphadenopathy and progression of bony metastatic disease by CT scan. Overall, his clinical status at this point appears stable, but he clearly is showing some disease progression. I reviewed options for further treatment, one of which would be to restart his ADT therapy. Another option would be to go back on chemotherapy with cabazitaxel. I also discussed the possibility of returning to [facility] for a second opinion evaluation. He is going to consider it. Signed By: Mayank Albright M.D. <<Signature on File>>
== END 2021-06-06 07:46 | disposition home or self-care (01) ==
PROVIDERS: PCP Nurse Practitioner Family; Visit Provider Internal Medicine Medical Oncology
DX: C61 Malignant neoplasm of prostate (principal); C79.51 Secondary malignant neoplasm of bone; C77.9 Secondary and unspecified malignant neoplasm of lymph node, unspecified; F41.9 Anxiety disorder, unspecified; Z79.899 Other long term (current) drug therapy
CPT/HCPCS: 36415; 71260; 74177; 80053; 85025; 99214; Q9967

== ENCOUNTER 2021-07-06 09:20 | Outpatient (CLI) | payer MEDICARE, SELFPAY ==
[2021-07-06 10:10] VITALS: RESP 18; O2SAT 97
[2021-07-06] MEDS: oxyCODONE 5 mg IR Tab/Cap 15 MG PO (10:10)
[2021-07-06] MEDS: sodium chloride 0.9% 250 ML 75 ML IV (11:10)
[2021-07-06] MEDS: diphenhydrAMINE 50 mg/mL SDV 1mL 25 MG IV (11:10)
[2021-07-06] MEDS: famotidine 20 mg/2 mL INJ IVP (11:14)
[2021-07-06] MEDS: palonosetron 0.25 mg/5 mL SDV IV (11:21)
[2021-07-06] MEDS: denosumab 120 mg SDV SUBCUT (13:00)
--- NOTE | 2021-07-07 08:32 | ONC FU_ITS ---
Dr. Albright Patient Follow-Up Note Patient: Ad Schwartz Unit #: [id number]: 1970 Dicatated By: Mayank Albright M.D.Date of Visit:Jul 06, 2021 Onc Med Follow-up/Prog Note Chief Complaint: Prostate cancer. History of Present Illness: This is a 50 year-old man with stage IV prostate cancer, metastatic to lymph nodes and bone. He had presented with an enlarged left cervical lymph node. His PET/CT on 05/17/2015 showed several enlarged nodes in the left neck with relatively low levels of FDG activity, maximum SUV 1.9-2.4. Also noted was extensive conglomerate retroperitoneal adenopathy beginning below the level of the renal arteries and extending through the level of the bifurcation and along the iliac chains with a maximum SUV up to 6.5. There was additional adenopathy along the pelvic sidewalls somewhat more extensive on the left. The prostate gland measured approximate 5.3 cm in transverse dimension and demonstrated physiologic levels of activity. There was increased activity in the right superior pubic ramus at the level of the pubic symphysis with maximum SUV 5.5. A left cervical lymph node biopsy was apparently consistent with metastatic prostate cancer, but the actual report was not available to me. He indicated that his baseline PSA level was 1163. He was treated initially with androgen deprivation through [facility] in [place]. At some point he opted to undergo treatment with a private oncology group in [place], where he was started on chemotherapy, I assume with docetaxel/prednisone. It was administered weekly. I had seen him initially on 04/13/2016. He last received chemotherapy 2 or 3 months earlier. He had indicated that he stopped treatment because he ran out of money . During this time he had continued the androgen deprivation with Depo-Lupron. His laboratory studies on 02/18/2016 showed his PSA level at 45.9 ng/mL. By his recollection, it was somewhere in the range of 44-46 when last checked in [place]. His repeat PSA level on 04/19/2016 was stable at 40.3 ng/mL. In the absence of any evidence of disease progression, he was advised to continue androgen deprivation with Depo-Lupron. During subsequent follow-up, his PSA level had increased slightly, up to 63 ng/mL in June 2016. His testosterone levels at that time were in castrate range. As of 08/07/2016 it was stable at 57 ng/mL. However, a repeat PSA level on 11/09/2016 had increased significantly, to 102.0 ng/mL. A CT scan of the right hip on 11/09/2016 showed stable right superior ramus/pubic body sclerosis compatible with metastatic disease. There was also stable right superior acetabular small sclerotic focus felt to most likely represent a bone island. Small metastasis cannot be excluded. CT abdomen/pelvis on 11/09/2016 showed increased retroperitoneal lymphadenopathy. He had further evaluation with bone scan on 12/04/2016. It showed intense bony uptake involving the right superior pubic ramus, corresponding to the area of blastic metastatic disease on the CT scan. There was an additional suspected focus of metastatic involvement in the left 10th rib anteriorly, though technically it was indeterminate. There were no other foci of metastatic disease noted. On 12/22/2016 he began treatment with abiraterone 1000 mg daily and prednisone 5 mg twice a day in addition to his Depo-Lupron. His PSA level at that point had decreased to 40.80 ng/mL. As of his follow-up visit on 01/22/2017 the PSA had declined to 15.00 ng/mL. He was still having significant pain in his right hip area. We opted to treat him with palliative radiation to the area of involvement in the right pubic ramus. He completed radiation on 02/14/2017 to a total dose of 3900 cGy. During subsequent followup there was further decline in the PSA level to 10.7 ng/mL on 03/22/3017. As of 05/08/2017 it had stabilized at 11.0 ng/mL. However, as of 08/06/2017 it had further declined to 4.4 ng/mL. He continued treatment with abiraterone/prednisone in combination with Depo-Lupron. As of 12/16/2017 the PSA had further declined to 2.51 ng/mL and by 06/11/2018 it was down to 1.6 ng/mL. As of his follow-up visit on 12/26/2018 it had increased slightly, to 2.51 ng/mL. At that point he had opted to stop his treatment, as he had become profoundly discouraged about his loss of sexual function. Repeat bone scan on 01/06/2019 was negative for metastatic disease. There was clearing of metastatic lesion involving the right pubic symphysis and possible traumatic injury to the left 10th rib. Restaging [address] abdomen/pelvis on 01/20/2019 showed significant decrease in previously noted retroperitoneal and internal iliac lymphadenopathy and resolved blastic metastatic lesion in the right superior pubic ramus compared to the prior study from November 2016. There were no other lytic or blastic bony destructive lesions identified. The liver showed fatty infiltration, but no evidence of metastatic involvement. He was seen for a follow-up visit on 03/18/2019. His PSA level had increased to 6.90 ng/mL, but at that point he was feeling significantly better. He continued observation/expectant management for the prostate cancer. Subsequent to his visit in March 2019 I had requested genetic profiling to screen for possible BRCA mutation. 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 Restaging CT scans of the the chest, abdomen, and pelvis on 06/23/2019 showed no evidence of metastatic disease. Bone scan showed abnormal activity involving the L2 pedicle on the right. It was not present on the prior study from December 2018. There were no other areas of abnormal uptake noted. As of his follow-up visit on 09/11/2019 his PSA level had increased to 67.53 ng/mL, and at that point he restarted androgen deprivation therapy with bicalutamide 50 mg daily for 14 days together with Depo-Lupron 22.5 mg. At that time I had also discussed the possibility of continuing antiandrogen therapy with enzalutamide, which he declined. He was then seen for an unplanned visit on 11/21/2019. He was complaining of chest pain, description which was somewhat suspicious for angina. He had normal EKG at that time. A Lexiscan sestamibi stress test on 11/28/2019 was normal and the associated myocardial perfusion scan showed a small area of persistent decreased uptake in the apical lateral and LV apex with no significant reversibility, suggestive of myocardial scarring versus attenuation artifact. There was normal LV ejection fraction at 61% and there were no gross wall motion abnormalities noted. Overall there was no evidence for significant coronary ischemia. At his follow-up visit on 12/29/2019 there was a further increase in the PSA level to 116.400 ng/mL. He appeared stable clinically. At that point he elected for a trial of anti-androgen therapy with bicalutamide 50 mg 3 times daily. At his follow-up visit on 02/04/2020 there was further increase in the PSA to 172.600 ng/mL. I reviewed options for further treatment. Ultimately he opted to restart chemotherapy with cabazitaxel. He began cycle 1 of cabazitaxel on 05/04/2020. He felt pretty weak for the first couple of days after the treatment, and he continued to have fatigue over the first couple of weeks. He also had some rectal bleeding for a few days. He did not have nausea/vomiting or other acute toxicity. He continued with his 2nd cycle of treatment on 05/31/2020. He again reported fatigue following the chemotherapy, but he had no other significant toxicity. He then continued treatment at 3-week intervals, and during follow-up there was a gradual decline in his PSA level. As of 08/26/2020 he began his 6th cycle with the PSA at that point down to 73.4 ng/mL compared to pretreatment level of 268.1 ng/mL. He continued with cycle 7 on 09/13/2020. At that point he had started having hematuria and he was seen by Dr. Doran. On 09/17/2020 he underwent cystoscopy with right retrograde ureteropyelogram, right ureteroscopy with stricture dilatation, and placement of right ureteral stent. Operative findings included an area of narrowing/stricturing in the distal ureter for distance about 3.5 cm which appeared to be extrinsic from a malignant process. He continued with cycle 8 of cabazitaxel on 10/06/2020. He continued to have flank pain, and he underwent removal of the ureteral stent on 10/14/2020. At his follow-up visit on 10/27/2020 he was feeling much better. His PSA level was stable at 69.00 ng/mL. He continued with cycle 9 of cabazitaxel. As of his follow-up visit on 11/23/2020 there was a further decline in his PSA to 36.000 ng/mL. He appeared stable clinically, and with the known MELODIE mutation, his treatment was then transitioned to olaparib 300 mg twice daily. He also continued denosumab injections for the metastatic bone involvement. During subsequent follow-up there was a gradual but progressive increase in the PSA level. As of his follow-up visit in March 2021 it had increased to 97.38 ng/mL, and with the PSA progressively increasing, he was advised to stop the olaparib. His medical history is otherwise unremarkable. He has had some chronic anxiety, but no other ongoing medical illnesses. He has had no other surgeries. He is a nonsmoker. INTERIM HISTORY: Restaging CT scans of the chest, abdomen, and pelvis on 06/06/2021 showed progression of retroperitoneal lymphadenopathy and new sclerotic foci within the L1 and L3 vertebral bodies, consistent with disease progression. There was improved aeration throughout both lungs compared to the prior chest CT from April 2020. He was seen at that time to discuss options for further treatment. He preferred to go back on chemotherapy with cabazitaxel as opposed to restarting androgen deprivation therapy. He is seen for a scheduled visit. He says he is not feeling bad. He does have some fatigue, but he is able to do some light work pretty ECOG score is 1. He has good appetite. He has no fever, night sweats, or hot flashes. He still is aware of a knot in the abdominal area on the left side, though it seems to come and go. He has not had sore mouth or throat. He does not complain of cough, and he has not been having shortness of breath or chest pain. He has no other GI or complaints. He has having constant pain in the lower back area. It is tolerable with his pain medication. He has no other joint or bone pain. He does not complain of headache or dizziness, and he has no focal neurologic symptoms. Medications: oxyCODONE HCl 1 Tablet (of 15 mg) Oral four times a day PRN, Xanax 1 Tablet (of 0.5 mg) Oral t.i.d. PRN Allergies: Band Aid Vital Signs: Performed on Jul 06, 2021 09:45 Height - 71.00 in Weight - 211.8 lbs (LOW) BSA - 2.16 sq.m BMI - 29.54 Temperature - 97.4 F (LOW) Pulse - 73 /min Respiration - 18 /min BP - 129/72 mm(hg) O2 Sat - 97 % Pain - 4 Fatigue - 6 Physical Examination: Constitutional - He looks pretty good generally, Eyes - Sclerae nonicteric. Conjunctivae clear, ENMT - No lesions noted in the oral cavity, Hematologic/Lymphatic - No cervical, clavicular, or axillary adenopathy, Respiratory - Lungs sound clear with good air movement bilaterally, Cardiovascular - Heart rhythm is regular. There is no murmur, gallop, or rub noted, Abdomen - Soft. Liver and spleen are not enlarged. There is no other mass noted and there is no obvious ascites. There is no inguinal adenopathy noted, Extremities - No edema, Neurologic - No focal neurologic deficits noted. Lab/Imaging: His laboratory studies from 07/01/2021 included CBC showing hemoglobin 14.1 g, white blood cell count 4700, and platelet count 207,000. Comprehensive metabolic profile showed stable renal function with BUN 13 and creatinine 0.95 mg/dL. Bilirubin and liver enzymes were normal. The PSA had increased significantly to 253.000 ng/mL. Problem List: 1. Stage IV prostate cancer, metastatic to lymph nodes and bone, initially diagnosed in April 2015. 2. 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 3. He has chronic anxiety. Problems Addressed with this Encounter and Plan: 1. Patient with stage IV prostate cancer, metastatic to lymph nodes and bone, diagnosed by cervical lymph node biopsy in April 2015. He initially began treatment with androgen deprivation with subsequent addition of chemotherapy, which I assume was docetaxel/prednisone. He did show significant response, both clinically and by PSA level. He had stopped chemotherapy sometime around January or February 2016. He had subsequently continued androgen deprivation with Depo-Lupron. As of November 2016 his PSA level had increased significantly. CT abdomen/pelvis on 11/09/2016 showed increased retroperitoneal lymphadenopathy, and clinically it did appear that he was having disease progression. A subsequent bone scan showed intense uptake in the right superior pubic ramus corresponding to an area of blastic metastatic disease which had been noted on CT scan of the right hip. There was additional suspected metastatic involvement in the left 10th rib anteriorly, though technically that site was indeterminate. On 12/22/2016 he began treatment with abiraterone 1000 mg daily and prednisone 5 mg twice a day in addition to the Depo-Lupron. He did show a good response by PSA level, but he was still having significant pain in his right hip area, and he was then given palliative radiation to the area of involvement in the right pubic ramus. He completed treatment on 02/14/2017 to 3900 cGy. He had a good clinical response. However, he tolerated the the androgen deprivation therapy poorly, and in December 2018 he opted to stop treatment. During subsequent follow-up, there was a gradual increase in his PSA level, but his clinical status remained stable, and he continued on observation/expectant management. As of 09/11/2019 there was a significant further increase in his PSA level, to 67.53 ng/mL, and at that point he restarted androgen deprivation therapy with bicalutamide 50 mg daily for 14 days together with Depo-Lupron 22.5 mg by intramuscular injection. He had significant side effects following the Depo-Lupron injection, including chest pain. A Lexiscan sestamibi stress test showed no evidence of cardiac ischemia. As of his follow-up visit in December 2019 there was further increase in the PSA level to 116 ng/mL. At that point he agreed to a trial of anti-androgen therapy with bicalutamide 50 mg 3 times daily. He stopped it in mid January when he was diagnosed with COVID-19 virus infection. He had uneventful recovery from that illness. At his follow-up visit on 03/10/2020 there was further increase in the PSA level to 180.500 ng/mL. I had discussed options for further treatment, and he ultimately chose to proceed with a trial of 2nd line chemotherapy with cabazitaxel. He began cycle 1 of cabazitaxel on 05/04/2020. He had pretty severe fatigue following initial infusion. He also developed some mild constipation with rectal bleeding, but that lasted just a few days. He has had no other significant toxicity. He continued with cycle 2 on 05/31/2020. He continued to have fatigue, but he otherwise appears to be tolerating it well. He had a significant decline in his PSA level. He then continued treatment at 3-week iintervals. As of 08/27/2019 when he began his 6th cycle of treatment. At that point his PSA level had declined to 73.4 ng/mL compared to a pretreatment level of 268.1 ng/mL. As of his follow-up visit on 11/23/2020 he had completed 9 cycles of treatment with cabazitaxel. His PSA level had further declined to 36.000 ng/mL. In the setting of a stable response to chemotherapy with a known MELODIE gene variant, his treatment was ransitioned to maintenance therapy with olaparib 300 mg bid. During follow-up he continued to have significant fatigue. There was gradual increase in the PSA level. As of March 2021 it had increased to 97.38 ng/mL, and at that point I did opt to stop the olaparib. During follow-up his PSA had initially remained stable, though it has now increased significantly. There was noted to be progression of retroperitoneal lymphadenopathy and progression of bony metastatic disease by CT scan. With evidence of disease progression, he opted to restart chemotherapy with cabazitaxel as opposed to restarting androgen deprivation therapy. He will now begin cycle 1 of cabazitaxel 25 mg/m??? by IV infusion. He returns in 3 weeks. 2. He has evidence of bony metastatic disease. He will continue supportive therapy with denosumab 120 mg by subcutaneous injection. It will be administered at 6-week intervals to coordinate with his chemotherapy schedule. Signed By: Mayank Albright M.D. <<Signature on File>>
== END 2021-07-06 09:21 | disposition home or self-care (01) ==
PROVIDERS: PCP Nurse Practitioner Family; Visit Provider Internal Medicine Medical Oncology
DX: Z51.12 Encounter for antineoplastic immunotherapy (principal); Z51.11 Encounter for antineoplastic chemotherapy; C61 Malignant neoplasm of prostate; C77.8 Secondary and unspecified malignant neoplasm of lymph nodes of multiple regions; C79.51 Secondary malignant neoplasm of bone; R97.8 Other abnormal tumor markers; F41.1 Generalized anxiety disorder; Z79.899 Other long term (current) drug therapy
CPT/HCPCS: 96367; 96372; 96375; 96413; 96417; 99215; J0897; J1100; J1200; J2469; J3490; J7050; J9043

== ENCOUNTER 2021-07-19 07:41 | Day surgery (SDC) | payer MEDICARE, SELFPAY ==
[2021-07-18 13:01] VITALS: BMI 30.4
--- NOTE | 2021-07-19 | SCC_ITS ---
Procedure done: 1. Placement of PowerPort via left subclavian vein 2. Fluoroscopic guidance and interpretation for placement of catheter 31.2 seconds of fluoroscopic guidance, for a cumulative dose of 9.82 mGy, was provided to Dr. Rinaldi by the radiology department. C-arm images of the chest were saved for the patient's permanent record. [facility]
--- NOTE | 2021-07-19 07:53 | SC_ITS ---
WS: [id number] C-ARM RADIOGRAPHS CHEST; 3 IMAGES HISTORY: Powerport Placement COMPARISON: None available. Intraoperative imaging during power port placement. Catheter overlies the distal SVC. SC/C-arm FL for CVA [id number] IMPRESSION: Intraoperative imaging during power port placement.
[2021-07-19 08:04] VITALS: BP 118/78; PULSE 58; RESP 16; TEMP 36.3; O2SAT 100
--- NOTE | 2021-07-19 08:38 | P.ANESASSM_ITS ---
Pre-Anesthetic Assessment Height/Weight: Height 1.78 m Weight 96.162 kg Temp Pulse Resp BP Pulse Ox 97.3 F L 58 L 16 118/78 100 07/19/21 08:04 07/19/21 08:04 07/19/21 08:04 07/19/21 08:04 07/19/21 08:04 Preop Diagnosis: Prostate cancer Operation Date: 07/19/21 09:00 Proposed Procedures p Portacath Placement 60485/c61(Not Applicable) - Dave Rinaldi MD Familial anesthetic complications: None Was Beta Osorio taken within 24 hours: N/A Was Clonidine taken within 24 hours: N/A Last intake: Intake Last Liquid Date 07/28/21 Last Liquid Time 21:00 Last Solid Date 07/18/21 Last Solid Time 21:00 Social No alcohol and No tobacco Exam alert, oriented x 3, clear to auscultation bilaterally and regular rate & rhythm Airway Submandibular: within normal limits Cervical ROM: within normal limits Mallampati: Class II Dentition: chipped Neuropsych Anxiety Anesthetic Plan ASA status: 2 Anesthesia: Choice Medications/Allergies Home Medications Medication Instructions Recorded Confirmed Last Taken Type alprazolam 0.5 mg tablet (Xanax) 0.5 mg PO PRN PRN tab 09/15/20 07/19/21 07/18/21 21:00 History oxycodone 15 mg tablet 15 mg PO BID 09/15/20 07/19/21 07/18/21 19:00 History morphine 60 mg tablet, crush 60 mg PO Q12H 10/14/20 07/19/21 07/16/21 History resistant, extended release Allergies Allergy/AdvReac Type Severity Reaction Status Date / Time No Known Allergies Allergy Verified 07/09/21 07:57 [facility] Anesthesia Medical History Gross hematuria Prostate cancer Ureteral stricture, right Family History Father , at age 78 Blood disorder Mother , at age 89 Leukemia Social History Smoking and tobacco status: never smoked Alcohol intake: current Alcohol intake frequency: 0-2 Drinks per Day Marital status: Current occupational status: employed 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
[2021-07-19] MEDS: sodium chloride 0.9% 1,000 ML 30 ML IV (08:42)
--- NOTE | 2021-07-19 08:45 | W.PM.OPSUD ---
Surgery/Procedure H&P Update DATE OF PROCEDURE: July 19, 2021 DATE H&P PERFORMED: 07/06/21 H&P UPDATE INFORMATION: I have reviewed H&P completed within last 30 days, I have examined patient prior to procedure and No changes to prior documentation PREOP DIAGNOSIS: Prostate cancer PRIMARY INDICATION FOR PROCEDURE: The same PLANNED PROCEDURE: Operation Date: 07/19/21 09:00 Proposed Procedures p Portacath Placement 59163/c61(Not Applicable) - Dave Rinaldi MD
[2021-07-19] MEDS: heparin, porcine 1,000 unit/mL INJ 10 mL 10000 UNIT IRRIGATION (09:22)
[2021-07-19] MEDS: lidocaine 2% INJ 20 mL INJECTION (09:23)
[2021-07-19 09:51] VITALS: BP 96/70; PULSE 60; RESP 16; TEMP 36.3; O2SAT 95
--- NOTE | 2021-07-19 09:51 | PM.OP ---
Operative Report Date of procedure: July 19, 2021 Pre-op diagnosis: Preop Diagnosis Prostate cancer Procedure done: 1. Placement of PowerPort via left subclavian vein 2. Fluoroscopic guidance and interpretation for placement of catheter Implants: Left subclavian PowerPort Surgeon: Dave Rinaldi MD Professor Of Political Science: semiconductor processing technician Moira Circulating nurse Flor Anesthesia: MAC (bass viol repairer Prem) Estimated blood loss (mL): 5 Procedure: Patient was identified in the holding area and taken to the operative room and placed in supine position IV propofol was given by the anesthesia provider ,both arms were tucked,Time-out was done verifying the patient's name/date of /planned procedure and destination after the procedure, all were in agreement. SCDs confirmed to be functioning, preoperative antibiotics administered per protocol, and beta erwin protocol was confirmed, appropriate positioning of the patient was done by me. Medications were reviewed to assess for anticoagulant usage. Risks and benefits and prevention of central line associated blood stream infection (CLABSI) were discussed with the patient/CPOA, and a consent was obtained. Monitors were in place and monitored throughout the procedure. All necessary supplies were available prior to start. Hand hygiene was completed prior to starting. Maximum barrier technique was utilized including a sterile gown, sterile gloves with a hat and mask. Site was was prepped with [chlorhexidine] and a full body drape was placed. 5 mL of 2% lidocaine was injected into the skin with a 25 gauge needle. Prep& drape was done under the usual sterile technique, lidocaine 2% was injected at the site of the stick, started by left subclavian stick that retrieved venous blood was obtained from the first stick, a guidewire was then threaded and under the guidance of fluoroscopy position was confirmed to be in the IVC and my interpretation, there was some PVC changes, yet I pulled on the wire lipid proximally and that seem to have the PVCs to disappear at that point the guidewire was secured to the drapes with a hemostat and the needle was taken out, attention was then deviated towards creation of a pocket for the port were lidocaine 2% was injected using an 15 blade knife skin incision was created dissection using the Bovie to create a pocket for the PowerPort to be accommodated, hemostasis was secured, after the port being appropriately flushed it was inserted into the pocket and a tunneler was used to accommodate the catheter of the port cath to be delivered through the incision first created at the site of the stick, at that point under fluoroscopy an estimated length was measured for the catheter and was cut at the designed level, followed by that a dilator with the sheath introduced onto the guidewire the dilator and the wire were retrieved and the catheter of the port was introduced via the sheath where it was peeled off and the catheter maintained to be in the SVC that was confirmed with fluoroscopy, and the fluoroscopy interpretation was done by me throughout the entire procedure. Intraoperative confirmation by Dr. Kim was achieved regarding the tip of the catheter which showed to be in the distal SVC. The port was kept in its pocket, 3-0 Vicryl deep subdermal interrupted sutures, skin was then closed by 4-0 Monocryl as subcuticular closure. The port was appropriately flushed with heparin and venous blood was withdrawn without difficulty The stick site was closed by 4-0 Monocryl and Dermabond was used followed by dressing. Patient tolerated the procedure well was taken to the recovery area Count was correct at the end of the procedure I was present for the whole entire procedure Position of the catheter was checked with a postoperative chest x-ray and it was in good position without evidence of pneumothorax
--- NOTE | 2021-07-19 09:53 | P.PCN_ITS ---
PACU note Narrative: VSS, Good respiratory effort, report to MERCHANDISE COORDINATOR Exam: awake
--- NOTE | 2021-07-19 09:53 | PM.PACU ---
PACU note Narrative: VSS, Good respiratory effort, report to BACK HAND Exam: awake
[2021-07-19 09:55] VITALS: BP 103/67; PULSE 53; RESP 16; O2SAT 100
--- NOTE | 2021-07-19 09:55 | SUR.PHASEI ---
0950 PT TO PACU WITH ORAL AIRWAY IN PLACE, GOOD RESPIRATORY EFFORT NOTED VSS IV TO LT WRIST #20 WITH NS 600ML UP AT KVO RATE PER GRAVITY, DRESSING TO LT NECK AND SUBCLAVIAN AREA D/I , BILAT SCDS ON 0955 PT AWAKE ORAL AIRWAY OUT, PT AWAKE ALERT TALKATIVE, DENIES VERBALLY ANY PAIN OR NAUSEA. MONITOR SR TO SB WITH NO ECTOPY NOTED.
--- NOTE | 2021-07-19 09:56 | XRR_ITS ---
PROCEDURE INFORMATION: Exam: XR Chest Exam date and time: 07/19/2021 10:03 AM Age: 50 years old Clinical indication: Device placement; Other: Status post placement of left subclavian vein powerport; Prior surgery; Surgery date: Post-operative (0-2 days) TECHNIQUE: Imaging protocol: XR of the chest. Views: 1 view. COMPARISON: CT chest abd pel w con* 06/06/2021 10:08 AM FINDINGS: Tubes, catheters and devices: Left central line is in the SVC Lungs: Unremarkable. No consolidation. Pleural spaces: Unremarkable. No pleural effusion. No pneumothorax. Heart/Mediastinum: Unremarkable. No cardiomegaly. Bones/joints: Unremarkable. XR/XR chest 1V portable [id number] IMPRESSION: 1. No acute findings. 2. Left central line in the SVC
[2021-07-19 10:00] VITALS: BP 113/64; PULSE 58; RESP 14; TEMP 36.4; O2SAT 100
[2021-07-19] MEDS: cetylpyridinium Lozenge 1 EACH MUCOUS MEM (10:00)
--- NOTE | 2021-07-19 10:06 | SUR.PHASEI ---
X RAY HERE PT AWAKE ALERT SITTING UPRIGHT,DR HERNÁNDEZ AT BEDSIDE, PT DENIES PAIN AND NAUSEA.
[2021-07-19 10:12] VITALS: BP 109/66; PULSE 57; RESP 15; O2SAT 98
[2021-07-19 10:30] VITALS: BP 124/73; PULSE 48; RESP 16; TEMP 36.6; O2SAT 99
--- NOTE | 2021-07-19 15:29 | ANE.PACU2 ---
Inpatient post-anesthesia follow up: Airway intact: Yes Vital signs: Temperature 97.9 F Pulse Rate 48 Respiratory Rate 16 Blood Pressure 124/73 Pulse Oximetry 99 Oxygen Delivery Me thod Room Air Oxygen Flow Rate 8 Fraction of Inspir ed Oxygen Hydration adequate: Yes Nausea and vomiting: No Pain level: 1 Mental status: Baseline
== END 2021-07-19 10:54 | disposition home or self-care (01) ==
PROVIDERS: PCP Nurse Practitioner Family; Visit Provider Surgery
PROC: (CPT 36561; principal; 2021-07-19 09:00)
DX: C61 Malignant neoplasm of prostate (principal); F41.9 Anxiety disorder, unspecified
CPT/HCPCS: 36561; 71045; 76000; 77001; C1788; J0690; J1644; J2250; J2704; J3010; J7030

== ENCOUNTER 2021-07-27 09:41 | Outpatient (CLI) | payer MEDICARE, SELFPAY ==
[2021-07-27 10:11] LABS: Basophils % 0.9 %; Eosinophils % 0.3 %; Hematocrit 40.1 % (42.0-52.0); Hemoglobin 12.8 g/dL (11.7-16.6); Lymphocytes # 1.3 10^3/uL (0.8-4.8); Lymphocytes % 38.7 %; Mean Corpuscular HGB Conc 31.9 g/dL (30.0-36.0); Mean Corpuscular Hemoglobin 28.2 pg (28.0-34.0); Mean Corpuscular Volume 88.3 fl (80-94); Mean Platelet Volume 10.4 fL (7.4-10.4); Monocytes # 0.5 10^3/uL (0.2-0.9); Monocytes % 14.7 %; Neutrophils # 1.54 10^3/uL (1.8-7.7); Neutrophils % 45.1 %; Nucleated Red Blood Cells % 0 %; Platelet Count 253 10^3/cmm (130-400); Red Blood Count 4.54 10^6/uL (4.1-5.3); Red Cell Distribution Width 13.4 % (12.1-15.1); White Blood Count 3.4 10^3/uL (4.0-10.0)
[2021-07-27 10:45] LABS: Alanine Aminotransferase 21 U/L (0-41); Albumin Level 4.2 g/dL (3.5-5.2); Alkaline Phosphatase 53 IU/L (40-130); Anion Gap 11.2 (5-19); Aspartate Amino Transferase 16 U/L (0-40); Blood Urea Nitrogen 12 mg/dL (6-20); Calcium 8.8 mg/dL (8.5-10.5); Carbon Dioxide 27 mmol/L (22-29); Chloride 106 mmol/L (98-107); Globulin 1.6 g/dL (1.3-4.6); Glomerular Filtration Rate 89.7 mL/min (90-130); Glucose 82 mg/dL (65-115); Osmolality Calculated 289 mOsm/kg (285-295); Potassium 4.2 mmol/L (3.5-5.1); Sodium 140 mmol/L (136-145); Total Bilirubin 0.2 mg/dL (0.15-1.2); Total Protein 5.8 g/dL (6.6-8.7)
[2021-07-27] MEDS: lidocaine-prilocaine cream 5 gm 1 APPLIC TOPICAL (13:15)
[2021-07-27] MEDS: sodium chloride 0.9% 250 ML 75 ML IV (14:02)
[2021-07-27] MEDS: famotidine 20 mg/2 mL INJ IVP (14:02)
[2021-07-27] MEDS: diphenhydrAMINE 50 mg/mL SDV 1mL 25 MG IV (14:04)
[2021-07-27] MEDS: palonosetron 0.25 mg/5 mL SDV IV (14:08)
--- NOTE | 2021-08-02 13:13 | ONC FU_ITS ---
[facility] Progress Note Patient: Ad Schwartz Unit #: [id number]: 1970 Dicatated By: Katia House N.P.Date of Visit:Jul 27, 2021 Onc MED Follow-up/Prog Note Chief Complaint: Prostate cancer. History of Present Illness: This is a 50 year-old man with stage IV prostate cancer, metastatic to lymph nodes and bone. He had presented with an enlarged left cervical lymph node. His PET/CT on 05/17/2015 showed several enlarged nodes in the left neck with relatively low levels of FDG activity, maximum SUV 1.9-2.4. Also noted was extensive conglomerate retroperitoneal adenopathy beginning below the level of the renal arteries and extending through the level of the bifurcation and along the iliac chains with a maximum SUV up to 6.5. There was additional adenopathy along the pelvic sidewalls somewhat more extensive on the left. The prostate gland measured approximate 5.3 cm in transverse dimension and demonstrated physiologic levels of activity. There was increased activity in the right superior pubic ramus at the level of the pubic symphysis with maximum SUV 5.5. A left cervical lymph node biopsy was apparently consistent with metastatic prostate cancer, but the actual report was not available to me. He indicated that his baseline PSA level was 1163. He was treated initially with androgen deprivation through [facility] in [place]. At some point he opted to undergo treatment with a private oncology group in [place], where he was started on chemotherapy, I assume with docetaxel/prednisone. It was administered weekly. I had seen him initially on 04/13/2016. He last received chemotherapy 2 or 3 months earlier. He had indicated that he stopped treatment because he ran out of money . During this time he had continued the androgen deprivation with Depo-Lupron. His laboratory studies on 02/18/2016 showed his PSA level at 45.9 ng/mL. By his recollection, it was somewhere in the range of 44-46 when last checked in [place]. His repeat PSA level on 04/19/2016 was stable at 40.3 ng/mL. In the absence of any evidence of disease progression, he was advised to continue androgen deprivation with Depo-Lupron. During subsequent follow-up, his PSA level had increased slightly, up to 63 ng/mL in June 2016. His testosterone levels at that time were in castrate range. As of 08/07/2016 it was stable at 57 ng/mL. However, a repeat PSA level on 11/09/2016 had increased significantly, to 102.0 ng/mL. A CT scan of the right hip on 11/09/2016 showed stable right superior ramus/pubic body sclerosis compatible with metastatic disease. There was also stable right superior acetabular small sclerotic focus felt to most likely represent a bone island. Small metastasis cannot be excluded. CT abdomen/pelvis on 11/09/2016 showed increased retroperitoneal lymphadenopathy. He had further evaluation with bone scan on 12/04/2016. It showed intense bony uptake involving the right superior pubic ramus, corresponding to the area of blastic metastatic disease on the CT scan. There was an additional suspected focus of metastatic involvement in the left 10th rib anteriorly, though technically it was indeterminate. There were no other foci of metastatic disease noted. On 12/22/2016 he began treatment with abiraterone 1000 mg daily and prednisone 5 mg twice a day in addition to his Depo-Lupron. His PSA level at that point had decreased to 40.80 ng/mL. As of his follow-up visit on 01/22/2017 the PSA had declined to 15.00 ng/mL. He was still having significant pain in his right hip area. We opted to treat him with palliative radiation to the area of involvement in the right pubic ramus. He completed radiation on 02/14/2017 to a total dose of 3900 cGy. During subsequent followup there was further decline in the PSA level to 10.7 ng/mL on 03/22/3017. As of 05/08/2017 it had stabilized at 11.0 ng/mL. However, as of 08/06/2017 it had further declined to 4.4 ng/mL. He continued treatment with abiraterone/prednisone in combination with Depo-Lupron. As of 12/16/2017 the PSA had further declined to 2.51 ng/mL and by 06/11/2018 it was down to 1.6 ng/mL. As of his follow-up visit on 12/26/2018 it had increased slightly, to 2.51 ng/mL. At that point he had opted to stop his treatment, as he had become profoundly discouraged about his loss of sexual function. Repeat bone scan on 01/06/2019 was negative for metastatic disease. There was clearing of metastatic lesion involving the right pubic symphysis and possible traumatic injury to the left 10th rib. Restaging CT abdomen/pelvis on 01/20/2019 showed significant decrease in previously noted retroperitoneal and internal iliac lymphadenopathy and resolved blastic metastatic lesion in the right superior pubic ramus compared to the prior study from November 2016. There were no other lytic or blastic bony destructive lesions identified. The liver showed fatty infiltration, but no evidence of metastatic involvement. He was seen for a follow-up visit on 03/18/2019. His PSA level had increased to 6.90 ng/mL, but at that point he was feeling significantly better. He continued observation/expectant management for the prostate cancer. Subsequent to his visit in March 2019 I had requested genetic profiling to screen for possible BRCA mutation. 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 Restaging CT scans of the the chest, abdomen, and pelvis on 06/23/2019 showed no evidence of metastatic disease. Bone scan showed abnormal activity involving the L2 pedicle on the right. It was not present on the prior study from December 2018. There were no other areas of abnormal uptake noted. As of his follow-up visit on 09/11/2019 his PSA level had increased to 67.53 ng/mL, and at that point he restarted androgen deprivation therapy with bicalutamide 50 mg daily for 14 days together with Depo-Lupron 22.5 mg. At that time I had also discussed the possibility of continuing antiandrogen therapy with enzalutamide, which he declined. He was then seen for an unplanned visit on 11/21/2019. He was complaining of chest pain, description which was somewhat suspicious for angina. He had normal EKG at that time. A Lexiscan sestamibi stress test on 11/28/2019 was normal and the associated myocardial perfusion scan showed a small area of persistent decreased uptake in the apical lateral and LV apex with no significant reversibility, suggestive of myocardial scarring versus attenuation artifact. There was normal LV ejection fraction at 61% and there were no gross wall motion abnormalities noted. Overall there was no evidence for significant coronary ischemia. At his follow-up visit on 12/29/2019 there was a further increase in the PSA level to 116.400 ng/mL. He appeared stable clinically. At that point he elected for a trial of anti-androgen therapy with bicalutamide 50 mg 3 times daily. At his follow-up visit on 02/04/2020 there was further increase in the PSA to 172.600 ng/mL. I reviewed options for further treatment. Ultimately he opted to restart chemotherapy with cabazitaxel. He began cycle 1 of cabazitaxel on 05/04/2020. He felt pretty weak for the first couple of days after the treatment, and he continued to have fatigue over the first couple of weeks. He also had some rectal bleeding for a few days. He did not have nausea/vomiting or other acute toxicity. He continued with his 2nd cycle of treatment on 05/31/2020. He again reported fatigue following the chemotherapy, but he had no other significant toxicity. He then continued treatment at 3-week intervals, and during follow-up there was a gradual decline in his PSA level. As of 08/26/2020 he began his 6th cycle with the PSA at that point down to 73.4 ng/mL compared to pretreatment level of 268.1 ng/mL. He continued with cycle 7 on 09/13/2020. At that point he had started having hematuria and he was seen by Dr. Doran. On 09/17/2020 he underwent cystoscopy with right retrograde ureteropyelogram, right ureteroscopy with stricture dilatation, and placement of right ureteral stent. Operative findings included an area of narrowing/stricturing in the distal ureter for distance about 3.5 cm which appeared to be extrinsic from a malignant process. He continued with cycle 8 of cabazitaxel on 10/06/2020. He continued to have flank pain, and he underwent removal of the ureteral stent on 10/14/2020. At his follow-up visit on 10/27/2020 he was feeling much better. His PSA level was stable at 69.00 ng/mL. He continued with cycle 9 of cabazitaxel. As of his follow-up visit on 11/23/2020 there was a further decline in his PSA to 36.000 ng/mL. He appeared stable clinically, and with the known MELODIE mutation, his treatment was then transitioned to olaparib 300 mg twice daily. He also continued denosumab injections for the metastatic bone involvement. During subsequent follow-up there was a gradual but progressive increase in the PSA level. As of his follow-up visit in March 2021 it had increased to 97.38 ng/mL, and with the PSA progressively increasing, he was advised to stop the olaparib. His medical history is otherwise unremarkable. He has had some chronic anxiety, but no other ongoing medical illnesses. He has had no other surgeries. He is a nonsmoker. INTERIM HISTORY: Restaging CT scans of the chest, abdomen, and pelvis on 06/06/2021 showed progression of retroperitoneal lymphadenopathy and new sclerotic foci within the L1 and L3 vertebral bodies, consistent with disease progression. There was improved aeration throughout both lungs compared to the prior chest CT from April 2020. He was seen at that time to discuss options for further treatment. He preferred to go back on chemotherapy with cabazitaxel as opposed to restarting androgen deprivation therapy. Patient presents today for follow-up. He has some moderate fatigue but he is able to perform activities around the house. He states his appetite has been good. He denies fever, chills, night sweats. No sinus drainage or mouth sores. No shortness of breath, cough, chest pain. No GI or problems. He does complain of right hip and low back pain but it is pretty well controlled with his pain medications. Review Of Symptoms: See above Past Medical History: Anxiety Prostate cancer Past Surgical History: Left cervical lymph node biopsy in 2016 Allergies: Band Aid Medications: oxyCODONE HCl 1 Tablet (of 15 mg) Oral four times a day PRN Xanax 1 Tablet (of 0.5 mg) Oral t.i.d. PRN Family History: Mr. Schwartz's mother at age 86: leukemia. Mr. Schwartz's father at age 85: blood disorder. Mr. Schwartz has 1 sister who is : lung cancer. Father at age 85 of a blood disorder . His mother 5 months ago at age 86. She was recently diagnosed with leukemia. He doesn't know what type. One sister of lung cancer. Nine other siblings are in good health. 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 Mr. Schwartz has never smoked. He drinks occasionally. He consumes 2 drinks/day. He has indicated exposure to the following products: chewing tobacco. Mr. Schwartz reports the following support systems: lives with spouse, significant other, family, or friends, lives in own house, supportive family/friends willing to assist with needs, and adequate transportation available for expected visits. His diet consists of regular meals. He indicates his activity level as: daily activities. Use to chew tobacco for about 10 to 12 years. drank a few beers occasionally. Physical Examination: Performed on Jul 27, 2021 15:42: Height - 71.00 in, Temperature - 97.3 F (LOW), Pulse - 50 /min (LOW), BP - 123/71 mm(hg), O2 Sat - 97 %, Performed on Jul 27, 2021 13:13: Height - 71.00 in, Weight - 210.0 lbs (LOW), BSA - 2.15 sq.m, BMI - 29.29, Temperature - 98.6 F, Pulse - 60 /min, Respiration - 16 /min, BP - 130/80 mm(hg), O2 Sat - 98 %, Pain - 3, and Fatigue - 6. Performance Status: 1 - No physically strenuous activity, but ambulatory and able to carry out light or sedentary work (e.g. office work, light house work). (ECOG) Constitutional Alert, cooperative, oriented. Mood and affect appropriate. Appears close to chronological age. Well nourished. Well developed. Head Normocephalic; no scars. Respiratory Lungs are clear to auscultation without rhonchi or wheezing. Cardiovascular Regular rate and rhythm of heart without murmurs, gallops or rubs. Abdomen Non-tender, non-distended, no masses, ascites or hepatosplenomegaly. Good bowel sounds. No guarding or rebound tenderness. Musculoskeletal No tenderness or swelling, normal range of motion without obvious weakness. Psychiatric Alert and oriented times three. Coherent speech. Verbalizes understanding of our discussions today. Laboratory: Test performed on Jul 27, 2021 09:51 Sodium 140 mmol/L Potassium 4.2 mmol/L Chloride 106 mmol/L CO2 27 mmol/L Anion Gap 11.2 BUN 12 mg/dL Creatinine 0.9 mg/dL Cr Clearance (Est) 134.9200 mL/min eGFR 89.7 mL/min Glucose 82 mg/dL Osmolality - Calculated 289 mOsm/kg Calcium 8.8 mg/dL Protein, Total 5.8 g/dL Albumin 4.2 g/dL Globulin 1.6 g/dL Bilirubin, Total 0.2 mg/dL ALT (SGPT) 21 U/L AST (SGOT) 16 U/L Alkaline Phosphatase 53 IU/L WBC 3.4 10 3/uL RBC 4.54 10 6/uL HGB 12.8 g/dL HCT 40.1 % MCV 88.3 fl MCH 28.2 pg MCHC 31.9 g/dL RDW 13.4 % Platelet Count 253 10 3/cmm MPV 10.4 fL Neutrophils 1.54 10 3/uL Lymphocytes 1.3 10 3/uL Monocytes 0.5 10 3/uL Eosinophils 0.0 10 3/uL Basophils 0.0 10 3/uL Neutrophil % 45.1 % Lymphocyte % 38.7 % Monocyte % 14.7 % Eosinophil % 0.3 % Basophils % 0.9 % NRBC % 0 % PSA 206.300 ng/mL Test performed on Jul 06, 2021 09:56 Manual Diff Cancelled via OM: Entered in error Test performed on Feb 18, 2021 09:07 A/G Ratio 1.9 Absolute Value Impression: 1. Stage IV prostate cancer, metastatic to lymph nodes and bone, initially diagnosed in April 2015. 2. 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 3. He has chronic anxiety. Plan: 1. Patient with stage IV prostate cancer, metastatic to lymph nodes and bone, diagnosed by cervical lymph node biopsy in April 2015. He initially began treatment with androgen deprivation with subsequent addition of chemotherapy, which I assume was docetaxel/prednisone. He did show significant response, both clinically and by PSA level. He had stopped chemotherapy sometime around January or February 2016. He had subsequently continued androgen deprivation with Depo-Lupron. As of November 2016 his PSA level had increased significantly. CT abdomen/pelvis on 11/09/2016 showed increased retroperitoneal lymphadenopathy, and clinically it did appear that he was having disease progression. A subsequent bone scan showed intense uptake in the right superior pubic ramus corresponding to an area of blastic metastatic disease which had been noted on CT scan of the right hip. There was additional suspected metastatic involvement in the left 10th rib anteriorly, though technically that site was indeterminate. On 12/22/2016 he began treatment with abiraterone 1000 mg daily and prednisone 5 mg twice a day in addition to the Depo-Lupron. He did show a good response by PSA level, but he was still having significant pain in his right hip area, and he was then given palliative radiation to the area of involvement in the right pubic ramus. He completed treatment on 02/14/2017 to 3900 cGy. He had a good clinical response. However, he tolerated the the androgen deprivation therapy poorly, and in December 2018 he opted to stop treatment. During subsequent follow-up, there was a gradual increase in his PSA level, but his clinical status remained stable, and he continued on observation/expectant management. As of 09/11/2019 there was a significant further increase in his PSA level, to 67.53 ng/mL, and at that point he restarted androgen deprivation therapy with bicalutamide 50 mg daily for 14 days together with Depo-Lupron 22.5 mg by intramuscular injection. He had significant side effects following the Depo-Lupron injection, including chest pain. A Lexiscan sestamibi stress test showed no evidence of cardiac ischemia. As of his follow-up visit in December 2019 there was further increase in the PSA level to 116 ng/mL. At that point he agreed to a trial of anti-androgen therapy with bicalutamide 50 mg 3 times daily. He stopped it in mid January when he was diagnosed with COVID-19 virus infection. He had uneventful recovery from that illness. At his follow-up visit on 03/10/2020 there was further increase in the PSA level to 180.500 ng/mL. I had discussed options for further treatment, and he ultimately chose to proceed with a trial of 2nd line chemotherapy with cabazitaxel. He began cycle 1 of cabazitaxel on 05/04/2020. He had pretty severe fatigue following initial infusion. He also developed some mild constipation with rectal bleeding, but that lasted just a few days. He has had no other significant toxicity. He continued with cycle 2 on 05/31/2020. He continued to have fatigue, but he otherwise appears to be tolerating it well. He had a significant decline in his PSA level. He then continued treatment at 3-week iintervals. As of 08/27/2019 when he began his 6th cycle of treatment. At that point his PSA level had declined to 73.4 ng/mL compared to a pretreatment level of 268.1 ng/mL. As of his follow-up visit on 11/23/2020 he had completed 9 cycles of treatment with cabazitaxel. His PSA level had further declined to 36.000 ng/mL. In the setting of a stable response to chemotherapy with a known MELODIE gene variant, his treatment was ransitioned to maintenance therapy with olaparib 300 mg bid. During follow-up he continued to have significant fatigue. There was gradual increase in the PSA level. As of March 2021 it had increased to 97.38 ng/mL, and at that point I did opt to stop the olaparib. During follow-up his PSA had initially remained stable, though it has now increased significantly. There was noted to be progression of retroperitoneal lymphadenopathy and progression of bony metastatic disease by CT scan. With evidence of disease progression, he opted to restart chemotherapy with cabazitaxel as opposed to restarting androgen deprivation therapy. Cycle 1 of cabazitaxel 25 mg/m??? by IV infusion was started 07/06/21. He presents today for follow-up after starting Jevtana. He has tolerated it well. With no adverse reactions to it other than some fatigue. He will receive cycle 2 of Jevtana today. He will return to the clinic in 3 weeks with CBC, CMP and PSA. 2. He has evidence of bony metastatic disease. He will continue supportive therapy with denosumab 120 mg by subcutaneous injection. It will be administered at 6-week intervals to coordinate with his chemotherapy schedule. Signed By: Katia House N.P. <<Signature on File>>
== END 2021-07-27 09:42 | disposition home or self-care (01) ==
PROVIDERS: PCP Nurse Practitioner Family; Visit Provider Nurse Practitioner Family
DX: C61 Malignant neoplasm of prostate (principal); C77.0 Secondary and unspecified malignant neoplasm of lymph nodes of head, face and neck; C79.51 Secondary malignant neoplasm of bone
CPT/HCPCS: 80053; 84153; 85025; 96367; 96375; 96413; 96417; 99215; J1100; J1200; J2469; J3490; J7050; J9043

== ENCOUNTER 2021-08-23 10:25 | Oncology outpatient (recurring) (ONCR) | payer MEDICARE, SELFPAY ==
[2021-08-23 10:56] VITALS: BMI 29.6
[2021-08-23 10:56] LABS: Basophils # 0.1 10^3/uL (0.0-0.1); Basophils % 1.1 %; Eosinophils % 0.3 %; Hematocrit 44.2 % (42.0-52.0); Hemoglobin 14.2 g/dL (11.7-16.6); Lymphocytes # 1.5 10^3/uL (0.8-4.8); Lymphocytes % 23.2 %; Mean Corpuscular HGB Conc 32.1 g/dL (30.0-36.0); Mean Corpuscular Hemoglobin 27.9 pg (28.0-34.0); Mean Corpuscular Volume 86.8 fl (80-94); Mean Platelet Volume 10.4 fL (7.4-10.4); Monocytes # 0.5 10^3/uL (0.2-0.9); Monocytes % 7.9 %; Neutrophils # 4.18 10^3/uL (1.8-7.7); Nucleated Red Blood Cells % 0 %; Platelet Count 255 10^3/cmm (130-400); Red Blood Count 5.09 10^6/uL (4.1-5.3); Red Cell Distribution Width 14.6 % (12.1-15.1); White Blood Count 6.2 10^3/uL (4.0-10.0)
[2021-08-23 11:37] LABS: Alanine Aminotransferase 20 U/L (0-41); Albumin Level 4.4 g/dL (3.5-5.2); Alkaline Phosphatase 57 IU/L (40-130); Anion Gap 12.2 (5-19); Aspartate Amino Transferase 14 U/L (0-40); Blood Urea Nitrogen 16 mg/dL (6-20); Calcium 8.3 mg/dL (8.5-10.5); Carbon Dioxide 26 mmol/L (22-29); Chloride 106 mmol/L (98-107); Globulin 1.7 g/dL (1.3-4.6); Glomerular Filtration Rate 102.3 mL/min (90-130); Glucose 106 mg/dL (65-115); Osmolality Calculated 292 mOsm/kg (285-295); Potassium 4.2 mmol/L (3.5-5.1); Sodium 140 mmol/L (136-145); Total Bilirubin 0.4 mg/dL (0.15-1.2); Total Protein 6.1 g/dL (6.6-8.7)
[2021-08-23] MEDS: sodium chloride 0.9% 250 ML 75 ML IV (13:35)
[2021-08-23] MEDS: famotidine 20 mg/2 mL INJ IVP (13:38)
[2021-08-23] MEDS: diphenhydrAMINE 50 mg/mL SDV 1mL 25 MG IVP (13:43)
[2021-08-23] MEDS: palonosetron 0.25 mg/5 mL SDV IVP (13:47)
--- NOTE | 2021-08-23 13:51 | PC.PHAR ---
during review & verification of jevtana, system locked up and didn't allow me to recalculate using patients most recent weight. recalculated do to 54mg utilizing weight of 206 pounds.
[2021-08-23 14:41] VITALS: RESP 18; O2SAT 98
[2021-08-23] MEDS: morphine 4 mg/mL SDV 1 mL IM (14:41)
[2021-08-23] MEDS: denosumab 120 mg SDV SUBCUT (16:00)
[2021-08-23 16:07] VITALS: BP 112/71; PULSE 63; RESP 18; TEMP 35.9; O2SAT 97
== END 2021-09-06 23:59 | disposition home or self-care (01) ==
PROVIDERS: PCP Nurse Practitioner Family; Referring Provider Nurse Practitioner Family; Visit Provider Internal Medicine Medical Oncology
DX: C61 Malignant neoplasm of prostate (principal); C79.51 Secondary malignant neoplasm of bone
CPT/HCPCS: 80053; 84153; 85025; 96367; 96372; 96375; 96377; 96413; 99214; 99999; J0897; J1100; J1200; J2270; J2469; J3490; J7050; J9043

== ENCOUNTER 2021-10-04 09:00 | Oncology outpatient (recurring) (ONCR) | payer MEDICARE, SELFPAY ==
[2021-09-13 09:38] LABS: Basophils # 0.1 10^3/uL (0.0-0.1); Basophils % 0.9 %; Eosinophils % 0.2 %; Hematocrit 39.3 % (42.0-52.0); Hemoglobin 12.7 g/dL (11.7-16.6); Lymphocytes # 1.5 10^3/uL (0.8-4.8); Lymphocytes % 27.1 %; Mean Corpuscular HGB Conc 32.3 g/dL (30.0-36.0); Mean Corpuscular Volume 86.8 fl (80-94); Mean Platelet Volume 9.7 fL (7.4-10.4); Monocytes # 0.7 10^3/uL (0.2-0.9); Monocytes % 12.4 %; Neutrophils # 3.08 10^3/uL (1.8-7.7); Neutrophils % 57.2 %; Nucleated Red Blood Cells % 0 %; Platelet Count 280 10^3/cmm (130-400); Red Blood Count 4.53 10^6/uL (4.1-5.3); Red Cell Distribution Width 15.3 % (12.1-15.1); White Blood Count 5.4 10^3/uL (4.0-10.0)
[2021-09-13 10:13] LABS: Alanine Aminotransferase 27 U/L (0-41); Albumin Level 4.2 g/dL (3.5-5.2); Alkaline Phosphatase 62 IU/L (40-130); Anion Gap 11.3 (5-19); Aspartate Amino Transferase 17 U/L (0-40); Blood Urea Nitrogen 12 mg/dL (6-20); Calcium 8.3 mg/dL (8.5-10.5); Carbon Dioxide 24 mmol/L (22-29); Chloride 107 mmol/L (98-107); Globulin 1.9 g/dL (1.3-4.6); Glomerular Filtration Rate 102.3 mL/min (90-130); Glucose 94 mg/dL (65-115); Osmolality Calculated 286 mOsm/kg (285-295); Potassium 4.3 mmol/L (3.5-5.1); Sodium 138 mmol/L (136-145); Total Bilirubin 0.3 mg/dL (0.15-1.2); Total Protein 6.1 g/dL (6.6-8.7)
[2021-09-13] MEDS: sodium chloride 0.9% 250 ML 75 ML IV (12:16)
[2021-09-13] MEDS: diphenhydrAMINE 50 mg/mL SDV 1mL 25 MG IVP (12:17)
[2021-09-13] MEDS: palonosetron 0.25 mg/5 mL SDV IVP (12:18)
[2021-09-13] MEDS: famotidine 20 mg/2 mL INJ IVP (12:18)
[2021-10-04 09:37] LABS: Basophils # 0.1 10^3/uL (0.0-0.1); Basophils % 1.4 %; Eosinophils % 0.2 %; Hematocrit 38.3 % (42.0-52.0); Hemoglobin 12.3 g/dL (11.7-16.6); Lymphocytes # 1.7 10^3/uL (0.8-4.8); Lymphocytes % 33.7 %; Mean Corpuscular HGB Conc 32.1 g/dL (30.0-36.0); Mean Corpuscular Hemoglobin 27.4 pg (28.0-34.0); Mean Corpuscular Volume 85.3 fl (80-94); Mean Platelet Volume 10.1 fL (7.4-10.4); Monocytes # 0.7 10^3/uL (0.2-0.9); Monocytes % 14.6 %; Neutrophils # 2.37 10^3/uL (1.8-7.7); Neutrophils % 48.3 %; Nucleated Red Blood Cells % 0 %; Platelet Count 278 10^3/cmm (130-400); Red Blood Count 4.49 10^6/uL (4.1-5.3); Red Cell Distribution Width 15.7 % (12.1-15.1); White Blood Count 4.9 10^3/uL (4.0-10.0)
[2021-10-04 10:14] LABS: Alanine Aminotransferase 20 U/L (0-41); Albumin Level 4.2 g/dL (3.5-5.2); Alkaline Phosphatase 61 IU/L (40-130); Anion Gap 12.3 (5-19); Aspartate Amino Transferase 16 U/L (0-40); Blood Urea Nitrogen 10 mg/dL (6-20); Calcium 8.6 mg/dL (8.5-10.5); Carbon Dioxide 25 mmol/L (22-29); Chloride 106 mmol/L (98-107); Globulin 2.3 g/dL (1.3-4.6); Glomerular Filtration Rate 70.9 mL/min (90-130); Glucose 86 mg/dL (65-115); Osmolality Calculated 286 mOsm/kg (285-295); Potassium 4.3 mmol/L (3.5-5.1); Sodium 139 mmol/L (136-145); Total Bilirubin 0.3 mg/dL (0.15-1.2); Total Protein 6.5 g/dL (6.6-8.7)
[2021-10-04] MEDS: sodium chloride 0.9% 250 ML 75 ML IV (11:34)
[2021-10-04] MEDS: diphenhydrAMINE 50 mg/mL SDV 1mL 25 MG IVP (11:34)
[2021-10-04] MEDS: famotidine 20 mg/2 mL INJ IVP (11:34)
[2021-10-04] MEDS: palonosetron 0.25 mg/5 mL SDV IVP (11:43)
[2021-10-04] MEDS: denosumab 120 mg SDV SUBCUT (13:27)
[2021-10-04 13:51] VITALS: BP 106/71; PULSE 62; TEMP 36.2; O2SAT 97
== END 2021-10-06 23:59 | disposition home or self-care (01) ==
PROVIDERS: PCP Nurse Practitioner Family; Referring Provider Nurse Practitioner Family; Visit Provider Internal Medicine Medical Oncology
DX: Z51.11 Encounter for antineoplastic chemotherapy (principal); C61 Malignant neoplasm of prostate; C78.7 Secondary malignant neoplasm of liver and intrahepatic bile duct; C77.8 Secondary and unspecified malignant neoplasm of lymph nodes of multiple regions; C79.51 Secondary malignant neoplasm of bone; R53.83 Other fatigue; F32.A Depression, unspecified; Z79.891 Long term (current) use of opiate analgesic; Z79.899 Other long term (current) drug therapy
CPT/HCPCS: 80053; 84153; 85025; 96367; 96372; 96375; 96413; 99214; 99215; J0897; J1100; J1200; J2469; J3490; J7050; J9043

== ENCOUNTER 2021-10-25 07:49 | Oncology outpatient (recurring) (ONCR) | payer MEDICARE, SELFPAY ==
[2021-10-25 08:43] LABS: Basophils # 0.1 10^3/uL (0.0-0.1); Basophils % 1.5 %; Eosinophils % 0.2 %; Hematocrit 37.9 % (42.0-52.0); Hemoglobin 11.8 g/dL (11.7-16.6); Lymphocytes # 1.5 10^3/uL (0.8-4.8); Lymphocytes % 28.3 %; Mean Corpuscular HGB Conc 31.1 g/dL (30.0-36.0); Mean Corpuscular Hemoglobin 27.5 pg (28.0-34.0); Mean Corpuscular Volume 88.3 fl (80-94); Mean Platelet Volume 9.8 fL (7.4-10.4); Monocytes # 0.9 10^3/uL (0.2-0.9); Neutrophils # 2.83 10^3/uL (1.8-7.7); Neutrophils % 51.8 %; Nucleated Red Blood Cells % 0 %; Platelet Count 310 10^3/cmm (130-400); Red Blood Count 4.29 10^6/uL (4.1-5.3); Red Cell Distribution Width 16.1 % (12.1-15.1); White Blood Count 5.5 10^3/uL (4.0-10.0)
[2021-10-25 09:23] LABS: Alanine Aminotransferase 26 U/L (0-41); Albumin Level 4.1 g/dL (3.5-5.2); Alkaline Phosphatase 63 IU/L (40-130); Anion Gap 11.4 (5-19); Aspartate Amino Transferase 18 U/L (0-40); Blood Urea Nitrogen 14 mg/dL (6-20); Calcium 8.6 mg/dL (8.5-10.5); Carbon Dioxide 27 mmol/L (22-29); Chloride 106 mmol/L (98-107); Globulin 1.8 g/dL (1.3-4.6); Glomerular Filtration Rate 89.3 mL/min (90-130); Glucose 94 mg/dL (65-115); Osmolality Calculated 290 mOsm/kg (285-295); Potassium 4.4 mmol/L (3.5-5.1); Sodium 140 mmol/L (136-145); Total Bilirubin 0.2 mg/dL (0.15-1.2); Total Protein 5.9 g/dL (6.6-8.7)
[2021-10-25] MEDS: diphenhydrAMINE 50 mg/mL SDV 1mL 25 MG IVP (10:28)
[2021-10-25] MEDS: famotidine 20 mg/2 mL INJ IVP (10:29)
[2021-10-25] MEDS: sodium chloride 0.9% 250 ML 100 ML IV (10:29)
[2021-10-25] MEDS: palonosetron 0.25 mg/5 mL SDV IVP (10:38)
== END 2021-11-06 23:59 | disposition home or self-care (01) ==
LOC: ONCMED 07:50
PROVIDERS: PCP Nurse Practitioner Family; Referring Provider Nurse Practitioner Family; Visit Provider Internal Medicine Medical Oncology
DX: Z51.12 Encounter for antineoplastic immunotherapy (principal); C61 Malignant neoplasm of prostate; C79.51 Secondary malignant neoplasm of bone; C77.8 Secondary and unspecified malignant neoplasm of lymph nodes of multiple regions; R53.82 Chronic fatigue, unspecified; F32.A Depression, unspecified; Z79.899 Other long term (current) drug therapy
CPT/HCPCS: 80053; 84153; 85025; 96367; 96375; 96413; 99214; 99215; J1100; J1200; J2469; J3490; J7050; J9043

== ENCOUNTER 2021-12-07 08:00 | Oncology outpatient (recurring) (ONCR) | payer MEDICARE, SELFPAY ==
[2021-11-15 08:17] VITALS: BMI 31.1
[2021-11-15 08:23] LABS: Basophils # 0.1 10^3/uL (0.0-0.1); Basophils % 1.7 %; Hematocrit 36.4 % (42.0-52.0); Hemoglobin 11.3 g/dL (11.7-16.6); Lymphocytes # 1.2 10^3/uL (0.8-4.8); Lymphocytes % 32.4 %; Mean Corpuscular Hemoglobin 27.2 pg (28.0-34.0); Mean Corpuscular Volume 87.7 fl (80-94); Mean Platelet Volume 9.9 fL (7.4-10.4); Monocytes # 0.5 10^3/uL (0.2-0.9); Monocytes % 14.8 %; Neutrophils # 1.67 10^3/uL (1.8-7.7); Neutrophils % 46.6 %; Nucleated Red Blood Cells % 0 %; Platelet Count 244 10^3/cmm (130-400); Red Blood Count 4.15 10^6/uL (4.1-5.3); Red Cell Distribution Width 16.6 % (12.1-15.1); White Blood Count 3.6 10^3/uL (4.0-10.0)
[2021-11-15 08:58] LABS: Alanine Aminotransferase 24 U/L (0-41); Albumin Level 3.8 g/dL (3.5-5.2); Alkaline Phosphatase 80 IU/L (40-130); Aspartate Amino Transferase 21 U/L (0-40); Blood Urea Nitrogen 8 mg/dL (6-20); Calcium 8.1 mg/dL (8.5-10.5); Carbon Dioxide 24 mmol/L (22-29); Chloride 110 mmol/L (98-107); Globulin 2.1 g/dL (1.3-4.6); Glomerular Filtration Rate 89.3 mL/min (90-130); Glucose 94 mg/dL (65-115); Osmolality Calculated 296 mOsm/kg (285-295); Sodium 144 mmol/L (136-145); Total Bilirubin 0.2 mg/dL (0.15-1.2); Total Protein 5.9 g/dL (6.6-8.7)
[2021-11-15 09:07] LABS: Anion Gap 14.6 (5-19); Potassium 4.6 mmol/L (3.5-5.1)
[2021-11-15] MEDS: sodium chloride 0.9% 250 ML 75 ML IV (10:43)
[2021-11-15] MEDS: famotidine 20 mg/2 mL INJ IVP (10:43)
[2021-11-15] MEDS: diphenhydrAMINE 50 mg/mL SDV 1mL 25 MG IVP (10:46)
[2021-11-15] MEDS: palonosetron 0.25 mg/5 mL SDV IVP (10:52)
[2021-11-15] MEDS: denosumab 120 mg SDV SUBCUT (13:10)
[2021-11-15 13:16] VITALS: BP 116/74; PULSE 18; RESP 62; TEMP 36.3; O2SAT 98
[2021-12-07 08:40] LABS: Basophils # 0.1 10^3/uL (0.0-0.1); Basophils % 1.2 %; Eosinophils # 0.2 10^3/uL (0.0-0.8); Eosinophils % 3.7 %; Hematocrit 38.3 % (42.0-52.0); Hemoglobin 12.2 g/dL (11.7-16.6); Lymphocytes # 1.3 10^3/uL (0.8-4.8); Lymphocytes % 29.2 %; Mean Corpuscular HGB Conc 31.9 g/dL (30.0-36.0); Mean Corpuscular Hemoglobin 27.9 pg (28.0-34.0); Mean Corpuscular Volume 87.6 fl (80-94); Mean Platelet Volume 10.1 fL (7.4-10.4); Monocytes # 0.4 10^3/uL (0.2-0.9); Monocytes % 9.5 %; Neutrophils # 2.42 10^3/uL (1.8-7.7); Neutrophils % 56.2 %; Nucleated Red Blood Cells % 0 %; Platelet Count 229 10^3/cmm (130-400); Red Blood Count 4.37 10^6/uL (4.1-5.3); Red Cell Distribution Width 17.3 % (12.1-15.1); White Blood Count 4.3 10^3/uL (4.0-10.0)
[2021-12-07 09:10] LABS: Alanine Aminotransferase 17 U/L (0-41); Albumin Level 4.1 g/dL (3.5-5.2); Alkaline Phosphatase 54 U/L (40-130); Anion Gap 10.3 (5-19); Aspartate Amino Transferase 16 U/L (0-40); Blood Urea Nitrogen 10 mg/dL (6-20); Calcium 8.5 mg/dL (8.5-10.5); Carbon Dioxide 28 mmol/L (22-29); Chloride 110 mmol/L (98-107); Creatinine Clr Calc Pharmacy 115.0122; Globulin 1.8 g/dL (1.3-4.6); Glomerular Filtration Rate 89.3 mL/min (90-130); Glucose 92 mg/dL (65-115); Osmolality Calculated 297 mOsm/kg (285-295); Potassium 4.3 mmol/L (3.5-5.1); Sodium 144 mmol/L (136-145); Total Bilirubin 0.3 mg/dL (0.15-1.2); Total Protein 5.9 g/dL (6.6-8.7)
[2021-12-07] MEDS: sodium chloride 0.9% 250 ML 75 ML IV (10:34)
[2021-12-07] MEDS: famotidine 20 mg/2 mL INJ IVP (10:36)
[2021-12-07] MEDS: palonosetron 0.25 mg/5 mL SDV IVP (10:36)
[2021-12-07] MEDS: diphenhydrAMINE 50 mg/mL SDV 1mL 25 MG IVP (10:37)
[2021-12-07 12:21] VITALS: BP 124/78; PULSE 78; RESP 18; TEMP 36.6; O2SAT 98
== END 2021-12-07 23:59 | disposition home or self-care (01) ==
PROVIDERS: Nurse Practitioner; PCP Nurse Practitioner Family; Referring Provider Nurse Practitioner Family; Visit Provider Internal Medicine Medical Oncology
DX: Z51.11 Encounter for antineoplastic chemotherapy (principal); C61 Malignant neoplasm of prostate; C77.5 Secondary and unspecified malignant neoplasm of intrapelvic lymph nodes; C79.51 Secondary malignant neoplasm of bone; C77.8 Secondary and unspecified malignant neoplasm of lymph nodes of multiple regions; Z79.52 Long term (current) use of systemic steroids; Z79.899 Other long term (current) drug therapy; D70.1 Agranulocytosis secondary to cancer chemotherapy; T45.1X5A Adverse effect of antineoplastic and immunosuppressive drugs, initial encounter
CPT/HCPCS: 80053; 84153; 85025; 96367; 96372; 96375; 96413; 99205; 99214; 99215; J0897; J1100; J1200; J2469; J3490; J7050; J9043

== ENCOUNTER 2021-12-28 09:03 | Oncology outpatient (recurring) (ONCR) | payer MEDICARE, SELFPAY ==
[2021-12-28 09:32] LABS: Hematocrit 39.7 % (42.0-52.0); Hemoglobin 12.7 g/dL (11.7-16.6); Mean Corpuscular Volume 87.6 fl (80-94); Red Blood Count 4.53 10^6/uL (4.1-5.3); Red Cell Distribution Width 16.6 % (12.1-15.1); White Blood Count 4.3 10^3/uL (4.0-10.0)
[2021-12-28 09:33] LABS: Basophils # 0.1 10^3/uL (0.0-0.1); Basophils % 1.4 %; Eosinophils % 0.2 %; Lymphocytes # 1.3 10^3/uL (0.8-4.8); Lymphocytes % 29.5 %; Monocytes # 0.5 10^3/uL (0.2-0.9); Monocytes % 11.8 %; Neutrophils # 2.42 10^3/uL (1.8-7.7); Neutrophils % 56.2 %; Nucleated Red Blood Cells % 0 %; Platelet Count 258 10^3/cmm (130-400)
[2021-12-28 10:35] LABS: Alanine Aminotransferase 24 U/L (0-41); Albumin Level 3.8 g/dL (3.5-5.2); Alkaline Phosphatase 50 U/L (40-130); Aspartate Amino Transferase 22 U/L (0-40); Blood Urea Nitrogen 13 mg/dL (6-20); Calcium 8.5 mg/dL (8.5-10.5); Carbon Dioxide 26 mmol/L (22-29); Globulin 2.4 g/dL (1.3-4.6); Glomerular Filtration Rate 89.3 mL/min (90-130); Glucose 102 mg/dL (65-115); Total Bilirubin 0.2 mg/dL (0.15-1.2); Total Protein 6.2 g/dL (6.6-8.7)
[2021-12-28 10:38] LABS: Potassium 4.2 mmol/L (3.5-5.1)
[2021-12-28 11:07] LABS: Anion Gap 12.2 (5-19); Chloride 105 mmol/L (98-107); Osmolality Calculated 288 mOsm/kg (285-295); Sodium 139 mmol/L (136-145)
[2021-12-28] MEDS: sodium chloride 0.9% 250 ML 75 ML IV (12:05)
[2021-12-28] MEDS: palonosetron 0.25 mg/5 mL SDV IVP (12:06)
[2021-12-28] MEDS: famotidine 20 mg/2 mL INJ IVP (12:07)
[2021-12-28] MEDS: diphenhydrAMINE 50 mg/mL SDV 1mL 25 MG IVP (12:09)
[2021-12-28 13:26] VITALS: BP 125/80; PULSE 69; RESP 16; TEMP 36.4; O2SAT 97
[2021-12-28] MEDS: denosumab 120 mg SDV SUBCUT (13:50)
== END 2021-12-29 10:28 | disposition home or self-care (01) ==
LOC: RAD 09:04 → ONCMED 11:32
PROVIDERS: Nurse Practitioner; PCP Nurse Practitioner Family; Referring Provider Nurse Practitioner Family; Visit Provider Internal Medicine Medical Oncology
DX: Z51.11 Encounter for antineoplastic chemotherapy (principal); C61 Malignant neoplasm of prostate; C77.8 Secondary and unspecified malignant neoplasm of lymph nodes of multiple regions; C79.51 Secondary malignant neoplasm of bone; R53.0 Neoplastic (malignant) related fatigue; D70.1 Agranulocytosis secondary to cancer chemotherapy; T45.1X5A Adverse effect of antineoplastic and immunosuppressive drugs, initial encounter; D64.81 Anemia due to antineoplastic chemotherapy; R31.9 Hematuria, unspecified; Z79.899 Other long term (current) drug therapy
CPT/HCPCS: 80053; 84153; 85025; 96367; 96372; 96375; 96413; 99214; J0897; J1100; J1200; J2469; J3490; J7050; J9043

== ENCOUNTER 2021-12-30 10:16 | Oncology outpatient (recurring) (ONCR) | payer MEDICARE, SELFPAY ==
--- NOTE | 2021-12-30 10:21 | CT_ITS ---
WS: [id number] CT CHEST, ABDOMEN AND PELVIS WITH CONTRAST HISTORY: Hematuria, history of prostate cancer and liver metastasis. TECHNIQUE: Contiguous 5 mm axial imaging performed through the chest, abdomen and pelvis with IV cont rast, oral contrast has not been provided. Coronal and sagittal reformats chest. Coronal and sagittal reformats through the abdomen and pelvis. All CT scans at [facility] use at least one of the se dose optimization techniques: automated exposure control; mA and/or kV adjustment per patient size (includes targeted exams where dose is matched to clinical indication); or iterative reconstruction. CONTRAST: Omnipaque 350; 95 mL IV. DLP: 1908.77 mGy.cm COMPARISON: 06/06/[address]: No pulmonary mass or nodule. No pericardial or pleural effusions. Heart size is mildly enla rged. No mediastinal or hilar adenopathy. LEFT subclavian Port-A-Cath. Gynecomastia. Abdomen CT: Liver, spleen and gallbladder are negative. Negative pancreas and adrenal glands. No adre nal mass or obstruction. No calcifications. No renal mass or obstruction. There are very tiny enhanci ng foci within the mid RIGHT ureter extending over several centimeters. Normally distended stomach. No small bowel obstruction. The appendix is not identified. Numerous dive rticula throughout the mid to distal colon. No evidence for acute diverticulitis. Retroperitoneal adenopathy is reidentified with a moderate improvement. Decrease in size of the retro peritoneal lymph nodes. Aortocaval lymph node measures 11 mm. Several of these lymph nodes are hyperv ascular and inseparable from the psoas muscle. Proximal RIGHT iliac lymph node measures 2.4 x 1.0 cm, decreased from 2.8 x 2.3 cm. External iliac lymph nodes have all decreased in size. Numerous small s hoddy lymph nodes but much smaller in size along the iliac chains. No inguinal adenopathy. Pelvic CT: No free fluid. Moderately well distended urinary bladder. Mild enlargement of the prostate gland. Sclerotic metastatic bone disease is reidentified within L1, L2, L3 and S1. Similar distribution as c ompared to the prior examination. CT/CT chest abd pel w con* IMPRESSION: 1. No renal obstruction or solid renal mass. 2. Small enhancing uroepithelial nodules in the mid RIGHT ureter. These nodule s are not causing obstruction but they do enhance. RIGHT uroepithelial lesion v ersus metastatic lesion should be considered. Ureteroscopy may be necessary. 3. The retroperitoneum and iliac chain lymph nodes persist. Moderate decrease in size and improvement since 06/06/2021. 4. No pulmonary mass or nodule. No adenopathy in the chest.
[2021-12-30] MEDS: iohexol 350 mg/mL 100 mL Btl IV (10:47)
== END 2022-01-06 23:59 | disposition home or self-care (01) ==
PROVIDERS: PCP Nurse Practitioner Family; Visit Provider Internal Medicine Medical Oncology
DX: C61 Malignant neoplasm of prostate (principal); C79.51 Secondary malignant neoplasm of bone; C77.8 Secondary and unspecified malignant neoplasm of lymph nodes of multiple regions
CPT/HCPCS: 71260; 74177

== ENCOUNTER 2022-01-25 08:08 | Oncology outpatient (recurring) (ONCR) | payer MEDICARE, SELFPAY ==
[2022-01-25 08:30] LABS: Basophils # 0.1 10^3/uL (0.0-0.1); Basophils % 1.2 %; Eosinophils # 0.1 10^3/uL (0.0-0.8); Eosinophils % 1.3 %; Hematocrit 39.6 % (42.0-52.0); Hemoglobin 12.5 g/dL (11.7-16.6); Lymphocytes # 1.2 10^3/uL (0.8-4.8); Lymphocytes % 23.3 %; Mean Corpuscular HGB Conc 31.6 g/dL (30.0-36.0); Mean Corpuscular Hemoglobin 27.7 pg (28.0-34.0); Mean Corpuscular Volume 87.8 fl (80-94); Mean Platelet Volume 10.1 fL (7.4-10.4); Monocytes # 0.5 10^3/uL (0.2-0.9); Monocytes % 9.2 %; Neutrophils # 3.35 10^3/uL (1.8-7.7); Neutrophils % 64.6 %; Nucleated Red Blood Cells % 0 %; Platelet Count 226 10^3/cmm (130-400); Red Blood Count 4.51 10^6/uL (4.1-5.3); Red Cell Distribution Width 17.2 % (12.1-15.1); White Blood Count 5.2 10^3/uL (4.0-10.0)
[2022-01-25 09:13] LABS: Alanine Aminotransferase 22 U/L (0-41); Albumin Level 3.9 g/dL (3.5-5.2); Alkaline Phosphatase 53 U/L (40-130); Aspartate Amino Transferase 23 U/L (0-40); Blood Urea Nitrogen 12 mg/dL (6-20); Calcium 8.9 mg/dL (8.5-10.5); Carbon Dioxide 27 mmol/L (22-29); Chloride 107 mmol/L (98-107); Globulin 2.5 g/dL (1.3-4.6); Glomerular Filtration Rate 70.9 mL/min (90-130); Glucose 85 mg/dL (65-115); Osmolality Calculated 293 mOsm/kg (285-295); Sodium 142 mmol/L (136-145); Total Bilirubin 0.3 mg/dL (0.15-1.2); Total Protein 6.4 g/dL (6.6-8.7)
[2022-01-25] MEDS: sodium chloride 0.9% 250 ML 75 ML IV (10:36)
[2022-01-25] MEDS: palonosetron 0.25 mg/5 mL SDV IVP (10:38)
[2022-01-25] MEDS: famotidine 20 mg/2 mL INJ IVP (10:39)
[2022-01-25] MEDS: diphenhydrAMINE 50 mg/mL SDV 1mL 25 MG IVP (10:42)
[2022-01-25 13:22] VITALS: BP 123/64; PULSE 62; RESP 16; TEMP 36.7; O2SAT 97
== END 2022-02-06 23:59 | disposition home or self-care (01) ==
PROVIDERS: Nurse Practitioner; PCP Nurse Practitioner Family; Visit Provider Internal Medicine Medical Oncology
DX: Z51.12 Encounter for antineoplastic immunotherapy (principal); C61 Malignant neoplasm of prostate; C79.51 Secondary malignant neoplasm of bone; C77.8 Secondary and unspecified malignant neoplasm of lymph nodes of multiple regions; Z79.52 Long term (current) use of systemic steroids; Z79.891 Long term (current) use of opiate analgesic; Z79.899 Other long term (current) drug therapy
CPT/HCPCS: 80053; 84153; 85025; 96367; 96375; 96413; 96415; 99214; J1100; J1200; J2469; J3490; J7050; J9043

== ENCOUNTER 2022-02-15 08:38 | Oncology outpatient (recurring) (ONCR) | payer MEDICARE, SELFPAY ==
[2022-02-15 09:06] LABS: Basophils # 0.1 10^3/uL (0.0-0.1); Basophils % 0.9 %; Eosinophils # 0.1 10^3/uL (0.0-0.8); Eosinophils % 0.9 %; Hematocrit 39.8 % (42.0-52.0); Hemoglobin 12.3 g/dL (11.7-16.6); Lymphocytes # 1.3 10^3/uL (0.8-4.8); Lymphocytes % 24.3 %; Mean Corpuscular HGB Conc 30.9 g/dL (30.0-36.0); Mean Corpuscular Hemoglobin 27.2 pg (28.0-34.0); Mean Corpuscular Volume 87.9 fl (80-94); Mean Platelet Volume 9.5 fL (7.4-10.4); Monocytes # 0.5 10^3/uL (0.2-0.9); Monocytes % 9.5 %; Neutrophils # 3.46 10^3/uL (1.8-7.7); Neutrophils % 64.2 %; Nucleated Red Blood Cells % 0 %; Platelet Count 255 10^3/cmm (130-400); Red Blood Count 4.53 10^6/uL (4.1-5.3); Red Cell Distribution Width 16.8 % (12.1-15.1); White Blood Count 5.4 10^3/uL (4.0-10.0)
[2022-02-15 09:38] LABS: Alanine Aminotransferase 19 U/L (0-41); Alkaline Phosphatase 61 U/L (40-130); Anion Gap 13.9 (5-19); Aspartate Amino Transferase 15 U/L (0-40); Blood Urea Nitrogen 11 mg/dL (6-20); Calcium 8.4 mg/dL (8.5-10.5); Carbon Dioxide 25 mmol/L (22-29); Chloride 110 mmol/L (98-107); Globulin 2.3 g/dL (1.3-4.6); Glomerular Filtration Rate 89.3 mL/min (90-130); Glucose 126 mg/dL (65-115); Osmolality Calculated 301 mOsm/kg (285-295); Potassium 3.9 mmol/L (3.5-5.1); Sodium 145 mmol/L (136-145); Total Bilirubin 0.2 mg/dL (0.15-1.2); Total Protein 6.3 g/dL (6.6-8.7)
[2022-02-15] MEDS: sodium chloride 0.9% 250 ML 100 ML IV (11:49)
[2022-02-15] MEDS: palonosetron 0.25 mg/5 mL SDV IVP (11:50)
[2022-02-15] MEDS: famotidine 20 mg/2 mL INJ IVP (11:51)
[2022-02-15] MEDS: diphenhydrAMINE 50 mg/mL SDV 1mL 25 MG IVP (11:54)
[2022-02-15] MEDS: denosumab 120 mg SDV SUBCUT (11:56)
[2022-02-15 13:31] VITALS: BP 123/79; PULSE 65; RESP 16; TEMP 36.4; O2SAT 96
== END 2022-02-16 10:10 | disposition home or self-care (01) ==
PROVIDERS: PCP Nurse Practitioner Family; Visit Provider Internal Medicine Medical Oncology
DX: C61 Malignant neoplasm of prostate (principal); C79.51 Secondary malignant neoplasm of bone; C77.8 Secondary and unspecified malignant neoplasm of lymph nodes of multiple regions; Z51.12 Encounter for antineoplastic immunotherapy; D70.1 Agranulocytosis secondary to cancer chemotherapy; T45.1X5A Adverse effect of antineoplastic and immunosuppressive drugs, initial encounter; D64.81 Anemia due to antineoplastic chemotherapy; R06.02 Shortness of breath; J32.8 Other chronic sinusitis; R31.9 Hematuria, unspecified; Z79.891 Long term (current) use of opiate analgesic; Z79.899 Other long term (current) drug therapy
CPT/HCPCS: 80053; 84153; 85025; 96367; 96372; 96375; 96413; 99214; J0897; J1100; J1200; J2469; J3490; J7050; J9043

== ENCOUNTER 2022-03-08 08:17 | Oncology outpatient (recurring) (ONCR) | payer MEDICARE, SELFPAY ==
[2022-03-08 08:38] LABS: Basophils # 0.1 10^3/uL (0.0-0.1); Basophils % 1.2 %; Eosinophils # 0.1 10^3/uL (0.0-0.8); Eosinophils % 1.2 %; Hematocrit 40.2 % (42.0-52.0); Hemoglobin 12.7 g/dL (11.7-16.6); Lymphocytes # 1.3 10^3/uL (0.8-4.8); Lymphocytes % 32.6 %; Mean Corpuscular HGB Conc 31.6 g/dL (30.0-36.0); Mean Corpuscular Hemoglobin 27.8 pg (28.0-34.0); Mean Platelet Volume 10.2 fL (7.4-10.4); Monocytes # 0.4 10^3/uL (0.2-0.9); Neutrophils # 2.23 10^3/uL (1.8-7.7); Neutrophils % 55.5 %; Nucleated Red Blood Cells % 0 %; Platelet Count 237 10^3/cmm (130-400); Red Blood Count 4.57 10^6/uL (4.1-5.3); Red Cell Distribution Width 16.1 % (12.1-15.1)
[2022-03-08 09:03] LABS: Alanine Aminotransferase 21 U/L (0-41); Albumin Level 3.9 g/dL (3.5-5.2); Alkaline Phosphatase 55 U/L (40-130); Anion Gap 10.6 (5-19); Aspartate Amino Transferase 16 U/L (0-40); Blood Urea Nitrogen 13 mg/dL (6-20); Calcium 8.5 mg/dL (8.5-10.5); Carbon Dioxide 26 mmol/L (22-29); Chloride 105 mmol/L (98-107); Globulin 2.2 g/dL (1.3-4.6); Glomerular Filtration Rate 89.3 mL/min (90-130); Glucose 141 mg/dL (65-115); Osmolality Calculated 288 mOsm/kg (285-295); Potassium 3.6 mmol/L (3.5-5.1); Sodium 138 mmol/L (136-145); Total Bilirubin 0.3 mg/dL (0.15-1.2); Total Protein 6.1 g/dL (6.6-8.7)
[2022-03-08] MEDS: palonosetron 0.25 mg/5 mL SDV IVP (11:32)
[2022-03-08] MEDS: sodium chloride 0.9% 250 ML 75 ML IV (11:32)
[2022-03-08] MEDS: famotidine 20 mg/2 mL INJ IVP (11:35)
[2022-03-08] MEDS: diphenhydrAMINE 50 mg/mL SDV 1mL 25 MG IVP (11:36)
[2022-03-08 13:00] VITALS: BP 120/76; PULSE 51; RESP 16; TEMP 35.8; O2SAT 98
== END 2022-03-08 23:59 | disposition home or self-care (01) ==
PROVIDERS: PCP Nurse Practitioner Family; Visit Provider Internal Medicine Medical Oncology
DX: Z51.12 Encounter for antineoplastic immunotherapy; C61 Malignant neoplasm of prostate; C77.8 Secondary and unspecified malignant neoplasm of lymph nodes of multiple regions; C79.51 Secondary malignant neoplasm of bone; R06.02 Shortness of breath; Z79.891 Long term (current) use of opiate analgesic; Z79.899 Other long term (current) drug therapy
CPT/HCPCS: 80053; 84153; 85025; 96367; 96375; 96413; 99214; J1100; J1200; J2469; J3490; J7050; J9043

== ENCOUNTER 2022-04-06 07:45 | Oncology outpatient (recurring) (ONCR) | payer MEDICARE, SELFPAY ==
[2022-04-06 08:35] LABS: Basophils # 0.1 10^3/uL (0.0-0.1); Basophils % 1.1 %; Eosinophils # 0.1 10^3/uL (0.0-0.8); Eosinophils % 1.8 %; Hematocrit 38.6 % (42.0-52.0); Hemoglobin 12.2 g/dL (11.7-16.6); Lymphocytes # 1.5 10^3/uL (0.8-4.8); Lymphocytes % 27.4 %; Mean Corpuscular HGB Conc 31.6 g/dL (30.0-36.0); Mean Corpuscular Hemoglobin 27.5 pg (28.0-34.0); Mean Corpuscular Volume 86.9 fl (80-94); Mean Platelet Volume 9.8 fL (7.4-10.4); Monocytes # 0.5 10^3/uL (0.2-0.9); Monocytes % 9.3 %; Neutrophils # 3.35 10^3/uL (1.8-7.7); Nucleated Red Blood Cells % 0 %; Platelet Count 205 10^3/cmm (130-400); Red Blood Count 4.44 10^6/uL (4.1-5.3); Red Cell Distribution Width 16.2 % (12.1-15.1); White Blood Count 5.6 10^3/uL (4.0-10.0)
[2022-04-06 09:11] LABS: Alanine Aminotransferase 18 U/L (0-41); Alkaline Phosphatase 55 U/L (40-130); Anion Gap 11.1 (5-19); Aspartate Amino Transferase 17 U/L (0-40); Blood Urea Nitrogen 13 mg/dL (6-20); Calcium 8.7 mg/dL (8.5-10.5); Carbon Dioxide 26 mmol/L (22-29); Chloride 106 mmol/L (98-107); Globulin 2.2 g/dL (1.3-4.6); Glomerular Filtration Rate 89.3 mL/min (90-130); Glucose 94 mg/dL (65-115); Osmolality Calculated 288 mOsm/kg (285-295); Potassium 4.1 mmol/L (3.5-5.1); Sodium 139 mmol/L (136-145); Total Bilirubin 0.2 mg/dL (0.15-1.2); Total Protein 6.2 g/dL (6.6-8.7)
[2022-04-06] MEDS: sodium chloride 0.9% 250 ML 75 ML IV (10:40)
[2022-04-06] MEDS: famotidine 20 mg/2 mL INJ IVP (10:41)
[2022-04-06] MEDS: palonosetron 0.25 mg/5 mL SDV IVP (10:41)
[2022-04-06] MEDS: diphenhydrAMINE 50 mg/mL SDV 1mL 25 MG IVP (10:41)
[2022-04-06] MEDS: denosumab 120 mg SDV SUBCUT (10:41)
[2022-04-06 12:20] VITALS: BP 142/84; PULSE 64; RESP 18; TEMP 36.2; O2SAT 97
== END 2022-04-08 23:59 | disposition home or self-care (01) ==
PROVIDERS: PCP Nurse Practitioner Family; Visit Provider Internal Medicine Medical Oncology
DX: Z51.11 Encounter for antineoplastic chemotherapy (principal); C61 Malignant neoplasm of prostate; C79.51 Secondary malignant neoplasm of bone; Z79.899 Other long term (current) drug therapy; Z79.52 Long term (current) use of systemic steroids
CPT/HCPCS: 80053; 84153; 85025; 96367; 96372; 96375; 96413; 99214; J0897; J1100; J1200; J2469; J3490; J7050; J9043

== ENCOUNTER 2022-04-27 09:18 | Oncology outpatient (recurring) (ONCR) | payer MEDICARE, SELFPAY ==
[2022-04-27 09:37] LABS: Basophils # 0.1 10^3/uL (0.0-0.1); Basophils % 1.5 %; Eosinophils # 0.1 10^3/uL (0.0-0.8); Eosinophils % 1.8 %; Hematocrit 40.3 % (42.0-52.0); Hemoglobin 12.7 g/dL (11.7-16.6); Lymphocytes # 1.3 10^3/uL (0.8-4.8); Lymphocytes % 33.8 %; Mean Corpuscular HGB Conc 31.5 g/dL (30.0-36.0); Mean Corpuscular Hemoglobin 27.5 pg (28.0-34.0); Mean Corpuscular Volume 87.4 fl (80-94); Mean Platelet Volume 9.5 fL (7.4-10.4); Monocytes # 0.3 10^3/uL (0.2-0.9); Monocytes % 8.1 %; Neutrophils # 2.17 10^3/uL (1.8-7.7); Neutrophils % 54.5 %; Nucleated Red Blood Cells % 0 %; Platelet Count 244 10^3/cmm (130-400); Red Blood Count 4.61 10^6/uL (4.1-5.3); Red Cell Distribution Width 16.2 % (12.1-15.1)
[2022-04-27 10:12] LABS: Alanine Aminotransferase 18 U/L (0-41); Albumin Level 4.2 g/dL (3.5-5.2); Alkaline Phosphatase 50 U/L (40-130); Anion Gap 10.3 (5-19); Aspartate Amino Transferase 18 U/L (0-40); Blood Urea Nitrogen 12 mg/dL (6-20); Calcium 8.4 mg/dL (8.5-10.5); Carbon Dioxide 27 mmol/L (22-29); Chloride 106 mmol/L (98-107); Globulin 2.2 g/dL (1.3-4.6); Glomerular Filtration Rate 89.3 mL/min (90-130); Glucose 95 mg/dL (65-115); Osmolality Calculated 288 mOsm/kg (285-295); Potassium 4.3 mmol/L (3.5-5.1); Sodium 139 mmol/L (136-145); Total Bilirubin 0.3 mg/dL (0.15-1.2); Total Protein 6.4 g/dL (6.6-8.7)
[2022-04-27] MEDS: sodium chloride 0.9% 250 ML 100 ML IV (11:17)
[2022-04-27] MEDS: diphenhydrAMINE 50 mg/mL SDV 1mL 25 MG IVP (11:18)
[2022-04-27] MEDS: palonosetron 0.25 mg/5 mL SDV IVP (11:18)
[2022-04-27] MEDS: famotidine 20 mg/2 mL INJ IVP (11:18)
[2022-04-27 13:13] VITALS: BP 142/79; PULSE 54; TEMP 36.2; O2SAT 97
== END 2022-05-09 23:59 | disposition home or self-care (01) ==
PROVIDERS: PCP Nurse Practitioner Family; Visit Provider Internal Medicine Medical Oncology
DX: Z51.12 Encounter for antineoplastic immunotherapy (principal); C61 Malignant neoplasm of prostate; C77.8 Secondary and unspecified malignant neoplasm of lymph nodes of multiple regions; C79.51 Secondary malignant neoplasm of bone; R53.0 Neoplastic (malignant) related fatigue; D70.1 Agranulocytosis secondary to cancer chemotherapy; T45.1X5A Adverse effect of antineoplastic and immunosuppressive drugs, initial encounter; Z79.52 Long term (current) use of systemic steroids; Z79.899 Other long term (current) drug therapy
CPT/HCPCS: 80053; 84153; 85025; 96367; 96375; 96413; 99214; J1100; J1200; J2469; J3490; J7050; J9043

== ENCOUNTER 2022-05-18 08:26 | Oncology outpatient (recurring) (ONCR) | payer MEDICARE, SELFPAY ==
[2022-05-18 09:18] LABS: Basophils # 0.1 10^3/uL (0.0-0.1); Basophils % 1.3 %; Eosinophils # 0.1 10^3/uL (0.0-0.8); Eosinophils % 1.1 %; Hematocrit 41.4 % (42.0-52.0); Hemoglobin 12.8 g/dL (11.7-16.6); Lymphocytes # 1.5 10^3/uL (0.8-4.8); Lymphocytes % 32.5 %; Mean Corpuscular HGB Conc 30.9 g/dL (30.0-36.0); Mean Corpuscular Hemoglobin 27.2 pg (28.0-34.0); Mean Corpuscular Volume 87.9 fl (80-94); Mean Platelet Volume 10.1 fL (7.4-10.4); Monocytes # 0.5 10^3/uL (0.2-0.9); Neutrophils # 2.42 10^3/uL (1.8-7.7); Neutrophils % 53.4 %; Nucleated Red Blood Cells % 0 %; Platelet Count 259 10^3/cmm (130-400); Red Blood Count 4.71 10^6/uL (4.1-5.3); Red Cell Distribution Width 15.9 % (12.1-15.1); White Blood Count 4.5 10^3/uL (4.0-10.0)
[2022-05-18 09:44] LABS: Alanine Aminotransferase 20 U/L (0-41); Alkaline Phosphatase 57 U/L (40-130); Anion Gap 13.1 (5-19); Aspartate Amino Transferase 15 U/L (0-40); Blood Urea Nitrogen 18 mg/dL (6-20); Carbon Dioxide 28 mmol/L (22-29); Chloride 106 mmol/L (98-107); Globulin 2.1 g/dL (1.3-4.6); Glomerular Filtration Rate 70.9 mL/min (90-130); Glucose 101 mg/dL (65-115); Osmolality Calculated 298 mOsm/kg (285-295); Potassium 4.1 mmol/L (3.5-5.1); Sodium 143 mmol/L (136-145); Total Bilirubin 0.3 mg/dL (0.15-1.2); Total Protein 6.1 g/dL (6.6-8.7)
[2022-05-18] MEDS: sodium chloride 0.9% 250 ML 100 ML IV (10:50)
[2022-05-18] MEDS: palonosetron 0.25 mg/5 mL SDV IVP (10:52)
[2022-05-18] MEDS: diphenhydrAMINE 50 mg/mL SDV 1mL 25 MG IVP (10:53)
[2022-05-18] MEDS: famotidine 20 mg/2 mL INJ IVP (10:53)
[2022-05-18] MEDS: denosumab 120 mg SDV SUBCUT (12:33)
[2022-05-18 13:38] VITALS: BP 133/88; PULSE 55; TEMP 36.1; O2SAT 100
== END 2022-06-06 23:59 | disposition home or self-care (01) ==
PROVIDERS: PCP Nurse Practitioner Family; Visit Provider Internal Medicine Medical Oncology
DX: C61 Malignant neoplasm of prostate (principal); C79.51 Secondary malignant neoplasm of bone; C77.8 Secondary and unspecified malignant neoplasm of lymph nodes of multiple regions; Z51.11 Encounter for antineoplastic chemotherapy; Z79.52 Long term (current) use of systemic steroids; Z79.899 Other long term (current) drug therapy; R31.0 Gross hematuria; K92.1 Melena
CPT/HCPCS: 80053; 84153; 85025; 96372; 99214; J0897; J1100; J1200; J2469; J2704; J3490; J7050; J9043

== ENCOUNTER → 2022-05-31 14:19 | Outpatient (BNVA) | payer MEDICARE, SELFPAY | PROVIDERS: PCP Nurse Practitioner Family; Visit Provider Surgery | DX: K92.1 Melena (principal); R10.32 Left lower quadrant pain | CPT/HCPCS: 99203 ==

== ENCOUNTER 2022-06-02 08:57 | Day surgery (SDC) | payer MEDICARE, SELFPAY ==
[2022-06-01 08:50] VITALS: BMI 30.7
[2022-06-02] MEDS: sodium chloride 0.9% 1,000 ML 30 ML IV (09:21)
[2022-06-02 09:22] VITALS: BP 136/85; PULSE 70; RESP 18; TEMP 36.1; O2SAT 98
--- NOTE | 2022-06-02 10:10 | P.ANESASSM_ITS ---
Pre-Anesthetic Assessment Height/Weight: Height 1.8 m Weight 99.79 kg Temp Pulse Resp BP Pulse Ox O2 Del Method 97.0 F L 70 18 136/85 98 06/02/22 09:22 06/02/22 09:22 06/02/22 09:22 06/02/22 09:22 06/02/22 09:22 06/02/22 09:22 Preop Diagnosis: blood in stool Operation Date: 06/02/22 10:15 Proposed Procedures p 92768 colonoscopy K92.1(Not Applicable) - Sameer Benítez DO Familial anesthetic complications: None Was Beta Osorio taken within 24 hours: N/A Was Clonidine taken within 24 hours: N/A Last intake: Intake Last Liquid Date 06/01/22 Last Liquid Time 22:00 Last Solid Date 05/31/22 Last Solid Time 14:00 Social No alcohol and No tobacco Exam alert, oriented x 3, clear to auscultation bilaterally and regular rate & rhythm Airway Submandibular: within normal limits Cervical ROM: within normal limits Mallampati: Class II Dentition: full History/ROS No significant history except as noted Pulmonary None reported CV/HEM None reported None reported Hepatic None reported GI blood in stool Metabolic None reported Musc/skel Lower Back Pain Neuropsych None reported Anesthetic Plan ASA status: 2 Anesthesia: Anesthesia Evaluation and MAC Risk of > 500 ml blood loss (7ml/kg in children): No Medications/Allergies Home Medications Medication Instructions Recorded Confirmed Last Taken Type citalopram 20 mg tablet 20 mg PO DAILY #90 tabs 10/04/21 06/02/22 05/30/22 Rx prochlorperazine maleate 10 mg 10 mg PO Q6H PRN nausea #30 tabs 01/02/22 06/02/22 Unknown Rx tablet (Compazine) pantoprazole 40 mg tablet,delayed 40 mg PO DAILY PRN Heartburn 02/15/22 06/02/22 Unknown History release (Protonix) ciprofloxacin HCl 500 mg tablet 500 mg PO BID PRN uti 04/27/22 06/02/22 5 Weeks Ago History (Cipro) ~04/27/22 prednisone 10 mg tablet 10 mg PO DAILY #21 tabs 05/18/22 06/02/22 1 Month Ago Rx ~05/01/22 alprazolam 0.5 mg tablet (Xanax) 0.5 mg PO TID PRN Anxiety #90 tabs 05/24/22 06/02/22 06/01/22 Rx oxycodone 15 mg tablet 15 mg PO QID 30 days #120 tabs 05/24/22 06/02/22 06/01/22 Rx naproxen sodium 220 mg capsule 440 mg PO BID PRN Pain 06/01/22 06/02/22 1 Week Ago History (Aleve) ~05/25/22 Allergies Allergy/AdvReac Type Severity Reaction Status Date / Time No Known Allergies Allergy Verified 06/02/22 09:20 Current Medications Generic Name Dose Route Start Last Admin Trade Name Freq PRN Reason Stop Dose Admin Sodium Chloride 1,000 mls @ 30 mls/hr 06/02/22 09:00 06/02/22 09:21 Sodium Chloride 0.9% IV 06/03/22 08:59 30 mls/hr .Q24H MARQUITA Administration PFSH Anesthesia Medical History Anxiety and depression Prostate cancer Ureteral stricture, right Surgical History H/O surgical biopsy (04/2015) left cervical lymph node biopsy Port-A-Cath in place S/P ureteral stent placement (09/17/20) cystoscopy with placement of right ureteral stent for ureteral stricture, removed 10/14/2020 Family History Father , at age 78 Blood disorder Mother , at age 89 Leukemia Other Cancer Diabetes Denies family history of CAD (coronary artery disease) Clotting disorder Dementia Hyperlipidemia Psychiatric illness Chronic kidney disease (CKD) Suicide Anesthesia complication Bleeding disorder Lung disease Hypertension Stroke Social History Smoking and tobacco status: never smoked Alcohol intake: current Alcohol intake frequency: holidays/special occasions only Marital status: Current occupational status: employed 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
--- NOTE | 2022-06-02 10:42 | W.PM.OPSUD ---
Surgery/Procedure H&P Update DATE OF PROCEDURE: June 02, 2022 DATE H&P PERFORMED: 05/31/22 H&P UPDATE INFORMATION: I have reviewed H&P completed within last 30 days, I have examined patient prior to procedure and No changes to prior documentation PREOP DIAGNOSIS: blood in stool PLANNED PROCEDURE: Operation Date: 06/02/22 10:15 Proposed Procedures p [id number] colonoscopy K92.1(Not Applicable) - Sameer Benítez DO
[2022-06-02 11:10] VITALS: BP 105/74; PULSE 72; RESP 12; TEMP 36.1; O2SAT 96
[2022-06-02 11:20] VITALS: BP 115/80; PULSE 62; RESP 14; O2SAT 94
--- NOTE | 2022-06-02 11:20 | ANE.PACU2 ---
Inpatient post-anesthesia follow up: Airway intact: Yes Vital signs: Temperature 97.0 F Pulse Rate 72 Respiratory Rate 12 Blood Pressure 105/74 Pulse Oximetry 96 Oxygen Delivery Me thod RA Oxygen Flow Rate Fraction of Inspir ed Oxygen Hydration adequate: Yes Nausea and vomiting: No Pain level: 0 Mental status: Baseline
[2022-06-02 11:33] VITALS: BP 109/75; PULSE 69; RESP 14; O2SAT 95
[2022-06-02 11:49] LABS: Eosinophils % 0.5 %; Hematocrit 35.7 % (42.0-52.0); Hemoglobin 11.2 g/dL (11.7-16.6); Lymphocytes # 0.7 10^3/uL (0.8-4.8); Lymphocytes % 35.5 %; Mean Corpuscular HGB Conc 31.4 g/dL (30.0-36.0); Mean Corpuscular Hemoglobin 27.9 pg (28.0-34.0); Mean Corpuscular Volume 88.8 fl (80-94); Mean Platelet Volume 9.6 fL (7.4-10.4); Monocytes # 0.3 10^3/uL (0.2-0.9); Monocytes % 16.2 %; Neutrophils % 46.3 %; Nucleated Red Blood Cells % 0 %; Platelet Count 214 10^3/cmm (130-400); Red Blood Count 4.02 10^6/uL (4.1-5.3); Red Cell Distribution Width 15.9 % (12.1-15.1)
[2022-06-02 11:55] LABS: Neutrophils # 0.91 10^3/uL (1.8-7.7)
[2022-06-02 12:14] LABS: Carcinoembryonic Antigen 3.6 ng/mL (0.0-4.7)
== END 2022-06-02 11:35 | disposition home or self-care (01) ==
PROVIDERS: PCP Nurse Practitioner Family; Visit Provider Surgery
PROC: 0DJD8ZZ Inspection of Lower Intestinal Tract, Via Natural or Artificial Opening Endoscopic (ICD-10-PCS; CPT 45378; principal; 2022-06-02 10:15)
DX: K92.1 Melena (principal); D12.5 Benign neoplasm of sigmoid colon; Z85.46 Personal history of malignant neoplasm of prostate
CPT/HCPCS: 45380; 45381; 45382; 45385; 82378; 85025; 88305; J7030

== ENCOUNTER 2022-06-08 08:17 | Oncology outpatient (recurring) (ONCR) | payer MEDICARE, SELFPAY ==
[2022-06-08 08:24] VITALS: BMI 29.9
[2022-06-08 08:45] LABS: Basophils # 0.1 10^3/uL (0.0-0.1); Basophils % 1.5 %; Eosinophils % 0.5 %; Hematocrit 38.4 % (42.0-52.0); Lymphocytes # 1.2 10^3/uL (0.8-4.8); Lymphocytes % 30.2 %; Mean Corpuscular HGB Conc 31.3 g/dL (30.0-36.0); Mean Corpuscular Volume 86.5 fl (80-94); Mean Platelet Volume 9.5 fL (7.4-10.4); Monocytes # 0.5 10^3/uL (0.2-0.9); Monocytes % 11.7 %; Neutrophils # 2.26 10^3/uL (1.8-7.7); Neutrophils % 55.1 %; Nucleated Red Blood Cells % 0 %; Platelet Count 247 10^3/cmm (130-400); Red Blood Count 4.44 10^6/uL (4.1-5.3); Red Cell Distribution Width 15.9 % (12.1-15.1); White Blood Count 4.1 10^3/uL (4.0-10.0)
[2022-06-08 09:12] LABS: Alanine Aminotransferase 12 U/L (0-41); Albumin Level 3.9 g/dL (3.5-5.2); Alkaline Phosphatase 59 U/L (40-130); Anion Gap 12.2 (5-19); Blood Urea Nitrogen 14 mg/dL (6-20); Calcium 8.6 mg/dL (8.5-10.5); Carbon Dioxide 25 mmol/L (22-29); Chloride 107 mmol/L (98-107); Globulin 2.2 g/dL (1.3-4.6); Glomerular Filtration Rate 79.1 mL/min (90-130); Glucose 104 mg/dL (65-115); Osmolality Calculated 291 mOsm/kg (285-295); Potassium 4.2 mmol/L (3.5-5.1); Sodium 140 mmol/L (136-145); Total Bilirubin 0.3 mg/dL (0.15-1.2); Total Protein 6.1 g/dL (6.6-8.7)
[2022-06-08 09:32] LABS: Aspartate Amino Transferase 5 U/L (0-40)
[2022-06-08] MEDS: diphenhydrAMINE 50 mg/mL SDV 1mL 25 MG IVP (10:44)
[2022-06-08] MEDS: sodium chloride 0.9% 250 ML 100 ML IV (10:44)
[2022-06-08] MEDS: palonosetron 0.25 mg/5 mL SDV IVP (10:44)
[2022-06-08] MEDS: famotidine 20 mg/2 mL INJ IVP (10:45)
== END 2022-07-07 23:59 | disposition home or self-care (01) ==
PROVIDERS: Nurse Practitioner Family; PCP Nurse Practitioner Family; Visit Provider Internal Medicine Medical Oncology
DX: Z51.11 Encounter for antineoplastic chemotherapy (principal); C61 Malignant neoplasm of prostate; C79.51 Secondary malignant neoplasm of bone; C77.8 Secondary and unspecified malignant neoplasm of lymph nodes of multiple regions; Z79.52 Long term (current) use of systemic steroids; Z79.899 Other long term (current) drug therapy; Z79.818 Long term (current) use of other agents affecting estrogen receptors and estrogen levels
CPT/HCPCS: 80053; 84153; 84403; 85025; 96360; 96375; 96413; 99214; J1100; J1200; J2469; J3490; J7050; J9043

== ENCOUNTER → 2022-06-14 17:15 | Outpatient (BNVA) | payer MEDICARE, SELFPAY | PROVIDERS: PCP Nurse Practitioner Family; Visit Provider Surgery | DX: Z09 Encounter for follow-up examination after completed treatment for conditions other than malignant neoplasm (principal) | CPT/HCPCS: 99024; 99212 ==

== ENCOUNTER 2022-06-29 07:12 | Outpatient (CLI) | payer MEDICARE, SELFPAY ==
--- NOTE | 2022-06-29 07:33 | NM_ITS ---
WS: [id number] NUCLEAR MEDICINE BONE SCAN Radiopharmaceutical: 24.3 Tc-99m MDP mCi IV Injection site: antecubital Postinjection imaging delay: 1 hr CLINICAL INFORMATION: Restaging COMPARISON: 04/27/2020 and 06/23/2019. CT 06/29/2022 and 12/30/2021 FINDINGS: Bone lesions: Previously described metastatic disease involving the RIGHT L2 vertebral body appears s table. Previously described activity at L4 and S1 has resolved. New area of low grade uptake involving the RIGHT L1 vertebral body suspicious for active metastatic d isease. However, small sclerotic focus in the RIGHT L1 vertebral body appears stable on the CT. Soft tissue contours: Normal. Kidneys: RIGHT hydronephrosis as seen on CT. Other findings: None. NM/NM bone scan whole body* [id number] IMPRESSION: 1. New area of low grade uptake involving the RIGHT L1 vertebral body suspicio us for progressed or active metastatic disease. However corresponding small scl erotic focus in this area on the CT appears stable since December 30, 2021 2. Previously described metastatic disease involving the RIGHT L2 vertebral ashanti dy appears stable. 3. Previously described activity at L4 and S1 has resolved on the bone scan. 4. Radiotracer retention in the RIGHT kidney corresponding to hydronephrosis s een on the concurrent CT
--- NOTE | 2022-06-29 07:54 | CT_ITS ---
WS: [id number] EXAMINATION: CT chest abdpel w/*[id number] ORDER DATE: 06/29/2022 8:14 AM COMPARISON: 12/30/2021 HISTORY: RESTAGING CONTRAST: 95 mL of Omnipaque 350 IV TOTAL EXAM DLP: 1149.[address] scans at [facility] use at least one of these dose optimization techniques: automated e xposure control; mA and/or kV adjustment per patient size (includes targeted exams where dose is matc hed to clinical indication); or iterative reconstruction. TECHNIQUE: 2-D CT imaging of the chest, abdomen and pelvis is performed with the use of Omnipaque 350 95 ml. The detection of abnormalities in the mediastinum, digna or solid viscera is limited especially vascul ar, eric, and soft tissue abnormalities is diminished without the use of contrast. FINDINGS: Chest CT: No pulmonary mass or nodule. No pericardial or pleural effusions. Heart size is mildly enlarged. No mediastinal or hilar adenopathy. LEFT subclavian Port-A-Cath. Gynecomastia. Abdomen CT: Liver, spleen and gallbladder are negative. Negative pancreas and adrenal glands. No adrenal mass or obstruction. No calcifications. There is new onset moderate right hydronephrosis and hydroureter which extends to near the upper acetabular level on axial image 74 where there is a hyper density within the ureter which is either enhancement or more likely small calculus. No evidence of u reteral dilatation below this level.. There is slight Normally distended stomach. No small bowel obstruction. Scattered oral contrast. The appendix is not identified. Numerous diverticula throughout the mid to distal colon. No evidence for acute diverticulitis. Retroperitoneal adenopathy is demonstrating a generally increased size of lymph nodes best appreciate d on the sagittal images for example example 1 aortocaval lymph node on axial image 29 is increased b y about 50% with long axis measurement of 19 mm in several of these lymph nodes are hypervascular and inseparable from the psoas muscle. Proximal RIGHT iliac lymph node measures 3.6 x 2.4 cm previously 2.4 x 1.0 cm External iliac lymph nodes are unchanged in size. Numerous small shoddy lymph nodes unch anged along the iliac chains. No inguinal adenopathy. Pelvic CT: No free fluid. Nondistended urinary bladder. This makes it difficult to determine the degr ee or presence of mural thickening. Mild enlargement of the prostate gland. Sclerotic metastatic bone disease is reidentified within L1, L2, L3 and S1. Degenerative disc disease and narrowing at L5-S1 with posterior disc bulge. Similar distribution as compared to the prior examination. CT/CT chest abdpel w/*[id number] IMPRESSION: 1. Interval development of right-sided moderate hydronephrosis/hydroureter whic h is probably secondary to ureteral obstruction as noted above.. 2. Moderate generalized increase in retroperitoneal adenopathy 3. Unchanged iliac chain lymph nodes 4. No pulmonary mass or nodule. No adenopathy in the chest. 5. Osseous metastatic disease stable.
[2022-06-29] MEDS: iohexol 350 mg/mL 500 mL Btl (per mL) IV (08:13)
[2022-06-29] MEDS: iohexol 350 mg/mL 500 mL Btl (per mL) PO (08:14)
== END 2022-06-29 07:13 | disposition home or self-care (01) ==
PROVIDERS: PCP Nurse Practitioner Family; Visit Provider Internal Medicine Medical Oncology
DX: C61 Malignant neoplasm of prostate (principal); N13.30 Unspecified hydronephrosis
CPT/HCPCS: 71260; 74177; 78306; A9561; Q9967

== ENCOUNTER 2022-07-11 10:57 | Oncology outpatient (recurring) (ONCR) | payer MEDICARE, SELFPAY ==
[2022-07-11] MEDS: denosumab 120 mg SDV SUBCUT (12:00)
[2022-07-11] MEDS: leuprolide 22.5 mg Kit IM (12:00)
[2022-07-11 12:05] VITALS: BP 137/76; PULSE 85; RESP 17; TEMP 36.7; O2SAT 97
== END 2022-08-06 23:59 | disposition home or self-care (01) ==
PROVIDERS: PCP Nurse Practitioner Family; Visit Provider Internal Medicine Medical Oncology
DX: C61 Malignant neoplasm of prostate; C79.51 Secondary malignant neoplasm of bone; C77.8 Secondary and unspecified malignant neoplasm of lymph nodes of multiple regions; Z79.52 Long term (current) use of systemic steroids; Z79.818 Long term (current) use of other agents affecting estrogen receptors and estrogen levels; Z79.899 Other long term (current) drug therapy
CPT/HCPCS: 96372; 96402; J0897; J9217

== ENCOUNTER 2022-09-05 13:30 | Oncology outpatient (recurring) (ONCR) | payer MEDICARE, SELFPAY ==
[2022-08-08 12:04] VITALS: BP 146/91; PULSE 60; RESP 18; TEMP 36.4; O2SAT 99
[2022-08-08 12:12] LABS: Basophils # 0.1 10^3/uL (0.0-0.1); Basophils % 1.4 %; Eosinophils # 0.2 10^3/uL (0.0-0.8); Eosinophils % 3.1 %; Hematocrit 42.5 % (42.0-52.0); Hemoglobin 13.3 g/dL (11.7-16.6); Lymphocytes # 1.5 10^3/uL (0.8-4.8); Lymphocytes % 30.2 %; Mean Corpuscular HGB Conc 31.3 g/dL (30.0-36.0); Mean Corpuscular Hemoglobin 26.9 pg (28.0-34.0); Mean Corpuscular Volume 85.9 fl (80-94); Monocytes # 0.4 10^3/uL (0.2-0.9); Monocytes % 8.9 %; Neutrophils # 2.71 10^3/uL (1.8-7.7); Neutrophils % 56.2 %; Nucleated Red Blood Cells % 0 %; Platelet Count 212 10^3/cmm (130-400); Red Blood Count 4.95 10^6/uL (4.1-5.3); Red Cell Distribution Width 14.6 % (12.1-15.1); White Blood Count 4.8 10^3/uL (4.0-10.0)
[2022-08-08 12:47] LABS: Alanine Aminotransferase 14 U/L (0-41); Albumin Level 4.1 g/dL (3.5-5.2); Alkaline Phosphatase 57 U/L (40-130); Aspartate Amino Transferase 16 U/L (0-40); Blood Urea Nitrogen 16 mg/dL (6-20); Calcium 8.9 mg/dL (8.5-10.5); Carbon Dioxide 25 mmol/L (22-29); Chloride 105 mmol/L (98-107); Globulin 2.1 g/dL (1.3-4.6); Glomerular Filtration Rate 101.9 mL/min (90-130); Glucose 87 mg/dL (65-115); Osmolality Calculated 291 mOsm/kg (285-295); Sodium 140 mmol/L (136-145); Testosterone Total 21.8 ng/dL (193-740); Total Bilirubin 0.2 mg/dL (0.15-1.2); Total Protein 6.2 g/dL (6.6-8.7)
[2022-08-08 12:48] LABS: Anion Gap 14.5 (5-19); Potassium 4.5 mmol/L (3.5-5.1)
[2022-08-08] MEDS: denosumab 120 mg SDV SUBCUT (14:07)
[2022-09-05 13:44] VITALS: BP 126/86; PULSE 61; RESP 17; TEMP 36.7; O2SAT 97
[2022-09-05] MEDS: denosumab 120 mg SDV SUBCUT (13:47)
== END 2022-09-06 23:59 | disposition home or self-care (01) ==
PROVIDERS: PCP Nurse Practitioner Family; Visit Provider Internal Medicine Medical Oncology
DX: C61 Malignant neoplasm of prostate (principal)
CPT/HCPCS: 36591; 80053; 84153; 84403; 85025; 96372; 99214; J0897

== ENCOUNTER 2022-10-03 09:30 | Oncology outpatient (recurring) (ONCR) | payer MEDICARE, SELFPAY ==
[2022-09-18 09:01] VITALS: BP 125/89; PULSE 61; RESP 16; TEMP 35.7; O2SAT 97
[2022-09-18 09:16] LABS: Basophils # 0.1 10^3/uL (0.0-0.1); Basophils % 1.4 %; Eosinophils # 0.1 10^3/uL (0.0-0.8); Eosinophils % 2.1 %; Hematocrit 41.8 % (42.0-52.0); Hemoglobin 13.7 g/dL (11.7-16.6); Lymphocytes # 1.3 10^3/uL (0.8-4.8); Lymphocytes % 30.4 %; Mean Corpuscular HGB Conc 32.8 g/dL (30.0-36.0); Mean Corpuscular Hemoglobin 27.8 pg (28.0-34.0); Mean Platelet Volume 10.3 fL (7.4-10.4); Monocytes # 0.4 10^3/uL (0.2-0.9); Monocytes % 9.7 %; Neutrophils # 2.35 10^3/uL (1.8-7.7); Neutrophils % 55.9 %; Nucleated Red Blood Cells % 0 %; Platelet Count 192 10^3/cmm (130-400); Red Blood Count 4.92 10^6/uL (4.1-5.3); Red Cell Distribution Width 15.3 % (12.1-15.1); White Blood Count 4.2 10^3/uL (4.0-10.0)
[2022-09-18 09:56] LABS: Alanine Aminotransferase 22 U/L (0-41); Albumin Level 4.2 g/dL (3.5-5.2); Alkaline Phosphatase 55 U/L (40-130); Anion Gap 11.2 (5-19); Aspartate Amino Transferase 20 U/L (0-40); Blood Urea Nitrogen 15 mg/dL (6-20); Calcium 8.3 mg/dL (8.5-10.5); Carbon Dioxide 26 mmol/L (22-29); Chloride 106 mmol/L (98-107); Globulin 2.2 g/dL (1.3-4.6); Glucose 101 mg/dL (65-115); Osmolality Calculated 289 mOsm/kg (285-295); Potassium 4.2 mmol/L (3.5-5.1); Sodium 139 mmol/L (136-145); Total Bilirubin 0.2 mg/dL (0.15-1.2); Total Protein 6.4 g/dL (6.6-8.7)
[2022-09-18 13:44] LABS: Thyroid Stimulating Hormone 0.64 uIU/mL (0.27-4.20)
[2022-10-03 09:39] VITALS: BP 120/80; PULSE 67; RESP 18; TEMP 36.3; O2SAT 92
[2022-10-03] MEDS: denosumab 120 mg SDV SUBCUT (10:08)
[2022-10-03] MEDS: leuprolide 22.5 mg Kit IM (10:13)
[2022-10-03 10:20] VITALS: BP 122/85; PULSE 66; RESP 16; TEMP 36; O2SAT 98
== END 2022-10-06 23:59 | disposition home or self-care (01) ==
PROVIDERS: Nurse Practitioner Family; PCP Nurse Practitioner Family; Visit Provider Internal Medicine Medical Oncology
DX: C61 Malignant neoplasm of prostate (principal); C79.51 Secondary malignant neoplasm of bone; C77.8 Secondary and unspecified malignant neoplasm of lymph nodes of multiple regions; R53.0 Neoplastic (malignant) related fatigue; Z79.52 Long term (current) use of systemic steroids; Z79.818 Long term (current) use of other agents affecting estrogen receptors and estrogen levels; Z79.899 Other long term (current) drug therapy
CPT/HCPCS: 36591; 80053; 84153; 84443; 85025; 96401; 96402; 96523; 99215; J0897; J1642; J9217

== ENCOUNTER 2022-10-31 10:52 | Oncology outpatient (recurring) (ONCR) | payer MEDICARE, SELFPAY ==
[2022-10-31 11:25] VITALS: BP 128/84; PULSE 66; RESP 18; TEMP 36.2; O2SAT 97; BMI 29.4
[2022-10-31 11:38] LABS: Basophils # 0.1 10^3/uL (0.0-0.1); Basophils % 1.4 %; Eosinophils # 0.1 10^3/uL (0.0-0.8); Eosinophils % 1.9 %; Hemoglobin 13.4 g/dL (11.7-16.6); Lymphocytes # 1.1 10^3/uL (0.8-4.8); Lymphocytes % 30.4 %; Mean Corpuscular HGB Conc 33.5 g/dL (30.0-36.0); Mean Corpuscular Hemoglobin 28.8 pg (28.0-34.0); Mean Corpuscular Volume 85.8 fl (80-94); Mean Platelet Volume 10.5 fL (7.4-10.4); Monocytes # 0.3 10^3/uL (0.2-0.9); Monocytes % 8.6 %; Neutrophils # 2.08 10^3/uL (1.8-7.7); Neutrophils % 57.4 %; Nucleated Red Blood Cells % 0 %; Platelet Count 178 10^3/cmm (130-400); Red Blood Count 4.66 10^6/uL (4.1-5.3); Red Cell Distribution Width 14.7 % (12.1-15.1); White Blood Count 3.6 10^3/uL (4.0-10.0)
[2022-10-31 11:59] VITALS: BP 115/78; PULSE 67; RESP 18; TEMP 36.2; O2SAT 98
[2022-10-31] MEDS: denosumab 120 mg SDV SUBCUT (12:00)
[2022-10-31 12:22] LABS: Alanine Aminotransferase 19 U/L (0-41); Albumin Level 3.9 g/dL (3.5-5.2); Alkaline Phosphatase 45 U/L (40-130); Aspartate Amino Transferase 16 U/L (0-40); Blood Urea Nitrogen 11 mg/dL (6-20); Calcium 8.7 mg/dL (8.5-10.5); Carbon Dioxide 27 mmol/L (22-29); Chloride 105 mmol/L (98-107); Globulin 2.2 g/dL (1.3-4.6); Glomerular Filtration Rate 78.8 mL/min (90-130); Glucose 94 mg/dL (65-115); Osmolality Calculated 289 mOsm/kg (285-295); Sodium 140 mmol/L (136-145); Testosterone Total 24.1 ng/dL (193-740); Total Bilirubin 0.3 mg/dL (0.15-1.2); Total Protein 6.1 g/dL (6.6-8.7)
[2022-10-31 12:35] LABS: Anion Gap 12.4 (5-19); Potassium 4.4 mmol/L (3.5-5.1)
== END 2022-11-06 23:59 | disposition home or self-care (01) ==
PROVIDERS: PCP Nurse Practitioner Family; Visit Provider Internal Medicine Medical Oncology
DX: C61 Malignant neoplasm of prostate (principal); R31.9 Hematuria, unspecified
CPT/HCPCS: 36591; 80053; 84153; 84403; 85025; 96401; J0897; J1642

== ENCOUNTER 2022-11-28 11:01 | Oncology outpatient (recurring) (ONCR) | payer MEDICARE, SELFPAY ==
[2022-11-28] MEDS: denosumab 120 mg SDV SUBCUT (11:25)
[2022-11-28 11:28] VITALS: BP 130/80; PULSE 66; TEMP 36.7; O2SAT 97
== END 2022-12-07 23:59 | disposition home or self-care (01) ==
LOC: ONCMED 11:01
PROVIDERS: PCP Nurse Practitioner Family; Visit Provider Internal Medicine Medical Oncology
DX: C61 Malignant neoplasm of prostate (principal); C79.51 Secondary malignant neoplasm of bone
CPT/HCPCS: 96372; J0897

== ENCOUNTER 2022-12-26 09:22 | Oncology outpatient (recurring) (ONCR) | payer MEDICARE, SELFPAY ==
[2022-12-26 09:39] VITALS: BP 118/81; PULSE 65; RESP 16; TEMP 36.2; O2SAT 97
[2022-12-26 10:00] LABS: Basophils # 0.1 10^3/uL (0.0-0.1); Basophils % 1.3 %; Eosinophils # 0.1 10^3/uL (0.0-0.8); Hematocrit 40.6 % (37-53); Lymphocytes # 1.1 10^3/uL (0.8-4.8); Lymphocytes % 26.8 %; Mean Corpuscular Volume 90.8 fl (82-101); Mean Platelet Volume 10.8 fL (7.4-10.4); Monocytes # 0.4 10^3/uL (0.2-0.9); Neutrophils # 2.38 10^3/uL (1.8-7.7); Neutrophils % 59.6 %; Nucleated Red Blood Cells % 0 %; Platelet Count 195 10^3/cmm (157-399); Red Blood Count 4.47 10^6/uL (3.85-5.65); Red Cell Distribution Width 13.5 % (12.1-15.1); White Blood Count 3.99 10^3/uL (3.29-11.43)
[2022-12-26 10:51] LABS: Alanine Aminotransferase 18 U/L (0-41); Albumin Level 4.3 g/dL (3.5-5.2); Alkaline Phosphatase 62 U/L (40-130); Blood Urea Nitrogen 17 mg/dL (6-20); Calcium 8.5 mg/dL (8.5-10.5); Carbon Dioxide 24 mmol/L (22-29); Chloride 109 mmol/L (98-107); Glomerular Filtration Rate 78.8 mL/min (90-130); Glucose 99 mg/dL (65-115); Osmolality Calculated 298 mOsm/kg (285-295); Sodium 143 mmol/L (136-145); Thyroid Stimulating Hormone 1.38 uIU/mL (0.27-4.20); Total Bilirubin 0.2 mg/dL (0.15-1.2); Total Protein 6.3 g/dL (6.6-8.7)
[2022-12-26 10:54] LABS: Anion Gap 14.2 (5-19); Aspartate Amino Transferase 19 U/L (0-40); Potassium 4.2 mmol/L (3.5-5.1)
[2022-12-26] MEDS: denosumab 120 mg SDV SUBCUT (11:36)
[2022-12-26] MEDS: leuprolide 22.5 mg Kit IM (11:36)
[2022-12-26 11:40] VITALS: BP 133/58; PULSE 72; RESP 17; TEMP 36.8; O2SAT 98
== END 2023-01-06 23:59 | disposition home or self-care (01) ==
PROVIDERS: Nurse Practitioner Family; PCP Nurse Practitioner Family; Visit Provider Internal Medicine Medical Oncology
DX: C61 Malignant neoplasm of prostate (principal); C79.51 Secondary malignant neoplasm of bone; C77.8 Secondary and unspecified malignant neoplasm of lymph nodes of multiple regions; R53.0 Neoplastic (malignant) related fatigue; Z79.52 Long term (current) use of systemic steroids; Z79.818 Long term (current) use of other agents affecting estrogen receptors and estrogen levels; Z79.899 Other long term (current) drug therapy; Z51.11 Encounter for antineoplastic chemotherapy
CPT/HCPCS: 36591; 80053; 84153; 84443; 85025; 96372; 96402; 99214; J0897; J1642; J9217

== ENCOUNTER 2023-01-23 11:49 | Oncology outpatient (recurring) (ONCR) | payer MEDICARE, SELFPAY ==
[2023-01-23 12:03] VITALS: BP 134/88; PULSE 64; RESP 16; TEMP 36.1; O2SAT 96
[2023-01-23] MEDS: denosumab 120 mg SDV SUBCUT (12:26)
[2023-01-23 12:52] LABS: Alanine Aminotransferase 17 U/L (0-41); Albumin Level 4.2 g/dL (3.5-5.2); Alkaline Phosphatase 47 U/L (40-130); Anion Gap 11.3 (5-19); Aspartate Amino Transferase 19 U/L (0-40); Blood Urea Nitrogen 15 mg/dL (6-20); Calcium 8.7 mg/dL (8.5-10.5); Carbon Dioxide 26 mmol/L (22-29); Chloride 106 mmol/L (98-107); Glucose 98 mg/dL (65-115); Osmolality Calculated 289 mOsm/kg (285-295); Potassium 4.3 mmol/L (3.5-5.1); Sodium 139 mmol/L (136-145); Total Bilirubin 0.2 mg/dL (0.15-1.2); Total Protein 6.2 g/dL (6.6-8.7)
== END 2023-02-06 23:59 | disposition home or self-care (01) ==
LOC: ONCMED 11:50
PROVIDERS: Nurse Practitioner Family; PCP Nurse Practitioner Family; Visit Provider Internal Medicine Medical Oncology
DX: C61 Malignant neoplasm of prostate (principal); Z51.11 Encounter for antineoplastic chemotherapy
CPT/HCPCS: 36591; 80053; 84153; 96372; J0897; J1642

== ENCOUNTER 2023-02-20 13:24 | Oncology outpatient (recurring) (ONCR) | payer MEDICARE, SELFPAY ==
[2023-02-20 13:32] VITALS: BP 133/94; PULSE 56; RESP 16; TEMP 36.5; O2SAT 97
[2023-02-20 14:07] LABS: Eosinophils # 0.1 10^3/uL (0.0-0.8); Eosinophils % 1.2 %; Hematocrit 40.2 % (37-53); Lymphocytes # 1.3 10^3/uL (0.8-4.8); Lymphocytes % 29.9 %; Mean Corpuscular HGB Conc 32.6 g/dL (30-55); Mean Corpuscular Hemoglobin 29.3 pg (27-33); Mean Corpuscular Volume 89.9 fl (82-101); Mean Platelet Volume 10.8 fL (7.4-10.4); Monocytes # 0.4 10^3/uL (0.2-0.9); Monocytes % 9.7 %; Neutrophils # 2.44 10^3/uL (1.8-7.7); Nucleated Red Blood Cells % 0 %; Platelet Count 206 10^3/cmm (157-399); Red Blood Count 4.47 10^6/uL (3.85-5.65); White Blood Count 4.21 10^3/uL (3.29-11.43)
[2023-02-20 14:21] LABS: Alanine Aminotransferase 16 U/L (0-41); Albumin Level 4.3 g/dL (3.5-5.2); Alkaline Phosphatase 53 U/L (40-130); Anion Gap 10.9 (5-19); Aspartate Amino Transferase 16 U/L (0-40); Blood Urea Nitrogen 14 mg/dL (6-20); Calcium 8.9 mg/dL (8.5-10.5); Carbon Dioxide 28 mmol/L (22-29); Chloride 107 mmol/L (98-107); Glomerular Filtration Rate 78.8 mL/min (90-130); Glucose 88 mg/dL (65-115); Osmolality Calculated 294 mOsm/kg (285-295); Potassium 3.9 mmol/L (3.5-5.1); Sodium 142 mmol/L (136-145); Total Bilirubin 0.2 mg/dL (0.15-1.2); Total Protein 6.3 g/dL (6.6-8.7)
[2023-02-20] MEDS: denosumab 120 mg SDV SUBCUT (14:27)
== END 2023-03-08 23:59 | disposition home or self-care (01) ==
LOC: ONCMED 13:24
PROVIDERS: Nurse Practitioner Family; PCP Nurse Practitioner Family; Visit Provider Internal Medicine Medical Oncology
DX: C61 Malignant neoplasm of prostate; C79.51 Secondary malignant neoplasm of bone; R25.2 Cramp and spasm
CPT/HCPCS: 36591; 80053; 83735; 84153; 85025; J0897; J1642

== ENCOUNTER 2023-03-20 09:15 | Oncology outpatient (recurring) (ONCR) | payer MEDICARE, SELFPAY ==
[2023-03-20 09:35] VITALS: BP 124/85; PULSE 61; RESP 16; TEMP 36.1; O2SAT 96
[2023-03-20 09:56] LABS: Basophils % 1.2 %; Eosinophils # 0.1 10^3/uL (0.0-0.8); Hematocrit 40.7 % (37-53); Lymphocytes # 1.1 10^3/uL (0.8-4.8); Lymphocytes % 30.5 %; Mean Corpuscular HGB Conc 33.2 g/dL (30-55); Mean Corpuscular Hemoglobin 29.7 pg (27-33); Mean Corpuscular Volume 89.5 fl (82-101); Mean Platelet Volume 10.2 fL (7.4-10.4); Monocytes # 0.3 10^3/uL (0.2-0.9); Monocytes % 9.5 %; Neutrophils # 1.97 10^3/uL (1.8-7.7); Neutrophils % 56.8 %; Nucleated Red Blood Cells % 0 %; Platelet Count 197 10^3/cmm (157-399); Red Blood Count 4.55 10^6/uL (3.85-5.65); Red Cell Distribution Width 13.1 % (12.1-15.1); White Blood Count 3.47 10^3/uL (3.29-11.43)
[2023-03-20 10:30] LABS: Alanine Aminotransferase 16 U/L (0-41); Albumin Level 4.3 g/dL (3.5-5.2); Alkaline Phosphatase 60 U/L (40-130); Anion Gap 12.6 (5-19); Aspartate Amino Transferase 15 U/L (0-40); Blood Urea Nitrogen 15 mg/dL (6-20); Calcium 8.2 mg/dL (8.5-10.5); Carbon Dioxide 25 mmol/L (22-29); Chloride 107 mmol/L (98-107); Globulin 2.1 g/dL (1.3-4.6); Glomerular Filtration Rate 78.8 mL/min (90-130); Glucose 103 mg/dL (65-115); Osmolality Calculated 291 mOsm/kg (285-295); Potassium 4.6 mmol/L (3.5-5.1); Sodium 140 mmol/L (136-145); Testosterone Total 28.7 ng/dL (193-740); Thyroid Stimulating Hormone 1.71 uIU/mL (0.27-4.20); Total Bilirubin 0.3 mg/dL (0.15-1.2); Total Protein 6.4 g/dL (6.6-8.7)
[2023-03-20] MEDS: leuprolide 22.5 mg Kit IM (11:55)
[2023-03-20 12:50] LABS: 25 Hydroxy Vitamin D 18 ng/mL (30-100)
== END 2023-04-08 23:59 | disposition home or self-care (01) ==
PROVIDERS: PCP Nurse Practitioner Family; Visit Provider Internal Medicine Medical Oncology
DX: C61 Malignant neoplasm of prostate (principal); C79.51 Secondary malignant neoplasm of bone; R25.2 Cramp and spasm; Z51.11 Encounter for antineoplastic chemotherapy; E83.51 Hypocalcemia
CPT/HCPCS: 36591; 80053; 82306; 84153; 84403; 84443; 85025; 96402; 99214; J1642; J9217

== ENCOUNTER 2023-06-29 08:35 | Oncology outpatient (recurring) (ONCR) | payer MEDICARE, SELFPAY ==
[2023-06-20 11:52] LABS: Eosinophils # 0.1 10^3/uL (0.0-0.8); Eosinophils % 1.7 %; Hematocrit 37.7 % (37-53); Lymphocytes # 1.5 10^3/uL (0.8-4.8); Lymphocytes % 36.8 %; Mean Corpuscular HGB Conc 32.6 g/dL (30-55); Mean Corpuscular Volume 88.9 fl (82-101); Mean Platelet Volume 10.2 fL (7.4-10.4); Monocytes # 0.3 10^3/uL (0.2-0.9); Monocytes % 8.1 %; Neutrophils # 2.13 10^3/uL (1.8-7.7); Neutrophils % 52.2 %; Nucleated Red Blood Cells % 0 %; Platelet Count 197 10^3/cmm (157-399); Red Blood Count 4.24 10^6/uL (3.85-5.65); Red Cell Distribution Width 13.9 % (12.1-15.1); White Blood Count 4.08 10^3/uL (3.29-11.43)
[2023-06-20 12:26] LABS: Alanine Aminotransferase 20 U/L (0-41); Albumin Level 4.1 g/dL (3.5-5.2); Alkaline Phosphatase 59 U/L (40-130); Aspartate Amino Transferase 18 U/L (0-40); Blood Urea Nitrogen 11 mg/dL (6-20); Calcium 8.1 mg/dL (8.5-10.5); Carbon Dioxide 23 mmol/L (22-29); Chloride 104 mmol/L (98-107); Globulin 2.3 g/dL (1.3-4.6); Glomerular Filtration Rate 101.9 mL/min (90-130); Glucose 105 mg/dL (65-115); Osmolality Calculated 286 mOsm/kg (285-295); Sodium 138 mmol/L (136-145); Total Bilirubin 0.2 mg/dL (0.15-1.2); Total Protein 6.4 g/dL (6.6-8.7)
[2023-06-20] MEDS: leuprolide 22.5 mg Kit IM (13:24)
--- NOTE | 2023-06-20 14:40 | N.ONRAD NP_ITS ---
Radiation Oncology New Patient Visit Patient: Ad Schwartz MR#: [id number] : 1970> Age: 52> Sex: Male> Dictated by: Jose Arguello Date of Service: 06/20/2023 Referring Physician(s) : Suzanne Mattson Diagnosis: C79.51 - secondary malignant neoplasm of bone, Diagnosed 12/19/2016 (active) and C61 - malignant neoplasm of prostate, Diagnosed 04/13/2016 (active), stage iv, tx, nx, m1c, gx, p>=20. Radiotherapy to date: Course: C1, Treatment Site: RT Pubic Ramus [id number], Ref. ID: [id number], Energy: 15X, Dose/Fx (cGy): 300, #Fx: , Dose Correction (cGy): 0, Total Dose Delivered (cGy): 3,900, Start Date: 01/29/2017, End Date: 02/14/2017 Elapsed Days: 16Summary > No prior radiation therapy. Chief Complaint / History of Present Illness: Patient presented in 2015 with an enlarged left cervical lymph node. PET/CT on 05/17/2015 showed several enlarged nodes in the left neck with relatively low levels of FDG activity, maximum SUV 1.922.4. Extensive conglomerate retroperitoneal adenopathy beginning below the level of the renal arteries and extending through the level of the bifurcation and along the iliac chains was noted with a maximum SUV up to 6.5. Additional adenopathy was noted along the pelvic sidewalls somewhat more extensive on the left. The prostate gland measures 5.3 cm in transverse dimension and demonstrated physiologic levels of activity. There was increased activity in the right superior pubic ramus at the level of the pubic symphysis with a maximum SUV of 5.5. Biopsy of the left cervical lymph node was reportedly consistent with metastatic prostate cancer and patient indicated that his baseline PSA was 1163. Patient has undergone multiple courses of androgen deprivation therapy, chemotherapy, presumably docetaxel/prednisone, later abiraterone and prednisone. He developed significant pain in his right hip area and received palliative radiation therapy to the right pubic ramus with a total of 39 Cervantes at 300 cGy per fraction over 13 fractions completed 02/14/2017. He continues now on Depo Lupron together with bicalutamide 50 mg daily. He had second line chemotherapy with cabazitaxel for 8 cycles from April through September 2020 followed by maintenance Olaparib discontinued in March 2021. Cabazitaxel was resumed in June 2021 for 15 more cycles and discontinued in June 2022. The patient is seen today at the request of Dr. Albright due to symptoms of gynecomastia with tenderness of the nipples bilaterally. Patient reports that he had experienced the gynecomastia and tenderness previously with the androgen deprivation therapy. He remains physically active and continues to walk. He also continues to enjoy hunting whenever possible. 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 Current Medications: Aloxi, aLPRAZolam, amoxicillin-Pot Clavulanate, baclofen, bicalutamide, cyclobenzaprine HCl, dexamethasone Sodium Phosphate, diphenhydrAMINE HCl, flucelvax, hydrocodone-Acetaminophen, jevtana, morphine Sulfate, morphine Sulfate ER, nitroglycerin, oLANZapine, oxyCODONE HCl, oxyCODONE HCl, pepcid, prednisone, prochlorperazine Maleate, protonix, sulfamethoxazole-Trimethoprim, traZODone HCl, xanax, zithromax Z-Willy. Allergies: Band Aid. Medical History: Anxiety, prostate cancer. No history of collagen vascular disease. Surgical History: Left cervical lymph node biopsy in 04/2015. Family History: Father is at age 85 having experienced blood disorder. Mother is at age 86 having experienced leukemia. Sister is at age 43 having experienced lung cancer. Father at age 85 of a blood disorder . His mother 5 months ago at age 86. She was recently diagnosed with leukemia. He doesn't know what type. One sister of lung cancer. Nine other siblings are in good health. Social History: Last screened on 07/27/2021 - Never smoked. Last screened on 07/27/2021 - Drinks occasionally 2 drinks/day. Patient indicated use of the following products: chewing tobacco. Patient indicated access to the following support systems: lives with spouse, significant other, family, or friends, lives in own house, supportive family/friends willing to assist with needs, and adequate transportation available for expected visits. Patient indicated the following nutritional habits: regular meals. Patient indicated participation in the following forms of activity: daily activities. Use to chew tobacco for about 10 to 12 years. Current Complaints / Review of Systems: . Vital Signs: Performed on 06/20/2023 1:39 PM BMI - 30.405 kg/m2 (high), Height - 71 in, Weight - 218 lbs, Temperature - 98.7 f, Pulse - 65 /min, Respiration - 18 /min, O2 Sat - 97 %, Pain - 4, Fatigue - 0 and BP - 144/ 84 mm(hg)(high/). Physical Exam: Alert and oriented male appearing his stated age. PERRL, EOMI. Cranial nerves II through XII grossly intact. Tongue and uvula midline and mobile. Speech intact. Lungs clear to auscultation bilaterally. Cardiovascular exam reveals regular rhythm. Breasts are mildly erythematous and slightly enlarged. Abdomen soft and rounded. Bowel sounds present normoactive. Patient declines pelvic or rectal examination. He is ambulatory without assistance. Motor symmetrical to the upper and lower extremities. Sensory intact. No upper or lower extremity edema. Performance Status: Pathology: Primary, c79.51 - secondary malignant neoplasm of bone, Diagnosed 12/19/2016 (active) and Primary, c61 - malignant neoplasm of prostate, Diagnosed 04/13/2016 (active) stage iv, tx, nx, m1c, gx, p>=20. Lab: Imaging: See HPI Impression: Gynecomastia secondary to androgen deprivation therapy. Plan: The potential risks, benefits and side effects of radiation therapy to the nipple buds was discussed with the patient. He indicates his understanding and willingness to proceed with treatment. Plan is to deliver 12 Cervantes to each breast at 4 Cervantes per fraction over 3 fractions. With the patient's consent treatment planning CT scan will be performed today. Signed by: 06/20/2023 2:38:42 PM <<Signature on File>> Time spent with patient: 45 minutes CPT Code: CPT Code:
[2023-06-24 13:10] LABS: Vit D 1,25 (Oh)2, Total 57 pg/mL (18-72); Vit D2 1,25 (Oh)2 <8 pg/mL; Vit D3 1,25 (Oh)2 57 pg/mL
--- NOTE | 2023-06-27 10:11 | ONCRAD TMN_ITS ---
Radiation Oncology Weekly Treatment Management Patient: Ad Schwartz MR#: [id number] : 1970 Attending Physician: Peter Eldridge Date of Service: 06/27/2023 Referring Physician(s) : Suzanne Mattson Diagnosis: C79.51 - Secondary malignant neoplasm of bone, Diagnosed 12/19/2016 (Active) C61 - Malignant neoplasm of prostate, Diagnosed 04/13/2016 (Active) Stage IV, TX, NX, M1c, GX, P>=20 Radiotherapy to date: Course: E Beam 2023, Treatment Site: LT Breast 9E, Ref. ID: [id number], Energy: 9E, Dose/Fx (cGy): 400, #Fx: 2 / 3, Dose Correction (cGy): 0, Total Dose Delivered (cGy): 800, Start Date: 06/25/2023, Elapsed Days: 2 Course: E Beam 2023, Treatment Site: RT Breast 9E, Ref. ID: [id number], Energy: 9E, Dose/Fx (cGy): 400, #Fx: 2 / 3, Dose Correction (cGy): 0, Total Dose Delivered (cGy): 800, Start Date: 06/25/2023, Elapsed Days: 2 Reason for visit: The patient is being seen today as part of their regularly scheduled weekly on treatment visits to assess for acute toxicities from radiotherapy. Review of Systems: Breasts feel a bit more swollen and tender around nipple regions. On oxycodone for osseous mets with only modest residual back and hip pain. Active at home with bee hives. Vital Signs: Performed on 06/27/2023 8:52 AM BMI - 30.21 kg/m2 (high), Height - 71 in, Weight - 216.6 lbs, Temperature - 97.8 f, Pulse - 77 /min, Respiration - 18 /min, O2 Sat - 97 %, Pain - 4, Fatigue - 2 and BP - 131/ 83 mm(hg). Physical Exam: omitted Imaging: Radiation therapy imaging related to accurate target localization (i.e. KV, MV and CBCT) was reviewed. Appropriate changes, if any, were made to ensure treatment accuracy. Plan: Good tolerance of bilateral breast treatment for hormonal treatment related gynecomastia. He will have FU with dr. Albright. FU here PRN. Signed by: Peter Eldridge 06/27/2023 10:09:34 AM
--- NOTE | 2023-06-29 14:58 | N.ONRD TS_ITS ---
Radiation Oncology Treatment Summary Patient: Ad Schwartz MR#: [id number] : 1970 Age: 52 Sex: Male Dictated by: Peter Eldridge M.D. Date of Service: 06/29/2023 Referring Physician(s) : Dr. Mayank Albright Diagnosis: C79.51 - Secondary malignant neoplasm of bone, Diagnosed 12/19/2016 (Active) C61 - Malignant neoplasm of prostate, Diagnosed 04/13/2016 (Active) Stage IV, TX, NX, M1c, GX, P>=20 Radiotherapy to Date: Course: C1, Treatment Site: RT Pubic Ramus GTV39, Ref. ID: [id number], : 15X, Dose/Fx (cGy): 300, #Fx: 13 / 13, Dose Correction (cGy): 0, Total Dose Delivered (cGy): 3,900, Start Date: 01/29/2017, End Date: 02/14/2017, Elapsed Days: 16 Course: E Beam 2023, Site: LT Breast 9ERef. ID: [id number], Energy: 9E, /Fx (cGy): 400, #Fx: 3 / 3, Dose Correction (cGy): 0, Total Dose Delivered (cGy): 1,200, Start Date: 06/25/2023, End Date: 06/29/2023, Elapsed Days: 4 Course: E Beam 2023, Treatment Site: RT Breast 9E, Ref. ID: [id number], Energy: 9E, Dose/Fx (cGy): 400, Fx: 3 / 3, Dose Correction (cGy): 0, Total Dose Delivered (cGy): 1,200, Start Date: 06/25/2023, End Date: 06/29/2023, Elapsed Days: 4 Clinical Summary: The patient tolerated RT well. He was treated only to prevent further hormonal treatment related gynecomastia. Plan: End of treatment today. He will now return to Dr. Albright for ongoing follow-up and systemic care. Signed by: Peter Eldridge>06/29/2023 2:57:28 PM <<Signature on File>>
== END 2023-06-29 23:59 | disposition home or self-care (01) ==
PROVIDERS: Absent Provider Internal Medicine Medical Oncology; PCP Nurse Practitioner Family; Visit Provider Radiology Radiation Oncology
DX: C61 Malignant neoplasm of prostate (principal); Z51.0 Encounter for antineoplastic radiation therapy; C79.51 Secondary malignant neoplasm of bone; N62 Hypertrophy of breast; T38.805A Adverse effect of unspecified hormones and synthetic substitutes, initial encounter
CPT/HCPCS: 36591; 77285; 77321; 77331; 77334; 77412; 80053; 82652; 84153; 84403; 85025; 96402; 99024; 99205; 99214; J1642; J9217

== ENCOUNTER 2023-09-24 11:18 | Oncology outpatient (recurring) (ONCR) | payer MEDICARE, SELFPAY ==
[2023-09-24 11:56] LABS: Eosinophils # 0.1 10^3/uL (0.0-0.8); Eosinophils % 2.1 %; Hematocrit 39.3 % (37-53); Lymphocytes # 1.4 10^3/uL (0.8-4.8); Lymphocytes % 36.4 %; Mean Corpuscular HGB Conc 33.6 g/dL (30-55); Mean Corpuscular Hemoglobin 29.5 pg (27-33); Mean Corpuscular Volume 87.7 fl (82-101); Mean Platelet Volume 10.9 fL (7.4-10.4); Monocytes # 0.3 10^3/uL (0.2-0.9); Monocytes % 6.8 %; Neutrophils # 2.05 10^3/uL (1.8-7.7); Neutrophils % 53.7 %; Nucleated Red Blood Cells % 0 %; Platelet Count 188 10^3/cmm (157-399); Red Blood Count 4.48 10^6/uL (3.85-5.65); Red Cell Distribution Width 13.5 % (12.1-15.1); White Blood Count 3.82 10^3/uL (3.29-11.43)
[2023-09-24 12:43] LABS: 25 Hydroxy Vitamin D 21 ng/mL (30-100); Alanine Aminotransferase 16 U/L (0-41); Alkaline Phosphatase 60 U/L (40-130); Anion Gap 12.8 (5-19); Aspartate Amino Transferase 14 U/L (0-40); Blood Urea Nitrogen 14 mg/dL (6-20); Calcium 8.6 mg/dL (8.5-10.5); Carbon Dioxide 24 mmol/L (22-29); Chloride 108 mmol/L (98-107); Globulin 2.1 g/dL (1.3-4.6); Glomerular Filtration Rate 101.5 mL/min (90-130); Glucose 145 mg/dL (65-115); Osmolality Calculated 295 mOsm/kg (285-295); Potassium 3.8 mmol/L (3.5-5.1); Sodium 141 mmol/L (136-145); Total Bilirubin 0.2 mg/dL (0.15-1.2); Total Protein 6.1 g/dL (6.6-8.7)
[2023-09-24] MEDS: leuprolide 22.5 mg Kit IM (13:53)
== END 2023-10-07 23:59 | disposition home or self-care (01) ==
PROVIDERS: Absent Provider Internal Medicine Medical Oncology; PCP Nurse Practitioner Family; Visit Provider Radiology Radiation Oncology
DX: C61 Malignant neoplasm of prostate; C79.51 Secondary malignant neoplasm of bone; N62 Hypertrophy of breast; Z79.891 Long term (current) use of opiate analgesic; Z51.12 Encounter for antineoplastic immunotherapy; E55.9 Vitamin D deficiency, unspecified
CPT/HCPCS: 36591; 80053; 82306; 84153; 85025; 96402; 99214; J9217

== ENCOUNTER 2023-10-12 10:18 | Outpatient (CLI) | payer MEDICARE, SELFPAY ==
--- NOTE | 2023-10-12 10:45 | US_ITS ---
WS: [id number] RENAL ULTRASOUND REASON FOR EXAM: bilateral mid back pain, history of hydronephrosis TECHNIQUE: Grayscale and Doppler ultrasound examination of the kidneys. FINDINGS: Moderate hydronephrosis was demonstrated on a CT scan of 06/29/2022. Right kidney: Right kidney measures 9.8 cm x 4.8 cm x 5.4 cm. No hydronephrosis, calculus, or mass. Left kidney: Left kidney measures 11.4 cm x 4.3 cm x 5.7 cm. No hydronephrosis, calculus, or mass. No other abnormality. US/US renal BI* [id number] IMPRESSION: No renal abnormality.
== END 2023-10-12 10:19 | disposition home or self-care (01) ==
LOC: RAD 10:18
PROVIDERS: PCP Internal Medicine Medical Oncology; Visit Provider Nurse Practitioner Family
DX: M54.9 Dorsalgia, unspecified (principal); C61 Malignant neoplasm of prostate; Z87.448 Personal history of other diseases of urinary system
CPT/HCPCS: 76770

== ENCOUNTER 2023-11-12 13:44 | Oncology outpatient (recurring) (ONCR) | payer MEDICARE, SELFPAY ==
[2023-11-12 14:02] LABS: Basophils % 0.8 %; Eosinophils % 0.8 %; Hematocrit 41.4 % (37-53); Lymphocytes # 1.7 10^3/uL (0.8-4.8); Lymphocytes % 34.9 %; Mean Corpuscular HGB Conc 33.3 g/dL (30-55); Mean Corpuscular Hemoglobin 29.4 pg (27-33); Mean Corpuscular Volume 88.1 fl (82-101); Mean Platelet Volume 10.5 fL (7.4-10.4); Monocytes # 0.3 10^3/uL (0.2-0.9); Monocytes % 7.1 %; Neutrophils # 2.67 10^3/uL (1.8-7.7); Neutrophils % 56.2 %; Nucleated Red Blood Cells % 0 %; Platelet Count 207 10^3/cmm (157-399); Red Cell Distribution Width 13.2 % (12.1-15.1); White Blood Count 4.76 10^3/uL (3.29-11.43)
[2023-11-12 14:33] LABS: Alanine Aminotransferase 18 U/L (0-41); Albumin Level 4.5 g/dL (3.5-5.2); Alkaline Phosphatase 59 U/L (40-130); Anion Gap 17.4 (5-19); Aspartate Amino Transferase 16 U/L (0-40); Blood Urea Nitrogen 17 mg/dL (6-20); Calcium 9.2 mg/dL (8.5-10.5); Carbon Dioxide 22 mmol/L (22-29); Chloride 107 mmol/L (98-107); Globulin 2.5 g/dL (1.3-4.6); Glomerular Filtration Rate 88.6 mL/min (90-130); Glucose 87 mg/dL (65-115); Osmolality Calculated 295 mOsm/kg (285-295); Potassium 4.4 mmol/L (3.5-5.1); Sodium 142 mmol/L (136-145); Total Bilirubin 0.2 mg/dL (0.15-1.2)
[2023-11-12 15:37] LABS: Testosterone Total 29.5 ng/dL (193-740)
[2023-11-12 16:40] LABS: 25 Hydroxy Vitamin D 28 ng/mL (30-100)
== END 2023-12-13 09:19 | disposition home or self-care (01) ==
LOC: ONCMED 13:44
PROVIDERS: Absent Provider Internal Medicine Medical Oncology; PCP Internal Medicine Medical Oncology; Visit Provider Radiology Radiation Oncology
DX: C61 Malignant neoplasm of prostate; C79.51 Secondary malignant neoplasm of bone; Z79.891 Long term (current) use of opiate analgesic; E55.9 Vitamin D deficiency, unspecified; R31.9 Hematuria, unspecified; Z92.21 Personal history of antineoplastic chemotherapy
CPT/HCPCS: 36591; 80053; 82306; 84153; 84403; 85025; 99214

== ENCOUNTER 2023-12-17 11:01 | Oncology outpatient (recurring) (ONCR) | payer MEDICARE, SELFPAY ==
[2023-12-17 11:25] LABS: Basophils # 0.1 10^3/uL (0.0-0.1); Basophils % 1.1 %; Eosinophils % 0.6 %; Hematocrit 40.8 % (37-53); Lymphocytes # 1.4 10^3/uL (0.8-4.8); Lymphocytes % 29.4 %; Mean Corpuscular HGB Conc 32.6 g/dL (30-55); Mean Corpuscular Volume 88.9 fl (82-101); Mean Platelet Volume 10.6 fL (7.4-10.4); Monocytes # 0.3 10^3/uL (0.2-0.9); Monocytes % 5.7 %; Nucleated Red Blood Cells % 0 %; Platelet Count 207 10^3/cmm (157-399); Red Blood Count 4.59 10^6/uL (3.85-5.65); Red Cell Distribution Width 12.9 % (12.1-15.1); White Blood Count 4.76 10^3/uL (3.29-11.43)
[2023-12-17] MEDS: leuprolide 22.5 mg Kit IM (11:51)
[2023-12-17 12:01] LABS: Alanine Aminotransferase 28 U/L (0-41); Albumin Level 4.3 g/dL (3.5-5.2); Alkaline Phosphatase 65 U/L (40-130); Anion Gap 13.1 (5-19); Aspartate Amino Transferase 19 U/L (0-40); Blood Urea Nitrogen 12 mg/dL (6-20); Calcium 8.7 mg/dL (8.5-10.5); Carbon Dioxide 25 mmol/L (22-29); Chloride 105 mmol/L (98-107); Globulin 2.3 g/dL (1.3-4.6); Glomerular Filtration Rate 88.6 mL/min (90-130); Glucose 94 mg/dL (65-115); Osmolality Calculated 288 mOsm/kg (285-295); Potassium 4.1 mmol/L (3.5-5.1); Sodium 139 mmol/L (136-145); Total Bilirubin 0.3 mg/dL (0.15-1.2); Total Protein 6.6 g/dL (6.6-8.7)
[2023-12-17 12:43] LABS: Testosterone Total 27.2 ng/dL (193-740)
== END 2024-01-07 23:59 | disposition home or self-care (01) ==
PROVIDERS: Nurse Practitioner Family; Absent Provider Internal Medicine Medical Oncology; PCP Internal Medicine Medical Oncology; Visit Provider Radiology Radiation Oncology
DX: C61 Malignant neoplasm of prostate (principal); Z51.11 Encounter for antineoplastic chemotherapy
CPT/HCPCS: 36591; 80053; 84153; 84403; 85025; 96402; J9217

== ENCOUNTER 2024-01-18 08:32 | Oncology outpatient (recurring) (ONCR) | payer MEDICARE, SELFPAY ==
[2024-01-18 09:08] LABS: Basophils % 1.1 %; Eosinophils # 0.1 10^3/uL (0.0-0.8); Eosinophils % 1.3 %; Hematocrit 40.7 % (37-53); Lymphocytes # 1.2 10^3/uL (0.8-4.8); Lymphocytes % 32.1 %; Mean Corpuscular HGB Conc 32.4 g/dL (30-55); Mean Corpuscular Hemoglobin 28.9 pg (27-33); Mean Corpuscular Volume 89.1 fl (82-101); Mean Platelet Volume 10.7 fL (7.4-10.4); Monocytes # 0.3 10^3/uL (0.2-0.9); Monocytes % 6.8 %; Neutrophils # 2.22 10^3/uL (1.8-7.7); Neutrophils % 58.4 %; Nucleated Red Blood Cells % 0 %; Platelet Count 185 10^3/cmm (157-399); Red Blood Count 4.57 10^6/uL (3.85-5.65); Red Cell Distribution Width 13.1 % (12.1-15.1)
[2024-01-18 09:42] LABS: Alanine Aminotransferase 22 U/L (0-41); Albumin Level 4.2 g/dL (3.5-5.2); Alkaline Phosphatase 67 U/L (40-130); Aspartate Amino Transferase 19 U/L (0-40); Blood Urea Nitrogen 14 mg/dL (6-20); Calcium 8.4 mg/dL (8.5-10.5); Carbon Dioxide 26 mmol/L (22-29); Chloride 107 mmol/L (98-107); Creatinine Clr Calc Pharmacy 130.2852; Globulin 1.9 g/dL (1.3-4.6); Glomerular Filtration Rate 101.5 mL/min (90-130); Glucose 110 mg/dL (65-115); Osmolality Calculated 293 mOsm/kg (285-295); Sodium 141 mmol/L (136-145); Testosterone Total 22.4 ng/dL (193-740); Total Bilirubin 0.3 mg/dL (0.15-1.2); Total Protein 6.1 g/dL (6.6-8.7)
== END 2024-02-07 23:59 | disposition home or self-care (01) ==
PROVIDERS: Absent Provider Internal Medicine Hematology & Oncology; PCP Internal Medicine Medical Oncology; Visit Provider Radiology Radiation Oncology
DX: C61 Malignant neoplasm of prostate; C79.51 Secondary malignant neoplasm of bone
CPT/HCPCS: 36591; 80053; 84153; 84403; 85025; 99214

== ENCOUNTER 2024-03-19 10:42 | Oncology outpatient (recurring) (ONCR) | payer MEDICARE, SELFPAY ==
[2024-03-19 11:08] LABS: Basophils # 0.1 10^3/uL (0.0-0.1); Basophils % 1.1 %; Eosinophils # 0.1 10^3/uL (0.0-0.8); Eosinophils % 1.9 %; Hematocrit 38.2 % (37-53); Mean Corpuscular HGB Conc 32.7 g/dL (30-55); Mean Corpuscular Hemoglobin 28.5 pg (27-33); Mean Corpuscular Volume 87.2 fl (82-101); Mean Platelet Volume 9.8 fL (7.4-10.4); Monocytes # 0.5 10^3/uL (0.2-0.9); Monocytes % 9.9 %; Neutrophils # 3.08 10^3/uL (1.8-7.7); Neutrophils % 65.9 %; Nucleated Red Blood Cells % 0 %; Platelet Count 184 10^3/cmm (157-399); Red Blood Count 4.38 10^6/uL (3.85-5.65); Red Cell Distribution Width 13.3 % (12.1-15.1); White Blood Count 4.67 10^3/uL (3.29-11.43)
[2024-03-19 11:37] LABS: Alanine Aminotransferase 21 U/L (0-41); Alkaline Phosphatase 100 U/L (40-130); Anion Gap 13.2 (5-19); Aspartate Amino Transferase 17 U/L (0-40); Blood Urea Nitrogen 12 mg/dL (6-20); Carbon Dioxide 27 mmol/L (22-29); Chloride 106 mmol/L (98-107); Globulin 2.3 g/dL (1.3-4.6); Glomerular Filtration Rate 101.5 mL/min (90-130); Glucose 106 mg/dL (65-115); Lactate Dehydrogenase 191 U/L (135-225); Osmolality Calculated 294 mOsm/kg (285-295); Potassium 4.2 mmol/L (3.5-5.1); Sodium 142 mmol/L (136-145); Total Bilirubin 0.3 mg/dL (0.15-1.2); Total Protein 6.3 g/dL (6.6-8.7)
[2024-03-19] MEDS: leuprolide 22.5 mg Kit IM (14:20)
[2024-03-19 15:28] LABS: Testosterone Total 18.8 ng/dL (193-740)
--- NOTE | 2024-03-21 09:30 | MR_ITS ---
WS: [id number] MRI HEAD WITH CONTRAST TECHNIQUE: Sagittal T1, T2 axial, T2 axial FLAIR, axial susceptibility weighted imaging, axial diffus ion weighted images, and coronal T2 images were obtained. Pre and post-T1 axial and post T1 coronal i mages. ADC and FSPGR images. CLINICAL INFORMATION: persistent headaches COMPARISON: None. FINDINGS: No evidence of restricted diffusion to suggest acute ischemia. Ventricular system and basal cisterns are patent. No suspicious intracranial signal abnormalities. Normal mayer-white differentiation. Romi l posterior fossa. Normal vascular flow voids at the skull base. No extra-axial fluid collections. No evidence of mass or mass effect. Retention cyst RIGHT maxillary sinus. Normal posterior nasopharynx. Mastoid air cells are well aerated. No hemosiderin on the susceptibly weighted images. Normal optic chiasm and pituitary infundibulum. Te mporal lobes and hippocampal formations are normal in appearance. No abnormal gadolinium enhancement. No evidence of enhancing intracranial metastatic disease. Inciden antonio venous angioma RIGHT frontal lobe. MR/MR head wo/w con [id number] IMPRESSION: 1. No evidence of restricted diffusion to suggest acute ischemia. 2. No evidence of enhancing intracranial metastatic disease. 3. No mass or mass effect. 4. No acute intracranial findings.
[2024-03-21] MEDS: gadobenate dimeglumine 20 mL vial IV (09:48)
== END 2024-04-08 23:59 | disposition home or self-care (01) ==
PROVIDERS: Internal Medicine Hematology & Oncology; Absent Provider Internal Medicine Medical Oncology; PCP Family Medicine; Visit Provider Nurse Practitioner
DX: Z53.9 Procedure and treatment not carried out, unspecified reason; Z51.11 Encounter for antineoplastic chemotherapy; C61 Malignant neoplasm of prostate; E55.9 Vitamin D deficiency, unspecified
CPT/HCPCS: 36591; 70553; 80053; 83615; 84153; 84403; 85025; 96402; 99214; J9217

== ENCOUNTER 2024-06-26 10:30 | Oncology outpatient (recurring) (ONCR) | payer MEDICARE, SELFPAY ==
[2024-06-13] MEDS: leuprolide 22.5 mg Kit IM (10:08)
[2024-06-13 10:25] LABS: Basophils % 1.1 %; Eosinophils # 0.2 10^3/uL (0.0-0.8); Eosinophils % 4.2 %; Hematocrit 37.2 % (37-53); Lymphocytes # 0.9 10^3/uL (0.8-4.8); Lymphocytes % 25.6 %; Mean Corpuscular HGB Conc 32.8 g/dL (30-55); Mean Corpuscular Hemoglobin 29.3 pg (27-33); Mean Corpuscular Volume 89.4 fl (82-101); Mean Platelet Volume 9.8 fL (7.4-10.4); Monocytes # 0.4 10^3/uL (0.2-0.9); Monocytes % 10.8 %; Neutrophils # 2.09 10^3/uL (1.8-7.7); Nucleated Red Blood Cells % 0 %; Platelet Count 206 10^3/cmm (157-399); Red Blood Count 4.16 10^6/uL (3.85-5.65); Red Cell Distribution Width 13.2 % (12.1-15.1)
[2024-06-13 10:56] LABS: Alanine Aminotransferase 36 U/L (0-41); Albumin Level 4.2 g/dL (3.5-5.2); Alkaline Phosphatase 126 U/L (40-130); Anion Gap 15.9 (5-19); Aspartate Amino Transferase 28 U/L (0-40); Blood Urea Nitrogen 10 mg/dL (6-20); Calcium 9.2 mg/dL (8.5-10.5); Carbon Dioxide 25 mmol/L (22-29); Chloride 102 mmol/L (98-107); Globulin 2.5 g/dL (1.3-4.6); Glomerular Filtration Rate 88.6 mL/min (90-130); Glucose 110 mg/dL (65-115); Osmolality Calculated 288 mOsm/kg (285-295); Potassium 3.9 mmol/L (3.5-5.1); Sodium 139 mmol/L (136-145); Testosterone Total 34.5 ng/dL (193-740); Total Bilirubin 0.6 mg/dL (0.15-1.2); Total Protein 6.7 g/dL (6.6-8.7)
[2024-06-13 11:30] LABS: 25 Hydroxy Vitamin D 21 ng/mL (30-100)
== END 2024-07-07 23:59 | disposition home or self-care (01) ==
PROVIDERS: Nurse Practitioner; Absent Provider Internal Medicine Medical Oncology; PCP Family Medicine; Visit Provider Internal Medicine
DX: Z53.9 Procedure and treatment not carried out, unspecified reason (principal); C61 Malignant neoplasm of prostate; R51.9 Headache, unspecified; Z79.818 Long term (current) use of other agents affecting estrogen receptors and estrogen levels; Z95.828 Presence of other vascular implants and grafts; Z87.891 Personal history of nicotine dependence
CPT/HCPCS: 36591; 80053; 82306; 84153; 84403; 85025; 96402; 99213; J9217

== ENCOUNTER 2024-09-04 07:39 | Oncology outpatient (recurring) (ONCR) | payer MEDICARE, SELFPAY ==
[2024-09-04 08:01] LABS: Basophils % 1.4 %; Eosinophils # 0.1 10^3/uL (0.0-0.8); Eosinophils % 2.5 %; Hematocrit 37.1 % (37-53); Lymphocytes # 0.9 10^3/uL (0.8-4.8); Lymphocytes % 32.6 %; Mean Corpuscular HGB Conc 32.6 g/dL (30-55); Mean Corpuscular Hemoglobin 28.9 pg (27-33); Mean Corpuscular Volume 88.8 fl (82-101); Mean Platelet Volume 9.7 fL (7.4-10.4); Monocytes # 0.3 10^3/uL (0.2-0.9); Monocytes % 9.8 %; Neutrophils # 1.52 10^3/uL (1.8-7.7); Neutrophils % 53.3 %; Nucleated Red Blood Cells % 0 %; Platelet Count 182 10^3/cmm (157-399); Red Blood Count 4.18 10^6/uL (3.85-5.65); Red Cell Distribution Width 12.8 % (12.1-15.1); White Blood Count 2.85 10^3/uL (3.29-11.43)
[2024-09-04 08:30] LABS: Alanine Aminotransferase 28 U/L (0-41); Alkaline Phosphatase 179 U/L (40-130); Anion Gap 13.3 (5-19); Aspartate Amino Transferase 19 U/L (0-40); Blood Urea Nitrogen 11 mg/dL (6-20); Carbon Dioxide 25 mmol/L (22-29); Chloride 108 mmol/L (98-107); Creatinine Clr Calc Pharmacy 112.0571; Globulin 2.4 g/dL (1.3-4.6); Glomerular Filtration Rate 88.3 mL/min (90-130); Glucose 99 mg/dL (65-115); Lactate Dehydrogenase 214 U/L (135-225); Osmolality Calculated 293 mOsm/kg (285-295); Potassium 4.3 mmol/L (3.5-5.1); Sodium 142 mmol/L (136-145); Testosterone Total 20.4 ng/dL (193-740); Total Bilirubin 0.3 mg/dL (0.15-1.2); Total Protein 6.4 g/dL (6.6-8.7)
[2024-09-04] MEDS: leuprolide 22.5 mg Kit IM (10:06)
== END 2024-09-06 23:59 | disposition home or self-care (01) ==
PROVIDERS: Absent Provider Internal Medicine Medical Oncology; PCP Family Medicine; Visit Provider Internal Medicine
DX: Z51.11 Encounter for antineoplastic chemotherapy (principal); C61 Malignant neoplasm of prostate; C79.51 Secondary malignant neoplasm of bone; C77.0 Secondary and unspecified malignant neoplasm of lymph nodes of head, face and neck; R51.9 Headache, unspecified; Z79.818 Long term (current) use of other agents affecting estrogen receptors and estrogen levels; Z79.899 Other long term (current) drug therapy
CPT/HCPCS: 36591; 80053; 83615; 84153; 84403; 85025; 96402; 99213; J9217

== ENCOUNTER 2024-12-04 16:00 | Oncology outpatient (recurring) (ONCR) | payer MEDICARE, SELFPAY ==
[2024-11-27 12:02] LABS: Hematocrit 34.4 % (37-53); Hemoglobin 11.50 g/dL (11.27-16.99); Mean Corpuscular HGB Conc 33.4 g/dL (30-55); Mean Corpuscular Hemoglobin 29.4 pg (27-33); Mean Corpuscular Volume 88.0 fl (82-101); Nucleated Red Blood Cells % 0 %; Platelet Count 184 10^3/cmm (157-399); Red Blood Count 3.91 10^6/uL (3.85-5.65); White Blood Count 3.12 10^3/uL (3.29-11.43)
[2024-11-27 12:38] LABS: Alanine Aminotransferase 27 U/L (0-41); Albumin Level 4.4 g/dL (3.5-5.2); Alkaline Phosphatase 361 U/L (40-130); Anion Gap 14.4 (5-19); Aspartate Amino Transferase 21 U/L (0-40); Blood Urea Nitrogen 13 mg/dL (6-20); Calcium 9.0 mg/dL (8.5-10.5); Carbon Dioxide 23 mmol/L (22-29); Chloride 108 mmol/L (98-107); Creatinine Clr Calc Pharmacy 112.3009; Globulin 2.2 g/dL (1.3-4.6); Glucose 98 mg/dL (65-115); Osmolality Calculated 292 mOsm/kg (285-295); Potassium 4.4 mmol/L (3.5-5.1); Sodium 141 mmol/L (136-145); Total Protein 6.6 g/dL (6.6-8.7)
[2024-11-27 13:00] LABS: Prostate Specific Antigen 386.200 ng/mL (0-4)
[2024-11-27] MEDS: leuprolide 22.5 mg Kit IM (13:38)
--- NOTE | 2024-11-27 13:45 | CT_ITS ---
WS: [id number] CT CHEST ANGIOGRAPHY WITH REFORMATS HISTORY: shortness of breath TECHNIQUE: Contiguous axial images are obtained through the chest during arterial injection of intravenous contrast. Images are reconstructed to evaluate the pulmonary arteries. MIP imaging also reviewed. All CT scans at [facility] use at least one of these dose optimization techniques: automated exposure control; mA and/or kV adjustment per patient size (includes targeted exams where dose is matched to clinical indication); or iterative reconstruction. CONTRAST: Omnipaque 350; 100 mL IV. DLP: 398.55 mGy.cm COMPARISON: 06/29/2022 Good opacification of the pulmonary arteries. No filling defects or pulmonary embolism. Normal size pulmonary artery. No RIGHT heart strain. Mild atherosclerosis aorta. No aneurysm. Mild LEFT heart enlargement. Lung volumes are decreased due to poor inspiration. No mass, pneumonia or nodule. No mediastinal or hilar adenopathy. LEFT subclavian Mediport is in place. Bilateral gynecomastia. Small hiatal hernia. Hepatic steatosis. No adrenal mass. Osseous sclerosis in several thoracic and lumbar vertebral bodies. Sclerotic foci in the bones of the shoulders and ribs. Patient has known prostate metastatic bone disease. Osteoblastic metastatic sites have significantly increased since 06/29/2022 within the bones of the thorax. CT/CT angio chest PE protcl [id number] IMPRESSION: 1. No pulmonary embolism. 2. Mild LEFT heart enlargement. 3. No mediastinal or hilar adenopathy. 4. No pneumonia. 5. Significant progression of osteoblastic metastatic prostate cancer since . Involvement of multiple thoracic and upper lumbar vertebral bodies, ri bs, clavicles and LEFT humeral head.
[2024-11-27] MEDS: iohexol 350 mg/mL 500 mL Btl (per mL) IV (14:23)
[2024-11-27 14:46] LABS: Glucose Urine UA Negative (Normal); Nitrate Urine Negative (Negative); Specific Gravity, Urine 1.021 (1.005-1.030)
[2024-12-04] MEDS: gadobenate dimeglumine 20 mL vial IV (13:06)
--- NOTE | 2024-12-04 16:00 | MR_ITS ---
WS: [id number] MRI BRAIN WITH AND WITHOUT CONTRAST HISTORY: headaches,amaurosis, near syncope, nausea, history of prostate cancer. COMPARISON: 03/21/2024 TECHNIQUE: Multiplanar imaging performed through the brain with MultiHance 20 ml's IV. No acute infarcts are seen. Cervantes-white matter differentiation is well preserved. No significant hippocampal atrophy. No significant small vessel disease or prior infarct. No susceptibility artifacts or prior lacunar infarcts. Ventricles and extra-axial spaces are normal. Clivus and pituitary gland are normal. Visualized posterior fossa and brainstem are also normal. Signal abnormality is noted in situ, posterior C3 and scattered within the skull suspicious for metastatic lesions. The largest towards the LEFT parietal vertex measuring 12 mm. Skull lesions are new. Postcontrast images are negative for masses or vascular malformations. Dural venous sinuses are normal. Small caliber RIGHT transverse sinus and an arachnoid granulation are stable since 03/21/2024. Paranasal sinuses: Mucous retention cyst in the floor of the RIGHT maxillary sinus. Mastoid air cells: Normal. Calvarium and scalp: Normal. MR/MR head wo/w con [id number] IMPRESSION: 1. No acute infarct. 2. No enhancing masses or metastatic disease to the brain. 3. No prior infarct or significant atrophy. 4. Subtle signal abnormalities within the skull and C2 and C3. Suspect metasta tic prostate cancer.
== END 2024-12-07 23:59 | disposition home or self-care (01) ==
LOC: RAD 12-05 00:01 → ONCMED 12-05 08:01
PROVIDERS: Nurse Practitioner; Absent Provider Internal Medicine Medical Oncology; PCP Family Medicine; Visit Provider Internal Medicine
DX: Z51.11 Encounter for antineoplastic chemotherapy; C61 Malignant neoplasm of prostate; Z79.818 Long term (current) use of other agents affecting estrogen receptors and estrogen levels; C79.51 Secondary malignant neoplasm of bone; Z79.899 Other long term (current) drug therapy; R51.9 Headache, unspecified; R11.0 Nausea; H54.7 Unspecified visual loss; R06.02 Shortness of breath; Z92.3 Personal history of irradiation; Z87.891 Personal history of nicotine dependence; Z53.9 Procedure and treatment not carried out, unspecified reason
CPT/HCPCS: 36591; 70553; 71275; 80053; 81001; 83615; 84153; 84403; 85025; 96402; 99215; J9217

== ENCOUNTER 2024-12-23 14:58 | Oncology outpatient (recurring) (ONCR) | payer MEDICARE, SELFPAY | END 2025-01-06 23:59 | disposition home or self-care (01) | LOC: ONCMED 14:58 | PROVIDERS: Absent Provider Internal Medicine Medical Oncology; PCP Family Medicine; Visit Provider Internal Medicine | DX: Z51.11 Encounter for antineoplastic chemotherapy (principal); C61 Malignant neoplasm of prostate; Z79.818 Long term (current) use of other agents affecting estrogen receptors and estrogen levels; C79.51 Secondary malignant neoplasm of bone; R06.02 Shortness of breath; I51.7 Cardiomegaly; R93.89 Abnormal findings on diagnostic imaging of other specified body structures; I70.0 Atherosclerosis of aorta; N62 Hypertrophy of breast; K44.9 Diaphragmatic hernia without obstruction or gangrene; K76.0 Fatty (change of) liver, not elsewhere classified; Z87.891 Personal history of nicotine dependence; Z96.89 Presence of other specified functional implants | CPT/HCPCS: 99214 ==

== ENCOUNTER 2025-02-03 08:00 | Oncology outpatient (recurring) (ONCR) | payer MEDICARE, SELFPAY ==
[2025-01-13 08:39] LABS: Hematocrit 32.3 % (37-53); Hemoglobin 10.30 g/dL (11.27-16.99); Mean Corpuscular HGB Conc 31.9 g/dL (30-55); Mean Corpuscular Hemoglobin 28.1 pg (27-33); Mean Corpuscular Volume 88.0 fl (82-101); Nucleated Red Blood Cells % 0 %; Platelet Count 210 10^3/cmm (157-399); Red Blood Count 3.67 10^6/uL (3.85-5.65); White Blood Count 3.99 10^3/uL (3.29-11.43)
[2025-01-13 09:15] LABS: Alanine Aminotransferase 16 U/L (0-41); Albumin Level 4.0 g/dL (3.5-5.2); Alkaline Phosphatase 675 U/L (40-130); Anion Gap 16.3 (5-19); Aspartate Amino Transferase 15 U/L (0-40); Blood Urea Nitrogen 15 mg/dL (6-20); Calcium 8.7 mg/dL (8.5-10.5); Carbon Dioxide 24 mmol/L (22-29); Chloride 103 mmol/L (98-107); Creatinine Clr Calc Pharmacy 111.3262; Globulin 2.9 g/dL (1.3-4.6); Glucose 118 mg/dL (65-115); Osmolality Calculated 290 mOsm/kg (285-295); Potassium 4.3 mmol/L (3.5-5.1); Sodium 139 mmol/L (136-145); Total Protein 6.9 g/dL (6.6-8.7)
[2025-01-13 09:42] LABS: Prostate Specific Antigen 623.900 ng/mL (0-4)
[2025-01-13] MEDS: diphenhydrAMINE 50 mg/mL SDV 1mL 25 MG IVP (11:24)
[2025-01-13] MEDS: zoledronic acid (Zometa) 4 MG/100 ML PIGGYBACK 400 MG IV (12:04)
[2025-01-13] MEDS: [UNRECOGNIZED DRUG - REMARK] 266 MG IV (12:28)
[2025-01-13 13:53] VITALS: BP 117/73; PULSE 66; RESP 17; TEMP 36.6; O2SAT 97
[2025-01-20 08:56] LABS: Hematocrit 33.5 % (37-53); Hemoglobin 10.90 g/dL (11.27-16.99); Mean Corpuscular HGB Conc 32.5 g/dL (30-55); Mean Corpuscular Hemoglobin 28.3 pg (27-33); Mean Corpuscular Volume 87.0 fl (82-101); Nucleated Red Blood Cells % 0 %; Platelet Count 246 10^3/cmm (157-399); Red Blood Count 3.85 10^6/uL (3.85-5.65); White Blood Count 1.10 10^3/uL (3.29-11.43)
[2025-01-20 09:14] LABS: Alanine Aminotransferase 31 U/L (0-41); Albumin Level 3.9 g/dL (3.5-5.2); Alkaline Phosphatase 421 U/L (40-130); Anion Gap 15.7 (5-19); Aspartate Amino Transferase 33 U/L (0-40); Blood Urea Nitrogen 12 mg/dL (6-20); Calcium 7.4 mg/dL (8.5-10.5); Carbon Dioxide 22 mmol/L (22-29); Chloride 104 mmol/L (98-107); Creatinine Clr Calc Pharmacy 142.2920; Globulin 2.6 g/dL (1.3-4.6); Glucose 127 mg/dL (65-115); Osmolality Calculated 285 mOsm/kg (285-295); Potassium 4.7 mmol/L (3.5-5.1); Sodium 137 mmol/L (136-145); Total Protein 6.5 g/dL (6.6-8.7)
[2025-01-20 09:30] LABS: Slide Review Slide Review Perform
[2025-02-03 08:17] LABS: Hematocrit 34.3 % (37-53); Hemoglobin 10.90 g/dL (11.27-16.99); Mean Corpuscular HGB Conc 31.8 g/dL (30-55); Mean Corpuscular Hemoglobin 27.9 pg (27-33); Mean Corpuscular Volume 87.9 fl (82-101); Nucleated Red Blood Cells % 0 %; Platelet Count 170 10^3/cmm (157-399); Red Blood Count 3.90 10^6/uL (3.85-5.65); White Blood Count 5.42 10^3/uL (3.29-11.43)
[2025-02-03 08:48] LABS: Alanine Aminotransferase 25 U/L (0-41); Albumin Level 4.1 g/dL (3.5-5.2); Alkaline Phosphatase 669 U/L (40-130); Anion Gap 17.0 (5-19); Aspartate Amino Transferase 16 U/L (0-40); Blood Urea Nitrogen 15 mg/dL (6-20); Calcium 8.6 mg/dL (8.5-10.5); Carbon Dioxide 21 mmol/L (22-29); Chloride 107 mmol/L (98-107); Creatinine Clr Calc Pharmacy 142.5074; Globulin 2.3 g/dL (1.3-4.6); Glucose 134 mg/dL (65-115); Osmolality Calculated 293 mOsm/kg (285-295); Potassium 5.0 mmol/L (3.5-5.1); Sodium 140 mmol/L (136-145); Total Protein 6.4 g/dL (6.6-8.7)
[2025-02-03 09:20] LABS: Prostate Specific Antigen 235.400 ng/mL (0-4)
[2025-02-03] MEDS: diphenhydrAMINE 50 mg/mL SDV 1mL 25 MG IVP (10:07)
[2025-02-03] MEDS: [UNRECOGNIZED DRUG - REMARK] 264.5 MG IV (11:34)
[2025-02-03] MEDS: pegfilgrastim 6 mg/0.6 mL Kit (onpro) SUBCUT (12:41)
[2025-02-03 12:54] VITALS: BP 122/82; PULSE 66; RESP 16; TEMP 35.9; O2SAT 96
== END 2025-02-06 23:59 | disposition home or self-care (01) ==
PROVIDERS: Nurse Practitioner; Absent Provider Internal Medicine Medical Oncology; PCP Family Medicine; Visit Provider Internal Medicine Medical Oncology
DX: Z51.11 Encounter for antineoplastic chemotherapy (principal); C61 Malignant neoplasm of prostate; Z79.818 Long term (current) use of other agents affecting estrogen receptors and estrogen levels; C79.51 Secondary malignant neoplasm of bone; R06.02 Shortness of breath; I51.7 Cardiomegaly; R93.89 Abnormal findings on diagnostic imaging of other specified body structures; I70.0 Atherosclerosis of aorta; N62 Hypertrophy of breast; K44.9 Diaphragmatic hernia without obstruction or gangrene; K76.0 Fatty (change of) liver, not elsewhere classified; Z87.891 Personal history of nicotine dependence; Z96.89 Presence of other specified functional implants; C77.9 Secondary and unspecified malignant neoplasm of lymph node, unspecified; R03.0 Elevated blood-pressure reading, without diagnosis of hypertension; Z95.828 Presence of other vascular implants and grafts; Z92.3 Personal history of irradiation; Z92.21 Personal history of antineoplastic chemotherapy
CPT/HCPCS: 36591; 80053; 84153; 84403; 85025; 96367; 96372; 96375; 96377; 96411; 96413; 99214; 99215; J1100; J1200; J2469; J2506; J3489; J3490; J7050; J9171; Q5101

== ENCOUNTER 2025-02-24 08:33 | Oncology outpatient (recurring) (ONCR) | payer MEDICARE, SELFPAY ==
[2025-02-24 09:05] LABS: Hematocrit 32.1 % (37-53); Hemoglobin 10.40 g/dL (11.27-16.99); Mean Corpuscular HGB Conc 32.4 g/dL (30-55); Mean Corpuscular Hemoglobin 29.3 pg (27-33); Mean Corpuscular Volume 90.4 fl (82-101); Nucleated Red Blood Cells % 0 %; Platelet Count 216 10^3/cmm (157-399); Red Blood Count 3.55 10^6/uL (3.85-5.65); White Blood Count 3.74 10^3/uL (3.29-11.43)
[2025-02-24 09:43] LABS: Alanine Aminotransferase 24 U/L (0-41); Albumin Level 4.0 g/dL (3.5-5.2); Alkaline Phosphatase 342 U/L (40-130); Anion Gap 10.4 (5-19); Aspartate Amino Transferase 17 U/L (0-40); Blood Urea Nitrogen 13 mg/dL (6-20); Calcium 8.7 mg/dL (8.5-10.5); Carbon Dioxide 24 mmol/L (22-29); Chloride 111 mmol/L (98-107); Globulin 2.1 g/dL (1.3-4.6); Glucose 138 mg/dL (65-115); Osmolality Calculated 294 mOsm/kg (285-295); Potassium 4.4 mmol/L (3.5-5.1); Sodium 141 mmol/L (136-145); Total Protein 6.1 g/dL (6.6-8.7)
[2025-02-24 09:59] VITALS: BP 128/86; PULSE 76; RESP 16; TEMP 36.4; O2SAT 96
[2025-02-24] MEDS: diphenhydrAMINE 50 mg/mL SDV 1mL 25 MG IVP (10:13)
[2025-02-24] MEDS: leuprolide 22.5 mg Kit IM (10:28)
[2025-02-24] MEDS: zoledronic acid (Zometa) 4 MG/100 ML PIGGYBACK 400 MG IV (10:39)
[2025-02-24] MEDS: pegfilgrastim 6 mg/0.6 mL Kit (onpro) SUBCUT (12:21)
[2025-02-24 12:24] VITALS: BP 138/82; PULSE 78; RESP 16; TEMP 36.5; O2SAT 99
== END 2025-02-24 23:59 | disposition home or self-care (01) ==
PROVIDERS: Nurse Practitioner; Absent Provider Internal Medicine Medical Oncology; PCP Family Medicine; Visit Provider Internal Medicine Medical Oncology
DX: Z51.11 Encounter for antineoplastic chemotherapy (principal); C61 Malignant neoplasm of prostate; C79.51 Secondary malignant neoplasm of bone; C77.9 Secondary and unspecified malignant neoplasm of lymph node, unspecified; D70.1 Agranulocytosis secondary to cancer chemotherapy; T45.1X5A Adverse effect of antineoplastic and immunosuppressive drugs, initial encounter; Z79.818 Long term (current) use of other agents affecting estrogen receptors and estrogen levels; Z87.891 Personal history of nicotine dependence; Z95.828 Presence of other vascular implants and grafts; Z92.3 Personal history of irradiation; Z79.52 Long term (current) use of systemic steroids; Z79.899 Other long term (current) drug therapy
CPT/HCPCS: 80053; 84153; 85025; 96367; 96375; 96377; 96402; 96413; 99214; J1100; J1200; J2469; J2506; J3489; J3490; J7050; J9171; J9217

== ENCOUNTER 2025-04-07 08:15 | Oncology outpatient (recurring) (ONCR) | payer MEDICARE, SELFPAY ==
[2025-03-17 09:04] LABS: Hematocrit 29.7 % (37-53); Hemoglobin 9.40 g/dL (11.27-16.99); Mean Corpuscular HGB Conc 31.6 g/dL (30-55); Mean Corpuscular Hemoglobin 29.0 pg (27-33); Mean Corpuscular Volume 91.7 fl (82-101); Nucleated Red Blood Cells % 0 %; Platelet Count 159 10^3/cmm (157-399); Red Blood Count 3.24 10^6/uL (3.85-5.65); White Blood Count 4.12 10^3/uL (3.29-11.43)
[2025-03-17 09:37] LABS: Alanine Aminotransferase 14 U/L (0-41); Albumin Level 3.9 g/dL (3.5-5.2); Alkaline Phosphatase 230 U/L (40-130); Anion Gap 10.7 (5-19); Aspartate Amino Transferase 22 U/L (0-40); Blood Urea Nitrogen 15 mg/dL (6-20); Calcium 7.7 mg/dL (8.5-10.5); Carbon Dioxide 24 mmol/L (22-29); Chloride 111 mmol/L (98-107); Globulin 1.7 g/dL (1.3-4.6); Glucose 122 mg/dL (65-115); Osmolality Calculated 294 mOsm/kg (285-295); Potassium 4.7 mmol/L (3.5-5.1); Sodium 141 mmol/L (136-145); Total Protein 5.6 g/dL (6.6-8.7)
[2025-03-17] MEDS: diphenhydrAMINE 50 mg/mL SDV 1mL 25 MG IVP (11:23)
[2025-03-17] MEDS: pegfilgrastim 6 mg/0.6 mL Kit (onpro) SUBCUT (13:22)
[2025-04-07 08:28] LABS: Hematocrit 29.7 % (37-53); Hemoglobin 9.40 g/dL (11.27-16.99); Mean Corpuscular HGB Conc 31.6 g/dL (30-55); Mean Corpuscular Hemoglobin 29.6 pg (27-33); Mean Corpuscular Volume 93.4 fl (82-101); Nucleated Red Blood Cells % 0 %; Platelet Count 152 10^3/cmm (157-399); Red Blood Count 3.18 10^6/uL (3.85-5.65); White Blood Count 3.06 10^3/uL (3.29-11.43)
[2025-04-07 08:57] LABS: Alanine Aminotransferase 13 U/L (0-41); Albumin Level 3.9 g/dL (3.5-5.2); Alkaline Phosphatase 187 U/L (40-130); Anion Gap 15.6 (5-19); Aspartate Amino Transferase 15 U/L (0-40); Blood Urea Nitrogen 17 mg/dL (6-20); Calcium 8.4 mg/dL (8.5-10.5); Carbon Dioxide 22 mmol/L (22-29); Chloride 107 mmol/L (98-107); Globulin 1.7 g/dL (1.3-4.6); Glucose 151 mg/dL (65-115); Osmolality Calculated 294 mOsm/kg (285-295); Potassium 4.6 mmol/L (3.5-5.1); Sodium 140 mmol/L (136-145); Total Protein 5.6 g/dL (6.6-8.7)
[2025-04-07] MEDS: diphenhydrAMINE 50 mg/mL SDV 1mL 25 MG IVP (09:47)
[2025-04-07] MEDS: zoledronic acid (Zometa) 4 MG/100 ML PIGGYBACK 400 MG IV (10:30)
[2025-04-07] MEDS: pegfilgrastim 6 mg/0.6 mL Kit (onpro) SUBCUT (12:44)
[2025-04-07 12:49] VITALS: BP 150/91; PULSE 73; RESP 16; TEMP 36.2; O2SAT 96
== END 2025-04-07 23:59 | disposition home or self-care (01) ==
PROVIDERS: Absent Provider Internal Medicine Medical Oncology; PCP Family Medicine; Visit Provider Nurse Practitioner
DX: Z51.11 Encounter for antineoplastic chemotherapy; C61 Malignant neoplasm of prostate; C79.51 Secondary malignant neoplasm of bone; C77.8 Secondary and unspecified malignant neoplasm of lymph nodes of multiple regions; D70.1 Agranulocytosis secondary to cancer chemotherapy; T45.1X5A Adverse effect of antineoplastic and immunosuppressive drugs, initial encounter; J06.9 Acute upper respiratory infection, unspecified; R53.83 Other fatigue; Z79.899 Other long term (current) drug therapy; Z79.52 Long term (current) use of systemic steroids; Z92.3 Personal history of irradiation; Z87.891 Personal history of nicotine dependence; Z79.818 Long term (current) use of other agents affecting estrogen receptors and estrogen levels; Z53.9 Procedure and treatment not carried out, unspecified reason
CPT/HCPCS: 80053; 84153; 85025; 96372; 96375; 96377; 96413; 99214; 99215; J1100; J1200; J2469; J2506; J3489; J3490; J7050; J9171